=== PATIENT | male | born 1940 | race Caucasian/White ===

== ENCOUNTER 2016-12-08 12:29 | Outpatient (RCR) | payer MEDICARE, MEDICAID ==
[~2016-12-08 12:29] MED LIST: /AUGM875TA; ATARAX; AZEL0.1S3; BACT2CRE; CALC600T21 PO; CALCCHW12; CALCTAB22; CEPH500C; CLAR5CHW; CLOTPOW; DRISDOL; ELIDEL; ELIMITE CREAM; EUCERIN CREAM; FURO1TAB15 PO; HYDR25TA8; K-TA10TA2 PO; KEFL500C; LASI40TA; LORA10TA2 PO; MOME50SP; NASONEX; OMEP20TA PO; PAXI30TA; POTA10CA2; POTA20TA2; PRAV10TA PO; PRIL20CA; TRIAMCINOLONE; TYLE325T5 PO; VITA10002 PO; VITA100037 PO; [UNRECOGNIZED DRUG - OTHER]
== END 2016-12-14 ==
LOC: M PT 12:29
PROVIDERS: ATTEND Nurse Practitioner Family
DX: Z51.89 Encounter for other specified aftercare (principal); S39.012D Strain of muscle, fascia and tendon of lower back, subsequent encounter
CPT/HCPCS: 97110; 97140; 97162; G8978; G8979

== ENCOUNTER 2016-12-15 12:38 | Outpatient (RCR) | payer MEDICARE, MEDICAID | END 2017-01-11 | LOC: M PT 12:38 | PROVIDERS: ATTEND Nurse Practitioner Family | DX: Z51.89 Encounter for other specified aftercare (principal); S39.012D Strain of muscle, fascia and tendon of lower back, subsequent encounter | CPT/HCPCS: 97110; G8978; G8979; G8980 ==

== ENCOUNTER → 2016-12-31 | Outpatient (REF) | payer MEDICARE, MEDICAID ==
[2016-12-31 11:50] LABS: ALBUMIN 3.8 GM/DL (3.2-5.2); BILIRUBIN,TOTAL 0.9 MG/DL (0.2-1.0); CALCIUM LEVEL 8.7 MG/DL (8.8-10.2); CREATININE FOR GFR 1.37 MG/DL (0.70-1.30); GLOMERULAR FILTRATION RATE 53.8 (>42); POTASSIUM SERUM 4.5 MEQ/L (3.5-5.1); TOTAL PROTEIN 7.6 GM/DL (6.4-8.2)
[2016-12-31 11:59] LABS: FOLATE 8.6 NG/ML
[2016-12-31 12:21] LABS: MEAN CORPUSCULAR HEMOGLOBIN 31.4 pg (27.0-33.0); MEAN CORPUSCULAR HGB CONC 33.2 g/dl (32.0-36.5); MEAN CORPUSCULAR VOLUME 94.5 fl (80.0-96.0); RED CELL DISTRIBUTION WIDTH 12.6 % (11.5-14.5); WHITE BLOOD COUNT 7.2 K/mm3 (4.0-10.0)
== END ==
LOC: M SFHCPLAZ 11:10
PROVIDERS: ATTEND Nurse Practitioner Family
DX: E53.8 Deficiency of other specified B group vitamins (principal); R60.0 Localized edema

== ENCOUNTER → 2017-02-16 | Outpatient (REF) | payer MEDICARE, MEDICAID ==
[2017-02-16 13:03] LABS: MEAN CORPUSCULAR HEMOGLOBIN 31.5 pg (27.0-33.0); MEAN CORPUSCULAR HGB CONC 32.9 g/dl (32.0-36.5); MEAN CORPUSCULAR VOLUME 95.8 fl (80.0-96.0); RED CELL DISTRIBUTION WIDTH 12.6 % (11.5-14.5); WHITE BLOOD COUNT 7.1 K/mm3 (4.0-10.0)
[2017-02-16 13:31] LABS: FOLATE 6.9 NG/ML
[2017-02-16 13:39] LABS: ALBUMIN 3.8 GM/DL (3.2-5.2); ALBUMIN/GLOBULIN RATIO 1.15 (1.00-1.93); BILIRUBIN,TOTAL 0.9 MG/DL (0.2-1.0); CALCIUM LEVEL 8.7 MG/DL (8.8-10.2); CREATININE FOR GFR 1.3 MG/DL (0.70-1.30); FREE T4 0.92 NG/DL (0.76-1.46); GLOMERULAR FILTRATION RATE 57.1 (>42); POTASSIUM SERUM 4.2 MEQ/L (3.5-5.1); TOTAL PROTEIN 7.1 GM/DL (6.4-8.2)
== END ==
LOC: M SFHCPLAZ 10:49
PROVIDERS: ATTEND Nurse Practitioner Family
DX: E53.8 Deficiency of other specified B group vitamins (principal); R60.0 Localized edema; E78.2 Mixed hyperlipidemia; E55.9 Vitamin D deficiency, unspecified

== ENCOUNTER → 2017-04-01 | Outpatient (REF) | payer MEDICARE, MEDICAID ==
[2017-04-01 10:06] LABS: ALBUMIN 3.9 GM/DL (3.2-5.2); ALBUMIN/GLOBULIN RATIO 1.08 (1.00-1.93); BILIRUBIN,TOTAL 0.5 MG/DL (0.2-1.0); CALCIUM LEVEL 8.6 MG/DL (8.8-10.2); CREATININE FOR GFR 1.54 MG/DL (0.70-1.30); POTASSIUM SERUM 3.6 MEQ/L (3.5-5.1); TOTAL PROTEIN 7.5 GM/DL (6.4-8.2)
[2017-04-01 10:07] LABS: MEAN CORPUSCULAR HEMOGLOBIN 32.9 pg (27.0-33.0); MEAN CORPUSCULAR HGB CONC 33.5 g/dl (32.0-36.5); RED CELL DISTRIBUTION WIDTH 12.7 % (11.5-14.5); WHITE BLOOD COUNT 7.7 K/mm3 (4.0-10.0)
[2017-04-01 10:19] LABS: FOLATE 12.8 NG/ML
== END ==
LOC: M LAB REF 08:59
PROVIDERS: ATTEND Nurse Practitioner Family
DX: E53.8 Deficiency of other specified B group vitamins (principal); R60.0 Localized edema; E55.9 Vitamin D deficiency, unspecified

== ENCOUNTER → 2017-08-15 | Outpatient (CLI) | payer MEDICARE, MEDICAID ==
[~2017-08-15] MED LIST changes: -CALC600T21 PO; +CALC600T60 PO; -FURO1TAB15 PO; +FURO80TA2 PO; -PRAV10TA PO; +PRAV10TA4 PO; -VITA100037 PO; +VITA100067 PO
[2017-08-15 13:45] LABS: FOLATE 9.1 NG/ML
[2017-08-15 14:31] LABS: POTASSIUM SERUM 4.6 MEQ/L (3.5-5.1)
[2017-08-15 15:06] LABS: ALBUMIN/GLOBULIN RATIO 1.14 (1.00-1.93); CALCIUM LEVEL 9.2 MG/DL (8.8-10.2); CREATININE FOR GFR 1.39 MG/DL (0.70-1.30); GLOMERULAR FILTRATION RATE 52.7 (>42); TOTAL PROTEIN 7.5 GM/DL (6.4-8.2)
== END ==
LOC: M SMT 08:38
PROVIDERS: ATTEND Nurse Practitioner Family
DX: R60.0 Localized edema (principal); E55.9 Vitamin D deficiency, unspecified; E53.8 Deficiency of other specified B group vitamins

== ENCOUNTER 2017-10-12 13:57 | Inpatient (IN) | payer MEDICARE, MEDICAID ==
[~2017-10-12] VITALS: Ht 165.1 cm; Wt 79.4 kg
[~2017-10-12 13:57] MED LIST changes: -CETI10TA PO; -FOLI1TAB4 PO; -LEVO500T3 PO; -OCEA0.654; -PATIENT COMMENT; -PROAAER10 INH
--- NOTE | 2017-10-12 15:50 | REP ---
Chest x-ray: Single AP view. History: Dyspnea and cough. Comparison study: October 12, 2017. Findings: The lungs are symmetrically aerated and free of infiltrate. Pleural angles are sharp. There is a dextroconvex thoracolumbar curvature of the spine. Degenerative changes are seen in the thoracic spine. Pulmonary vasculature is not increased. Impression: No active disease. Signed by Cruzito Mari MD 10/12/2017 04:10 P
[2017-10-12 16:39] LABS: BASO # 0.1 10^3/uL (0.0-0.2); BASO % 0.4 % (0.0-1.0); EOS % 0.3 % (0.0-3.0); IMMATURE GRANULOCYTE % 0.4 % (0-0); LYMPH % 9.1 % (24.0-44.0); MEAN CORPUSCULAR HGB CONC 34.2 g/dl (32.0-36.5); MEAN CORPUSCULAR VOLUME 93.3 fl (80.0-96.0); MONO # 1.3 10^3/uL (0.0-0.8); MONO % 11.7 % (0.0-5.0); NEUTROPHILS # 8.7 10^3/uL (1.8-7.7); NEUTROPHILS % 78.1 % (36.0-66.0); PLATELET COUNT, AUTOMATED 264 10^3/uL (150-450); RED CELL DISTRIBUTION WIDTH 13.4 % (11.5-14.5); WHITE BLOOD COUNT 11.2 10^3/uL (4.0-10.0)
[2017-10-12 16:51] LABS: ANION GAP 9 MEQ/L (8-16); BLOOD UREA NITROGEN 19 MG/DL (7-18); CALCIUM LEVEL 8.1 MG/DL (8.8-10.2); CARBON DIOXIDE LEVEL 28 MEQ/L (21-32); CHLORIDE LEVEL 100 MEQ/L (98-107); CREATININE FOR GFR 1.62 MG/DL (0.70-1.30); GLOMERULAR FILTRATION RATE 44.2 (>42); GLUCOSE, FASTING 97 MG/DL (83-110); SODIUM LEVEL 137 MEQ/L (136-145)
[2017-10-12 16:58] LABS: ALBUMIN 3.3 GM/DL (3.2-5.2); ALBUMIN/GLOBULIN RATIO 0.7 (1.00-1.93); BILIRUBIN,DIRECT 0.2 MG/DL (0.0-0.2); BILIRUBIN,TOTAL 0.9 MG/DL (0.2-1.0)
[2017-10-12] MEDS ORDERED: NS 500 ML IV ONE (17:15)
[2017-10-12] MEDS ORDERED: NS 1,000 ML IV ONE (17:30)
--- NOTE | 2017-10-12 19:18 | REP ---
Clinical: Acute abdominal pain with diarrhea. Comparison: 05/02/2011. Findings: Lung bases demonstrate mild chronic interstitial changes. Visualized heart and pericardium normal. Liver, spleen, pancreas, gallbladder, and bilateral adrenal glands appear normal. Mild bilateral perinephric stranding is appreciated which is nonspecific and possibly chronic although correlation with urinalysis is recommended to exclude pyelonephritis. There is no associated hydronephrosis, intrarenal or obstructing ureteral calculi. Evaluation of the enteric system is without obstruction. Subtle haziness to the mesentery with mildly prominent lymph nodes to the mid/left abdomen suggest the possibility of a mild enteritis or mesenteritis. The colon demonstrates scattered and sigmoid diverticulosis without evidence for acute diverticulitis. No free air, free fluid or drainable collection/abscess. Pelvis demonstrates normal bladder and chronic prostatic calcifications. Fat containing right and inguinal hernia noted. No retroperitoneal adenopathy. Abdominal aorta without aneurysm. Musculoskeletal structures demonstrate age-related degenerative changes without focal osseous abnormality. Impression: 1. Mild symmetric perinephric stranding is likely chronic although acute pyelonephritis cannot be excluded and should be correlated with urinalysis. 2. Mild haziness to the mid to left abdominal mesentery with subtle prominent lymph nodes raises the possibility of a mild enteritis and/or mesenteritis. No obstruction or perforation. Colonic diverticula without acute diverticulitis. 3. No further significant adenopathy, mass, free fluid/ascites. Signed by Matthew Boone MD 10/12/2017 07:09 P
--- NOTE | 2017-10-12 20:46 | ECGEPIP ---
Stationary ECG Study [facility] - ED Test Date: 2017-10-12 Pat Name: MANDO KELLEY Department: Room: - Gender: M Manufacturing Engineer Chief: cecy : 1940 Requested By: RUMA Subramanian PA-C Order Number: [id number] Reading MD: Ruba Mcduffie Measurements Intervals [place] Rate: 87 P: 46 KS: 162 QRS: 38 QRSD: 89 T: 28 QT: 288 QTc: 348 Interpretive Statements SINUS RHYTHM NONSPECIFIC T-WAVE ABNORMALITY LOW VOLTAGE LIMB SIMILAR 10/01/15 Electronically Signed On 10-12-2017 20:45:43 EST by Ruba Mcduffie
[2017-10-12 23:32] LABS: CALCIUM LEVEL 7.7 MG/DL (8.8-10.2); CREATININE FOR GFR 1.47 MG/DL (0.70-1.30); GLOMERULAR FILTRATION RATE 49.5 (>42); POTASSIUM SERUM 3.6 MEQ/L (3.5-5.1)
[2017-10-12] MEDS ORDERED: OCEA0.654 (23:59)
[2017-10-12] MEDS ORDERED: PROAAER10 INH (23:59)
[2017-10-12] MEDS ORDERED: CETI10TA PO (23:59)
[2017-10-12] MEDS ORDERED: FOLI1TAB4 PO (23:59)
[2017-10-12] MEDS ORDERED: PATIENT COMMENT (23:59)
[2017-10-12] MEDS ORDERED: LORA10TA2 PO (23:59)
[2017-10-12] MEDS ORDERED: LEVO500T3 PO (23:59)
[2017-10-13] MEDS ORDERED: NS 1,000 ML IV SCH (00:30)
[2017-10-13] MEDS ORDERED: ONDANSETRON 4MG/2ML VIAL (J2405) IV PRN (00:30)
[2017-10-13] MEDS ORDERED: ACETAMINOPHEN TAB 650MG DOSE (2X325MG) PO PRN (00:30)
--- NOTE | 2017-10-13 00:33 | HPEPDOC ---
General Date of Admission Oct 12, 2017 at 13:58 Chief Complaint The patient is a 77-year-old male admitted with a reason for visit of Angelito, Gastroenteritis. Home Medications Scheduled Cetirizine HCl (Cetirizine HCl) 10 Mg Tab, 10 MG PO DAILY, (Reported) Folic Acid (Folic Acid) 1 Mg Tab, 1 MG PO DAILY, (Reported) Levofloxacin Hemihydrate (Levofloxacin) 500 Mg Tab, 500 MG PO DAILY, (Reported) Loratadine (Loratadine) 10 Mg Tab, 10 MG PO DAILY, (Reported) Scheduled PRN Albuterol Sulfate (Proair Hfa) 108 Mcg/Act Aer, 2 PUFF INH Q4H PRN for SHORTNESS OF BREATH, (Reported) Sodium Chloride ([place] Nasal [place]) 0.65 % Spr, 1 SPRAY NA QID PRN for NASAL DRYNESS, (Reported) EACH NOSTRIL Miscellaneous Medications [Patient Comment] , (Reported) PATIENT SEEMS OUT OF PLACE. UNSURE OF HIS MEDICATIONS. PUT THE MEDICATIONS HE HAD IN POSSESSION IN MED REC AND GOING TO TRY TO CALL PHARMACY IN MORNING. Allergies Coded Allergies: No Known Allergies (Verified Allergy, Unknown, 04/22/09) Vital Signs Vital Signs Date Time Temp Pulse Resp B/P (MAP) Pulse Ox O2 Delivery O2 Flow Rate FiO2 10/12/17 23:01 75 16 112/58 (76) 97 Room Air 10/12/17 13:57 99.5 Laboratory Data Labs 24H Laboratory Tests 2 10/12/17 16:15: Immature Granulocyte % (Auto) 0.4H, White Blood Count 11.2H, Red Blood Count 5.10, Hemoglobin 16.3, Hematocrit 47.6, Mean Corpuscular Volume 93.3, Mean Corpuscular Hemoglobin 32.0, Mean Corpuscular Hemoglobin Concent 34.2, Red Cell Distribution Width 13.4, Platelet Count 264, Neutrophils (%) (Auto) 78.1H, Lymphocytes (%) (Auto) 9.1L, Monocytes (%) (Auto) 11.7H, Eosinophils (%) (Auto) 0.3, Basophils (%) (Auto) 0.4, Neutrophils # (Auto) 8.7H, Lymphocytes # (Auto) 1.0L, Monocytes # (Auto) 1.3H, Eosinophils # (Auto) 0.0, Basophils # (Auto) 0.1 , Immature Granulocyte # (Auto) 0.1H, Nucleated Red Blood Cells % (auto) 0.0, Anion Gap 9, Glomerular Filtration Rate 44.2, Lactic Acid Level 2.1*H, Blood Urea Nitrogen 19H, Creatinine 1.62H, Sodium Level 137, Potassium Level 4.0, Chloride Level 100, Carbon Dioxide Level 28, Calcium Level 8.1L, Total Creatine Kinase 179, Aspartate Amino Transf (AST/SGOT) 13, Alanine Aminotransferase (ALT/ SGPT) 13, Alkaline Phosphatase 59, Total Bilirubin 0.9, Direct Bilirubin 0.2, Creatine Kinase MB 1.2, Creatine Kinase MB Relative Index 0.67, Troponin I < 0.02, XD-Zmz-[id number]-Type Natriuretic Peptide 338, Total Protein 8.0, Albumin 3.3, Albumin/Globulin Ratio 0.70L, Thyroid Stimulating Hormone (TSH) 1.950 10/12/17 23:03: Anion Gap 7L, Glomerular Filtration Rate 49.5, Blood Urea Nitrogen 17, Creatinine 1.47H, Sodium Level 136, Potassium Level 3.6, Chloride Level 100, Carbon Dioxide Level 29, Calcium Level 7.7L, Lactic Acid Followup at 4 Hours 1.4 10/12/17 23:54: CBC/BMP Laboratory Tests 10/12/17 16:15 Red Blood Count 5.10, Mean Corpuscular Volume 93.3, Mean Corpuscular Hemoglobin 32.0, Mean Corpuscular Hemoglobin Concent 34.2, Red Cell Distribution Width 13.4 , Neutrophils (%) (Auto) 78.1 H, Lymphocytes (%) (Auto) 9.1 L, Monocytes (%) ( Auto) 11.7 H, Eosinophils (%) (Auto) 0.3, Basophils (%) (Auto) 0.4, Neutrophils # (Auto) 8.7 H, Lymphocytes # (Auto) 1.0 L, Monocytes # (Auto) 1.3 H, Eosinophils # (Auto) 0.0, Basophils # (Auto) 0.1, Calcium Level 8.1 L, Total Creatine Kinase 179 10/12/17 23:03 Calcium Level 7.7 L Microbiology Microbiology 10/12/17 Blood Culture, Received Pending 10/12/17 Blood Culture, Received Pending RANDELL GRULLON DO Oct 13, 2017 00:33
--- NOTE | 2017-10-13 01:09 | HPEPDOC ---
General Date of Admission Oct 12, 2017 at 13:58 Primary Care Physician: A Chief Complaint The patient is a 77-year-old male admitted with a reason for visit of Angelito, Gastroenteritis. Exam Limitations: No limitations Timing/Duration: Day(s) (two days ago) Severity: Moderate Associated Symptoms: Fever, Chills, Nausea, Vomiting, Shortness of breath, Weakness History of Present Illness PCP IS NICOLETTE ELDRIDGE Mr. Chavez a 77-year-old male with past medical history anxiety, depression, eczema, leg edema, obesity, and esophagitis diagnosed by EGD in 2008, history of cellulitis and intellectual disability who presents to the emergency department with a 2 day history of shortness of breath acute in onset accompanied by blurry vision and profuse diarrhea. The patient does have a cognitive disability and did not have anyone at bedside to clarify hpi. He can tell me that his last episode of loose stool was 1 hour ago when he does not think that there is blood nor does it look dark, he has not had fevers, muscle aches, chills nor has he been around anyone that is sick or eating anything out of the normal. He denies recent travel. He states he has been nauseous but has not vomited. Apparently he received Levaquin from his primary care doctor a couple days ago for the shortness of breath he was experiencing. He denies any abdominal pain nor pain with urination or blood in urine. In going through his medications it seems like they have not been filled since June 2017 by review of external med. rec from his pharmacy, the patient however states he still is taking them, they include Lasix 80 qd and pravastatin 40qd. He is also on a rescue inhaler. He states he is not in any pain at the moment. He is apparently incontinent of urine although he cannot tell me why. Home Medications Scheduled Cetirizine HCl (Cetirizine HCl) 10 Mg Tab, 10 MG PO DAILY, (Reported) Folic Acid (Folic Acid) 1 Mg Tab, 1 MG PO DAILY, (Reported) Levofloxacin Hemihydrate (Levofloxacin) 500 Mg Tab, 500 MG PO DAILY, (Reported) Loratadine (Loratadine) 10 Mg Tab, 10 MG PO DAILY, (Reported) Scheduled PRN Albuterol Sulfate (Proair Hfa) 108 Mcg/Act Aer, 2 PUFF INH Q4H PRN for SHORTNESS OF BREATH, (Reported) Sodium Chloride ([place] Nasal [place]) 0.65 % Spr, 1 SPRAY NA QID PRN for NASAL DRYNESS, (Reported) EACH NOSTRIL Miscellaneous Medications [Patient Comment] , (Reported) PATIENT SEEMS OUT OF PLACE. UNSURE OF HIS MEDICATIONS. PUT THE MEDICATIONS HE HAD IN POSSESSION IN MED REC AND GOING TO TRY TO CALL PHARMACY IN MORNING. Allergies Coded Allergies: No Known Allergies (Verified Allergy, Unknown, 04/22/09) Past Medical History Medical History as per [facility] Surgical History Tonsillectomy Inguinal hernia repair EGD 2008 diagnosis of esophagitis Colonoscopy 2009 Family History Significant Family History: No pertinent family hx Social History * Smoker: Denies Alcohol: Denies Drugs: denies Currently the patient lives by himself in an apartment complex. Review of Symptoms Constitutional: Reports: Malaise, Denies: Chills, Fever, Night Sweats, Weakness, Fatigue Eyes: Reports: Vision change, Denies: Pain ENT: Denies: Head Aches Skin: Denies: Rash Pulmonary: Reports: Dyspnea, Denies: Cough Cardiovascular: Reports: Edema (b/l LE), Denies: Chest Pain, Palpitations, Orthopnea, Lt Headedness Gastrointestinal: Reports: Nausea, Diarrhea, Denies: Vomiting, Abdominal Pain, Constipation, Melena, Hematochezia Genitourinary: Denies: Dysuria Neurological: Denies: Weakness, Numbness Psych: Reports: Mood Normal Physical Examination General Exam: Positive: Alert, Cooperative, No Acute Distress Eye Exam: Positive: Conjunctiva & lids normal, EOMI, Negative: Sclera icteric, Ptosis ENT Exam: Positive: Atraumatic, Mucous membr. moist/pink, Pharynx Normal, Tongue Midline Chest Exam: Positive: Clear to auscultation, Normal air movement, Negative: Rales, Rhonchi, Wheezing, Diminished Heart Exam: Positive: Rate Normal, Normal S1, Normal S2, Negative: Tachycardic, Bradycardic, Murmurs, Rubs Abdomen Exam: Positive: Normal bowel sounds, Soft, Negative: Tenderness, Hepatospenomegaly Extremity Exam: Positive: Edema (+1 b/l LE), Normal pulses, Negative: Clubbing, Cyanosis, Tenderness Skin Exam: Negative: Rash Psych Exam: Positive: Other (cognitive impairment) Vital Signs Vital Signs Date Time Temp Pulse Resp B/P (MAP) Pulse Ox O2 Delivery O2 Flow Rate FiO2 10/13/17 00:52 99.3 72 18 117/72 (87) 96 Room Air Laboratory Data Labs 24H Laboratory Tests 2 10/12/17 16:15: Immature Granulocyte % (Auto) 0.4H, White Blood Count 11.2H, Red Blood Count 5.10, Hemoglobin 16.3, Hematocrit 47.6, Mean Corpuscular Volume 93.3, Mean Corpuscular Hemoglobin 32.0, Mean Corpuscular Hemoglobin Concent 34.2, Red Cell Distribution Width 13.4, Platelet Count 264, Neutrophils (%) (Auto) 78.1H, Lymphocytes (%) (Auto) 9.1L, Monocytes (%) (Auto) 11.7H, Eosinophils (%) (Auto) 0.3, Basophils (%) (Auto) 0.4, Neutrophils # (Auto) 8.7H, Lymphocytes # (Auto) 1.0L, Monocytes # (Auto) 1.3H, Eosinophils # (Auto) 0.0, Basophils # (Auto) 0.1 , Immature Granulocyte # (Auto) 0.1H, Nucleated Red Blood Cells % (auto) 0.0, Anion Gap 9, Glomerular Filtration Rate 44.2, Lactic Acid Level 2.1*H, Blood Urea Nitrogen 19H, Creatinine 1.62H, Sodium Level 137, Potassium Level 4.0, Chloride Level 100, Carbon Dioxide Level 28, Calcium Level 8.1L, Total Creatine Kinase 179, Aspartate Amino Transf (AST/SGOT) 13, Alanine Aminotransferase (ALT/ SGPT) 13, Alkaline Phosphatase 59, Total Bilirubin 0.9, Direct Bilirubin 0.2, Creatine Kinase MB 1.2, Creatine Kinase MB Relative Index 0.67, Troponin I < 0.02, LH-Kyi-J-Type Natriuretic Peptide 338, Total Protein 8.0, Albumin 3.3, Albumin/Globulin Ratio 0.70L, Thyroid Stimulating Hormone (TSH) 1.950 10/12/17 23:03: Anion Gap 7L, Glomerular Filtration Rate 49.5, Blood Urea Nitrogen 17, Creatinine 1.47H, Sodium Level 136, Potassium Level 3.6, Chloride Level 100, Carbon Dioxide Level 29, Calcium Level 7.7L, Lactic Acid Followup at 4 Hours 1.4 10/12/17 23:54: 10/13/17 00:47: CBC/BMP Laboratory Tests 10/12/17 16:15 Red Blood Count 5.10, Mean Corpuscular Volume 93.3, Mean Corpuscular Hemoglobin 32.0, Mean Corpuscular Hemoglobin Concent 34.2, Red Cell Distribution Width 13.4 , Neutrophils (%) (Auto) 78.1 H, Lymphocytes (%) (Auto) 9.1 L, Monocytes (%) ( Auto) 11.7 H, Eosinophils (%) (Auto) 0.3, Basophils (%) (Auto) 0.4, Neutrophils # (Auto) 8.7 H, Lymphocytes # (Auto) 1.0 L, Monocytes # (Auto) 1.3 H, Eosinophils # (Auto) 0.0, Basophils # (Auto) 0.1, Calcium Level 8.1 L, Total Creatine Kinase 179 10/12/17 23:03 Calcium Level 7.7 L Microbiology Microbiology 10/12/17 Blood Culture, Received Pending 10/12/17 Blood Culture, Received Pending Assessment/Plan 77 y/o male presents for two days with acute onset of SOB and nausea with loose stool. 1. Gastroenteritis -GI panel pending -pts WBC at 11.2, lactic elevated to 2.1, pt afebrile -CT ab/pelvis demonstrated enteritis with no obstruction or perforation nor free fluid or mass, suggested possible acute pyelonephritis with clinical correlation recommended -Will hold abx for now, should pt become febrile or develop increase in WBC count, may consider adding on abx coverage -advance diet as tolerated -fluid therapy 2. Chronic kidney disease -Creatine today 1.47, seems baseline is between 1.3-1.6 -fluid therapy d5 1/2 ns at 60 -u/a pending-may consider add on abx if + for UTI 3. SOB -CXR in ED negative for acute pulmonary process - Duonebs PRN -O2 sat 97 on room, no need for supplemental O2 at this time -continue to monitor 4. Seasonal allergies -c/w home medications 5. intellectual disability -pt states he lives at home by himself -clinical social worker consulted-possible home w/services or placement 6. DVT prophylaxis -heparin Plan / VTE VTE Prophylaxis Ordered?: Yes GME ATTESTATION GME ATTESTATION My faculty preceptor for this patient encounter was physically present during the encounter and was fully available. All aspects of the patient interview, examination, medical decision making process, and medical care plan development were reviewed and approved by the faculty preceptor. The faculty preceptor is aware and concurs with the plan as stated in the body of this note and will attest to such by his/her cosignature. RANDELL GRULLON DO Oct 13, 2017 01:09
[2017-10-13 01:20] VITALS: BP 135/71
[2017-10-13] MEDS ORDERED: IPRATROPIUM 0.5MG/ALBUTEROL 2.5MG INH SOL UD 3ML (DUONEB)(J7620) NEB PRN (01:30)
[2017-10-13] MEDS ORDERED: D5W/0.45% SODIUM CHLORIDE 1,000 ML IV SCH (01:30)
[2017-10-13] MEDS: HEPARIN SOD (PORCINE) 5000 UNITS/ML VIAL SC SCH ×3 (05:12→22:08)
[2017-10-13 06:00] VITALS: BP 116/67
[2017-10-13 07:52] LABS: BASO % 0.2 % (0.0-1.0); EOS # 0.2 10^3/uL (0.0-0.50); EOS % 1.6 % (0.0-3.0); IMMATURE GRANULOCYTE % 0.3 % (0-0); LYMPH % 10.2 % (24.0-44.0); MEAN CORPUSCULAR HGB CONC 34.7 g/dl (32.0-36.5); MEAN CORPUSCULAR VOLUME 92.2 fl (80.0-96.0); MONO # 1.6 10^3/uL (0.0-0.8); MONO % 15.8 % (0.0-5.0); NEUTROPHILS # 7.1 10^3/uL (1.8-7.7); NEUTROPHILS % 71.9 % (36.0-66.0); PLATELET COUNT, AUTOMATED 227 10^3/uL (150-450); RED CELL DISTRIBUTION WIDTH 13.2 % (11.5-14.5); WHITE BLOOD COUNT 9.9 10^3/uL (4.0-10.0)
[2017-10-13 08:19] LABS: ANION GAP 9 MEQ/L (8-16); BLOOD UREA NITROGEN 15 MG/DL (7-18); CALCIUM LEVEL 7.6 MG/DL (8.8-10.2); CARBON DIOXIDE LEVEL 24 MEQ/L (21-32); CHLORIDE LEVEL 105 MEQ/L (98-107); CREATININE FOR GFR 1.18 MG/DL (0.70-1.30); GLOMERULAR FILTRATION RATE > 60.0 (>42); GLUCOSE, FASTING 92 MG/DL (83-110); POTASSIUM SERUM 3.8 MEQ/L (3.5-5.1); SODIUM LEVEL 138 MEQ/L (136-145)
[2017-10-13] MEDS: LACTOBACILLUS ACIDOPHILUS CAP (BACID) PO SCH (09:27)
--- NOTE | 2017-10-13 10:20 | IPNPDOC ---
Subjective Date Seen The patient was seen on 10/13/17. Subjective Chief Complaint/HPI The patient is a 77-year-old male admitted with a reason for visit of Maria Luisa, Gastroenteritis. Events since last encounter Patient was stable overnight according to nursing staff. Patient reports he is still having loose bowel movements but patient is a poor historian due to history of intellectual disability. Nursing said patient most likely had a bowel movement but the patient flushed before the nurse was able to see what the bowel movement looked like. Constitutional: Denies: Chills, Fever ENT: Reports: Head Aches Pulmonary: Denies: Dyspnea Cardiovascular: Denies: Chest Pain Gastrointestinal: Reports: Nausea, Diarrhea Objective Physical Examination General Exam: Positive: Alert, Cooperative, No Acute Distress Chest Exam: Positive: Clear to auscultation, Normal air movement, Negative: Rales, Rhonchi, Wheezing, Diminished Heart Exam: Positive: Rate Normal, Normal S1, Normal S2, Negative: Tachycardic, Bradycardic, Murmurs, Rubs Abdomen Exam: Positive: Normal bowel sounds, Soft, Negative: Tenderness, Hepatospenomegaly Extremity Exam: Negative: Edema Psych Exam: Positive: Other (cognitive impairment) Assessment /Plan Problems (1) Gastroenteritis Status: Acute Response to Treatment: Improving Problem Text: 10/13: Patient is doing better today. GI panel negative. Patient is clinically doing better and nursing reports patient is stable. Continue to monitor for loose bowel movements. (2) MARIA LUISA (acute kidney injury) Status: Resolved Response to Treatment: Improving Problem Text: 10/13: Patients's creatinine is down to 1.18 from 1.47 yesterday. IV hydration discontinued and will encourage PO hydration. Continue to monitor creatinine and GFR as long as patient is in the hospital. (3) Intellectual disability Status: Chronic Problem Text: 10/13: Patient lives by himself with limited services. Patient may need additional services at this time. PFS consult has been placed and we will await their evaluation. Patient is currently on observation and is clinically improving. Patient will need to evaluated to make sure a safe discharge plan is in place prior to discharge. Plan/VTE VTE Prophylaxis Ordered?: Yes Disposition Patient is clinically improving and if he is able to maintain good hydration via PO fluids and his loose bowel movements continue to improve, patient will be clear to be discharged from a medical standpoint (possibly within 24 hours). However, due to the patient's history of intellectual disability, patient will need to be seen by PFS in order to ensure a safe discharge. VS, I&O, 24H, Herb Vital Signs/I&O Vital Signs Date Time Temp Pulse Resp B/P (MAP) Pulse Ox O2 Delivery O2 Flow Rate FiO2 10/13/17 06:00 98.8 73 16 116/67 (83) 96 Room Air Laboratory Data 24H LABS Laboratory Tests 2 10/12/17 16:15: Immature Granulocyte % (Auto) 0.4H, White Blood Count 11.2H, Red Blood Count 5.10, Hemoglobin 16.3, Hematocrit 47.6, Mean Corpuscular Volume 93.3, Mean Corpuscular Hemoglobin 32.0, Mean Corpuscular Hemoglobin Concent 34.2, Red Cell Distribution Width 13.4, Platelet Count 264, Neutrophils (%) (Auto) 78.1H, Lymphocytes (%) (Auto) 9.1L, Monocytes (%) (Auto) 11.7H, Eosinophils (%) (Auto) 0.3, Basophils (%) (Auto) 0.4, Neutrophils # (Auto) 8.7H, Lymphocytes # (Auto) 1.0L, Monocytes # (Auto) 1.3H, Eosinophils # (Auto) 0.0, Basophils # (Auto) 0.1 , Immature Granulocyte # (Auto) 0.1H, Nucleated Red Blood Cells % (auto) 0.0, Anion Gap 9, Glomerular Filtration Rate 44.2, Lactic Acid Level 2.1*H, Blood Urea Nitrogen 19H, Creatinine 1.62H, Sodium Level 137, Potassium Level 4.0, Chloride Level 100, Carbon Dioxide Level 28, Calcium Level 8.1L, Total Creatine Kinase 179, Aspartate Amino Transf (AST/SGOT) 13, Alanine Aminotransferase (ALT/ SGPT) 13, Alkaline Phosphatase 59, Total Bilirubin 0.9, Direct Bilirubin 0.2, Creatine Kinase MB 1.2, Creatine Kinase MB Relative Index 0.67, Troponin I < 0.02, DN-Win-H-Type Natriuretic Peptide 338, Total Protein 8.0, Albumin 3.3, Albumin/Globulin Ratio 0.70L, Thyroid Stimulating Hormone (TSH) 1.950 10/12/17 23:03: Anion Gap 7L, Glomerular Filtration Rate 49.5, Blood Urea Nitrogen 17, Creatinine 1.47H, Sodium Level 136, Potassium Level 3.6, Chloride Level 100, Carbon Dioxide Level 29, Calcium Level 7.7L, Lactic Acid Followup at 4 Hours 1.4 10/12/17 23:54: Urine Blood NEGATIVE, Urine Nitrite NEGATIVE, Urine WBC (Auto) 0, Urine RBC ( Auto) 0, Urine Hyaline Casts (Auto) 0, Urine Bacteria (Auto) NEGATIVE, Urine Squamous Epithelial Cells 0, Urine Mucus (Auto) SMALL, Urine Sperm (Auto) 10/13/17 00:47: Estimated Mean Plasma Glucose 123H, Hemoglobin A1c 5.9 10/13/17 07:26: Immature Granulocyte % (Auto) 0.3H, White Blood Count 9.9, Red Blood Count 4.62 , Hemoglobin 14.8, Hematocrit 42.6, Mean Corpuscular Volume 92.2, Mean Corpuscular Hemoglobin 32.0, Mean Corpuscular Hemoglobin Concent 34.7, Red Cell Distribution Width 13.2, Platelet Count 227, Neutrophils (%) (Auto) 71.9H, Lymphocytes (%) (Auto) 10.2L, Monocytes (%) (Auto) 15.8H, Eosinophils (%) (Auto ) 1.6, Basophils (%) (Auto) 0.2, Neutrophils # (Auto) 7.1, Lymphocytes # (Auto) 1.0L, Monocytes # (Auto) 1.6H, Eosinophils # (Auto) 0.2, Basophils # (Auto) 0.0 , Immature Granulocyte # (Auto) 0.0, Nucleated Red Blood Cells % (auto) 0.0, Anion Gap 9, Glomerular Filtration Rate > 60.0, Blood Urea Nitrogen 15, Creatinine 1.18, Sodium Level 138, Potassium Level 3.8, Chloride Level 105, Carbon Dioxide Level 24, Calcium Level 7.6L CBC/BMP Laboratory Tests 10/12/17 16:15 Red Blood Count 5.10, Mean Corpuscular Volume 93.3, Mean Corpuscular Hemoglobin 32.0, Mean Corpuscular Hemoglobin Concent 34.2, Red Cell Distribution Width 13.4 , Neutrophils (%) (Auto) 78.1 H, Lymphocytes (%) (Auto) 9.1 L, Monocytes (%) ( Auto) 11.7 H, Eosinophils (%) (Auto) 0.3, Basophils (%) (Auto) 0.4, Neutrophils # (Auto) 8.7 H, Lymphocytes # (Auto) 1.0 L, Monocytes # (Auto) 1.3 H, Eosinophils # (Auto) 0.0, Basophils # (Auto) 0.1, Calcium Level 8.1 L, Total Creatine Kinase 179 10/12/17 23:03 Calcium Level 7.7 L 10/13/17 07:26 Red Blood Count 4.62, Mean Corpuscular Volume 92.2, Mean Corpuscular Hemoglobin 32.0, Mean Corpuscular Hemoglobin Concent 34.7, Red Cell Distribution Width 13.2 , Neutrophils (%) (Auto) 71.9 H, Lymphocytes (%) (Auto) 10.2 L, Monocytes (%) ( Auto) 15.8 H, Eosinophils (%) (Auto) 1.6, Basophils (%) (Auto) 0.2, Neutrophils # (Auto) 7.1, Lymphocytes # (Auto) 1.0 L, Monocytes # (Auto) 1.6 H, Eosinophils # (Auto) 0.2, Basophils # (Auto) 0.0, Calcium Level 7.6 L Microbiology Microbiology 10/12/17 Blood Culture, Received Pending 10/12/17 Blood Culture, Received Pending 10/13/17 Gastrointestinal Tract Panel (PCR), Received Pending GME ATTESTATION GME ATTESTATION My faculty preceptor for this patient encounter was physically present during the encounter and was fully available. All aspects of the patient interview, examination, medical decision making process, and medical care plan development were reviewed and approved by the faculty preceptor. The faculty preceptor is aware and concurs with the plan as stated in the body of this note and will attest to such by his/her cosignature. UGO WILSON DO Oct 13, 2017 10:20 Braydon Larios MD Oct 14, 2017 12:32
[2017-10-13 14:00] VITALS: BP 116/68
[2017-10-13 22:00] VITALS: BP 107/56
[2017-10-14] MEDS ORDERED: NYSTATIN 100,000 UNITS/GM TOPICAL PWD 15 GM TOP PRN (03:45)
[2017-10-14] MEDS: HEPARIN SOD (PORCINE) 5000 UNITS/ML VIAL SC SCH ×3 (05:11→21:19)
[2017-10-14 06:00] VITALS: BP 98/56
[2017-10-14 06:12] LABS: BASO % 0.5 % (0.0-1.0); EOS # 0.4 10^3/uL (0.0-0.50); EOS % 4.8 % (0.0-3.0); IMMATURE GRANULOCYTE % 0.4 % (0-0); LYMPH # 1.6 10^3/uL (1.5-4.5); LYMPH % 19.6 % (24.0-44.0); MEAN CORPUSCULAR HEMOGLOBIN 31.5 pg (27.0-33.0); MEAN CORPUSCULAR HGB CONC 34.2 g/dl (32.0-36.5); MEAN CORPUSCULAR VOLUME 92.1 fl (80.0-96.0); MONO # 1.3 10^3/uL (0.0-0.8); MONO % 16.1 % (0.0-5.0); NEUTROPHILS # 4.9 10^3/uL (1.8-7.7); NEUTROPHILS % 58.6 % (36.0-66.0); PLATELET COUNT, AUTOMATED 250 10^3/uL (150-450); RED CELL DISTRIBUTION WIDTH 13.2 % (11.5-14.5); WHITE BLOOD COUNT 8.3 10^3/uL (4.0-10.0)
[2017-10-14 06:30] LABS: ANION GAP 6 MEQ/L (8-16); BLOOD UREA NITROGEN 13 MG/DL (7-18); CALCIUM LEVEL 7.6 MG/DL (8.8-10.2); CARBON DIOXIDE LEVEL 29 MEQ/L (21-32); CHLORIDE LEVEL 105 MEQ/L (98-107); CREATININE FOR GFR 1.07 MG/DL (0.70-1.30); GLOMERULAR FILTRATION RATE > 60.0 (>42); GLUCOSE, FASTING 91 MG/DL (83-110); POTASSIUM SERUM 3.8 MEQ/L (3.5-5.1); SODIUM LEVEL 140 MEQ/L (136-145)
[2017-10-14] MEDS: LACTOBACILLUS ACIDOPHILUS CAP (BACID) PO SCH (08:34)
[2017-10-14] MEDS ORDERED: INFLUENZA VIRUS VACCINE HIGH DOSE 0.5 ML SYRINGE (90662) IM ONE (09:00)
--- NOTE | 2017-10-14 11:46 | IPNPDOC ---
Subjective Date Seen The patient was seen on 10/14/17. Subjective Chief Complaint/HPI The patient is a 77-year-old male admitted with a reason for visit of Angelito, Gastroenteritis. Events since last encounter Not eating much per I & os. deneis n/v. no diarrhea documented Constitutional: Denies: Chills, Fever Pulmonary: Denies: Dyspnea, Cough Cardiovascular: Denies: Chest Pain, Palpitations Gastrointestinal: Denies: Nausea, Vomiting, Abdominal Pain, Diarrhea, Constipation Objective Physical Examination General Exam: Positive: Alert, Cooperative, No Acute Distress ENT Exam: Positive: Other ENT (slightly tender to palpation and percussion maxillary and frontal sinuses) Chest Exam: Positive: Clear to auscultation, Normal air movement, Negative: Rales, Rhonchi, Wheezing, Diminished Heart Exam: Positive: Rate Normal, Normal S1, Normal S2, Negative: Tachycardic, Bradycardic, Murmurs, Rubs Abdomen Exam: Positive: Normal bowel sounds, Soft, Negative: Tenderness, Hepatospenomegaly Extremity Exam: Negative: Edema Psych Exam: Positive: Other (cognitive impairment) Assessment /Plan Problems (1) Hypotension Status: Acute Problem Text: Likely still with slight dehydration. restart IVF Home diuretics on hod (normally on Lasix for Le edema) (2) ANGELITO (acute kidney injury) Status: Resolved Response to Treatment: Improving Problem Text: 10/14 - Renal function has normalized with IVf 10/13: Patients's creatinine is down to 1.18 from 1.47 yesterday. IV hydration discontinued and will encourage PO hydration. Continue to monitor creatinine and GFR as long as patient is in the hospital. (3) Gastroenteritis Status: Acute Response to Treatment: Improving Problem Text: 10/14 - Not eating much but no n/v or diarrhea 10/13: Patient is doing better today. GI panel negative. Patient is clinically doing better and nursing reports patient is stable. Continue to monitor for loose bowel movements. (4) Intellectual disability Status: Chronic Problem Text: 10/13: Patient lives by himself with limited services. Patient may need additional services at this time. PFS consult has been placed and we will await their evaluation. Patient is currently on observation and is clinically improving. Patient will need to evaluated to make sure a safe discharge plan is in place prior to discharge. (5) Facial pain Status: Acute Response to Treatment: Stable Problem Text: reports facial pain and believes he has sinus problem. tender to percussion and pressure on sinuses, maxillary, frontals. Xray ordered. 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 VS, I&O, 24H, Fishbone Vital Signs/I&O Vital Signs Date Time Temp Pulse Resp B/P (MAP) Pulse Ox O2 Delivery O2 Flow Rate FiO2 10/14/17 06:00 98.0 65 18 98/56 (70) 94 Room Air Laboratory Data 24H LABS Laboratory Tests 2 10/14/17 05:55: Immature Granulocyte % (Auto) 0.4H, White Blood Count 8.3, Red Blood Count 4.41 , Hemoglobin 13.9L, Hematocrit 40.6L, Mean Corpuscular Volume 92.1, Mean Corpuscular Hemoglobin 31.5, Mean Corpuscular Hemoglobin Concent 34.2, Red Cell Distribution Width 13.2, Platelet Count 250, Neutrophils (%) (Auto) 58.6, Lymphocytes (%) (Auto) 19.6L, Monocytes (%) (Auto) 16.1H, Eosinophils (%) (Auto ) 4.8H, Basophils (%) (Auto) 0.5, Neutrophils # (Auto) 4.9, Lymphocytes # (Auto ) 1.6, Monocytes # (Auto) 1.3H, Eosinophils # (Auto) 0.4, Basophils # (Auto) 0.0 , Immature Granulocyte # (Auto) 0.0, Nucleated Red Blood Cells % (auto) 0.0, Anion Gap 6L, Glomerular Filtration Rate > 60.0, Blood Urea Nitrogen 13, Creatinine 1.07, Sodium Level 140, Potassium Level 3.8, Chloride Level 105, Carbon Dioxide Level 29, Calcium Level 7.6L CBC/BMP Laboratory Tests 10/14/17 05:55 Red Blood Count 4.41, Mean Corpuscular Volume 92.1, Mean Corpuscular Hemoglobin 31.5, Mean Corpuscular Hemoglobin Concent 34.2, Red Cell Distribution Width 13.2 , Neutrophils (%) (Auto) 58.6, Lymphocytes (%) (Auto) 19.6 L, Monocytes (%) ( Auto) 16.1 H, Eosinophils (%) (Auto) 4.8 H, Basophils (%) (Auto) 0.5, Neutrophils # (Auto) 4.9, Lymphocytes # (Auto) 1.6, Monocytes # (Auto) 1.3 H, Eosinophils # (Auto) 0.4, Basophils # (Auto) 0.0, Calcium Level 7.6 L Microbiology Microbiology 10/12/17 Blood Culture - Preliminary, Resulted No growth after 24 hours . All specim... 10/12/17 Blood Culture - Preliminary, Resulted No growth after 24 hours . All specim... 10/13/17 Gastrointestinal Tract Panel (PCR) - Final, Complete HARMONY GRULLON PA-C Oct 14, 2017 11:46 Braydon Larios MD Oct 14, 2017 12:34
[2017-10-14] MEDS: NS 1,000 ML IV SCH (12:01)
--- NOTE | 2017-10-14 13:53 | REP ---
SINUSES, FOUR VIEWS: HISTORY: Facial pain. Minimal mucosa thickening is present in the maxillary sinuses. The remaining sinuses are clear. There is no fracture or bone lesion. IMPRESSION: Minimal maxillary sinus mucosal thickening. Signed by Darrin Pino MD 10/14/2017 02:09 P
[2017-10-14 14:00] VITALS: BP 107/67
[2017-10-14 22:00] VITALS: BP 137/63
[2017-10-15] MEDS: NS 1,000 ML IV SCH ×2 (00:30→13:00)
[2017-10-15] MEDS: HEPARIN SOD (PORCINE) 5000 UNITS/ML VIAL SC SCH ×3 (05:28→21:12)
[2017-10-15 06:00] VITALS: BP 103/55
[2017-10-15 06:06] LABS: BASO % 0.5 % (0.0-1.0); EOS # 0.4 10^3/uL (0.0-0.50); EOS % 5.1 % (0.0-3.0); IMMATURE GRANULOCYTE % 0.5 % (0-0); LYMPH # 1.8 10^3/uL (1.5-4.5); LYMPH % 20.4 % (24.0-44.0); MEAN CORPUSCULAR HGB CONC 34.4 g/dl (32.0-36.5); MONO % 11.7 % (0.0-5.0); NEUTROPHILS # 5.3 10^3/uL (1.8-7.7); NEUTROPHILS % 61.8 % (36.0-66.0); PLATELET COUNT, AUTOMATED 280 10^3/uL (150-450); RED CELL DISTRIBUTION WIDTH 13.2 % (11.5-14.5); WHITE BLOOD COUNT 8.6 10^3/uL (4.0-10.0)
[2017-10-15 06:27] LABS: ANION GAP 8 MEQ/L (8-16); BLOOD UREA NITROGEN 10 MG/DL (7-18); CALCIUM LEVEL 7.8 MG/DL (8.8-10.2); CARBON DIOXIDE LEVEL 26 MEQ/L (21-32); CHLORIDE LEVEL 108 MEQ/L (98-107); CREATININE FOR GFR 1.03 MG/DL (0.70-1.30); GLOMERULAR FILTRATION RATE > 60.0 (>42); GLUCOSE, FASTING 95 MG/DL (83-110); POTASSIUM SERUM 3.8 MEQ/L (3.5-5.1); SODIUM LEVEL 142 MEQ/L (136-145)
[2017-10-15] MEDS ORDERED: ALBUTEROL 90 MCG/ACT 8GM HFA INHALER INH PRN (09:00)
[2017-10-15] MEDS: LACTOBACILLUS ACIDOPHILUS CAP (BACID) PO SCH (09:09)
--- NOTE | 2017-10-15 10:15 | IPNPDOC ---
Subjective Date Seen The patient was seen on 10/15/17. Subjective Chief Complaint/HPI The patient is a 77-year-old male admitted with a reason for visit of Angelito, Gastroenteritis. Events since last encounter Patient is doing well overnight. Patient is no longer complaining of abdominal pain. Patient is able to tolerate solid food. Constitutional: Denies: Chills, Fever Pulmonary: Reports: Dyspnea (Patient was asking for home inhaler because he was reporting some trouble breathing.) Cardiovascular: Denies: Chest Pain Gastrointestinal: Denies: Nausea, Vomiting Objective Physical Examination General Exam: Positive: Alert, Cooperative, No Acute Distress Chest Exam: Positive: Clear to auscultation, Normal air movement, Negative: Rales, Rhonchi, Wheezing, Diminished Heart Exam: Positive: Rate Normal, Normal S1, Normal S2, Negative: Tachycardic, Bradycardic, Murmurs, Rubs Abdomen Exam: Positive: Normal bowel sounds, Soft, Negative: Tenderness, Hepatospenomegaly Extremity Exam: Negative: Edema Psych Exam: Positive: Other (cognitive impairment) Assessment /Plan Problems (1) Hypotension Status: Acute Problem Text: 10/15: Blood pressure was 137/63 overnight and 103/55 this morning. Continue IV fluids and push oral hydration. Continue to monitor. 10/14: Likely still with slight dehydration. restart IVF Home diuretics on hod (normally on Lasix for Le edema) (2) ANGELITO (acute kidney injury) Status: Resolved Response to Treatment: Improving Problem Text: 10/15: Renal function remains normal. 10/14 - Renal function has normalized with IVf 10/13: Patients's creatinine is down to 1.18 from 1.47 yesterday. IV hydration discontinued and will encourage PO hydration. Continue to monitor creatinine and GFR as long as patient is in the hospital. (3) Gastroenteritis Status: Acute Response to Treatment: Improving Problem Text: 10/15: Patient able to tolerate breakfast with no issues. 10/14 - Not eating much but no n/v or diarrhea 10/13: Patient is doing better today. GI panel negative. Patient is clinically doing better and nursing reports patient is stable. Continue to monitor for loose bowel movements. (4) Intellectual disability Status: Chronic Problem Text: 10/15: Awaiting PFS consult. 10/13: Patient lives by himself with limited services. Patient may need additional services at this time. PFS consult has been placed and we will await their evaluation. Patient is currently on observation and is clinically improving. Patient will need to evaluated to make sure a safe discharge plan is in place prior to discharge. (5) Facial pain Status: Acute Response to Treatment: Stable Problem Text: 10/15: Patient did not complain of any sinus pain or pressure today. Facial x-ray showed minimal maxillary sinus thickening. 10/14:reports facial pain and believes he has sinus problem. tender to percussion and pressure on sinuses, maxillary, frontals. Xray ordered. Plan/VTE VTE Prophylaxis Ordered?: Yes Disposition Patient does have services at home is usually able to get around by himself. PT says he is not safe for discharge yet and will benefit from 1-2 more sessions. Will wait for PT clearance. Patient will benefit from being discharged on a weekday in order to obtain more services in the community. Probable discharge within 48 hours. VS, I&O, 24H, Fishbone Vital Signs/I&O Vital Signs Date Time Temp Pulse Resp B/P (MAP) Pulse Ox O2 Delivery O2 Flow Rate FiO2 10/15/17 06:00 98.3 70 18 103/55 (71) 93 Room Air I&O- Last 24 Hours up to 6 AM 10/16/17 06:00 Intake Total 200 ml Output Total 0 ml Balance 200 ml Laboratory Data 24H LABS Laboratory Tests 2 10/15/17 05:46: Immature Granulocyte % (Auto) 0.5H, White Blood Count 8.6, Red Blood Count 4.31 , Hemoglobin 13.8L, Hematocrit 40.1L, Mean Corpuscular Volume 93.0, Mean Corpuscular Hemoglobin 32.0, Mean Corpuscular Hemoglobin Concent 34.4, Red Cell Distribution Width 13.2, Platelet Count 280, Neutrophils (%) (Auto) 61.8, Lymphocytes (%) (Auto) 20.4L, Monocytes (%) (Auto) 11.7H, Eosinophils (%) (Auto ) 5.1H, Basophils (%) (Auto) 0.5, Neutrophils # (Auto) 5.3, Lymphocytes # (Auto ) 1.8, Monocytes # (Auto) 1.0H, Eosinophils # (Auto) 0.4, Basophils # (Auto) 0.0 , Immature Granulocyte # (Auto) 0.0, Nucleated Red Blood Cells % (auto) 0.0, Anion Gap 8, Glomerular Filtration Rate > 60.0, Blood Urea Nitrogen 10, Creatinine 1.03, Sodium Level 142, Potassium Level 3.8, Chloride Level 108H, Carbon Dioxide Level 26, Calcium Level 7.8L CBC/BMP Laboratory Tests 10/15/17 05:46 Red Blood Count 4.31, Mean Corpuscular Volume 93.0, Mean Corpuscular Hemoglobin 32.0, Mean Corpuscular Hemoglobin Concent 34.4, Red Cell Distribution Width 13.2 , Neutrophils (%) (Auto) 61.8, Lymphocytes (%) (Auto) 20.4 L, Monocytes (%) ( Auto) 11.7 H, Eosinophils (%) (Auto) 5.1 H, Basophils (%) (Auto) 0.5, Neutrophils # (Auto) 5.3, Lymphocytes # (Auto) 1.8, Monocytes # (Auto) 1.0 H, Eosinophils # (Auto) 0.4, Basophils # (Auto) 0.0, Calcium Level 7.8 L Microbiology Microbiology 10/12/17 Blood Culture - Preliminary, Resulted No Growth after 48 hours. All Specime... 10/12/17 Blood Culture - Preliminary, Resulted No Growth after 48 hours. All Specime... 10/13/17 Gastrointestinal Tract Panel (PCR) - Final, Complete GME ATTESTATION GME ATTESTATION My faculty preceptor for this patient encounter was physically present during the encounter and was fully available. All aspects of the patient interview, examination, medical decision making process, and medical care plan development were reviewed and approved by the faculty preceptor. The faculty preceptor is aware and concurs with the plan as stated in the body of this note and will attest to such by his/her cosignature. ATTENDING NOTE I saw and examined Mr. Chavez this morning; I discussed his care with Dr. Peters and I agree with his note as documented. At this point, patient is improving - if he continues with good PO intake today, we will d/c IVF tomorrow. We will likely need to wait until Tuesday for PFS assistance with discharge planning to ensure that he has all the help at home that he needs. ( KES) UGO PETERS DO Oct 15, 2017 10:15 CHERRY MCCLAIN MD Oct 15, 2017 13:17
[2017-10-15 22:00] VITALS: BP 135/76
[2017-10-16] MEDS: NS 1,000 ML IV SCH (01:30)
[2017-10-16] MEDS: HEPARIN SOD (PORCINE) 5000 UNITS/ML VIAL SC SCH ×3 (05:42→21:05)
[2017-10-16 06:00] VITALS: BP 131/67
[2017-10-16 06:13] LABS: BASO # 0.1 10^3/uL (0.0-0.2); BASO % 0.7 % (0.0-1.0); EOS # 0.5 10^3/uL (0.0-0.50); EOS % 4.3 % (0.0-3.0); IMMATURE GRANULOCYTE % 0.6 % (0-0); LYMPH # 1.8 10^3/uL (1.5-4.5); LYMPH % 17.1 % (24.0-44.0); MEAN CORPUSCULAR HEMOGLOBIN 31.5 pg (27.0-33.0); MEAN CORPUSCULAR HGB CONC 33.9 g/dl (32.0-36.5); MONO # 1.2 10^3/uL (0.0-0.8); MONO % 11.3 % (0.0-5.0); NEUTROPHILS # 6.9 10^3/uL (1.8-7.7); PLATELET COUNT, AUTOMATED 308 10^3/uL (150-450); RED CELL DISTRIBUTION WIDTH 13.1 % (11.5-14.5); WHITE BLOOD COUNT 10.4 10^3/uL (4.0-10.0)
[2017-10-16 06:35] LABS: ANION GAP 6 MEQ/L (8-16); BLOOD UREA NITROGEN 6 MG/DL (7-18); CALCIUM LEVEL 7.9 MG/DL (8.8-10.2); CARBON DIOXIDE LEVEL 28 MEQ/L (21-32); CHLORIDE LEVEL 106 MEQ/L (98-107); CREATININE FOR GFR 0.96 MG/DL (0.70-1.30); GLOMERULAR FILTRATION RATE > 60.0 (>42); GLUCOSE, FASTING 92 MG/DL (83-110); POTASSIUM SERUM 3.7 MEQ/L (3.5-5.1); SODIUM LEVEL 140 MEQ/L (136-145)
[2017-10-16] MEDS: LACTOBACILLUS ACIDOPHILUS CAP (BACID) PO SCH (08:36)
[2017-10-16 14:00] VITALS: BP 140/89
--- NOTE | 2017-10-16 14:01 | IPNPDOC ---
Subjective Date Seen The patient was seen on 10/16/17. Subjective Chief Complaint/HPI The patient is a 77-year-old male admitted with a reason for visit of Maria Luisa, Gastroenteritis. Events since last encounter Reports SOB due to anxiety. Is tolerating PO and offers no acute complaints. No acute events reported overnight by nursing or by patient. Admits to 1 BM this AM. Denies facial pain. General: Reports: Normal Appetite, Denies: Chills Constitutional: Denies: Fever ENT: Reports: Sinus Congestion Pulmonary: Reports: Other Symptoms (SOB due to anxiety), Denies: Cough Cardiovascular: Denies: Chest Pain, Edema Gastrointestinal: Denies: Nausea, Vomiting, Abdominal Pain, Diarrhea, Constipation Psych: Reports: Mood Normal Objective Physical Examination General Exam: Positive: Alert, Cooperative, No Acute Distress Eye Exam: Positive: Other Eye Symptoms (Sclera Nonicteric.) Neck Exam: Positive: Supple, Negative: JVD Chest Exam: Positive: Clear to auscultation, Normal air movement, Negative: Rales, Rhonchi, Wheezing Heart Exam: Positive: Rate Normal, Regular Rhythm, Normal S1, Normal S2, Negative: Murmurs Abdomen Exam: Positive: Normal bowel sounds, Soft, Other (Obese abdomen), Negative: Tenderness, Hepatospenomegaly Extremity Exam: Negative: Clubbing, Cyanosis, Edema, Tenderness Skin Exam: Negative: Rash Psych Exam: Positive: Other (cognitive impairment) Assessment /Plan Assessment 77 yo M is presenting for gastroenteritis and MARIA LUISA. Problems (1) Gastroenteritis Status: Acute Response to Treatment: Improving Problem Text: 10/16: Patient tolerating PO with no complaints of nausea/vomiting /diarrhea/constipation. Had 1 BM this AM that patient himself reports. Continue bacid and encourage PO hydration. 10/15: Patient able to tolerate breakfast with no issues. 10/14 - Not eating much but no n/v or diarrhea 10/13: Patient is doing better today. GI panel negative. Patient is clinically doing better and nursing reports patient is stable. Continue to monitor for loose bowel movements. (2) Leukocytosis Status: Acute Problem Text: WBC of 10.4 today from 8.6 yesterday. Patient afebrile and reports no subjective fevers/chills. Will check CBC tomorrow and monitor for fevers/infectious process. Blood cx have been negative x 72 hours. GI panel was negative. (3) Hypotension Status: Acute Problem Text: 10/17: BP was 131/67 this morning. Have discontinued IVF. Encourage PO hydration. 10/15: Blood pressure was 137/63 overnight and 103/55 this morning. Continue IV fluids and push oral hydration. Continue to monitor. 10/14: Likely still with slight dehydration. restart IVF Home diuretics on hod (normally on Lasix for Le edema) (4) MARIA LUISA (acute kidney injury) Status: Resolved Response to Treatment: Improving Problem Text: 10/17: Kidney function WNL. Have discontinued BMP for tomorrow morning. 10/15: Renal function remains normal. 10/14 - Renal function has normalized with IVf 10/13: Patients's creatinine is down to 1.18 from 1.47 yesterday. IV hydration discontinued and will encourage PO hydration. Continue to monitor creatinine and GFR as long as patient is in the hospital. (5) Intellectual disability Status: Chronic Problem Text: 10/17: Still awaiting PFS consult and PT clearance. Patient in need of appropriate resources for home safety prior to discharge. Will likely discharge tomorrow as soon as PFS services/evaluation complete. 10/15: Awaiting PFS consult. 10/13: Patient lives by himself with limited services. Patient may need additional services at this time. PFS consult has been placed and we will await their evaluation. Patient is currently on observation and is clinically improving. Patient will need to evaluated to make sure a safe discharge plan is in place prior to discharge. (6) Facial pain Status: Resolved Response to Treatment: Stable Problem Text: 10/17: Patient denies facial pain today. 10/15: Patient did not complain of any sinus pain or pressure today. Facial x- ray showed minimal maxillary sinus thickening. 10/14:reports facial pain and believes he has sinus problem. tender to percussion and pressure on sinuses, maxillary, frontals. Xray ordered. Plan/VTE VTE Prophylaxis Ordered?: Yes Plan Diet: Continue Current Therapy: PT, Home Safety Eval Anticipated Discharge: Home With Services Disposition When PFS consult complete and PT clears patient, will be able to discharge. Plan to discharge tomorrow or as soon as PFS/PT clears. VS, I&O, 24H, Fishbone Vital Signs/I&O Vital Signs Date Time Temp Pulse Resp B/P (MAP) Pulse Ox O2 Delivery O2 Flow Rate FiO2 10/16/17 06:00 99.0 73 17 131/67 (88) 94 Room Air I&O- Last 24 Hours up to 6 AM 10/17/17 06:00 Intake Total 240 ml Output Total 300 ml Balance -60 ml Laboratory Data 24H LABS Laboratory Tests 2 10/16/17 05:35: Immature Granulocyte % (Auto) 0.6H, White Blood Count 10.4H, Red Blood Count 4.44, Hemoglobin 14.0, Hematocrit 41.3L, Mean Corpuscular Volume 93.0, Mean Corpuscular Hemoglobin 31.5, Mean Corpuscular Hemoglobin Concent 33.9, Red Cell Distribution Width 13.1, Platelet Count 308, Neutrophils (%) (Auto) 66.0, Lymphocytes (%) (Auto) 17.1L, Monocytes (%) (Auto) 11.3H, Eosinophils (%) (Auto ) 4.3H, Basophils (%) (Auto) 0.7, Neutrophils # (Auto) 6.9, Lymphocytes # (Auto ) 1.8, Monocytes # (Auto) 1.2H, Eosinophils # (Auto) 0.5, Basophils # (Auto) 0.1 , Immature Granulocyte # (Auto) 0.1H, Nucleated Red Blood Cells % (auto) 0.0, Anion Gap 6L, Glomerular Filtration Rate > 60.0, Blood Urea Nitrogen 6L, Creatinine 0.96, Sodium Level 140, Potassium Level 3.7, Chloride Level 106, Carbon Dioxide Level 28, Calcium Level 7.9L CBC/BMP Laboratory Tests 10/16/17 05:35 Red Blood Count 4.44, Mean Corpuscular Volume 93.0, Mean Corpuscular Hemoglobin 31.5, Mean Corpuscular Hemoglobin Concent 33.9, Red Cell Distribution Width 13.1 , Neutrophils (%) (Auto) 66.0, Lymphocytes (%) (Auto) 17.1 L, Monocytes (%) ( Auto) 11.3 H, Eosinophils (%) (Auto) 4.3 H, Basophils (%) (Auto) 0.7, Neutrophils # (Auto) 6.9, Lymphocytes # (Auto) 1.8, Monocytes # (Auto) 1.2 H, Eosinophils # (Auto) 0.5, Basophils # (Auto) 0.1, Calcium Level 7.9 L Microbiology Microbiology 10/12/17 Blood Culture - Preliminary, Resulted No Growth after 72 hours. All specime... 10/12/17 Blood Culture - Preliminary, Resulted No Growth after 72 hours. All specime... 10/13/17 Gastrointestinal Tract Panel (PCR) - Final, Complete GME ATTESTATION GME ATTESTATION My faculty preceptor for this patient encounter was Dr. Liza Beltran, and was physically present during the encounter and was fully available. All aspects of the patient interview, examination, medical decision making process, and medical care plan development were reviewed and approved by the faculty preceptor. The faculty preceptor is aware and concurs with the plan as stated in the body of this note and will attest to such by his/her cosignature. ATTENDING NOTE I saw and examined Mr. Chavez this morning; I discussed his care with Dr. Amanda and I agree with her note as documented. I anticipate discharge tomorrow once cleared by PT with PFS assistance. (KES) JE AMANDA OGME-1 Oct 16, 2017 14:01 LIZA BELTRAN MD Oct 16, 2017 16:06
[2017-10-16 22:00] VITALS: BP 111/63
[2017-10-17] MEDS: HEPARIN SOD (PORCINE) 5000 UNITS/ML VIAL SC SCH ×3 (05:47→22:01)
[2017-10-17 05:50] LABS: BASO # 0.1 10^3/uL (0.0-0.2); BASO % 0.6 % (0.0-1.0); EOS # 0.5 10^3/uL (0.0-0.50); EOS % 4.6 % (0.0-3.0); IMMATURE GRANULOCYTE % 1.1 % (0-0); LYMPH # 2.4 10^3/uL (1.5-4.5); LYMPH % 21.5 % (24.0-44.0); MEAN CORPUSCULAR HEMOGLOBIN 31.7 pg (27.0-33.0); MEAN CORPUSCULAR HGB CONC 34.5 g/dl (32.0-36.5); MEAN CORPUSCULAR VOLUME 91.7 fl (80.0-96.0); MONO # 1.2 10^3/uL (0.0-0.8); MONO % 10.7 % (0.0-5.0); NEUTROPHILS # 6.8 10^3/uL (1.8-7.7); NEUTROPHILS % 61.5 % (36.0-66.0); PLATELET COUNT, AUTOMATED 358 10^3/uL (150-450); WHITE BLOOD COUNT 11.1 10^3/uL (4.0-10.0)
[2017-10-17 06:00] VITALS: BP 105/64
[2017-10-17] MEDS: LACTOBACILLUS ACIDOPHILUS CAP (BACID) PO SCH (10:12)
--- NOTE | 2017-10-17 11:07 | IPNPDOC ---
Subjective Date Seen The patient was seen on 10/17/17. Subjective Chief Complaint/HPI The patient is a 77-year-old male admitted with a reason for visit of Angel[place], Gastroenteritis. Events since last encounter Patient is doing well overnight. Patient is able to tolerate oral intake. No acute concerns. Constitutional: Denies: Chills, Fever, Night Sweats Pulmonary: Denies: Dyspnea Cardiovascular: Denies: Chest Pain Objective Physical Examination General Exam: Positive: Alert, Cooperative, No Acute Distress Chest Exam: Positive: Clear to auscultation, Normal air movement, Negative: Rales, Rhonchi, Wheezing Heart Exam: Positive: Rate Normal, Regular Rhythm, Normal S1, Normal S2, Negative: Murmurs Abdomen Exam: Positive: Normal bowel sounds, Soft, Negative: Tenderness, Hepatospenomegaly Extremity Exam: Negative: Edema Psych Exam: Positive: Other (cognitive impairment) Assessment /Plan Problems (1) Gastroenteritis Status: Acute Response to Treatment: Improving Problem Text: 10/17: Patient tolerating PO intake without any complaints. Continue to encourage PO fluids. 10/16: Patient tolerating PO with no complaints of nausea/vomiting/diarrhea/ constipation. Had 1 BM this AM that patient himself reports. Continue bacid and encourage PO hydration. 10/15: Patient able to tolerate breakfast with no issues. 10/14 - Not eating much but no n/v or diarrhea 10/13: Patient is doing better today. GI panel negative. Patient is clinically doing better and nursing reports patient is stable. Continue to monitor for loose bowel movements. (2) Leukocytosis Status: Acute Problem Text: 10/17: WBC today 11.1. Patient is afebrile and and feels subjectively well. 10/16:WBC of 10.4 today from 8.6 yesterday. Patient afebrile and reports no subjective fevers/chills. Will check CBC tomorrow and monitor for fevers/ infectious process. Blood cx have been negative x 72 hours. GI panel was negative. (3) Hypotension Status: Acute Problem Text: 10/17: Patient's blood pressure was 105/64 today. Encourage PO hydration. 10/16: BP was 131/67 this morning. Have discontinued IVF. Encourage PO hydration. 10/15: Blood pressure was 137/63 overnight and 103/55 this morning. Continue IV fluids and push oral hydration. Continue to monitor. 10/14: Likely still with slight dehydration. restart IVF Home diuretics on hod (normally on Lasix for Le edema) (4) ANGELITO (acute kidney injury) Status: Resolved Response to Treatment: Improving Problem Text: 10/16: Kidney function WNL. Have discontinued BMP for tomorrow morning. 10/15: Renal function remains normal. 10/14 - Renal function has normalized with IVf 10/13: Patients's creatinine is down to 1.18 from 1.47 yesterday. IV hydration discontinued and will encourage PO hydration. Continue to monitor creatinine and GFR as long as patient is in the hospital. (5) Intellectual disability Status: Chronic Problem Text: 10/17: Patient was seen by PT today, was able to walk for PT, cleared for discharge. We are still waiting on PFS consult, new order for consult was placed 10/16: Still awaiting PFS consult and PT clearance. Patient in need of appropriate resources for home safety prior to discharge. Will likely discharge tomorrow as soon as PFS services/evaluation complete. 10/15: Awaiting PFS consult. 10/13: Patient lives by himself with limited services. Patient may need additional services at this time. PFS consult has been placed and we will await their evaluation. Patient is currently on observation and is clinically improving. Patient will need to evaluated to make sure a safe discharge plan is in place prior to discharge. (6) Facial pain Status: Resolved Response to Treatment: Stable Problem Text: 10/16: Patient denies facial pain today. 10/15: Patient did not complain of any sinus pain or pressure today. Facial x- ray showed minimal maxillary sinus thickening. 10/14:reports facial pain and believes he has sinus problem. tender to percussion and pressure on sinuses, maxillary, frontals. Xray ordered. Plan/VTE VTE Prophylaxis Ordered?: Yes Plan Diet: Continue Current Therapy: PT, Home Safety Eval Anticipated Discharge: Home With Services Disposition Patient will be able to be discharged once seen and cleared by PFS. Anticipate discharge within 24 hours VS, I&O, 24H, Fishbone Vital Signs/I&O Vital Signs Date Time Temp Pulse Resp B/P (MAP) Pulse Ox O2 Delivery O2 Flow Rate FiO2 10/17/17 06:00 98.0 63 18 105/64 (78) 96 Room Air Laboratory Data 24H LABS Laboratory Tests 2 10/17/17 05:15: Immature Granulocyte % (Auto) 1.1H, White Blood Count 11.1H, Red Blood Count 4.58, Hemoglobin 14.5, Hematocrit 42.0, Mean Corpuscular Volume 91.7, Mean Corpuscular Hemoglobin 31.7, Mean Corpuscular Hemoglobin Concent 34.5, Red Cell Distribution Width 13.0, Platelet Count 358, Neutrophils (%) (Auto) 61.5, Lymphocytes (%) (Auto) 21.5L, Monocytes (%) (Auto) 10.7H, Eosinophils (%) (Auto ) 4.6H, Basophils (%) (Auto) 0.6, Neutrophils # (Auto) 6.8, Lymphocytes # (Auto ) 2.4, Monocytes # (Auto) 1.2H, Eosinophils # (Auto) 0.5, Basophils # (Auto) 0.1 , Immature Granulocyte # (Auto) 0.1H, Nucleated Red Blood Cells % (auto) 0.0 CBC/BMP Laboratory Tests 10/17/17 05:15 Red Blood Count 4.58, Mean Corpuscular Volume 91.7, Mean Corpuscular Hemoglobin 31.7, Mean Corpuscular Hemoglobin Concent 34.5, Red Cell Distribution Width 13.0 , Neutrophils (%) (Auto) 61.5, Lymphocytes (%) (Auto) 21.5 L, Monocytes (%) ( Auto) 10.7 H, Eosinophils (%) (Auto) 4.6 H, Basophils (%) (Auto) 0.6, Neutrophils # (Auto) 6.8, Lymphocytes # (Auto) 2.4, Monocytes # (Auto) 1.2 H, Eosinophils # (Auto) 0.5, Basophils # (Auto) 0.1 Microbiology Microbiology 10/12/17 Blood Culture - Preliminary, Resulted No Growth after 72 hours. All specime... 10/12/17 Blood Culture - Preliminary, Resulted No Growth after 72 hours. All specime... 10/13/17 Gastrointestinal Tract Panel (PCR) - Final, Complete GME ATTESTATION GME ATTESTATION My faculty preceptor for this patient encounter was physically present during the encounter and was fully available. All aspects of the patient interview, examination, medical decision making process, and medical care plan development were reviewed and approved by the faculty preceptor. The faculty preceptor is aware and concurs with the plan as stated in the body of this note and will attest to such by his/her cosignature. UGO WILSON DO Oct 17, 2017 11:07
[2017-10-17 14:00] VITALS: BP 137/77
[2017-10-17 22:00] VITALS: BP 122/74
[2017-10-18] MEDS: HEPARIN SOD (PORCINE) 5000 UNITS/ML VIAL SC SCH ×2 (05:16→13:42)
[2017-10-18 06:00] VITALS: BP 108/68
[2017-10-18 06:21] LABS: BASO # 0.1 10^3/uL (0.0-0.2); EOS # 0.5 10^3/uL (0.0-0.50); EOS % 5.5 % (0.0-3.0); IMMATURE GRANULOCYTE % 1.6 % (0-0); LYMPH # 2.4 10^3/uL (1.5-4.5); LYMPH % 25.7 % (24.0-44.0); MEAN CORPUSCULAR HEMOGLOBIN 31.7 pg (27.0-33.0); MEAN CORPUSCULAR HGB CONC 33.9 g/dl (32.0-36.5); MEAN CORPUSCULAR VOLUME 93.7 fl (80.0-96.0); MONO # 0.9 10^3/uL (0.0-0.8); MONO % 9.3 % (0.0-5.0); NEUTROPHILS # 5.3 10^3/uL (1.8-7.7); NEUTROPHILS % 56.9 % (36.0-66.0); PLATELET COUNT, AUTOMATED 386 10^3/uL (150-450); WHITE BLOOD COUNT 9.3 10^3/uL (4.0-10.0)
[2017-10-18 06:45] LABS: ANION GAP 4 MEQ/L (8-16); BLOOD UREA NITROGEN 14 MG/DL (7-18); CALCIUM LEVEL 8.5 MG/DL (8.8-10.2); CARBON DIOXIDE LEVEL 35 MEQ/L (21-32); CHLORIDE LEVEL 101 MEQ/L (98-107); CREATININE FOR GFR 1.18 MG/DL (0.70-1.30); GLOMERULAR FILTRATION RATE > 60.0 (>42); GLUCOSE, FASTING 94 MG/DL (83-110); POTASSIUM SERUM 3.8 MEQ/L (3.5-5.1); SODIUM LEVEL 140 MEQ/L (136-145)
[2017-10-18] MEDS: LACTOBACILLUS ACIDOPHILUS CAP (BACID) PO SCH (09:45)
--- NOTE | 2017-10-18 11:51 | DSES ---
DATE OF ADMISSION: 10/13/2017 DATE OF DISCHARGE: 10/18/2017 BRIEF HISTORY AND PHYSICAL: The patient is a 77-year-old patient of [facility] who presented with acute onset of diarrhea and blurry vision. He has intellectual disability and had difficulty giving a clear history. PAST MEDICAL HISTORY: Significant for: Anxiety. Depression. Eczema. Leg edema. Obesity. Esophagitis diagnosed by EGD in 2008. History of cellulitis. Intellectual disability. PERTINENT LABS ON ADMISSION: Sodium 136, potassium 3.6, BUN 17, creatinine 1.47, glucose 123, lactic acid 2.1. White count 12.2, hemoglobin 16, platelets 265,000. CT of the abdomen and pelvis showed mild symmetric perinephric stranding likely chronic although acute pyelonephritis cannot be excluded. It should be noted that his urinalysis was completely clear. He had mild haziness to the mid left abdominal mesentery with subtle prominent lymph nodes raising the possibility mild enteritis or mesenteritis. No obstruction or perforation. No diverticulitis. No significant adenopathy, masses or free fluid or ascites. Chest x-ray showed no active disease. HOSPITAL COURSE: The patient was admitted for mild acute kidney disease and gastroenteritis. He was given IV fluids, diuretics. His Lasix was held on admission. Blood cultures were negative. GI panel was negative. His bowels returned to normal. Renal function returned to normal. He is eating and drinking well at the time of discharge and will be discharge home without any of his oral medications. He does not appear to need his diuretic currently. He does not have any leg edema on discharge. Of note, the patient has mild mental impairment and is on blister packs of medications at home and has no way to separate those at this point, so for now, I do not think it is necessary for him to be on any of those medications. He has been doing well without all of them. Social workers have been involved in the case. I spoke with Keyla Pritchett this morning at care rounds who states that he is stable to go home with his previous living situation. He does have some aides that come in the house and again his medications are typically administered with a blister pack and he is able to administer those himself. There are no Patient and Family Services (PFS) notes in the chart however, I had direct discussion with Keyla Pritchett about this prior to the patient's discharge and she feels that he is stable to be discharged to his previous living situation. DISPOSITION: He is stable for discharge home and to follow up with Annia Mills next week. He will have home health aide. His medications included albuterol inhaler and all of his other medicines will remain on hold until he follows up with Annia Mills next week to determine which ones to continue as an outpatient, in which case he will need his blister pack of medications reordered if any of them are going to be changed as he gets a blister pack from the pharmacy. DISCHARGE DIAGNOSES: 1. Vital gastroenteritis. 2. Acute kidney injury secondary to dehydration. 3. Mild mental impairment. 4. History of esophagitis. 5. History of leg edema on the past. 6. History of anxiety and depression. edited: 10/19/2017 1438 tkf COLT
[2017-10-18 14:00] VITALS: BP 121/74
== END 2017-10-18 14:57 | disposition home health service (06) | DRG 392 ==
LOC: M ED 13:57 → M ED INP 13:58 → M MSPAV 10-13 01:20 → OBSVTOIN 10-13 14:50
PROVIDERS: ADMIT Internal Medicine; ATTEND Family Medicine
DX: A08.4 Viral intestinal infection, unspecified (principal); N17.9 Acute kidney failure, unspecified; E86.0 Dehydration; F41.9 Anxiety disorder, unspecified; F32.9 Major depressive disorder, single episode, unspecified; F70 Mild intellectual disabilities; L30.9 Dermatitis, unspecified; E66.9 Obesity, unspecified; Z79.899 Other long term (current) drug therapy; D72.829 Elevated white blood cell count, unspecified

== ENCOUNTER → 2017-10-12 | Outpatient (CLI) | payer MEDICARE, MEDICAID ==
[~2017-10-12] MED LIST changes: +CETI10TA PO; +FOLI1TAB4 PO; +LEVO500T3 PO; +OCEA0.654; +PATIENT COMMENT; +PROAAER10 INH
--- NOTE | 2017-10-12 11:43 | REP ---
Clinical: Chest and back pain . Comparison: 10/01/2015 . Technique: PA and lateral. Findings: The mediastinum and cardiac silhouette are normal. The lung huerta demonstrate chronic stable changes without acute consolidation, effusion, or pneumothorax. The skeletal structures are intact and normal. Impression: 1. No acute cardiopulmonary process. Signed by Matthew Boone MD 10/12/2017 11:34 A
== END ==
LOC: M RAD 10:55
PROVIDERS: ATTEND Physician Assistant
DX: R05 Cough (principal); R50.9 Fever, unspecified

== ENCOUNTER → 2018-01-31 | Outpatient (REF) | payer MEDICARE, MEDICAID ==
[2018-01-31 13:21] LABS: BASO # 0.1 10^3/uL (0.0-0.2); BASO % 0.9 % (0.0-1.0); EOS # 0.4 10^3/uL (0.0-0.50); EOS % 4.1 % (0.0-3.0); HEMATOCRIT 49.1 % (42.0-52.0); HEMOGLOBIN 16.7 g/dl (14.0-18.0); IMMATURE GRANULOCYTE % 0.3 % (0-3.0); LYMPH # 1.9 10^3/uL (1.5-4.5); LYMPH % 17.3 % (24.0-44.0); MEAN CORPUSCULAR HEMOGLOBIN 31.7 pg (27.0-33.0); MEAN CORPUSCULAR VOLUME 93.3 fl (80.0-96.0); MONO % 9.7 % (0.0-5.0); NEUTROPHILS # 7.2 10^3/uL (1.8-7.7); NEUTROPHILS % 67.7 % (36.0-66.0); PLATELET COUNT, AUTOMATED 378 10^3/uL (150-450); RED BLOOD COUNT 5.26 10^6/uL (4.30-6.10); RED CELL DISTRIBUTION WIDTH 13.2 % (11.5-14.5); WHITE BLOOD COUNT 10.7 10^3/uL (4.0-10.0)
[2018-01-31 14:07] LABS: ALBUMIN 4.3 GM/DL (3.2-5.2); ALBUMIN/GLOBULIN RATIO 0.98 (1.00-1.93); ALKALINE PHOSPHATASE 82 U/L (45-117); ALT/SGPT 16 U/L (12-78); ANION GAP 10 MEQ/L (8-16); AST/SGOT 16 U/L (7-37); BILIRUBIN,TOTAL 0.4 MG/DL (0.2-1.0); BLOOD UREA NITROGEN 15 MG/DL (7-18); CALCIUM LEVEL 9.3 MG/DL (8.8-10.2); CARBON DIOXIDE LEVEL 30 MEQ/L (21-32); CHLORIDE LEVEL 98 MEQ/L (98-107); FREE T4 0.97 NG/DL (0.76-1.46); GLOMERULAR FILTRATION RATE 52.3 (>42); GLUCOSE, FASTING 83 MG/DL (70-100); POTASSIUM SERUM 4.3 MEQ/L (3.5-5.1); SODIUM LEVEL 138 MEQ/L (136-145); TOTAL PROTEIN 8.7 GM/DL (6.4-8.2)
== END ==
LOC: M SFHCPLAZ 11:34
DX: R60.0 Localized edema (principal); L03.115 Cellulitis of right lower limb
CPT/HCPCS: 84443

== ENCOUNTER → 2018-02-20 | Outpatient (REF) | payer MEDICARE, MEDICAID ==
[2018-02-20 19:34] LABS: APPEARANCE, BODY FLUID TURBID (CLEAR); RBC BODY FLUID 4800 10^3/uL (<2); SOURCE, BODY FLUID RT KNEE; SYNOVIAL FLUID COLOR RED (YELLOW); WBC BODY FLUID 9000 /uL (0-10)
[2018-02-20 19:35] LABS: BF DIFF IF INDICATED? YES (NO); BF MONONUCLEAR CELL % 25.6 % (0-0); BF POLYMORPHONUCLEAR CELL % 74.4 % (0-0); CRYSTALS, BODY FLUID NONE SEEN (NONE SEEN); SOURCE, BODY FLUID CRYSTALS RT KNEE
== END ==
LOC: M SFHCPLAZ 16:46
DX: M25.461 Effusion, right knee (principal)
CPT/HCPCS: 89050

== ENCOUNTER → 2018-04-14 | Outpatient (CLI) | payer MEDICARE, MEDICAID ==
[2018-04-14 09:02] LABS: BASO # 0.1 10^3/uL (0.0-0.2); BASO % 0.9 % (0.0-1.0); EOS # 0.3 10^3/uL (0.0-0.50); EOS % 3.8 % (0.0-3.0); HEMATOCRIT 45.9 % (42.0-52.0); HEMOGLOBIN 15.4 g/dl (13.5-17.5); IMMATURE GRANULOCYTE % 0.2 % (0-3.0); LYMPH # 1.5 10^3/uL (1.5-4.5); LYMPH % 17.7 % (24.0-44.0); MEAN CORPUSCULAR HEMOGLOBIN 31.6 pg (27.0-33.0); MEAN CORPUSCULAR HGB CONC 33.6 g/dl (32.0-36.5); MEAN CORPUSCULAR VOLUME 94.1 fl (80.0-96.0); MONO # 0.8 10^3/uL (0.0-0.8); NEUTROPHILS # 5.9 10^3/uL (1.8-7.7); NEUTROPHILS % 68.4 % (36.0-66.0); PLATELET COUNT, AUTOMATED 281 10^3/uL (150-450); RED BLOOD COUNT 4.88 10^6/uL (4.30-6.10); WHITE BLOOD COUNT 8.7 10^3/uL (4.0-10.0)
[2018-04-14 09:28] LABS: ALBUMIN 3.9 GM/DL (3.2-5.2); ALBUMIN/GLOBULIN RATIO 1.08 (1.00-1.93); ALKALINE PHOSPHATASE 75 U/L (45-117); ALT/SGPT 20 U/L (12-78); ANION GAP 7 MEQ/L (8-16); AST/SGOT 14 U/L (7-37); BILIRUBIN,TOTAL 0.9 MG/DL (0.2-1.0); BLOOD UREA NITROGEN 19 MG/DL (7-18); CALCIUM LEVEL 8.9 MG/DL (8.8-10.2); CARBON DIOXIDE LEVEL 31 MEQ/L (21-32); CHLORIDE LEVEL 103 MEQ/L (98-107); CHOLESTEROL LEVEL 183 MG/DL (<200); CHOLESTEROL RISK RATIO 4.357 (<5); GLUCOSE, FASTING 89 MG/DL (70-100); HDL CHOLESTEROL 42 MG/DL (>40); LDL CHOLESTEROL 123.4 MG/DL (<100); NON-HDL-C 141 MG/DL; POTASSIUM SERUM 4.3 MEQ/L (3.5-5.1); SODIUM LEVEL 141 MEQ/L (136-145); TOTAL PROTEIN 7.5 GM/DL (6.4-8.2); TRIGLYCERIDES LEVEL 88 MG/DL (<150)
[2018-04-14 12:25] LABS: TOTAL 25(OH) VITAMIN D 42.5 NG/ML (30.0-100.0)
[2018-04-14 12:35] LABS: FOLATE 17.8 NG/ML
[2018-04-14 13:35] LABS: VITAMIN B12 LEVEL 349 PG/ML
== END ==
LOC: M LAB 08:29
DX: R60.0 Localized edema (principal); E78.2 Mixed hyperlipidemia; L03.115 Cellulitis of right lower limb; E53.8 Deficiency of other specified B group vitamins; E55.9 Vitamin D deficiency, unspecified
CPT/HCPCS: 82746

== ENCOUNTER → 2018-05-15 | Outpatient (REF) | payer MEDICARE, MEDICAID ==
[2018-05-15 14:33] LABS: ANION GAP 8 MEQ/L (8-16); BLOOD UREA NITROGEN 13 MG/DL (7-18); CALCIUM LEVEL 8.8 MG/DL (8.8-10.2); CARBON DIOXIDE LEVEL 33 MEQ/L (21-32); CHLORIDE LEVEL 100 MEQ/L (98-107); CREATININE FOR GFR 1.42 MG/DL (0.70-1.30); GLOMERULAR FILTRATION RATE 51.3 (>42); GLUCOSE, FASTING 97 MG/DL (70-100); POTASSIUM SERUM 3.9 MEQ/L (3.5-5.1); SODIUM LEVEL 141 MEQ/L (136-145)
== END ==
LOC: M SFHCPLAZ 10:58
DX: R60.0 Localized edema (principal)
CPT/HCPCS: 80048

== ENCOUNTER → 2018-06-23 | Outpatient (REF) | payer MEDICARE, MEDICAID ==
[2018-06-23 11:03] LABS: ANION GAP 9 MEQ/L (8-16); BLOOD UREA NITROGEN 9 MG/DL (7-18); CALCIUM LEVEL 8.8 MG/DL (8.8-10.2); CARBON DIOXIDE LEVEL 32 MEQ/L (21-32); CHLORIDE LEVEL 99 MEQ/L (98-107); CREATININE FOR GFR 1.42 MG/DL (0.70-1.30); GLOMERULAR FILTRATION RATE 51.3 (>42); GLUCOSE, FASTING 65 MG/DL (70-100); POTASSIUM SERUM 4.1 MEQ/L (3.5-5.1); SODIUM LEVEL 140 MEQ/L (136-145)
== END ==
LOC: M SFHCPLAZ 08:53
DX: R60.0 Localized edema (principal)
CPT/HCPCS: 80048

== ENCOUNTER 2018-09-05 13:28 | Emergency (ER) | payer MEDICARE, MEDICAID ==
[2018-09-05 14:51] LABS: BASO # 0.1 10^3/uL (0.0-0.2); BASO % 0.9 % (0.0-1.0); EOS # 0.3 10^3/uL (0.0-0.50); EOS % 3.1 % (0.0-3.0); HEMATOCRIT 44.4 % (42.0-52.0); HEMOGLOBIN 14.7 g/dl (13.5-17.5); IMMATURE GRANULOCYTE % 0.3 % (0-3.0); LYMPH # 1.9 10^3/uL (1.5-4.5); LYMPH % 21.7 % (24.0-44.0); MEAN CORPUSCULAR HEMOGLOBIN 31.7 pg (27.0-33.0); MEAN CORPUSCULAR HGB CONC 33.1 g/dl (32.0-36.5); MEAN CORPUSCULAR VOLUME 95.9 fl (80.0-96.0); MONO # 0.8 10^3/uL (0.0-0.8); MONO % 8.6 % (0.0-5.0); NEUTROPHILS # 5.8 10^3/uL (1.8-7.7); NEUTROPHILS % 65.4 % (36.0-66.0); PLATELET COUNT, AUTOMATED 314 10^3/uL (150-450); RED BLOOD COUNT 4.63 10^6/uL (4.30-6.10); RED CELL DISTRIBUTION WIDTH 14.4 % (11.5-14.5); WHITE BLOOD COUNT 8.8 10^3/uL (4.0-10.0)
[2018-09-05 16:05] LABS: GLUCOSE, FASTING 91 MG/DL (70-100)
[2018-09-05 16:06] LABS: ANION GAP 6 MEQ/L (8-16); BLOOD UREA NITROGEN 11 MG/DL (7-18); CARBON DIOXIDE LEVEL 31 MEQ/L (21-32); CHLORIDE LEVEL 102 MEQ/L (98-107); CREATININE FOR GFR 1.32 MG/DL (0.70-1.30); GLOMERULAR FILTRATION RATE 55.8 (>42); SODIUM LEVEL 139 MEQ/L (136-145)
[2018-09-05 16:07] LABS: ALBUMIN 3.6 GM/DL (3.2-5.2); ALKALINE PHOSPHATASE 71 U/L (45-117); ALT/SGPT 19 U/L (12-78); AST/SGOT 15 U/L (7-37); BILIRUBIN,DIRECT 0.1 MG/DL (0.0-0.2); BILIRUBIN,TOTAL 0.6 MG/DL (0.2-1.0); CALCIUM LEVEL 8.3 MG/DL (8.8-10.2); LIPASE 189 U/L (73-393); TOTAL PROTEIN 7.2 GM/DL (6.4-8.2)
== END 2018-09-05 16:29 | disposition home or self-care (01) ==
LOC: M ED 13:28
DX: R13.10 Dysphagia, unspecified (principal)
CPT/HCPCS: 83690

== ENCOUNTER → 2018-09-06 | Outpatient (CLI) | payer MEDICARE, MEDICAID ==
[~2018-09-06] MED LIST changes: -/AUGM875TA; -ATARAX; -AZEL0.1S3; -BACT2CRE; -CALC600T60 PO; -CALCCHW12; -CALCTAB22; -CEPH500C; -CLAR5CHW; -CLOTPOW; -DRISDOL; +E-Z-GAS II EFFERVESCENT PACKET (SODIUM BICARB./CITRIC ACID/SIMETHICONE) As Ordered; +E-Z-HD 98% w/w 340GM SUSP BTL As Ordered; +E-Z-PAQUE 96% w/w SUSP 176GM BTL As Ordered; -ELIDEL; -ELIMITE CREAM; -EUCERIN CREAM; -FURO80TA2 PO; -HYDR25TA8; -K-TA10TA2 PO; -KEFL500C; -LASI40TA; -LORA10TA2 PO; -MOME50SP; -NASONEX; -OMEP20TA PO; -PAXI30TA; -POTA10CA2; -POTA20TA2; -PRAV10TA4 PO; -PRIL20CA; -TRIAMCINOLONE; -TYLE325T5 PO; -VITA10002 PO; -VITA100067 PO; -[UNRECOGNIZED DRUG - OTHER]
== END ==
LOC: M RAD 08:44
DX: K22.4 Dyskinesia of esophagus (principal)
CPT/HCPCS: 74220

== ENCOUNTER → 2018-09-14 | Outpatient (CLI) | payer MEDICARE, MEDICAID ==
[~2018-09-14] MED LIST changes: -E-Z-GAS II EFFERVESCENT PACKET (SODIUM BICARB./CITRIC ACID/SIMETHICONE) As Ordered; -E-Z-HD 98% w/w 340GM SUSP BTL As Ordered; +VARIBAR NECTAR 40% w/v 240ML SUSP BTL As Ordered; +VARIBAR PUDDING 40% w/v 230ML TUBE As Ordered
== END ==
LOC: M RAD 11:50
DX: R13.10 Dysphagia, unspecified (principal)
CPT/HCPCS: 74230

== ENCOUNTER → 2018-10-09 | Outpatient (REF) | payer MEDICARE, MEDICAID ==
[2018-10-09 12:36] LABS: ALBUMIN 3.7 GM/DL (3.2-5.2); ALBUMIN/GLOBULIN RATIO 1.03 (1.00-1.93); ALKALINE PHOSPHATASE 67 U/L (45-117); ALT/SGPT 17 U/L (12-78); ANION GAP 8 MEQ/L (8-16); AST/SGOT 23 U/L (7-37); BILIRUBIN,TOTAL 0.7 MG/DL (0.2-1.0); BLOOD UREA NITROGEN 14 MG/DL (7-18); CALCIUM LEVEL 8.7 MG/DL (8.8-10.2); CARBON DIOXIDE LEVEL 33 MEQ/L (21-32); CHLORIDE LEVEL 102 MEQ/L (98-107); CHOLESTEROL LEVEL 158 MG/DL (<200); CHOLESTEROL RISK RATIO 3.853 (<5); GLOMERULAR FILTRATION RATE 52.2 (>42); GLUCOSE, FASTING 55 MG/DL (70-100); HDL CHOLESTEROL 41 MG/DL (>40); LDL CHOLESTEROL 94 MG/DL (<100); NON-HDL-C 117 MG/DL; NT-PRO BNP 25 PG/ML (<450); POTASSIUM SERUM 3.8 MEQ/L (3.5-5.1); SODIUM LEVEL 143 MEQ/L (136-145); TOTAL 25(OH) VITAMIN D 34.7 NG/ML (30.0-100.0); TOTAL PROTEIN 7.3 GM/DL (6.4-8.2); TRIGLYCERIDES LEVEL 117 MG/DL (<150); VITAMIN B12 LEVEL 587 PG/ML
== END ==
LOC: M SFHCPLAZ 08:36
DX: R60.0 Localized edema (principal); E78.2 Mixed hyperlipidemia; E55.9 Vitamin D deficiency, unspecified; E53.8 Deficiency of other specified B group vitamins; G31.84 Mild cognitive impairment of uncertain or unknown etiology; I83.12 Varicose veins of left lower extremity with inflammation; R13.12 Dysphagia, oropharyngeal phase; J30.2 Other seasonal allergic rhinitis; F41.1 Generalized anxiety disorder; K21.9 Gastro-esophageal reflux disease without esophagitis
CPT/HCPCS: 82746

== ENCOUNTER 2018-12-13 10:25 | Emergency (ER) | payer MEDICARE, MEDICAID ==
[~2018-12-13] VITALS: Ht 157.5 cm; Wt 88.0 kg
[~2018-12-13 10:25] MED LIST changes: +/AUGM875TA; +ATARAX; +AZEL0.1S3; +BACT2CRE; +CALC600T60 PO; +CALCCHW12; +CALCTAB22; +CEPH500C; +CETI10TA PO; +CLAR5CHW; +CLOTPOW; +DRISDOL; -E-Z-PAQUE 96% w/w SUSP 176GM BTL As Ordered; +ELIDEL; +ELIMITE CREAM; +EUCERIN CREAM; +FOLI1TAB11 PO; +FURO40TA2; +FURO80TA2 PO; +HYDR25TA8; +K-TA10TA2; +K-TA10TA2 PO; +KEFL500C; +LASI40TA; +LEVO500T3 PO; +LORA-243 PO; +MOME50SP; +NASONEX; +OCEA0.654; +OMEP20TA PO; +PATIENT COMMENT; +PAXI30TA; +POTA10CA2; +POTA20TA2; +PRAV10TA4 PO; +PRAV40TA2; +PRIL20CA; +PROAAER10 INH; +TRIAMCINOLONE; +TYLE325T5 PO; -VARIBAR NECTAR 40% w/v 240ML SUSP BTL As Ordered; -VARIBAR PUDDING 40% w/v 230ML TUBE As Ordered; +VITA10002 PO; +VITA100067 PO; +[UNRECOGNIZED DRUG - OTHER]
--- NOTE | 2018-12-13 11:30 | REP ---
Clinical: Pain and swelling. Technique: AP, lateral, bilateral oblique and sunrise views of the left knee. Findings: Age-related osteopenia and mild arthritic changes include cortical irregularity with mild tibiofemoral joint space narrowing. Prepatellar soft tissue swelling noted. No acute fracture dislocation. No effusion. Impression: Age-related osteopenia and mild arthritic changes. Anterior swelling. No acute fracture or dislocation. No effusion. Electronically Signed by Matthew Boone MD 12/13/2018 11:22 A
[2018-12-13 12:19] LABS: BASO # 0.1 10^3/uL (0.0-0.2); BASO % 0.7 % (0.0-1.0); EOS # 0.2 10^3/uL (0.0-0.50); HEMATOCRIT 46.4 % (42.0-52.0); LYMPH % 18.6 % (24.0-44.0); MEAN CORPUSCULAR HEMOGLOBIN 31.7 pg (27.0-33.0); MEAN CORPUSCULAR HGB CONC 34.5 g/dl (32.0-36.5); MEAN CORPUSCULAR VOLUME 92.1 fl (80.0-96.0); MONO % 9.7 % (0.0-5.0); NEUTROPHILS # 7.4 10^3/uL (1.8-7.7); NEUTROPHILS % 68.6 % (36.0-66.0); PLATELET COUNT, AUTOMATED 358 10^3/uL (150-450); RED BLOOD COUNT 5.04 10^6/uL (4.30-6.10); WHITE BLOOD COUNT 10.7 10^3/uL (4.0-10.0)
[2018-12-13 12:45] LABS: ALBUMIN 4.2 GM/DL (3.2-5.2); BILIRUBIN,DIRECT 0.2 MG/DL (0.0-0.2); BILIRUBIN,TOTAL 0.5 MG/DL (0.2-1.0); C REACTIVE PROTEIN QUANTITATIV 1.38 MG/DL (0.00-0.30); CALCIUM LEVEL 8.9 MG/DL (8.8-10.2); CREATININE FOR GFR 1.38 MG/DL (0.70-1.30); GLOMERULAR FILTRATION RATE 53.1 (>42); POTASSIUM SERUM 3.7 MEQ/L (3.5-5.1); TOTAL PROTEIN 8.1 GM/DL (6.4-8.2)
[2018-12-13 12:48] LABS: ERYTHROCYTE SEDIMENTATION RATE 9 mm/hr (0-20)
[2018-12-13] MEDS ORDERED: DOXY100C37 PO (13:04)
[2018-12-13 13:18] VITALS: BP 124/79
== END 2018-12-13 13:20 | disposition home or self-care (01) ==
LOC: M ED 10:25
DX: L03.116 Cellulitis of left lower limb (principal); M79.89 Other specified soft tissue disorders; I12.9 Hypertensive chronic kidney disease with stage 1 through stage 4 chronic kidney disease, or unspecified chronic kidney disease; E78.5 Hyperlipidemia, unspecified; K21.9 Gastro-esophageal reflux disease without esophagitis; R51 Headache; N18.3 Chronic kidney disease, stage 3 (moderate); F41.9 Anxiety disorder, unspecified; F32.9 Major depressive disorder, single episode, unspecified; Z79.899 Other long term (current) drug therapy

== ENCOUNTER 2019-05-16 18:32 | Emergency (ER) | payer MEDICARE, MEDICAID ==
[~2019-05-16] VITALS: Ht 162.6 cm; Wt 90.9 kg
[~2019-05-16 18:32] MED LIST changes: +CYAN100049 PO; -FLUTISP; -NYST10CR; -VITA10002 PO
[2019-05-16] MEDS ORDERED: NYST10CR (18:50)
[2019-05-16] MEDS ORDERED: FLUTISP (18:50)
--- NOTE | 2019-05-16 19:42 | REPVR ---
EXAM: US Duplex Bilateral Lower Extremity Veins EXAM DATE/TIME: 05/16/2019 7:26 PM CLINICAL HISTORY: 79 years old, male; Swelling (edema) of limb; Lower extremity, bilateral; Additional info: Pain, swelling TECHNIQUE: Imaging protocol: Real-time duplex ultrasound of the Bilateral Lower Extremities with 2-D ignacio scale, color Doppler flow and spectral waveform analysis. Complete exam focused on the bilateral lower extremity veins. COMPARISON: US Duplex, Ext,LOWER veins,unilat 05/19/2015 1:03 PM FINDINGS: Right deep veins: Unremarkable. The common femoral, femoral, proximal profunda femoral and popliteal veins are patent without thrombus. Normal Doppler waveforms. Normal compressibility and/or augmentation response. Right superficial veins: Saphenofemoral junction is patent without thrombus. Left deep veins: Unremarkable. The common femoral, femoral, proximal profunda femoral and popliteal veins are patent without thrombus. Normal Doppler waveforms. Normal compressibility and/or augmentation response. Left superficial veins: Saphenofemoral junction is patent without thrombus. Soft tissues: Unremarkable. IMPRESSION: No acute findings. No evidence of deep vein thrombosis. Electronically signed by: Ugo Guerrero On 05/16/2019 19:41:49 PM
[2019-05-16 21:56] VITALS: BP 108/65
== END 2019-05-16 21:58 | disposition home or self-care (01) ==
LOC: M ED 18:32
DX: M79.89 Other specified soft tissue disorders (principal); R26.89 Other abnormalities of gait and mobility; I12.9 Hypertensive chronic kidney disease with stage 1 through stage 4 chronic kidney disease, or unspecified chronic kidney disease; E78.5 Hyperlipidemia, unspecified; I73.9 Peripheral vascular disease, unspecified; N18.3 Chronic kidney disease, stage 3 (moderate); Z79.899 Other long term (current) drug therapy
CPT/HCPCS: 80053; 85379; 93970; 99284; G0463

== ENCOUNTER → 2019-05-16 | Outpatient (REF) | payer MEDICARE, MEDICAID ==
[~2019-05-16] MED LIST changes: +DOXY100C37 PO; +FLUTISP; +NYST10CR
[2019-05-16 13:55] LABS: BILIRUBIN,TOTAL 0.6 MG/DL (0.2-1.0); CALCIUM LEVEL 8.9 MG/DL (8.8-10.2); CREATININE FOR GFR 1.36 MG/DL (0.70-1.30); GLOMERULAR FILTRATION RATE 53.8 (>42); POTASSIUM SERUM 3.8 MEQ/L (3.5-5.1); TOTAL PROTEIN 8.2 GM/DL (6.4-8.2)
== END ==
LOC: M SFHCPLAZ 10:41
PROVIDERS: ATTEND Nurse Practitioner Family
DX: R60.0 Localized edema (principal)

== ENCOUNTER → 2019-06-15 | Outpatient (CLI) | payer MEDICARE, MEDICAID ==
[~2019-06-15] MED LIST changes: +FLUTISP; +NYST10CR
--- NOTE | 2019-06-15 10:54 | REP ---
Clinical: Edema . Comparison: 10/12/2017 . Technique: PA and lateral. Findings: The mediastinum and cardiac silhouette are normal. The lung huerta are clear and without acute consolidation, effusion, or pneumothorax. The skeletal structures are intact and normal. Impression: 1. No acute cardiopulmonary process. Electronically Signed by Matthew Boone MD 06/15/2019 10:46 A
== END ==
LOC: M RAD 10:26
PROVIDERS: ATTEND Nurse Practitioner Family
DX: R60.0 Localized edema (principal)

== ENCOUNTER → 2019-09-04 | Outpatient (REF) | payer MEDICARE, MEDICAID ==
[~2019-09-04] MED LIST changes: +OMEP-358 PO; -OMEP20TA PO
[2019-09-04 11:50] LABS: ALBUMIN 3.5 GM/DL (3.2-5.2); BILIRUBIN,TOTAL 0.6 MG/DL (0.2-1.0); CALCIUM LEVEL 8.9 MG/DL (8.8-10.2); CREATININE FOR GFR 1.31 MG/DL (0.70-1.30); FREE T4 0.73 NG/DL (0.76-1.46); GLOMERULAR FILTRATION RATE 56.2 (>42); POTASSIUM SERUM 4.2 MEQ/L (3.5-5.1); THYROID STIMULATING HORMONE 2.9 uIU/ML (0.358-3.740); TOTAL PROTEIN 7.3 GM/DL (6.4-8.2)
== END ==
LOC: SKLABADC 09:24
PROVIDERS: ATTEND Nurse Practitioner Family
DX: R60.0 Localized edema (principal)

== ENCOUNTER → 2020-02-14 | Outpatient (CLI) | payer MEDICARE, MEDICAID ==
[~2020-02-14] MED LIST changes: +ASPI81TA85 PO; +OMEP40CA97 PO
--- NOTE | 2020-02-14 17:19 | REPPI ---
REASON FOR EXAM: Toe pain. No priors. Degenerative changes are seen throughout the foot including the digits. There is no evidence of an acute fracture. There is a plantar calcaneal heel spur. IMPRESSION: Chronic changes. Electronically Signed by Kwan Shen DO 02/15/2020 09:42 A
== END ==
LOC: M PLAIMG 15:29
PROVIDERS: ATTEND Nurse Practitioner Family
DX: M19.071 Primary osteoarthritis, right ankle and foot (principal); M77.31 Calcaneal spur, right foot; M79.674 Pain in right toe(s)
CPT/HCPCS: 73630; G0463

== ENCOUNTER → 2020-02-14 | Outpatient (REF) | payer MEDICARE, MEDICAID ==
[~2020-02-14] MED LIST changes: -ASPI81TA85 PO; -OMEP40CA97 PO
[2020-02-14 18:06] LABS: CALCIUM LEVEL 9.1 MG/DL (8.8-10.2); CREATININE FOR GFR 1.37 MG/DL (0.70-1.30); GLOMERULAR FILTRATION RATE 53.4 (>42); POTASSIUM SERUM 3.4 MEQ/L (3.5-5.1); URIC ACID 9.8 MG/DL (3.5-7.2)
[2020-02-14 18:08] LABS: BASO # 0.1 10^3/uL (0.0-0.2); BASO % 0.7 % (0.0-1.0); EOS # 0.2 10^3/uL (0.0-0.5); EOS % 2.3 % (0.0-3.0); HEMATOCRIT 47.2 % (42.0-52.0); HEMOGLOBIN 15.9 g/dl (13.5-17.5); LYMPH % 24.5 % (24.0-44.0); MEAN CORPUSCULAR HEMOGLOBIN 31.1 pg (27.0-33.0); MEAN CORPUSCULAR HGB CONC 33.7 g/dl (32.0-36.5); MEAN CORPUSCULAR VOLUME 92.2 fl (80.0-96.0); MONO % 11.7 % (0.0-5.0); NEUTROPHILS # 4.9 10^3/uL (1.5-8.5); NEUTROPHILS % 60.1 % (36.0-66.0); PLATELET COUNT, AUTOMATED 350 10^3/uL (150-450); RED BLOOD COUNT 5.12 10^6/uL (4.30-6.10); WHITE BLOOD COUNT 8.1 10^3/uL (4.0-10.0)
[2020-02-14 18:51] LABS: ERYTHROCYTE SEDIMENTATION RATE 27 mm/hr (0-20)
== END ==
LOC: M SFHCPLAZ 15:07
PROVIDERS: ATTEND Nurse Practitioner Family
DX: M79.674 Pain in right toe(s) (principal)

== ENCOUNTER 2020-02-29 07:03 | Emergency (ER) | payer MEDICARE, MEDICAID ==
[~2020-02-29] VITALS: Ht 154.9 cm; Wt 83.9 kg
[2020-02-29] MEDS ORDERED: FOLI1TAB11 PO (07:52)
[2020-02-29] MEDS ORDERED: ASPI81TA85 PO (07:52)
[2020-02-29] MEDS ORDERED: OMEP40CA97 PO (07:52)
--- NOTE | 2020-02-29 07:58 | REP ---
Clinical: Shortness of breath. COVID-19 workup. Comparison: 06/15/2019. Findings: The mediastinum and cardiac silhouette are relatively stable and within normal limits for portable technique. The lung huerta demonstrate chronic-appearing interstitial changes without focal consolidation, obvious effusion or pneumothorax. Minimal basilar atelectasis cannot be excluded. Skeletal structures are intact. Impression: No significant areas of consolidation or effusion. Electronically Signed by Matthew Boone MD 02/29/2020 07:49 A
[2020-02-29 08:20] LABS: BASO # 0.1 10^3/uL (0.0-0.2); BASO % 0.7 % (0.0-1.0); EOS # 0.2 10^3/uL (0.0-0.5); EOS % 1.9 % (0.0-3.0); HEMATOCRIT 47.5 % (42.0-52.0); HEMOGLOBIN 16.3 g/dl (13.5-17.5); LYMPH # 1.7 10^3/uL (1.5-5.0); LYMPH % 19.2 % (24.0-44.0); MEAN CORPUSCULAR HEMOGLOBIN 31.4 pg (27.0-33.0); MEAN CORPUSCULAR HGB CONC 34.3 g/dl (32.0-36.5); MEAN CORPUSCULAR VOLUME 91.5 fl (80.0-96.0); MONO # 1.2 10^3/uL (0.0-0.8); MONO % 13.1 % (0.0-5.0); NEUTROPHILS # 5.9 10^3/uL (1.5-8.5); NEUTROPHILS % 64.8 % (36.0-66.0); PLATELET COUNT, AUTOMATED 362 10^3/uL (150-450); RED BLOOD COUNT 5.19 10^6/uL (4.30-6.10); WHITE BLOOD COUNT 9.1 10^3/uL (4.0-10.0)
[2020-02-29 08:37] LABS: INR 1.28; PROTHROMBIN TIME 15.7 SECONDS (11.8-14.0)
[2020-02-29 08:45] LABS: ALBUMIN 3.7 GM/DL (3.2-5.2); ALT/SGPT 31 U/L (12-78); BILIRUBIN,DIRECT 0.4 MG/DL (0.0-0.2); BILIRUBIN,TOTAL 1.3 MG/DL (0.2-1.0); BLOOD UREA NITROGEN 10 MG/DL (7-18); CALCIUM LEVEL 8.7 MG/DL (8.8-10.2); CARBON DIOXIDE LEVEL 28 MEQ/L (21-32); CHLORIDE LEVEL 99 MEQ/L (98-107); CK-MB VALUE MASS 1.6 NG/ML (<3.6); CPK CREATINE PHOSPHOKINASE 137 U/L (39-308); CREATININE FOR GFR 1.34 MG/DL (0.70-1.30); GLOMERULAR FILTRATION RATE 54.7 (>42); GLUCOSE, FASTING 121 MG/DL (70-100); LIPASE 216 U/L (73-393); MB/CK RELATIVE INDEX 1.17 (< OR =4); POTASSIUM SERUM 3.3 MEQ/L (3.5-5.1); SODIUM LEVEL 138 MEQ/L (136-145); TOTAL PROTEIN 7.6 GM/DL (6.4-8.2); TROPONIN I < 0.02 NG/ML (< 0.10)
[2020-02-29] MEDS ORDERED: ISOVUE-370 76% 100ML VIAL (Q9967) As Ordered ONE (08:52)
--- NOTE | 2020-02-29 10:28 | REP ---
REASON FOR EXAM: Abdominal pain. COMPARISON: Noncontrast enhanced examination 10/12/2017, which is the latest prior and contrast enhanced examination of 05/02/2011 which is the latest prior contrast enhanced examination. CONTRAST TODAY: 100 mL Isovue 370. The lung bases are clear. The liver, gallbladder, spleen, pancreas, adrenal glands, and kidneys are within normal limits and essentially unchanged. The small nodule and mesentery anterior to the lateral segment of the left lobe of the liver is unchanged. The bowel loops and their mesenteries are within normal limits. There is no free fluid or free air. There is no mass or adenopathy. CT PELVIS: There is respiratory motion artifact obscuring the pericolonic mesenteric detail. The bowel loops and their mesenteries are within normal limits with this in mind. There is sigmoid colon diverticulosis. There is no free fluid or free air. 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 The adipose seen in the right inguinal ring on the prior exam has been stable for years. There is no bowel-containing hernia. There is no evidence of a pelvic mass or adenopathy. Bone window technique throughout the examination shows the osseous structures to be essentially unchanged. Spinal degenerative changes are noted status quo. IMPRESSION: There is no evidence of acute intra-abdominal or intrapelvic disease. Findings and limitations as described above. Electronically Signed by Kwan Shen DO 02/29/2020 10:33 A
[2020-02-29 10:33] VITALS: BP 142/78
--- NOTE | 2020-03-01 00:49 | ECGEPIP ---
[facility] - ED Test Date: 2020-02-29 Pat Name: MANDO KELLEY Department: Room: - Gender: Male First Aid Instructor: ASHLYN : 1940 Requested By: Adria Dolan Order Number: [id number] Reading MD: Rohith Patterson Measurements Intervals [place] Rate: 68 P: 62 WV: 167 QRS: 30 QRSD: 102 T: 45 QT: 417 QTc: 446 Interpretive Statements SINUS RHYTHM NSTTW ABNORMALITIES SIMILAR TO 01/10/15 Electronically Signed on 03-01-2020 0:49:11 EDT by Rohith Patterson
== END 2020-02-29 10:46 | disposition home or self-care (01) ==
LOC: M ED 07:03 → EDBD 07:03 → M ED 10:46
DX: R10.9 Unspecified abdominal pain (principal); B37.89 Other sites of candidiasis; E53.9 Vitamin B deficiency, unspecified; F41.9 Anxiety disorder, unspecified; F32.9 Major depressive disorder, single episode, unspecified; E78.9 Disorder of lipoprotein metabolism, unspecified; E66.9 Obesity, unspecified; F79 Unspecified intellectual disabilities; K21.9 Gastro-esophageal reflux disease without esophagitis; N18.9 Chronic kidney disease, unspecified; Z79.899 Other long term (current) drug therapy; Z79.82 Long term (current) use of aspirin
CPT/HCPCS: 36415; 71045; 74177; 80048; 80076; 81001; 82550; 82553; 83605; 83690; 84484; 85025; 85610; 85730; 87040; 87486; 87581; 87633; 87798; 93005; 93041; 99285; Q9967

== ENCOUNTER → 2020-03-20 | Outpatient (REF) | payer MEDICARE, MEDICAID ==
[~2020-03-20] MED LIST changes: +ASPI81TA85 PO; +OMEP40CA97 PO
[2020-03-20 13:02] LABS: ALBUMIN 3.7 GM/DL (3.2-5.2); ALT/SGPT 21 U/L (12-78); BILIRUBIN,TOTAL 0.7 MG/DL (0.2-1.0); BLOOD UREA NITROGEN 8 MG/DL (7-18); CALCIUM LEVEL 8.8 MG/DL (8.8-10.2); CARBON DIOXIDE LEVEL 34 MEQ/L (21-32); CHLORIDE LEVEL 95 MEQ/L (98-107); CHOLESTEROL LEVEL 132 MG/DL (<200); CHOLESTEROL RISK RATIO 3.473 (<5); CREATININE FOR GFR 1.23 MG/DL (0.70-1.30); FREE T4 1.01 NG/DL (0.76-1.46); GLOMERULAR FILTRATION RATE > 60.0 (>42); GLUCOSE, FASTING 106 MG/DL (70-100); HDL CHOLESTEROL 38 MG/DL (>40); LDL CHOLESTEROL 72 MG/DL (<100); NON-HDL-C 94 MG/DL; POTASSIUM SERUM 3.3 MEQ/L (3.5-5.1); SODIUM LEVEL 137 MEQ/L (136-145); TOTAL PROTEIN 7.3 GM/DL (6.4-8.2); TRIGLYCERIDES LEVEL 109 MG/DL (<150); URIC ACID 9.7 MG/DL (3.5-7.2)
[2020-03-20 14:20] LABS: TOTAL 25(OH) VITAMIN D 17.2 NG/ML (30.0-100.0)
== END ==
LOC: M SFHCPLAZ 09:37
PROVIDERS: ATTEND Nurse Practitioner Family
DX: R60.0 Localized edema (principal); E78.2 Mixed hyperlipidemia; E79.0 Hyperuricemia without signs of inflammatory arthritis and tophaceous disease; E55.9 Vitamin D deficiency, unspecified; E53.8 Deficiency of other specified B group vitamins
CPT/HCPCS: 36415; 80053; 80061; 82306; 82607; 82746; 84439; 84443; 84550; G0463

== ENCOUNTER 2020-04-01 09:42 | Emergency (ER) | payer MEDICARE, MEDICAID ==
[~2020-04-01] VITALS: Ht 152.4 cm; Wt 81.3 kg
[2020-04-01] MEDS ORDERED: ACETAMINOPHEN 500 MG TAB PO ONE (10:00)
--- NOTE | 2020-04-01 11:11 | REP ---
RIGHT FOOT SERIES: Four views. Four views of the right foot are performed. There is no acute fracture or dislocation. There is mild inferior calcaneal spurring. There is mild narrowing of the 1st metatarsophalangeal joint. Small accessory ossicle is seen adjacent to the medial margin of the navicular bone. IMPRESSION: No acute fracture or dislocation. Electronically Signed by Migue Chambers MD 04/01/2020 12:18 P
[2020-04-01] MEDS ORDERED: POTA20TA6 PO (11:26)
[2020-04-01] MEDS ORDERED: ALL10TAB29 PO (11:26)
[2020-04-01] MEDS ORDERED: PRAV40TA2 PO (11:26)
[2020-04-01] MEDS ORDERED: TRIA1CR80 TOP (11:26)
[2020-04-01] MEDS ORDERED: CYAN100049 PO (11:26)
[2020-04-01 12:12] VITALS: BP 113/73
== END 2020-04-01 12:29 | disposition home or self-care (01) ==
LOC: M ED 09:42
DX: S93.401A Sprain of unspecified ligament of right ankle, initial encounter (principal); X50.1XXA Overexertion from prolonged static or awkward postures, initial encounter; Y92.098 Other place in other non-institutional residence as the place of occurrence of the external cause; N18.3 Chronic kidney disease, stage 3 (moderate); K21.9 Gastro-esophageal reflux disease without esophagitis; E78.5 Hyperlipidemia, unspecified; F79 Unspecified intellectual disabilities; F41.9 Anxiety disorder, unspecified; F32.9 Major depressive disorder, single episode, unspecified; L30.9 Dermatitis, unspecified; Z79.899 Other long term (current) drug therapy; Z79.82 Long term (current) use of aspirin

== ENCOUNTER 2020-04-10 09:56 | Emergency (ER) | payer MEDICARE, MEDICAID ==
[~2020-04-10] VITALS: Ht 175.3 cm; Wt 81.3 kg
[~2020-04-10 09:56] MED LIST changes: +ALL10TAB29 PO; +POTA20TA6 PO; +PRAV40TA2 PO; +TRIA1CR80 TOP
[2020-04-10] MEDS ORDERED: ACETAMINOPHEN 325 MG TAB PO ONE (10:15)
[2020-04-10] MEDS ORDERED: FURO40TA2 PO (10:15)
--- NOTE | 2020-04-10 11:18 | REP ---
RIGHT FOOT, FOUR VIEWS: Four views of the right foot performed. No acute fracture or dislocation is seen. There is no change when compared to a prior study of 04/01/2020. There is mild inferior calcaneal spurring. There is mild to moderate joint space narrowing at the 1st metatarsophalangeal joint with mild subchondral sclerosis. IMPRESSION: Mild degenerative changes. No acute fracture or dislocation. Electronically Signed by Migue Chambers MD 04/10/2020 12:42 P
[2020-04-10 11:48] VITALS: BP 126/69
== END 2020-04-10 12:10 | disposition home or self-care (01) ==
LOC: M ED 09:56 → EDBD 09:56 → M ED 12:10
DX: S93.601A Unspecified sprain of right foot, initial encounter (principal); S93.504A Unspecified sprain of right lesser toe(s), initial encounter; X58.XXXA Exposure to other specified factors, initial encounter; Y92.098 Other place in other non-institutional residence as the place of occurrence of the external cause; N18.3 Chronic kidney disease, stage 3 (moderate); F79 Unspecified intellectual disabilities; F32.9 Major depressive disorder, single episode, unspecified; K21.9 Gastro-esophageal reflux disease without esophagitis; E78.5 Hyperlipidemia, unspecified; L30.9 Dermatitis, unspecified; Z79.899 Other long term (current) drug therapy; Z79.82 Long term (current) use of aspirin

== ENCOUNTER 2020-04-19 08:56 | Emergency (ER) | payer MEDICARE, MEDICAID ==
[~2020-04-19 08:56] MED LIST changes: -ALL10TAB29 PO; -ASPI81TA85 PO; +ASPI81TA86 PO; +CETI-24 PO; +FURO40TA2 PO
[2020-04-19 10:33] LABS: BASO % 0.5 % (0.0-1.0); EOS # 0.1 10^3/uL (0.0-0.5); EOS % 1.7 % (0.0-3.0); HEMATOCRIT 45.2 % (42.0-52.0); HEMOGLOBIN 15.3 g/dl (13.5-17.5); LYMPH # 1.3 10^3/uL (1.5-5.0); LYMPH % 16.3 % (24.0-44.0); MEAN CORPUSCULAR HEMOGLOBIN 31.4 pg (27.0-33.0); MEAN CORPUSCULAR HGB CONC 33.8 g/dl (32.0-36.5); MEAN CORPUSCULAR VOLUME 92.6 fl (80.0-96.0); MONO # 0.9 10^3/uL (0.0-0.8); MONO % 10.6 % (0.0-5.0); NEUTROPHILS # 5.8 10^3/uL (1.5-8.5); NEUTROPHILS % 70.7 % (36.0-66.0); PLATELET COUNT, AUTOMATED 380 10^3/uL (150-450); RED BLOOD COUNT 4.88 10^6/uL (4.30-6.10); WHITE BLOOD COUNT 8.2 10^3/uL (4.0-10.0)
[2020-04-19 10:47] LABS: INR 1.23; PROTHROMBIN TIME 15.2 SECONDS (11.8-14.0)
[2020-04-19 11:30] LABS: ALBUMIN 3.2 GM/DL (3.2-5.2); BILIRUBIN,DIRECT 0.2 MG/DL (0.0-0.2); BILIRUBIN,TOTAL 1.1 MG/DL (0.2-1.0); FREE T4 0.98 NG/DL (0.76-1.46); THYROID STIMULATING HORMONE 1.03 uIU/ML (0.358-3.740); TOTAL PROTEIN 6.9 GM/DL (6.4-8.2)
[2020-04-19] MEDS ORDERED: POTASSIUM CHLORIDE 10 MEQ SR TABLET PO ONE (11:45)
[2020-04-19] MEDS ORDERED: ISOVUE-370 76% 100ML VIAL As Ordered ONE (11:51)
[2020-04-19 14:58] VITALS: BP 108/60
--- NOTE | 2020-04-19 19:16 | ECGEPIP ---
[facility] - ED Test Date: 2020-04-19 Pat Name: MANDO KELLEY Department: Room: - Gender: Male Package Designer: camden : 1940 Requested By: Adria Dolan Order Number: [id number] Reading MD: Adria Dolan Measurements Intervals [place] Rate: 66 P: 40 [place]: 151 QRS: 28 QRSD: 97 T: 47 QT: 306 QTc: 323 Interpretive Statements SINUS RHYTHM NONSPECIFIC ST & T-WAVE ABNORMALITY 02/29/[address] T WAVE CHANGES Electronically Signed on 04-19-2020 19:15:57 EDT by Adria Dolan
--- NOTE | 2020-04-21 10:19 | REP ---
TWO-VIEW CHEST: REASON FOR EXAM: Chest pain. Preliminary report given by Dr. Boone. COMPARISON: No priors. FINDINGS: The superior mediastinal structures are midline. The cardiac silhouette is unremarkable in size, shape, and position. The diaphragmatic surfaces of the lungs are regular, and the costophrenic angles are clear. The pulmonary huerta are clear. The imaged osseous structures are intact. IMPRESSION: There is no acute cardiopulmonary disease. Electronically Signed by Kwan Shen DO 04/21/2020 10:57 A
--- NOTE | 2020-04-21 10:20 | REP ---
SOFT TISSUE NECK STUDY: REASON FOR EXAM: Assess foreign body. No priors for comparison. Preliminary report given by Dr. Boone. FINDINGS: AP and lateral views of the neck soft tissues show the pharyngeal, hypopharyngeal and tracheal airways to be within normal limits. The anterior spinal soft tissues are within normal limits. IMPRESSION: Negative exam. There is no evidence of foreign body. There are chronic changes seen involving the cervical spine. Electronically Signed by Kwan Shen DO 04/21/2020 10:57 A
--- NOTE | 2020-04-21 23:30 | REP ---
CT NECK SOFT TISSUES, 04/19/2020: INDICATION: Sore throat. Neck pain. TECHNIQUE: Axial CT images of the neck soft tissue were obtained following the IV administration of iodinated contrast with sagittal and coronal reconstructions provided. COMPARISONS: 07/25/2015 FINDINGS: There are small gas droplets along the right ventrolateral aspect of C7 vertebral body adjacent to significant degenerative changes, which has mildly increased from the prior examination of 2015. These most likely represent vacuum phenomena related to the degenerative sequelae. No additional areas of abnormal extraluminal foci of gas are present. No obvious foreign body is appreciated. The nasopharyngeal through hypopharyngeal airway as well as the esophagus appear grossly normal. Small chronic retention cyst within the right maxillary sinus is unchanged from the previous study. No acute vascular abnormalities are detected. IMPRESSION: No abscess or additional acute neck soft tissue abnormalities. Multilevel degenerative sequelae of the cervical spine, most pronounced at C6/C7. MTDD
== END 2020-04-19 15:00 | disposition home or self-care (01) ==
LOC: M ED 08:56
DX: R13.10 Dysphagia, unspecified (principal); I10 Essential (primary) hypertension; K21.9 Gastro-esophageal reflux disease without esophagitis; F41.9 Anxiety disorder, unspecified; F32.9 Major depressive disorder, single episode, unspecified; M50.30 Other cervical disc degeneration, unspecified cervical region; Z79.82 Long term (current) use of aspirin; Z79.899 Other long term (current) drug therapy
CPT/HCPCS: 70360; 70491; 71046; 80047; 80076; 83690; 83880; 84439; 84443; 84484; 85025; 85610; 85730; 93005; 93041; 94760; 99285; Q9967

== ENCOUNTER 2020-04-28 12:31 | Emergency (ER) | payer MEDICARE, MEDICAID ==
[~2020-04-28] VITALS: Ht 172.7 cm; Wt 86.4 kg
[2020-04-28] MEDS ORDERED: ACETAMINOPHEN TAB 650MG DOSE (2X325MG) PO ONE (15:00)
--- NOTE | 2020-04-28 15:53 | REP ---
REASON: Pain along the lateral aspect, attention 5th metatarsal. Degenerative changes are seen throughout the foot. There is no evidence of an acute fracture. There is a small plantar calcaneal heel spur. The bones are somewhat demineralized. IMPRESSION: Chronic changes. Electronically Signed by Kwan Shen DO 04/28/2020 04:14 P
[2020-04-28 16:36] VITALS: BP 109/64
== END 2020-04-28 17:13 | disposition home or self-care (01) ==
LOC: M ED 12:31 → EDBD 12:31 → M ED 17:13
DX: M79.671 Pain in right foot (principal); N18.9 Chronic kidney disease, unspecified; F33.9 Major depressive disorder, recurrent, unspecified; F41.9 Anxiety disorder, unspecified; F79 Unspecified intellectual disabilities; K21.9 Gastro-esophageal reflux disease without esophagitis; E78.9 Disorder of lipoprotein metabolism, unspecified; L30.9 Dermatitis, unspecified; E66.9 Obesity, unspecified; Z79.899 Other long term (current) drug therapy; Z79.82 Long term (current) use of aspirin

== ENCOUNTER 2020-05-01 14:11 | Emergency (ER) | payer MEDICARE, MEDICAID ==
[~2020-05-01 14:11] MED LIST changes: +ALL10TAB29 PO; +ASPI81TA85 PO; -ASPI81TA86 PO; -CETI-24 PO
[2020-05-01] MEDS ORDERED: ALLO100T PO (14:46)
[2020-05-01 15:45] VITALS: BP 96/57
[2020-05-01] MEDS ORDERED: ACET-683 PO (15:57)
== END 2020-05-01 16:19 | disposition home or self-care (01) ==
LOC: M ED 14:11 → EDBD 14:11 → M ED 16:19
DX: M25.571 Pain in right ankle and joints of right foot (principal); I10 Essential (primary) hypertension; Z79.899 Other long term (current) drug therapy

== ENCOUNTER → 2020-05-19 | Outpatient (REF) | payer MEDICARE, MEDICAID ==
[~2020-05-19] MED LIST changes: +ACET-683 PO; +ACET1TAB55 PO; -ALL10TAB29 PO; +ALLO100T PO; -ASPI81TA85 PO; +ASPI81TA86 PO; +AUGM875T28 PO; +CETI-24 PO; +DOXY-342 PO; +FLON1SPR NARES; +FLUTISP NARES; +NYST10CR TOP; +rolling walker
[2020-05-19 15:31] LABS: TOTAL 25(OH) VITAMIN D 38.2 NG/ML (30.0-100.0); URIC ACID 5.5 MG/DL (3.5-7.2)
== END ==
LOC: M PLALAB 10:17
PROVIDERS: ATTEND Nurse Practitioner Family
DX: E79.0 Hyperuricemia without signs of inflammatory arthritis and tophaceous disease (principal); E55.9 Vitamin D deficiency, unspecified

== ENCOUNTER → 2020-05-23 | Outpatient (REF) | payer MEDICARE, MEDICAID ==
[2020-05-23 14:00] LABS: BLOOD UREA NITROGEN 8 MG/DL (7-18); CALCIUM LEVEL 9.2 MG/DL (8.8-10.2); CARBON DIOXIDE LEVEL 33 MEQ/L (21-32); CHLORIDE LEVEL 96 MEQ/L (98-107); CREATININE FOR GFR 1.22 MG/DL (0.70-1.30); GLOMERULAR FILTRATION RATE > 60.0 (>35); GLUCOSE, FASTING 98 MG/DL (70-100); POTASSIUM SERUM 3.6 MEQ/L (3.5-5.1); SODIUM LEVEL 136 MEQ/L (136-145)
== END ==
LOC: M SFHCPLAZ 10:41
PROVIDERS: ATTEND Nurse Practitioner Family
DX: R60.0 Localized edema (principal)
CPT/HCPCS: 36415; 80048; G0463

== ENCOUNTER 2020-05-30 09:35 | Emergency (ER) | payer MEDICARE, MEDICAID ==
[~2020-05-30 09:35] MED LIST changes: -ACET1TAB55 PO; -AUGM875T28 PO; -DOXY-342 PO; -FLON1SPR NARES; -FLUTISP NARES; -NYST10CR TOP; -rolling walker
[2020-05-30 10:03] LABS: BASO # 0.1 10^3/uL (0.0-0.2); BASO % 0.9 % (0.0-1.0); EOS # 0.1 10^3/uL (0.0-0.5); HEMATOCRIT 44.5 % (42.0-52.0); HEMOGLOBIN 15.3 g/dl (13.5-17.5); LYMPH # 1.7 10^3/uL (1.5-5.0); LYMPH % 20.6 % (24.0-44.0); MEAN CORPUSCULAR HEMOGLOBIN 31.7 pg (27.0-33.0); MEAN CORPUSCULAR HGB CONC 34.4 g/dl (32.0-36.5); MEAN CORPUSCULAR VOLUME 92.1 fl (80.0-96.0); MONO # 0.9 10^3/uL (0.0-0.8); MONO % 10.8 % (0.0-5.0); NEUTROPHILS # 5.3 10^3/uL (1.5-8.5); NEUTROPHILS % 66.3 % (36.0-66.0); PLATELET COUNT, AUTOMATED 462 10^3/uL (150-450); RED BLOOD COUNT 4.83 10^6/uL (4.30-6.10)
[2020-05-30 10:25] LABS: ALBUMIN 3.5 GM/DL (3.2-5.2); BILIRUBIN,DIRECT 0.6 MG/DL (0.0-0.2); BILIRUBIN,TOTAL 1.4 MG/DL (0.2-1.0); TOTAL PROTEIN 7.5 GM/DL (6.4-8.2)
--- NOTE | 2020-05-30 10:52 | REP ---
CHEST, SINGLE VIEW: Single view of the chest is performed. There is no acute infiltrate. There is mild elevation of the left hemidiaphragm with mild discoid atelectasis in the left lung base. The heart is not significantly enlarged. There is mild calcification and tortuosity as well as ectasia of the thoracic aorta. Mediastinal silhouette is unremarkable. IMPRESSION: No acute pulmonary disease. Electronically Signed by Migue Chambers MD 06/02/2020 09:19 A
--- NOTE | 2020-05-30 12:01 | REP ---
Right lower extremity Duplex Doppler venous ultrasound: Real time compression and duplex Doppler interrogation of the right lower extremity deep venous system is performed. The right common femoral, superficial femoral and popliteal veins are fully compressible with transducer pressure and demonstrate normal spontaneous and phasic flow, without evidence of deep venous thrombosis. Impression: No evidence of deep venous thrombosis of the right lower extremity femoral popliteal venous system. Electronically Signed by Migue Chambers MD 05/30/2020 11:52 A
[2020-05-30] MEDS ORDERED: FLON1SPR NARES (13:57)
[2020-05-30] MEDS ORDERED: rolling walker (13:58)
[2020-05-30 14:30] VITALS: BP 129/62
--- NOTE | 2020-05-31 09:23 | ECGEPIP ---
[facility] - ED Test Date: 2020-05-30 Pat Name: MANDO KELLEY Department: Room: - Gender: Male Seam Stayer: : 1940 Requested By: Ruba Mcduffie Order Number: [id number] Reading MD: Rohith Patterson Measurements Intervals [place] Rate: 69 P: 60 [place]: 157 QRS: 27 QRSD: 106 T: 48 QT: 411 QTc: 440 Interpretive Statements SINUS RHYTHM MODERATE T-WAVE ABNORMALITY, CONSIDER ANTERIOR ISCHEMIA Electronically Signed on 05-31-2020 9:23:26 EDT by Rohith Patterson
== END 2020-05-30 14:56 | disposition home or self-care (01) ==
LOC: M ED 09:35
DX: R09.81 Nasal congestion (principal); R94.31 Abnormal electrocardiogram [ECG] [EKG]; J43.9 Emphysema, unspecified; I12.9 Hypertensive chronic kidney disease with stage 1 through stage 4 chronic kidney disease, or unspecified chronic kidney disease; N18.3 Chronic kidney disease, stage 3 (moderate); E78.5 Hyperlipidemia, unspecified; F41.9 Anxiety disorder, unspecified; F33.9 Major depressive disorder, recurrent, unspecified; K21.9 Gastro-esophageal reflux disease without esophagitis; Z79.82 Long term (current) use of aspirin; Z79.899 Other long term (current) drug therapy

== ENCOUNTER 2020-05-31 10:52 | Emergency (ER) | payer MEDICARE, MEDICAID ==
[~2020-05-31 10:52] MED LIST changes: +FLON1SPR NARES; +rolling walker
[2020-05-31 11:01] VITALS: BP 108/65
[2020-05-31] MEDS ORDERED: AZELASTINE 137MCG NASAL SPY 30 ML (ASTELIN) ONE (13:45)
== END 2020-05-31 14:20 | disposition home or self-care (01) ==
LOC: EDBD 10:52 → M ED 10:52
DX: J30.89 Other allergic rhinitis (principal); Z79.899 Other long term (current) drug therapy; Z79.82 Long term (current) use of aspirin

== ENCOUNTER 2020-08-18 14:44 | Inpatient (IN) | payer MEDICARE, MEDICAID ==
--- NOTE | 2020-08-18 16:42 | REPVR ---
PROCEDURE INFORMATION: Exam: US Duplex Right Lower Extremity Veins, Limited Exam date and time: 08/18/2020 4:30 PM Age: 80 years old Clinical indication: Edema, localized and swelling (edema) of limb; Lower extremity, right; Additional info: R foot pain/swelling, R/O dvt TECHNIQUE: Imaging protocol: Real-time Duplex ultrasound of the Right Lower Extremity with 2-D ignacio scale, color Doppler flow and spectral waveform analysis with image documentation. Limited exam was focused on the right lower extremity veins. COMPARISON: US Duplex, Ext,LOWER veins,unilat 05/30/2020 11:28 AM FINDINGS: Right deep veins: Unremarkable. The common femoral, femoral, proximal profunda femoral and popliteal veins are patent without thrombus. Normal Doppler waveforms. Normal compressibility and/or augmentation response. Right superficial veins: Unremarkable. Saphenofemoral junction is patent without thrombus. Soft tissues: Unremarkable. IMPRESSION: No evidence of deep vein thrombosis. Electronically signed by: Natividad Ellsworth On 08/18/2020 16:42:28 PM
[2020-08-18 16:49] LABS: BASO # 0.1 10^3/uL (0.0-0.2); BASO % 0.5 % (0.0-1.0); EOS # 0.2 10^3/uL (0.0-0.5); HEMATOCRIT 35.5 % (42.0-52.0); HEMOGLOBIN 11.7 g/dl (13.5-17.5); LYMPH # 1.5 10^3/uL (1.5-5.0); LYMPH % 14.6 % (24.0-44.0); MEAN CORPUSCULAR HEMOGLOBIN 32.3 pg (27.0-33.0); MEAN CORPUSCULAR VOLUME 98.1 fl (80.0-96.0); MONO % 9.8 % (0.0-5.0); NEUTROPHILS # 7.5 10^3/uL (1.5-8.5); NEUTROPHILS % 72.7 % (36.0-66.0); PLATELET COUNT, AUTOMATED 388 10^3/uL (150-450); RED BLOOD COUNT 3.62 10^6/uL (4.30-6.10); WHITE BLOOD COUNT 10.4 10^3/uL (4.0-10.0)
[2020-08-18 17:22] LABS: ALBUMIN 2.7 GM/DL (3.2-5.2); ALT/SGPT 13 U/L (12-78); BILIRUBIN,DIRECT 0.2 MG/DL (0.0-0.2); BILIRUBIN,TOTAL 0.5 MG/DL (0.2-1.0); BLOOD UREA NITROGEN 10 MG/DL (7-18); CALCIUM LEVEL 8.5 MG/DL (8.8-10.2); CARBON DIOXIDE LEVEL 30 MEQ/L (21-32); CHLORIDE LEVEL 104 MEQ/L (98-107); CK-MB VALUE MASS 1.9 NG/ML (<3.6); CPK CREATINE PHOSPHOKINASE 70 U/L (39-308); CREATININE FOR GFR 1.08 MG/DL (0.70-1.30); GLOMERULAR FILTRATION RATE > 60.0 (>35); GLUCOSE, FASTING 83 MG/DL (70-100); LIPASE 144 U/L (73-393); MB/CK RELATIVE INDEX 2.71 (< OR =4); NT-PRO BNP 374 PG/ML (<450); POTASSIUM SERUM 3.7 MEQ/L (3.5-5.1); SODIUM LEVEL 139 MEQ/L (136-145); TOTAL PROTEIN 6.3 GM/DL (6.4-8.2); TROPONIN I < 0.02 NG/ML (< 0.10)
--- NOTE | 2020-08-18 18:32 | REPVR ---
PROCEDURE INFORMATION: Exam: XR Chest, 2 Views Exam date and time: 08/18/2020 6:18 PM Age: 80 years old Clinical indication: Chest pain; Additional info: Abdominal pain TECHNIQUE: Imaging protocol: XR of the chest Views: 2 views. COMPARISON: CR PORTABLE CHEST X-RAY 05/30/2020 9:55 AM FINDINGS: Lungs: Lungs are hyperinflated. No focal consolidation. Pleural space: No pleural effusion or pneumothorax. Heart/Mediastinum: No cardiomegaly. Bones/joints: Skeletal degeneration. Scoliosis. IMPRESSION: No evidence of pneumonia or congestive heart failure. Electronically signed by: Natividad Ellsworth On 08/18/2020 18:31:51 PM
--- NOTE | 2020-08-18 18:37 | REPVR ---
PROCEDURE INFORMATION: Exam: XR Right Foot Complete Exam date and time: 08/18/2020 6:18 PM Age: 80 years old Clinical indication: Pain; Foot; Right; Additional info: R foot pain TECHNIQUE: Imaging protocol: XR Right foot. Views: 3 or more views. COMPARISON: No relevant prior studies available. FINDINGS: Bones/joints: There are hammertoe deformities. Bones are osteopenic. No definite acute fractures identified however there is irregularity of the head of the middle phalanx of the right 2nd toe. There is degeneration of the 1st metatarsal-phalangeal joint with joint space narrowing. Soft tissues: Unremarkable. IMPRESSION: There are hammertoe deformities which limit evaluation. Irregularity of the head of the middle phalanx of the right 2nd toe could be due to acute fracture. Electronically signed by: Natividad Ellsworth On 08/18/2020 18:37:04 PM
[2020-08-18] MEDS ORDERED: ISOVUE-370 76% 100ML VIAL As Ordered ONE (18:40)
--- NOTE | 2020-08-18 19:29 | REPVR ---
PROCEDURE INFORMATION: Exam: CT Abdomen And Pelvis Without Contrast Exam date and time: 08/18/2020 6:37 PM Age: 80 years old Clinical indication: Abdominal pain; Localized; Lower; Additional info: Lower abd with draining abscess TECHNIQUE: Imaging protocol: Computed tomography of the abdomen and pelvis without contrast. Radiation optimization: All CT scans at this facility use at least one of these dose optimization techniques: automated exposure control; mA and/or kV adjustment per patient size (includes targeted exams where dose is matched to clinical indication); or iterative reconstruction. COMPARISON: CT ABD/PEL W/IV CONTRAST ONLY 02/29/2020 8:59 AM FINDINGS: Lungs: The lung bases are unremarkable. Liver: There are no focal liver lesions. Gallbladder and bile ducts: The gallbladder is unremarkable. Pancreas: Pancreas appears atrophic. Spleen: The spleen is normal. Adrenals: The adrenal glands are unremarkable. Kidneys and ureters: The kidneys are unremarkable. Stomach and bowel: There is no evidence of intestinal obstruction. Diverticular seen in the sigmoid colon. Appendix: No evidence of appendicitis. Intraperitoneal space: Unremarkable. No free air. No significant fluid collection. Vasculature: There is no evidence of an infrarenal abdominal aortic aneurysm. The arteries demonstrates diffuse mild atherosclerotic calcification. Lymph nodes: Unremarkable. No enlarged lymph nodes. Urinary bladder: The bladder is unremarkable. Reproductive: Prostatic enlargement. Bones/joints: Scoliosis and skeletal degeneration. Soft tissues: Right inguinal hernia. There is soft tissue stranding on most inferior of the pelvic images below the level of the symphysis pubis in the anterior abdominal wall. This likely extends into the scrotum. IMPRESSION: No abdominal or pelvic abscess is identified on this noncontrast study. There is sigmoid diverticulosis. There is probable cellulitis in the anterior abdominal wall below the level of the symphysis pubis probably extending into the upper scrotum which could be further evaluated by ultrasound if clinically indicated. Electronically signed by: Natividad Ellsworth On 08/18/2020 19:29:34 PM
[2020-08-18] MEDS ORDERED: ACETAMINOPHEN 500 MG TAB PO ONE (19:45)
[2020-08-18] MEDS ORDERED: CEPHALEXIN 500 MG CAP PO ONE (19:45)
--- NOTE | 2020-08-18 19:57 | ECGEPIP ---
[facility] - ED Test Date: 2020-08-18 Pat Name: MANDO KELLEY Department: Room: - Gender: Male Radar Technician: camden : 1940 Requested By: MINESH Costello PA-C Order Number: [id number] Reading MD: Adria Dolan Measurements Intervals [place] Rate: 77 P: 48 GA: 147 QRS: 33 QRSD: 94 T: 53 QT: 375 QTc: 427 Interpretive Statements SINUS RHYTHM NONSPECIFIC ST T WAVE CHANGES LOW QRS VOLTAGE LIMB LEADS CW 05/30/[address] T WAVE CHANGES Electronically Signed on 08-18-2020 19:57:30 EDT by Adria Dolan
[2020-08-18] MEDS ORDERED: FLUTISP NARES (20:29)
--- NOTE | 2020-08-18 21:25 | HPEPDOC ---
[facility] Medical History & Physical Date of Admission Aug 18, 2020 Date of Service: Aug 18, 2020 Primary Care Physician: Landry Treviño MD Attending Physician: EULALIA SHAW MD History and Physical TIME OF SERVICE: 9:27 PM CHIEF COMPLAINT:, Foot pain HISTORY OF PRESENT ILLNESS: This 80 year-old gentleman presented with complaints of 2-3 week in duration 10 out of 10 in severity. Right foot pain and swelling. He called EMS and come to the hospital because he "got tired of dealing with it". At his baseline he ambulates with a walker and has had difficulty walking because of the foot pain. He denies having f/c. RREVIEW OF SYSTEMS: 12 point review of systems negative except as listed in HPI PAST MEDICAL/ SURGICAL HISTORY: Unsteady gait, uses a walker Intellectual Disability Chronic Hypertension Dyslipidemia Depression Esophagitis Anxiety Obesity History of cellulitis Appendectomy Tonsillectomy Bilateral inguinal hernia [place] SOCIAL HISTORY: Lives alone in an apartment complex. FAMILY HISTORY: Has a blood brother in [place] who has "skin problems." Father of CVA Mother after motor vehicle accident ALLERGIES: Please see below. HOME MEDICATIONS: Please see below. PHYSICAL EXAMINATION: Vital Signs Date Time Temp Pulse Resp B/P (MAP) Pulse Ox O2 Delivery O2 Flow Rate FiO2 08/18/20 14:58 97.2 80 18 110/60 (77) 99 Room Air GEN: well-nourished / well developed/ NAD INTEGUMENT: not flushed/ not jaundice / the right foot is warm red and swollen / the skin at the left lower abdomen and scrotum and red warm and swollen HEENT: lips acyanotic /mucus membranes moist and pink CVS: RRR/NMRG/ radial pulses intact / + BLE edema LUNGS: able to speak full sentences without stopping to take a breath / no coughing / lungs are clear to auscultation bilaterally on room air ABDOMEN: Contour (obese) / soft & not tender with palpation MSK/EXTREMITIES: NCAT / NEURO: CN 2-12 are grossly intact / speech is not dysarthric PSYCH: alert and oriented to person and place LABORATORY DATA: 08/18/20 16:35 08/18/20 16:35: Immature Granulocyte % (Auto) 0.4, Neutrophils (%) (Auto) 72.7H, Lymphocytes (%) (Auto) 14.6L, Monocytes (%) (Auto) 9.8H, Eosinophils (%) (Auto) 2.0, Basophils (%) (Auto) 0.5, Neutrophils # (Auto) 7.5, Lymphocytes # (Auto) 1.5, Monocytes # (Auto) 1.0H, Eosinophils # (Auto) 0.2, Basophils # (Auto) 0.1, Nucleated Red Blood Cells % (auto) 0.0, Anion Gap 5L, Glomerular Filtration Rate > 60.0, Lactic Acid Level 1.4, Calcium Level 8.5L, Total Bilirubin 0.5, Direct Bilirubin 0.2, Aspartate Amino Transf (AST/SGOT) 11, Alanine Aminotransferase (ALT/SGPT) 13, Alkaline Phosphatase 84, Total Creatine Kinase 70, Creatine Kinase MB 1.9, Creatine Kinase MB Relative Index 2.71, Troponin I < 0.02, UG-Dci-B-Type Natriuretic Peptide 374, Total Protein 6.3L, Albumin 2.7L, Albumin/Globulin Ratio 0.8, Lipase 144 IMAGING: RLE US "IMPRESSION: No evidence of deep vein thrombosis. " Chest xray "IMPRESSION: No evidence of pneumonia or congestive heart failure." Foot xray "IMPRESSION: There are hammertoe deformities which limit evaluation. Irregularity of the head of the middle phalanx of the right 2nd toe could be due to acute fracture." CT abd/pelvis "IMPRESSION: No abdominal or pelvic abscess is identified on this noncontrast study. There is sigmoid diverticulosis. There is probable cellulitis in the anterior abdominal wall below the level of the symphysis pubis probably extending into the upper scrotum which could be further evaluated by ultrasound if clinically indicated." US Scrotum " IMPRESSION: 1. Irregular hypoechoic lesion in the subcutaneous tissue just deep to the skin in the right inguinal region. Suspicious for abscess. 2. Left testicle appears atrophic. No vascular flow in the left testicle. Correlate with history. 3. Right testicle is unremarkable. " MICROBIOLOGY: 08/18/20 Gram Stain, Received Pending 08/18/20 Wound Culture, Received Pending 08/18/20 Blood Culture, Received Pending ASSESSMENT: is an 80-year-old with a history of intellectual disability, hypert ension, depression, anxiety, esophagitis, obesity, and history of cellulitis who presented with complaints of right foot pain, which is suspicious for cellulitis; he was also found to have lower abdominal and scrotal selling with abscess; He will be admitted for management of cellulitis. PLAN: 1. Right Foot Cellulitis w Right 2nd Toe Fx Plan: admit to medical floor / c/w Keflex for MSSA coverage and add Doxycyline for MRSA coverage / fall precautions / f/u blood cx / day time team may consider Podiatry consult / f/u uric acid to r/o acute gout 2. Lower abdominal wall and scrotal cellulitis w possible right inguinal abscess Plan: c/w abx / f/u pancx 3. 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 Chronic Hypertension Plan: lasix 5. Gout Plan: allopurinol Unsteady gait, uses a walker 5. Intellectual Disability Plan: PFS consult to asses living arrangements and contact his family members 6. Dyslipidemia Plan: pravastatin DVT PROPHYLAXIS: lovenox DISPOSITION: home after more than 2 midnight's stay Home Medications Scheduled Allopurinol (Allopurinol) 100 Mg Tablet, 100 MG PO DAILY Aspirin (Aspir 81) 81 Mg Tablet.dr, 81 MG PO DAILY Cetirizine HCl (Cetirizine HCl) 10 Mg Tablet, 10 MG PO DAILY Cyanocobalamin (Vitamin B-12) (Vitamin B-12) 1,000 Mcg Tablet, 1 TAB PO DAILY Furosemide (Furosemide) 40 Mg Tablet, 80 MG PO DAILY Potassium Chloride (Potassium Chloride) 20 Meq Tab.er.prt, 20 MEQ PO BID Pravastatin Sodium (Pravastatin Sodium) 40 Mg Tablet, 40 MG PO DAILY Scheduled PRN Fluticasone Propionate (Fluticasone Propionate) 16 Gm [place].susp, 2 SPRAY NARES DAILY PRN for CONGESTION Allergies Coded Allergies: No Known Allergies (Verified , 05/30/20) A-FIB/CHADSVASC A-FIB History Current/History of A-Fib/PAF?: No Current PO Anticoag Therapy: No EULALIA SHAW MD Aug 18, 2020 21:25
[2020-08-18] MEDS ORDERED: MAALOX 30 ML SUSP *UDC PO PRN (21:30)
[2020-08-18] MEDS ORDERED: ACETAMINOPHEN TAB 650MG DOSE (2X325MG) PO PRN (21:30)
[2020-08-18] MEDS ORDERED: MOM 30ML SUSPENSION UDC PO PRN (21:30)
[2020-08-18 22:55] VITALS: BP 114/77
[2020-08-18] MEDS ORDERED: FLUTICASONE PROP 0.05% NASAL SPRAY 16 GM (FLONASE) NARES PRN (23:45)
[2020-08-18] MEDS: POTASSIUM CHLORIDE 10 MEQ SR TABLET PO SCH (23:59)
[2020-08-19 00:01] LABS: URIC ACID 5.7 MG/DL (3.5-7.2)
[2020-08-19] MEDS: CEPHALEXIN 500 MG CAP PO SCH ×4 (00:05→18:02)
--- NOTE | 2020-08-19 01:40 | REPVR ---
PROCEDURE INFORMATION: Exam: US Scrotum Exam date and time: 08/19/2020 1:02 AM Age: 80 years old Clinical indication: Other: Cellulitis; Additional info: R/O abscess TECHNIQUE: Imaging protocol: Real-time ultrasound of the scrotum and contents with color Doppler and image documentation. COMPARISON: No relevant prior studies available. FINDINGS: Right testicle: Right testicle measures 3.7 x 2.2 x 2.3 cm. No masses. Normal vascular flow. Left testicle: Left testicle measures 1.4 x 0.8 x 1.7 cm. No masses. Left testicle appears atrophic. No vascular flow in the left testicle. Epididymides: Normal. Scrotum: Normal. Other findings: Irregular hypoechoic lesion in the subcutaneous tissue just deep to the skin in the right inguinal region measuring 7.3 x 7.1 x 1.1 cm. IMPRESSION: 1. Irregular hypoechoic lesion in the subcutaneous tissue just deep to the skin in the right inguinal region. Suspicious for abscess. 2. Left testicle appears atrophic. No vascular flow in the left testicle. Correlate with history. 3. Right testicle is unremarkable. Electronically signed by: Cindy Govea On 08/19/2020 01:39:49 AM
[2020-08-19] MEDS ORDERED: traMADol 50 MG TAB PO ONE (04:15)
[2020-08-19] MEDS: DOXYCYCLINE HYCLATE 100 MG in D5W MINI-BAG PLUS 100 ML IV SCH ×2 (05:24→18:02)
[2020-08-19 06:00] VITALS: BP 100/58
[2020-08-19 06:30] LABS: HEMATOCRIT 36.1 % (42.0-52.0); HEMOGLOBIN 12.2 g/dl (13.5-17.5); MEAN CORPUSCULAR HEMOGLOBIN 32.4 pg (27.0-33.0); MEAN CORPUSCULAR HGB CONC 33.8 g/dl (32.0-36.5); PLATELET COUNT, AUTOMATED 396 10^3/uL (150-450); RED BLOOD COUNT 3.76 10^6/uL (4.30-6.10); WHITE BLOOD COUNT 7.9 10^3/uL (4.0-10.0)
[2020-08-19 06:53] LABS: BLOOD UREA NITROGEN 8 MG/DL (7-18); CARBON DIOXIDE LEVEL 29 MEQ/L (21-32); CHLORIDE LEVEL 109 MEQ/L (98-107); CREATININE FOR GFR 0.93 MG/DL (0.70-1.30); GLOMERULAR FILTRATION RATE > 60.0 (>35); GLUCOSE, FASTING 86 MG/DL (70-100); POTASSIUM SERUM 3.9 MEQ/L (3.5-5.1); SODIUM LEVEL 142 MEQ/L (136-145)
[2020-08-19] MEDS ORDERED: CYANOCOBALAMIN 500 MCG TAB PO SCH (09:00)
[2020-08-19] MEDS: CETIRIZINE (ZyrTEC) 10 MG TAB PO SCH (09:50)
[2020-08-19] MEDS: POTASSIUM CHLORIDE 10 MEQ SR TABLET PO SCH ×2 (09:50→20:33)
[2020-08-19] MEDS: FUROSEMIDE 40 MG TAB PO SCH (09:50)
[2020-08-19] MEDS: ENOXAPARIN 40MG/0.4ML SYRINGE (J1650 PER 10MG) SC SCH (09:50)
[2020-08-19] MEDS: ASPIRIN 81 MG ENTERIC TAB PO SCH (09:51)
[2020-08-19] MEDS: allopurinoL 100 MG TAB PO SCH (09:51)
[2020-08-19] MEDS: PRAVASTATIN 20 MG TAB PO SCH (09:51)
[2020-08-19] MEDS ORDERED: FLUBLOK(EGG FREE)(QUAD)INFLUENZA VACC 0.5ML SYRINGE 18YRS & OLDER IM ONE (10:00)
[2020-08-19] MEDS: NYSTATIN CREAM 15 GM TOP SCH ×2 (13:16→20:34)
[2020-08-19] MEDS: VANICREAM MOISTURIZING SKIN CREAM 113GM TUBE TOP SCH ×2 (13:16→20:34)
[2020-08-19] MEDS: CYANOCOBALAMIN 500 MCG TAB PO SCH (13:17)
[2020-08-19 14:00] VITALS: BP 89/51
[2020-08-19] MEDS ORDERED: LIDOCAINE W/EPINEPHRINE 1% 20ML VIAL SC ONE (16:45)
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
[2020-08-19 22:00] VITALS: BP 107/69
[2020-08-20] MEDS: CEPHALEXIN 500 MG CAP PO SCH ×5 (00:47→23:57)
[2020-08-20 06:00] VITALS: BP 109/65
[2020-08-20] MEDS: DOXYCYCLINE HYCLATE 100 MG in D5W MINI-BAG PLUS 100 ML IV SCH ×2 (06:09→17:47)
[2020-08-20 06:12] LABS: HEMOGLOBIN 11.7 g/dl (13.5-17.5); MEAN CORPUSCULAR HEMOGLOBIN 31.5 pg (27.0-33.0); MEAN CORPUSCULAR HGB CONC 32.5 g/dl (32.0-36.5); PLATELET COUNT, AUTOMATED 400 10^3/uL (150-450); RED BLOOD COUNT 3.71 10^6/uL (4.30-6.10); WHITE BLOOD COUNT 7.9 10^3/uL (4.0-10.0)
[2020-08-20 06:37] LABS: BLOOD UREA NITROGEN 8 MG/DL (7-18); CALCIUM LEVEL 8.2 MG/DL (8.8-10.2); CARBON DIOXIDE LEVEL 32 MEQ/L (21-32); CHLORIDE LEVEL 104 MEQ/L (98-107); CREATININE FOR GFR 1.04 MG/DL (0.70-1.30); GLOMERULAR FILTRATION RATE > 60.0 (>35); GLUCOSE, FASTING 84 MG/DL (70-100); POTASSIUM SERUM 4.2 MEQ/L (3.5-5.1); SODIUM LEVEL 141 MEQ/L (136-145)
[2020-08-20] MEDS: ENOXAPARIN 40MG/0.4ML SYRINGE (J1650 PER 10MG) SC SCH (08:27)
[2020-08-20] MEDS: CYANOCOBALAMIN 500 MCG TAB PO SCH (08:27)
[2020-08-20] MEDS: POTASSIUM CHLORIDE 10 MEQ SR TABLET PO SCH ×2 (08:27→20:10)
[2020-08-20] MEDS: ASPIRIN 81 MG ENTERIC TAB PO SCH (08:28)
[2020-08-20] MEDS: CETIRIZINE (ZyrTEC) 10 MG TAB PO SCH (08:28)
[2020-08-20] MEDS: PRAVASTATIN 20 MG TAB PO SCH (08:28)
[2020-08-20] MEDS: allopurinoL 100 MG TAB PO SCH (08:28)
[2020-08-20] MEDS: TAMSULOSIN 0.4 MG CAP PO SCH (08:28)
[2020-08-20] MEDS: VANICREAM MOISTURIZING SKIN CREAM 113GM TUBE TOP SCH ×2 (08:30→20:09)
[2020-08-20] MEDS: NYSTATIN CREAM 15 GM TOP SCH ×2 (08:30→20:09)
[2020-08-20] MEDS: FUROSEMIDE 40 MG TAB PO SCH (08:36)
[2020-08-20 10:00] VITALS: BP 94/57
--- NOTE | 2020-08-20 12:04 | REPVR ---
PROCEDURE INFORMATION: Exam: CT Maxillofacial Without Contrast, Sinus Exam date and time: 08/20/2020 11:50 AM Age: 80 years old Clinical indication: Other: Sinus pain; Additional info: Sinuses TECHNIQUE: Imaging protocol: CT Maxillofacial without contrast. Focus on the sinuses. Radiation optimization: All CT scans at this facility use at least one of these dose optimization techniques: automated exposure control; mA and/or kV adjustment per patient size (includes targeted exams where dose is matched to clinical indication); or iterative reconstruction. COMPARISON: CR Sinuses 10/14/2017 1:17 PM FINDINGS: Frontal sinuses: Normal. No air-fluid levels. Ethmoid air cells: Normal. No air-fluid levels. Sphenoid sinuses: Normal. No air-fluid levels. Maxillary sinuses: There is a mucous retention cyst or polyp within the right maxillary sinus. The maxillary sinus infundibula are patent. Nasal cavity/Septum: Unremarkable. Orbital cavity: Orbits are normal. Globes are unremarkable. Bones/joints: Unremarkable. Soft tissues: Unremarkable. IMPRESSION: Mild sinus mucosal disease. Electronically signed by: Gabriela Abel On 08/20/2020 12:04:07 PM
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
--- NOTE | 2020-08-20 13:55 | REPVR ---
PROCEDURE INFORMATION: Exam: MR Right Lower Extremity Other Than Joint Without Contrast; Foot Exam date and time: 08/20/2020 1:02 PM Age: 80 years old Clinical indication: Cellulitis and swelling, leg or foot; Right; Bilateral; Patient HX: Has 2nd R toe fracture, pain, swelling, cellulitis in foot; Additional info: Cellulitis, R/O osteomyelitis. Has 2nd R toe fracture TECHNIQUE: Imaging protocol: MR of the Right lower extremity without contrast. Exam focused on the foot. COMPARISON: CR Foot, complete RIGHT 08/18/2020 6:10 PM FINDINGS: Bones and cartilage: Study is limited because of patient motion artifact. There are 2nd through 5th hammertoe deformities. No acute fracture is seen. No dislocation. Minimal degenerative change at the tarsometatarsal and 1st metatarsophalangeal joint Joint spaces: Small ankle and posterior subtalar joint effusions. LIGAMENTS: Lisfranc ligament: There is a low-grade sprain of the Lisfranc ligament. No evidence of disruption of the included collateral ligaments of the ankle. TENDONS: Flexor tendons of foot: Unremarkable. No evidence of tear. Tibialis posterior tendon: Unremarkable as visualized. Peroneal tendons: Unremarkable as visualized. Extensor tendons of foot: Unremarkable. No evidence of tear. Tibialis anterior tendon: Unremarkable as visualized. Tarsal canal (Sinus tarsi): Unremarkable. Tarsal tunnel: Unremarkable. Muscles: There is mild diffuse fatty muscle atrophy. Mild diffuse muscle edema. Soft tissues: There is subcutaneous soft tissue edema throughout the ankle and foot, more pronounced in the dorsal forefoot. No drainable soft tissue fluid collection. Plantar fascia: Tiny partial tear of the proximal central cord of the plantar fascia. Mild thickening of the proximal central cord of the plantar fascia. IMPRESSION: 1. Multifocal soft tissue edema in the ankle and foot, more pronounced in the dorsal forefoot, which could be bland edema and/or cellulitis. 2. Second through 5th hammertoe deformities. No acute fracture seen. 3. Low-grade Lisfranc ligament sprain. Electronically signed by: Jennifer Maya On 08/20/2020 13:55:31 PM
[2020-08-20 14:00] VITALS: BP 91/59
[2020-08-20 20:00] VITALS: BP 113/69
[2020-08-21 02:00] VITALS: BP 110/72
[2020-08-21 06:00] VITALS: BP 112/68
[2020-08-21] MEDS: CEPHALEXIN 500 MG CAP PO SCH ×2 (06:15→11:29)
[2020-08-21] MEDS: DOXYCYCLINE HYCLATE 100 MG in D5W MINI-BAG PLUS 100 ML IV SCH (06:15)
[2020-08-21 07:41] LABS: HEMATOCRIT 35.3 % (42.0-52.0); HEMOGLOBIN 11.8 g/dl (13.5-17.5); MEAN CORPUSCULAR HEMOGLOBIN 32.2 pg (27.0-33.0); MEAN CORPUSCULAR HGB CONC 33.4 g/dl (32.0-36.5); MEAN CORPUSCULAR VOLUME 96.4 fl (80.0-96.0); PLATELET COUNT, AUTOMATED 375 10^3/uL (150-450); RED BLOOD COUNT 3.66 10^6/uL (4.30-6.10); WHITE BLOOD COUNT 6.1 10^3/uL (4.0-10.0)
[2020-08-21 08:12] LABS: BLOOD UREA NITROGEN 8 MG/DL (7-18); CALCIUM LEVEL 8.1 MG/DL (8.8-10.2); CARBON DIOXIDE LEVEL 28 MEQ/L (21-32); CHLORIDE LEVEL 109 MEQ/L (98-107); CREATININE FOR GFR 0.97 MG/DL (0.70-1.30); GLOMERULAR FILTRATION RATE > 60.0 (>35); GLUCOSE, FASTING 88 MG/DL (70-100); POTASSIUM SERUM 4.2 MEQ/L (3.5-5.1); SODIUM LEVEL 143 MEQ/L (136-145)
--- NOTE | 2020-08-21 08:26 | ROOPDOC ---
[facility] Report Of Operation Report of Operation DATE OF PROCEDURE: 08/19/20 PREPROCEDURE DIAGNOSES: abscess right groin. POSTPROCEDURE DIAGNOSES: phlegmon ?inflamed lymph node right groin, no abscess. PROCEDURE: incision and drainage of suspected abscess right groin. SURGEON: Morro Edwards MD EXCAVATION LABORER: ANESTHESIA: local anesthesia (1% lidocaine with epinephrine). ESTIMATED BLOOD LOSS: Approximately 5 mL. COMPLICATIONS: none. REMARKS: no abscess found, just inflamed tissue maybe inflamed lymph nodes. . PROCEDURE NOTE: . DESCRIPTION OF PROCEDURE: . MORRO EDWARDS MD Aug 21, 2020 08:26
[2020-08-21] MEDS: ASPIRIN 81 MG ENTERIC TAB PO SCH (08:48)
[2020-08-21] MEDS: PRAVASTATIN 20 MG TAB PO SCH (08:48)
[2020-08-21] MEDS: CYANOCOBALAMIN 500 MCG TAB PO SCH (08:48)
[2020-08-21] MEDS: allopurinoL 100 MG TAB PO SCH (08:48)
[2020-08-21] MEDS: TAMSULOSIN 0.4 MG CAP PO SCH (08:48)
[2020-08-21] MEDS: CETIRIZINE (ZyrTEC) 10 MG TAB PO SCH (08:48)
[2020-08-21] MEDS: POTASSIUM CHLORIDE 10 MEQ SR TABLET PO SCH (08:49)
[2020-08-21] MEDS: FUROSEMIDE 40 MG TAB PO SCH (08:49)
[2020-08-21] MEDS: ENOXAPARIN 40MG/0.4ML SYRINGE (J1650 PER 10MG) SC SCH (08:49)
[2020-08-21] MEDS: NYSTATIN CREAM 15 GM TOP SCH (08:50)
[2020-08-21] MEDS: VANICREAM MOISTURIZING SKIN CREAM 113GM TUBE TOP SCH (08:50)
--- NOTE | 2020-08-21 09:17 | IPNPDOC ---
Text Note Date of Service The patient was seen on 08/21/20. NOTE Patient revisited today. He underwent incision and drainage of initially what looks like an abscess but was just an area of phlegmon on the right groin area. There is a significant improvement over the right groin and suprapubic area. The erythema of the skin is fully resolved. There is no drainage from the I&D site. There is still has some leftover swelling of the underlying subcutaneous tissue which I think is more inflammation than anything and probably even an inflamed lymph node. Impression and plan Regular skincare over the area. Prevent too much moisture to accumulate. No abscess found on incision and drainage. No further follow-up needed. VS,Fishbone, I+O VS, Fishbone, I+O Laboratory Tests 08/21/20 06:57 Vital Signs Date Time Temp Pulse Resp B/P (MAP) Pulse Ox O2 Delivery O2 Flow Rate FiO2 08/21/20 06:00 98.1 77 18 112/68 (83) 98 Room Air I&O- Last 24 Hours up to 6 AM 08/21/20 06:00 Intake Total 550 ml Output Total 1300 ml Balance -750 ml FRANK WEINSTEIN MD Aug 21, 2020 09:17
[2020-08-21] MEDS ORDERED: DOXY-342 PO (11:23)
[2020-08-21] MEDS ORDERED: ACET1TAB55 PO (11:23)
[2020-08-21] MEDS ORDERED: AUGM875T28 PO (11:24)
[2020-08-21] MEDS ORDERED: NYST10CR TOP (11:24)
--- NOTE | 2020-08-21 18:27 | DS.PDOC ---
Discharge Summary General Date of Admission Aug 18, 2020 at 21:21 Date of Discharge Aug 21, 2020 Attending Physician: NAVEEN GOMEZ DO Specialist/Consultants Involve General surgery, Dr. Edwards Urology, Dr. García Discharge Summary PROCEDURES PERFORMED DURING STAY: I&D groin area ADMITTING DIAGNOSES: 1. Right foot cellulitis 2. Right second toe fracture 3. Lower abdominal wall and scrotal cellulitis 4. Possible right inguinal abscess 5. 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 Hypertension 7. Gout 8. Dyslipidemia DISCHARGE DIAGNOSES: 1. Right foot cellulitis 2. Right foot hammertoe 3. Low grade Lisfranc ligament sprain (right foot) 4. Groin yeast infection 5. Groin cellulitis with Proteus smear bolus 6. 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 Hypertension 8. Gout 9. Dyslipidemia 10. Intellectual disability 11. Mild sinusitis COMPLICATIONS/CHIEF COMPLAINT: Abdominal Wall Cellulitis Cellulitis Of R Foot. HISTORY OF PRESENT ILLNESS: Mr. Chavez is in 80-year-old male with intellectual disability, gout, and hypertension here with right foot pain. He's had the pain for about 2-3 weeks. Reports 10 out of 10 severity. There is right foot swelling. Otherwise denies fever or chills. While in the ED, he had a CT of abdomen and pelvis demonstrated cellulitis of the groin as well as atrophic left testicle. Ultrasound demonstrated no flow in the left testicle. HOSPITAL COURSE: During his hospitalization, urology Dr. García looked at the patient. The atrophic left testicle was most likely due to prior trauma, possible torsion. Unfortunately, there is nothing that we can do for him now. Otherwise, on 08/19/2020, the nurse was able to express some pus from the groin area on the right side. There appears to be a collection suspicious for abscess. Gen. surgery, Dr. Edwards, was consulted. He attempted to drain, but was not able to express any further pus. Most likely inflamed lymph node. Otherwise, patient was complaining of some sinusitis with tenderness in the ethmoid region. CT of the sinuses demonstrated mild sinus disease. MRI of the foot was also obtained to rule out osteomyelitis. No osteomyelitis, no acute fracture. It does show hammertoe from the second toe through the fifth toe. There is also a low- grade Lisfranc ligament sprain. When I saw the patient today, he felt well. Denies any fever or chills, lightheadedness or dizziness, chest pain, dyspnea, abdominal pain, or dysuria. PFS evaluated patient's home situation. Patient was then discharged home with referral to see a service architect for the hammertoe in the ligament sprain. DISCHARGE MEDICATIONS: Please see below. ALLERGIES: Please see below. PHYSICAL EXAMINATION ON DISCHARGE: VITAL SIGNS: Please see below. GENERAL: Comfortable, in no apparent distress. HEENT: Head normocephalic/atraumatic, EOMI, sclera clear. NECK: Supple RESPIRATORY: Lungs clear to auscultation bilaterally, no rales, wheeze or rhonchi. CARDIOVASCULAR: Regular rate and rhythm. ABDOMEN: Soft, nontender, no guarding or rebound tenderness. Normal bowel so unds. MUSCLE SKELETAL: Mild pitting edema NEUROLOGICAL: CN 312 grossly intact, cognitively slow PSYCHOLOGICAL: Normal mood and affect LABORATORY DATA: Please see below. IMAGING: MRI right foot 1. Multifocal soft tissue edema in the ankle and foot, more pronounced in the dorsal forefoot, which could be bland edema and/or cellulitis. 2. Second through 5th hammertoe deformities. No acute fracture seen. 3. Low-grade Lisfranc ligament sprain. CT maxillofacial Mild sinus mucosal disease. Scrotal ultrasound 1. Irregular hypoechoic lesion in the subcutaneous tissue just deep to the skin in the right inguinal region. Suspicious for abscess. 2. Left testicle appears atrophic. No vascular flow in the left testicle. Correlate with history. 3. Right testicle is unremarkable. CT abdomen and pelvis No abdominal or pelvic abscess is identified on this noncontrast study. There is sigmoid diverticulosis. There is probable cellulitis in the anterior abdominal wall below the level of the symphysis pubis probably extending into the upper scrotum which could be further evaluated by ultrasound if clinically indicated. PROGNOSIS: Stable ACTIVITY: As tolerated. DIET: Low-sodium diet DISCHARGE PLAN: Home DISPOSITION: 01 Home, Self-Care. DISCHARGE INSTRUCTIONS: 1. Follow-up with your PCP within a week 2. Referral to podiatry 3. Continue antibiotics to completion. Augmentin for gram-positive, Proteus and anaerobic coverage. Doxycycline for MRSA coverage ITEMS TO FOLLOWUP ON ON OUTPATIENT: 1. Anaerobic culture DISCHARGE CONDITION: Stable Total time spent on discharge planning, discharge summary, medication reconciliation 45 minutes Vital Signs/I&Os Vital Signs Date Time Temp Pulse Resp B/P (MAP) Pulse Ox O2 Delivery O2 Flow Rate FiO2 08/21/20 06:00 98.1 77 18 112/68 (83) 98 Room Air I&O- Last 24 Hours up to 6 AM 08/21/20 06:00 Intake Total 550 ml Output Total 1300 ml Balance -750 ml Laboratory Data Labs 24H Laboratory Tests 2 08/21/20 06:57: Nucleated Red Blood Cells % (auto) 0.0, Anion Gap 6L, Glomerular Filtration Rate > 60.0, Calcium Level 8.1L CBC/BMP Laboratory Tests 08/21/20 06:57 Microbiology Microbiology 08/19/20 Gram Stain - Final, Resulted 08/19/20 Wound Culture - Preliminary, Resulted Proteus Mirabilis 08/19/20 Anaerobic Culture, Resulted Pending 08/18/20 Blood Culture - Preliminary, Resulted No Growth after 48 hours. All Specime... 08/18/20 Gram Stain - Final, Complete 08/18/20 Wound Culture - Final, Complete Proteus Mirabilis Staphylococcus Sp Coag Neg 08/18/20 Blood Culture - Preliminary, Resulted No Growth after 72 hours. All specime... Discharge Medications Scheduled Allopurinol (Allopurinol) 100 Mg Tablet, 100 MG PO DAILY, (Reported) Amoxicillin/Potassium Clav (Augmentin 875-125 Tablet) 1 Each Tablet, 875 MG PO BID Aspirin (Aspir 81) 81 Mg Tablet.dr, 81 MG PO DAILY, (Reported) Cetirizine HCl (Cetirizine HCl) 10 Mg Tablet, 10 MG PO DAILY, (Reported) Cyanocobalamin (Vitamin B-12) (Vitamin B-12) 1,000 Mcg Tablet, 1 TAB PO DAILY, (Reported) Doxycycline Monohydrate (Doxycycline) 100 Mg Capsule, 100 MG PO BID Furosemide (Furosemide) 40 Mg Tablet, 80 MG PO DAILY, (Reported) Nystatin (Nystatin) 15 Gm Cream..g., 0 DOSE TOP BID Potassium Chloride (Potassium Chloride) 20 Meq Tab.er.prt, 20 MEQ PO BID, (Reported) Pravastatin Sodium (Pravastatin Sodium) 40 Mg Tablet, 40 MG PO DAILY, (Reported) Scheduled PRN Acetaminophen (Acetaminophen) 325 Mg Tablet, 650 MG PO Q4H PRN for PAIN OR FEVER Fluticasone Propionate (Fluticasone Propionate) 16 Gm [place].susp, 2 SPRAY NARES DAILY PRN for CONGESTION, (Reported) Allergies Coded Allergies: No Known Allergies (Verified , 05/30/20) NAVEEN GOMEZ DO Aug 21, 2020 18:08
== END 2020-08-21 12:56 | disposition home or self-care (01) | DRG 603 ==
LOC: M ED 14:44 → M ED INP 21:21 → M MS5PR 22:58
PROVIDERS: ADMIT Internal Medicine; ATTEND Internal Medicine
PROC: 0HJPXZZ Inspection of Skin, External Approach (ICD-10-PCS; principal; 2020-08-19)
DX: L03.115 Cellulitis of right lower limb (principal); L02.214 Cutaneous abscess of groin; R26.81 Unsteadiness on feet; I10 Essential (primary) hypertension; E78.5 Hyperlipidemia, unspecified; F32.9 Major depressive disorder, single episode, unspecified; F41.9 Anxiety disorder, unspecified; E66.9 Obesity, unspecified; Z90.49 Acquired absence of other specified parts of digestive tract; N49.2 Inflammatory disorders of scrotum; M10.9 Gout, unspecified; Z79.82 Long term (current) use of aspirin; Z79.899 Other long term (current) drug therapy; F79 Unspecified intellectual disabilities; N50.0 Atrophy of testis; I87.2 Venous insufficiency (chronic) (peripheral); J30.9 Allergic rhinitis, unspecified; S92.521A Displaced fracture of middle phalanx of right lesser toe(s), initial encounter for closed fracture; X58.XXXA Exposure to other specified factors, initial encounter; Y92.9 Unspecified place or not applicable; Z53.09 Procedure and treatment not carried out because of other contraindication

== ENCOUNTER → 2020-09-02 | Outpatient (REF) | payer MEDICARE, MEDICAID ==
[~2020-09-02] MED LIST changes: +ACET1TAB55 PO; +AUGM875T28 PO; +DOXY-342 PO; +FLUTISP NARES; +NYST10CR TOP
[2020-09-02 14:39] LABS: ALBUMIN 3.1 GM/DL (3.2-5.2); ALT/SGPT 13 U/L (12-78); BILIRUBIN,TOTAL 0.7 MG/DL (0.2-1.0); BLOOD UREA NITROGEN 14 MG/DL (7-18); CALCIUM LEVEL 8.5 MG/DL (8.8-10.2); CARBON DIOXIDE LEVEL 33 MEQ/L (21-32); CHLORIDE LEVEL 105 MEQ/L (98-107); CREATININE FOR GFR 1.08 MG/DL (0.70-1.30); GLOMERULAR FILTRATION RATE > 60.0 (>35); GLUCOSE, FASTING 92 MG/DL (70-100); POTASSIUM SERUM 3.9 MEQ/L (3.5-5.1); SODIUM LEVEL 143 MEQ/L (136-145); TOTAL PROTEIN 6.4 GM/DL (6.4-8.2); URIC ACID 6.9 MG/DL (3.5-7.2)
[2020-09-02 14:47] LABS: TOTAL 25(OH) VITAMIN D 34.8 NG/ML (30.0-100.0)
[2020-09-02 14:48] LABS: FOLATE 3.5 NG/ML; VITAMIN B12 LEVEL 470 PG/ML
== END ==
LOC: M PLALAB 10:42
PROVIDERS: ATTEND Nurse Practitioner Family
DX: R60.0 Localized edema (principal); M10.9 Gout, unspecified; E55.9 Vitamin D deficiency, unspecified; E53.8 Deficiency of other specified B group vitamins; Z23 Encounter for immunization
CPT/HCPCS: 36415; 80053; 82306; 82607; 82746; 84550; 90682; G0008; G0463

== ENCOUNTER 2020-10-03 15:38 | Emergency (ER) | payer MEDICARE, MEDICAID ==
[~2020-10-03] VITALS: Ht 167.6 cm; Wt 79.5 kg
[2020-10-03] MEDS ORDERED: SODIUM CHLORIDE NASAL 0.65% SPRAY BTL (OCEAN) STA (17:17)
[2020-10-03 18:27] VITALS: BP 135/65
== END 2020-10-03 18:31 | disposition home or self-care (01) ==
LOC: M ED 15:38
DX: R09.81 Nasal congestion (principal); J06.9 Acute upper respiratory infection, unspecified; I12.9 Hypertensive chronic kidney disease with stage 1 through stage 4 chronic kidney disease, or unspecified chronic kidney disease; N18.30 Chronic kidney disease, stage 3 unspecified; F33.9 Major depressive disorder, recurrent, unspecified; F41.9 Anxiety disorder, unspecified; E78.5 Hyperlipidemia, unspecified; K21.9 Gastro-esophageal reflux disease without esophagitis; E53.9 Vitamin B deficiency, unspecified; F79 Unspecified intellectual disabilities; Z79.899 Other long term (current) drug therapy; Z79.82 Long term (current) use of aspirin
CPT/HCPCS: 99283; U0003

== ENCOUNTER 2020-10-30 12:58 | Emergency (ER) | payer MEDICARE, MEDICAID ==
[2020-10-30 14:43] LABS: RSV AMPLIFICATION NEGATIVE (NEGATIVE)
--- NOTE | 2020-10-30 14:57 | REP ---
INDICATION: short of breath. COMPARISON: Comparison chest x-ray August 18, 2020. TECHNIQUE: Portable upright AP chest radiograph. FINDINGS: The lungs are symmetrically aerated and free of infiltrate. The patient is rotated slightly to the right. Mild cardiomegaly is observed. The thoracic aorta is tortuous as before. Pulmonary vasculature is not increased. Pleural angles are sharp. No acute bony abnormality.. There is degenerative disc disease in the thoracic spine and a dextroconvex thoracolumbar curvature is seen. IMPRESSION: Mildly prominent heart. Tortuous thoracic aorta. No acute disease.. <Electronically signed by Zoltan Mari > 10/30/20 [id number]
[2020-10-30] MEDS ORDERED: CETI-24 PO (15:06)
[2020-10-30] MEDS ORDERED: FLUTISP NARES (15:06)
[2020-10-30] MEDS ORDERED: CETIRIZINE (ZyrTEC) 10 MG TAB PO ONE (15:15)
[2020-10-30 15:30] VITALS: BP 115/73
== END 2020-10-30 15:41 | disposition home or self-care (01) ==
LOC: M ED 12:58
DX: J30.89 Other allergic rhinitis (principal); N18.30 Chronic kidney disease, stage 3 unspecified; E78.5 Hyperlipidemia, unspecified; F33.9 Major depressive disorder, recurrent, unspecified; F41.9 Anxiety disorder, unspecified; K21.9 Gastro-esophageal reflux disease without esophagitis; Z79.899 Other long term (current) drug therapy; Z79.82 Long term (current) use of aspirin

== ENCOUNTER 2020-11-28 08:09 | Emergency (ER) | payer MEDICARE, MEDICAID ==
[~2020-11-28] VITALS: Ht 182.9 cm; Wt 0.7 kg
--- OUTSIDE RECORDS SUMMARY | 2020-11-28 08:40 | CCD | Continuity of Care Document ---
Author Author Daniel [facility]PLEOTN [facility] Organization Unknown Address [address] [place] [address], [address] [place] [address] Phone [phone] Care Team Providers Care Cst Name Role Phone MD Liza BeltranM [phone] Problems Active Problems Provider Date Pain in limb Wil Templeton DPM Onset: 06/26/2020 Onychomycosis Wil Templeton DPM Onset: 06/26/2020 Ingrowing nail Wil Templeton DPM Onset: 06/26/2020 Social History Type Date Description Comments Sex Unknown ETOH Use Denies alcohol use Tobacco Use Start: Unknown End: Unknown Patient is a former smoker Allergies, Adverse Reactions, Alerts Active Allergies Reaction Severity Comments Date Enviromental 06/17/2020 Medications Active Medications SIG Qnty Indications Ordering Provide r Date Ammonium Lactate 12% Cream apply to feet daily 140gm Wil Templeton DPM 06/17/2020 Omeprazole Unknown Allopurinol Unknown Vitamin D3 Unknown Immunizations Description No Information Available Vital Signs Date Vital Result Comment 06/17/2020 8:21am Height 64 inches 5'4" Weight 172.00 lb BP Systolic 110 mmHg BP Diastolic 60 mmHg Heart Rate 92 /min BMI (Body Mass Index) 29.5 kg/m2 Results Description No Information Available Procedures Date Code Description Status 09/09/2020 61130 Debridement 6-10 Nails Electric Completed 06/17/2020 88404 Debridement 6-10 Nails Electric Completed Medical Devices Description No Information Available Encounters Type Date Location Provider Dx Diagnosis Office Visit 06/17/2020 3:00p [place] [facility] Wil Templeton DPM M79.676 Pain in unspecified toe(s) B35.1 Tinea unguium L60.0 Ingrowing nail Assessments Date Code Description Provider 09/09/2020 B35.1 Tinea unguium Wil Templeton, FREDDIE 09/09/2020 L60.0 Ingrowing nail Wil Templeton, JINM 09/09/2020 M79.676 Pain in unspecified toe(s) Josemanuel Templeton, FREDDIE 06/17/2020 M79.676 Pain in unspecified toe(s) Josemanuel Templeton, FREDDIE 06/17/2020 B35.1 Tinea unguium Wil Templeton, FREDDIE 06/17/2020 L60.0 Ingrowing nail Wil Templeton DPM Plan of Treatment Future Appointment(s):* 11/26/2020 9:30 am - Wil Templeton DPM at [facility] Functional Status Description No Information Available Mental Status Description No Information Available Referrals Description No Information Available
--- OUTSIDE RECORDS SUMMARY | 2020-11-28 08:40 | CCD ---
Author Author [facility] Organization [facility] Address Unknown Phone Unavailable Care Team Providers Care Director Dermatology Name Role Phone Annia Mills Unavailable PROBLEMS Type Condition ICD9-CM Code [id number] Code Onset Dates Condition S tatus SNOMED Code Notes Problem Anxiety state F41.1 Active 395389766 Problem Mixed hyperlipidemia E78.2 Active 236080734 Problem Vitamin D deficiency E55.9 Active 73107301 Problem Bilateral edema of lower extremity R60.0 Activ e 751656641 Problem Allergic rhinitis, seasonal J30.2 Active 3674 23000 Problem Intellectual disability F79 Active 51957938 9 Problem Oropharyngeal dysphagia R13.12 Active 71032822 Problem Chronic kidney disease, stage III (moderate) N18.3 Active 448541512 Problem Mild cognitive impairment G31.84 Active 455823 003 Problem Blunt trauma of nose, initial encounter S09.92XA Active 267071769 Problem Perennial allergic rhinitis, unspecified allergi c rhinitis trigger J30.89 Active 14859695 Problem Venous stasis dermatitis of both lower extremities I87.2 Active 50208294 Problem Non compliance w medication regimen Z91.14 Acti ve 923664884 Problem Dysphagia, unspecified type R13.10 Active 4073 9000 Problem Sialadenitis K11.20 Active 86791481 Problem Primary osteoarthritis of left knee M17.12 Acti ve 902633140471948 Problem Intertriginous candidiasis B37.2 Active 06462 8001 Problem Obesity (BMI 30-39.9) E66.9 Active 826892628 Problem 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 Active 1909 53946 Problem 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 Active 190 214909 Problem Gout, unspecified cause, unspecified chronicity, unspecified site M10.9 Active 71243486 Problem Gastroesophageal reflux disease with esophagitis K 21.0 Active 840969785 Problem Venous stasis dermatitis of left lower extremity I 83.12 Active 10659060 Problem BMI 36.0-36.9,adult Z68.36 Active 182121430 Problem BMI 37.0-37.9, adult Z68.37 Active 974103057 Problem Stasis dermatitis of both legs I87.2 Active 3 8911452 Problem Candidiasis, intertriginous B37.2 Active 2661 38311 ALLERGIES No Known Allergies ENCOUNTERS from 1940 to 2020-10-08 Encounter Location Date Provider Diagnosis [address] [place] [address] 24 Sep, 2 020 Annia Mills Bilateral edema of lower extremity R60.0 ; Gout, unspecified cause, unspecified chronicity, unspecified site M10.9 ; Vitamin D deficiency E55.9 and Other B- complex deficiencies E53.8 IMMUNIZATIONS Vaccine Route Administration Date Status Influenza (High Dose 65 & up) IM Intramuscular Oct 19, 2016 A dministered Influenza (High Dose 65 & up) IM Intramuscular Aug 22, 2015 A dministered Pneumococcal Adult 0.5mL (Pneumovax 23) IM Intramuscular Oct 23, 2010 Administered Pneumococcal 0.5mL (Prevnar 13) IM Intramuscular February 20, 2015 Administered Influenza (6mo & up) Fluzone IM Intramuscular Aug 22, 2014 Ad ministered Influenza (6mo & up) Fluzone IM Intramuscular Oct 03, 2013 Ad ministered Influenza (18 yrs & older) Flublok IM Intramuscular Aug 22, 2018 Administered Influenza (6mo & up) Fluzone IM Intramuscular Oct 18, 2012 Ad ministered Influenza (18 yrs & older) Flublok IM Intramuscular Sep 11, 2019 Administered Influenza (6mo & up) Fluzone IM Intramuscular Aug 12, 2011 Ad ministered Influenza (18 yrs & older) Flublok IM Intramuscular Sep 02, 2020 Administered Influenza (6mo & up) Fluzone IM Intramuscular Oct 23, 2010 Ad ministered SOCIAL HISTORY Tobacco Use: Social History Observation Description Date Details (start date - stop date) Never Smoker Sex Assigned At : Social History Observation Description Sex Assigned At Unknown Education: Question Answer Notes Level of Education: Grade School Audit Question Answer Notes Total Score: 0 Interpretation: Alcohol Education Language: Question Answer Notes Languages spoken: [place] Islander Mandaen: Question Answer Notes Mandaen 33 None Sexual Hx: Question Answer Notes Had sex in the last 12 months (vaginal, oral, or anal)? No Have you ever had an STD? No Drug and Alcohol Question Answer Notes Total Score: 0 Interpretation: No problems reported Alcohol Screening: Question Answer Notes Did you have a drink containing alcohol in the past year? No Points 0 Interpretation Negative BMI Care Goal Follow-Up Question Answer Notes Above Normal BMI Follow-Up Giving encouragement to exercise Tobacco Use: Question Answer Notes Are you a: never smoker REASON FOR REFERRAL No Information VITAL SIGNS No information MEDICATIONS Medication SIG (Take, Route, Frequency, Duration) Notes Start Da te End Date Status Aspirin 81 MG 1 tablet Orally Once a day Not-Taking Fluticasone Propionate 50 MCG/ACT instill one sprays i n each nostril once daily Nasal Active Potassium Chloride Patience ER 20 MEQ 2 tabs Orally Daily for 90 days Active Pravastatin Sodium 40 MG take one tablet by mouth once daily Active Doxycycline Monohydrate 100 MG 1 capsule Orally Once a day Active Omeprazole 40 MG 1 capsule Orally Once a day before a meal Aug, Not-Taking Amoxicillin-Pot Clavulanate 875-125 MG 1 tablet Orally every 12 hrs Active Folic Acid 1 mg 1 tablet Orally Once a day Not-Taking Triamcinolone Acetonide 0.1 % 1 application to affecte d area lower legs Externally Twice a day for up to 2 weeks for 14 day(s) Jun, 2 018 Active Nystatin 274130 UNIT/GM 1 application to affected ar ea Externally to groin and lower abdominal skin folds Twice a day for 30 days Active Vitamin D3 50 MCG (1999 UT) 1 capsule Orally Once a day with nedra l for 90 days March, Active COMPRESSION STOCKINGS 15-20 as directed topical daily DX: R60.0 for 90 day(s) Not-Taking Acetaminophen 500 MG 1 tablet as needed Orally every 6 hrs Feb, Active Acetaminophen 500 mg 1 -2 capsules as needed Oral ly every 8 hrs if needed for pain Not-Taking Saline Nasal [place] 0.65 % 2 drops in each nostril as n eeded Nasally every 4 hrs as needed Active PredniSONE 20 MG t tabs with food Orally Daily for 5 day(s) Feb, Not-Taking Cetirizine HCl 10 MG take one tablet by mouth once daily Oral Active Furosemide 40 MG 2 tabs Orally Daily for 90 days Active Vitamin B12 1000 MCG 1 tablet Orally once daily with meal for 90 days Active ProAir HFA 108 (90 Base) MCG/ACT inhale 2 puffs by alberto th every 4 hours as needed Inhalation every 6 hrs as needed for shortness of breath for 30 day(s) Active Allopurinol 100 MG 1 tablet Orally Once a day for 90 days March, Active PROCEDURES No Information RESULTS No Results REASON FOR VISIT several MEDICAL (GENERAL) HISTORY Type Description Date Medical History anxiety Medical History depression Medical History eczema Medical History allergies Medical History leg edema Medical History hyperlipidemia Medical History obesity Medical History mental retardation Medical History mental illness Medical History GERD with esophagitis Medical History Other B-complex deficiencies Medical History Chronic kidney disease, stage III (moder ate) Medical History Mild cognitive impairment Surgical History tonsillectomy Surgical History hernia repair Surgical History inguinal hernia repair Surgical History colonoscopy with polyp resec tion, hyperplastic - Dr Asif - patient refuses f/up 11/22 Surgical History EGD esophagitis - Yefri 11/22 Surgical History oral surgery-8 teeth removed 05/09/18 Surgical History Teeth extractions 07/2018, 08/2018 Hospitalization History cellulitis 03/22, 04/22 Hospitalization History cellulitis 08/2020 Goals Section No Information Health Concerns No Information MEDICAL EQUIPMENT No Information MENTAL STATUS No Information FUNCTIONAL STATUS No Information ASSESSMENTS Encounter Date Diagnosis Assessment Notes Treatment Notes Treatm ent Clinical Notes Sep, Bilateral edema of lower extremity (ICD-10 - R60 .0) Sep, Gout, unspecified cause, uns pecified chronicity, unspecified site (ICD-10 - M10.9) Sep, Vitamin D deficiency (ICD-10 - E55.9) Sep, Other B-complex deficiencies (ICD-10 - E53.8) PLAN OF TREATMENT Medication Medication Name Sig Start Date Stop Date Vitamin D3 50 MCG (1999) 1 capsule Orally Once a day with meal for 90 days March, Vitamin B12 1000 MCG 1 tablet Orally once daily with meal for 90 days Doxycycline Monohydrate 100 MG 1 capsule Orally Once a day Allopurinol 100 MG 1 tablet Orally Once a day for 90 days March Amoxicillin-Pot Clavulanate 875-125 MG 1 tablet Orally every 12 hrs Potassium Chloride Patience ER 20 MEQ 2 tabs Orally Daily for 90 day s Furosemide 40 MG 2 tabs Orally Daily for 90 days Next Appt Details Provider Name:Annia Mills, 2020-10-30 11:3 0:00 AM, [address] [place], [address], Insurance Providers Payer Name Payer Address Payer Phone Insured Name Patient Relati onship to Insured Coverage Start Date Coverage End Date MEDICARE Part A and B [address] [facility] [address] [phone] MANDO KELLEY self MEDICAID [employer] [address] [facility] [id number] MANDO KELLEY self
--- OUTSIDE RECORDS SUMMARY | 2020-11-28 08:40 | CCD ---
Author Author [facility] Organization [facility] Address Unknown Phone Unavailable Care Team Providers Care Roofing Tile Sorter Name Role Phone Annia Mills Unavailable PROBLEMS Type Condition ICD9-CM Code [id number] Code Onset Dates Condition S tatus SNOMED Code Notes Problem Anxiety state F41.1 Active 183064372 Problem Mixed hyperlipidemia E78.2 Active 253850522 Problem Vitamin D deficiency E55.9 Active 01915277 Problem Bilateral edema of lower extremity R60.0 Activ e 277741261 Problem Allergic rhinitis, seasonal J30.2 Active 3674 25330 Problem Intellectual disability F79 Active 73902825 9 Problem Oropharyngeal dysphagia R13.12 Active 13134117 Problem Chronic kidney disease, stage III (moderate) N18.3 Active 912183031 Problem Mild cognitive impairment G31.84 Active 157193 003 Problem Blunt trauma of nose, initial encounter S09.92XA Active 025105953 Problem Perennial allergic rhinitis, unspecified allergi c rhinitis trigger J30.89 Active 61831236 Problem Venous stasis dermatitis of both lower extremities I87.2 Active 43910140 Problem Non compliance w medication regimen Z91.14 Acti ve 017719281 Problem Dysphagia, unspecified type R13.10 Active 4073 9000 Problem Sialadenitis K11.20 Active 42652690 Problem Primary osteoarthritis of left knee M17.12 Acti ve 048847082946197 Problem Intertriginous candidiasis B37.2 Active 60552 8001 Problem Obesity (BMI 30-39.9) E66.9 Active 847676261 Problem 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 Active 1909 55408 Problem 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 Active 190 326362 Problem Gout, unspecified cause, unspecified chronicity, unspecified site M10.9 Active 38159952 Problem Gastroesophageal reflux disease with esophagitis K 21.0 Active 438776200 Problem Venous stasis dermatitis of left lower extremity I 83.12 Active 97962734 Problem BMI 36.0-36.9,adult Z68.36 Active 179529933 Problem BMI 37.0-37.9, adult Z68.37 Active 716413158 Problem Stasis dermatitis of both legs I87.2 Active 3 6423417 Problem Candidiasis, intertriginous B37.2 Active 2661 24970 ALLERGIES No Known Allergies ENCOUNTERS from 1940 to 2020-10-07 Encounter Location Date Provider Diagnosis [address] [address] Sep, 020 [facility] IMMUNIZATIONS Vaccine Route Administration Date Status Influenza [...] Education Language: Question Answer Notes Languages spoken: Lao Taoist: Question Answer Notes Taoist 33 None Sexual Hx: Question Answer Notes [...] to 2 weeks for 14 day(s) Jun, 018 Active Nystatin 084744 UNIT/GM 1 application to affected ar ea Externally to groin and lower abdominal skin folds Twice a day for 30 days Active Vitamin D3 50 MCG (2000 UT) 1 capsule Orally Once a day with nedra l for 90 days March, Active COMPRESSION STOCKINGS 15-20 as directed topical daily DX: R60.0 for 90 day(s) Not-Taking Acetaminophen 500 MG 1 tablet as needed Orally every 6 hrs Feb, Active Acetaminophen 500 mg 1 -2 capsules as needed Oral ly every 8 hrs if needed for pain Not-Taking Saline Nasal [place] 0.65 % 2 drops in each nostril [...] Information RESULTS No Results REASON FOR VISIT ed visit [facility] d/c; 10/03; congestion MEDICAL (GENERAL) HISTORY Type Description Date Medical [...] No Information FUNCTIONAL STATUS No Information ASSESSMENTS No Information PLAN OF TREATMENT Medication Medication Name Sig [...] 90 days Next Appt Details Provider Name:Annia Mills 2020-10-30 11:3 0:00 AM, [address] [place], [address], Insurance Providers Payer Name Payer Address Payer Phone Insured Name Patient Relati onship to Insured Coverage Start Date Coverage End Date MEDICARE Part A and B [address] [facility] [address] MANDO KELLEY MEDICAID [employer] [address] [place] [id number] MANDO KELLEY
--- OUTSIDE RECORDS SUMMARY | 2020-11-28 08:41 | CCD ---
Author Author [facility] Address Unknown Phone Unavailable Support Name Relationship Address Phone MARIO [place] [address] ENRIQUE DE LA CRUZ Next Of Kin [address] [place] [address] ALEXA POND Next Of Kin [address] [place] [address] TERRY DE LA CRUZ Next Of Kin [phone] [place] [address] UNEMPLOYED Next Of Kin [address] [place] [address] PAMELA ALSTON Next Of Kin [address] [phone] JUSTIN DILLON Next Of Kin [address] [place] [address] RETIRED Next Of Kin Unknown Unavailable MAMI GUTIERREZ Next Of Kin [address] [place] [address] MAMI MARTI Next Of Kin [address] [place] [address] MILY MARTI Next Of Kin [address] [id number] YINKA KELLEY Next Of Kin - -, [place] - UE Next Of Kin Unknown Unavailable KORINA CANNON Next Of Kin [address] [place] [address] RE Next Of Kin Unknown Unavailable CHERRI MARTI Next Of Kin [address] [place] [address] [facility] Next Of Kin [address] [phone] CHARO MISTRY Next Of Kin [address] [place] [address] [place] [address] BURDICK, MARIO ECON Unknown Unavailable Alexa Pond ECON Unknown Unavailable JUSTIN DILLON ECON [address] [place] [address] Unavailable Care Team Providers Care Contracting Support Specialist Name Role Phone MAJAK, R SMITA DPM Unavailable Unavailable MAJAK, R SMITA DPM Unavailable Unavailable MAJAK, R SMITA DPM Unavailable Unavailable MAJAK, R SMITA DPM Unavailable Unavailable MAJAK, R SMITA DPM Unavailable Unavailable MAJAK, R SMITA DPM Unavailable Unavailable MAJAK, R SMITA DPM Unavailable Unavailable MAJAK, R SMITA DPM Unavailable Unavailable MAJAK, R SMITA DPM Unavailable Unavailable MAJAK, R SMITA DPM Unavailable Unavailable MAJAK, R SMITA DPM Unavailable Unavailable MAJAK, R SMITA DPM Unavailable Unavailable MAJAK, R SMITA DPM Unavailable Unavailable MAJAK, R SMITA DPM Unavailable Unavailable MAJAK, R SMITA DPM Unavailable Unavailable MAJAK, R SMITA DPM Unavailable Unavailable MAJAK, R SMITA DPM Unavailable Unavailable MAJAK, R SMITA DPM Unavailable Unavailable MAJAK, R SMITA DPM Unavailable Unavailable MAJAK, R SMITA DPM Unavailable Unavailable MAJAK, R SMITA DPM Unavailable Unavailable MAJAK, R SMITA DPM Unavailable Unavailable MAJAK, R SMITA DPM Unavailable Unavailable MAJAK, R SMITA DPM Unavailable Unavailable MAJAK, R SMITA DPM Unavailable Unavailable MAJAK, R SMITA DPM Unavailable Unavailable MAJAK, R SMITA DPM Unavailable Unavailable MAJAK, R SMITA DPM Unavailable Unavailable MAJAK, R SMITA DPM Unavailable Unavailable MAJAK, R SMITA DPM Unavailable Unavailable LONDON GONZALEZ PA Unavailable Unavailable GUGALONDON PA Unavailable Unavailable GUGALONDON PA Unavailable Unavailable GUGALONDON PA Unavailable Unavailable GUGALIDYAE PA Unavailable Unavailable GUGALIDYAE PA Unavailable Unavailable Re-disclosure Warning The records that you are about to access may contain information from federally-assisted alcohol or drug abuse programs. If such information is present, then the following federally mandated warning applies: This information has been disclosed to you from records protected by federal confidentiality rules (42 CFR part 2). The federal rules prohibit you from making any further disclosure of this information unless further disclosure is expressly permitted by the written consent of the person to whom it pertains or as otherwise permitted by 42 CFR part 2. A general authorization for the release of medical or other information is NOT sufficient for this purpose. The Federal rules restrict any use of the information to criminally investigate or prosecute any alcohol or drug abuse patient.The records that you are about to access may contain highly sensitive health information, the redisclosure of which is protected by Article 27-F of the [facility] Public Health law. If you continue you may have access to information: Regarding HIV / AIDS; Provided by facilities licensed or operated by the [facility] Office of Mental Health; or Provided by the [facility] Office for People With Developmental Disabilities. If such information is present, then the following [facility] mandated warning applies: This information has been disclosed to you from confidential records which are protected by state law. State law prohibits you from making any further disclosure of this information without the specific written consent of the person to whom it pertains, or as otherwise permitted by law. Any unauthorized further disclosure in violation of state law may result in a fine or long term sentence or both. A general authorization for the release of medical or other information is NOT sufficient authorization for further disc losure. Encounters Encounter Providers Location Date Indications Data Source(s ) Unknown [address] [facility] [place] [address] 10/30/2020 12:00:00 AM EST eCW1 ([facility]) Unknown [address] [facility] [address] 10/07/2020 12:00:00 AM EST eCW1 ([facility]) Unknown [address] [facility] [place] [address] 10/06/2020 12:00:00 AM EST eCW1 ([facility]) Outpatient [address] [facility] [address] 09/02/2020 12:00:00 AM EDT eCW1 ([facility]) Outpatient Attender: SMITA NGUYỄN [facility] Office 02/2020 03:00:00 PM EDT [facility] ([facility] [place] [address] [facility] [address] 05/26/2020 12:00:00 AM EDT [facility]CW1 [facility] [address] [facility], [place] [address] 05/23/2020 12:00:00 AM EDT eCW1 [facility]) Unknown [address] [facility] [address] 04/29/2020 12:00:00 AM EDT [facility]CW1 [facility] Outpatient Referrer: LONDON GASTON 04/10/2020 05:55:00 AM EDT [facility] [address] [place] [address], [place] [address] 03/20/2020 12:00:00 AM EDT eCW1 ([facility] [address] [facility] [address] 03/20/2020 12:00:00 AM EDT eCW1 [facility] [address] [place] [address], [place] [address] 03/12/2020 12:00:00 AM EDT eCW1 ([facility] [address] [place] [address], [place] [address] 03/07/2020 12:00:00 AM EDT eCW1 [facility]) Outpatient Referrer: LONDON GASTON 03/03/2020 05:14:00 AM EDT [facility] [address] [place] [address], [place] [address] 02/15/2020 12:00:00 AM EDT eCW1 ([facility]) [place]patient [address] [facility] [address] 02/14/2020 12:00:00 AM EDT [facility]CW1 [facility] [address] [address] 02/14/2020 12:00:00 AM EDT eCW1 ([facility]) [facility] [address] [facility] [address] 02/14/2020 12:00:00 AM EDT eCW1 ([facility]) [facility] [address] [facility] [address] 02/07/2020 12:00:00 AM EDT eCW1 ([facility]) [facility] [address] [facility] [address] 12/13/2019 12:00:00 AM EST eCW1 ([facility]) Immunizations Vaccine Date Status Description Data Source(s) influenza, recombinant, quadrIvalent,injectable, prese rvative free 09/02/2020 01:03:00 PM EDT completed eCW1 ([facility]) influenza, recombinant, quadrIvalent,injectable, prese rvative free 09/02/2020 01:03:00 PM EDT completed eCW1 ([facility]) influenza, recombinant, quadrIvalent,injectable, prese rvative free 09/02/2020 01:03:00 PM EDT completed eCW1 ([facility]) influenza, recombinant, quadrIvalent,injectable, prese rvative free 09/02/2020 01:03:00 PM EDT completed eCW1 ([facility]) Medications Medication Brand Name Start Date Product Form Dose Route Admi nistrative Instructions Pharmacy Instructions Status Indications Reaction Description Data Source(s) ammonium lactate 120 MG/ML Topical Cream Ammonium Lactate 06/17/2020 12:00:00 AM EDT active [facility] ([facility] Allopurinol 100 MG Oral Tablet Allopurinol 100 MG 03/20/2020 12:00: 00 AM EDT 1.0 {tablet} active Allopurinol 100 MG [facility] Cholecalciferol 2000 UNT Oral Capsule Vitamin D3 50 MC G (1999) Vitamin D3 50 MCG (1999) 03/20/2020 12:00:00 AM EDT active 1 capsule [facility]) Allopurinol 100 MG Oral Tablet Allopurinol 100 MG 03/20/2020 12:00: 00 AM EDT active 1 tablet [facility]CW1 [facility]) Cholecalciferol 2000 UNT Oral Capsule Vitamin D3 50 MC G (1999 UT) Vitamin D3 50 MCG (1999 UT) 03/20/2020 12:00:00 AM EDT 1.0 {capsule} active Vitamin D3 50 MCG (1999 UT) eCW1 [facility]) Allopurinol 100 MG Oral Tablet Allopurinol 100 MG 03/20/2020 12:00: 00 AM EDT 1.0 {tablet} active Allopurinol 100 MG eCW1 [facility]) Allopurinol 100 MG Oral Tablet Allopurinol 100 MG 03/20/2020 12:00: 00 AM EDT 1.0 {tablet} active Allopurinol 100 MG eCW1 [facility]) Allopurinol 100 MG Oral Tablet Allopurinol 100 MG 03/20/2020 12:00: 00 AM EDT 1.0 {tablet} active Allopurinol 100 MG eCW1 [facility]) Allopurinol 100 MG Oral Tablet Allopurinol 100 MG 03/20/2020 12:00: 00 AM EDT 1.0 {tablet} active Allopurinol 100 MG eCW1 [facility]) Cholecalciferol 2000 UNT Oral Capsule Vitamin D3 50 MC G (1999 UT) Vitamin D3 50 MCG (1999 UT) 03/20/2020 12:00:00 AM EDT 1.0 {capsule} active Vitamin D3 50 MCG (1999 UT) eCW1 [facility]) Cholecalciferol 2000 UNT Oral Capsule Vitamin D3 50 MC G (1999 UT) Vitamin D3 50 MCG (1999 UT) 03/20/2020 12:00:00 AM EDT 1.0 {capsule} active Vitamin D3 50 MCG (1999 UT) eCW1 [facility]) Cholecalciferol 2000 UNT Oral Capsule Vitamin D3 50 MC G (1999 UT) Vitamin D3 50 MCG (1999 UT) 03/20/2020 12:00:00 AM EDT 1.0 {capsule} active Vitamin D3 50 MCG (2000 UT) eCW1 [facility]) Allopurinol 100 MG Oral Tablet Allopurinol 100 MG 03/20/2020 12:00: 00 AM EDT 1.0 {tablet} active Allopurinol 100 MG eCW1 [facility]) Cholecalciferol 2000 UNT Oral Capsule Vitamin D3 50 MC G (1999) Vitamin D3 50 MCG (1999) 03/20/2020 12:00:00 AM EDT 1.0 {capsule} active Vitamin D3 50 MCG (1999) eCW1 ([facility]) Cholecalciferol 2000 UNT Oral Capsule Vitamin D3 50 MC G (1999) Vitamin D3 50 MCG (1999) 03/20/2020 12:00:00 AM EDT 1.0 {capsule} active Vitamin D3 50 MCG (1999) eCW1 ([facility]) Prednisone 20 MG Oral Tablet PredniSONE 20 MG PredniSONE 20 MG 02/15/2020 12:00:00 AM EDT suspended Predn iSONE 20 MG eCW1 ([facility]) Prednisone 20 MG Oral Tablet PredniSONE 20 MG PredniSONE 20 MG 02/15/2020 12:00:00 AM EDT suspended Predn iSONE 20 MG eCW1 ([facility]) Prednisone 20 MG Oral Tablet PredniSONE 20 MG PredniSONE 20 MG 02/15/2020 12:00:00 AM EDT suspended Predn iSONE 20 MG eCW1 ([facility]) Prednisone 20 MG Oral Tablet PredniSONE 20 MG PredniSONE 20 MG 02/15/2020 12:00:00 AM EDT suspended Predn iSONE 20 MG eCW1 ([facility]) Prednisone 20 MG Oral Tablet PredniSONE 20 MG PredniSONE 20 MG 02/15/2020 12:00:00 AM EDT suspended Predn iSONE 20 MG eCW1 ([facility]) Prednisone 20 MG Oral Tablet PredniSONE 20 MG PredniSONE 20 MG 02/15/2020 12:00:00 AM EDT suspended Predn iSONE 20 MG eCW1 ([facility]) Prednisone 20 MG Oral Tablet PredniSONE 20 MG PredniSONE 20 MG 02/15/2020 12:00:00 AM EDT suspended t tab s with food eCW1 ([facility]) Prednisone 20 MG Oral Tablet PredniSONE 20 MG PredniSONE 20 MG 02/15/2020 12:00:00 AM EDT active t tabs w ith food eCW1 ([facility]) Acetaminophen 500 MG Oral Tablet Acetaminophen 500 MG 2019 12:00:00 AM EDT 1.0 {tablet_as_needed} active A cetaminophen 500 MG eCW1 ([facility]) Acetaminophen 500 MG Oral Tablet Acetaminophen 500 MG 2019 12:00:00 AM EDT 1.0 {tablet_as_needed} active A cetaminophen 500 MG eCW1 ([facility]) Acetaminophen 500 MG Oral Tablet Acetaminophen 500 MG 2019 12:00:00 AM EDT 1.0 {tablet_as_needed} active A cetaminophen 500 MG eCW1 ([facility]) Acetaminophen 500 MG Oral Tablet Acetaminophen 500 MG 2019 12:00:00 AM EDT active 1 tablet as neede d eCW1 ([facility]) Acetaminophen 500 MG Oral Tablet Acetaminophen 500 MG 2019 12:00:00 AM EDT 1.0 {tablet_as_needed} active A cetaminophen 500 MG eCW1 ([facility]) Acetaminophen 500 MG Oral Tablet Acetaminophen 500 MG 2019 12:00:00 AM EDT 1.0 {tablet_as_needed} active A cetaminophen 500 MG eCW1 ([facility]) Acetaminophen 500 MG Oral Tablet Acetaminophen 500 MG 2019 12:00:00 AM EDT 1.0 {tablet_as_needed} active A cetaminophen 500 MG eCW1 ([facility]) Acetaminophen 500 MG Oral Tablet Acetaminophen 500 MG 2019 12:00:00 AM EDT 1.0 {tablet_as_needed} active A cetaminophen 500 MG eCW1 [facility]) Insurance Providers Payer name Policy type / Coverage type Policy ID Covered republican ID Covered republican's relationship to vickers Policy Vickers Plan Information CHAYA [id number] SP [id number] MEDICARE [id number] SP [id number] M29 MEDICARE C [id number] S [id number] M29 MEDICAID M [id number] S [id number] MEDICAID [id number] SP [id number] [facility] [id number] SP [id number] [facility] [id number] SP [id number] [facility] [id number] S [id number] ANSI-Not a Secondary Insurance [id number] ANSI-Medicaid [id number] ANSI-Medicaid [id number] ANSI-Not a Secondary Insurance [id number] ANSI-Not a Secondary Insurance [id number] ANSI-Medicaid [id number] ANSI-Medicaid [id number] ANSI-Not a Secondary Insurance [id number] ANSI-Medicaid [id number] ANSI-Not a Secondary Insurance [id number] [place] B [id number] Self [id number] Medicare Dme Supplies Medigap Part B [id number] Self [id number] [place] B [id number] Self [id number] Blue Shield [facility] Advantage Medigap Part B [id number] Self [id number] Medicare [facility] Medicare Primary [id number] Self [id number] ANSI-Not a Secondary Insurance [id number] ANSI-Medicaid [id number] ANSI-Medicaid [id number] ANSI-Not a Secondary Insurance [id number] ANSI-Not a Secondary Insurance [id number] ANSI-Medicaid [id number] ANSI-Not a Secondary Insurance [id number] ANSI-Medicaid [id number] ANSI-Medicaid [id number] ANSI-Not a Secondary Insurance [id number] MEDICARE BLUE PPO 306 [id number] SP [id number] ANSI-Medicaid [id number] ANSI-Not a Secondary Insurance [id number] MEDICARE [id number] SP [id number] ANSI-Medicare Part B [id number] ANSI-Medicaid [id number] ANSI-Medicaid [id number] ANSI-Medicare Part B [id number] [facility] [id number] SP [id number] ANSI-Medicaid [id number] ANSI-Medicare Part B [id number] MEDICAID [id number] SP [id number] MEDICARE [id number] A ANSI-Medicare Part B [id number] ANSI-Medicaid [id number] MEDICARE C [id number] ANSI-Medicare Part B [id number] ANSI-Medicaid [id number] ANSI-Medicaid [id number] ANSI-Medicare Part B [id number] ANSI-Medicaid [id number] ANSI-Medicare Part B [id number] ANSI-Medicaid [id number] [facility] [id number] MEDICARE BLUE PPO 306 [id number] SP [id number] ANS-Medicaid [id number] [facility] Part B [id number] [facility] [id number] [facility] Part B [id number] MEDICARE BLUE PPO [id number] SP [id number] MEDICARE BLUE PPO 306 [id number] SP [id number] MEDICARE BLUE PPO 306 [id number] SP [id number] EXCELLUS BCBS B [id number] S [id number] MEDICARE BLUE PPO 306 [id number] SP [id number] MEDICARE [id number] SP [id number] A MEDICAID UNAVAILABLE SP UNAVAILA BLE MEDICARE BLUE PPO 306 UNAVAILABLE SP UNAVAILABLE MEDICARE COMPLETE [id number] SP [id number] A Problems, Conditions, and Diagnoses Code Display Name Description Problem Type Effective Dates Data Source(s) 618201369 Ingrowing nail Ingrowing nail Problem 06/26/2020 12:00: 00 AM EDT [facility] 701409299 Onychomycosis Onychomycosis Problem 06/26/2020 12:00:00 AM EDT [facility] ([facility] 56059374 Pain in limb Pain in limb Problem 06/26/2020 12:00:00 A M EDT [facility] ([facility] M10.9 Gout Gout, unspecified cause, unspeci fied chronicity, unspecified site Problem 05/23/2020 12:00:00 AM EDT eCW1 ([facility]) B37.2 046159368 Candidiasis, intertriginous Problem 03/20/20 12:00:00 AM EDT [facility] 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 Elevated uric acid in blood Problem 03/20/2020 12:00:00 AM EDT eCW1 ([facility]) 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 Elevated uric acid in blood Problem 03/20/2020 12:00:00 AM EDT eCW1 [facility]) I87.2 94509254 Stasis dermatitis of both legs Problem 12/13/2019 12:00:00 AM EST eCW1 ([facility]) Surgeries/Procedures Procedure Description Date Indications Data Source(s) DEBRIDEMENT NAIL ANY METHOD 09/09/2020 12:00:00 AM EDT [facility] Immunization: Flublok Quadrivalent (18 years & older) 0.5mL IM (Influenza) 09/02/2020 12:00:00 AM EDT eCW1 ([facility]) DEBRIDEMENT NAIL ANY METHOD 06/17/2020 12:00:00 AM EDT [facility] ([facility] Office Visit, Est Pt., Level 2 FC 03/20/2020 12:00:00 AM EDT [facility]CW[facility] Office Visit, Est Pt., Level 4 PC 03/20/2020 12:00:00 AM EDT eCW1 [facility]) Results ID Date Data Source [id number] 10/30/2020 01:21:00 PM EST [facility] Name Value Range Interpretation Code Description Data Анна rce(s) Supporting Document(s) SARS coronavirus 2 RNA [Presence] in Res piratory specimen by KELLI with probe detection [facility] This lab was ordered by [facility] a nd reported by [facility]. ID Date Data Source [id number] 10/03/2020 05:28:00 PM EST [facility] Name Value Range Interpretation Code Description Data Анна rce(s) Supporting Document(s) SARS coronavirus 2 RNA [facility] This lab was ordered by [facility] and reported by [facility]. ID Date Data Source [id number] [id number] FOL 03/20/2020 12:00:00 AM EDT eCW1 ([facility]) Name Value Range Interpretation Code Description Data Анна rce(s) Supporting Document(s) 1865 VITAMIN B12 LEVEL eCW1 ([facility]) 5.0 FOLATE eCW1 ([facility]) ID Date Data Source VITAMIN D 25-[id number] 03/20/2020 12:00:00 AM EDT eCW1 ([facility]) Name Value Range Interpretation Code Description Data Анна rce(s) Supporting Document(s) 17.2 30.0-100.0 TOTAL 25(OH) VITAMIN D eC W1 ([facility]) ID Date Data Source LIPID PANEL (CARDIAC RISK) 03/20/2020 12:00:00 AM EDT eCW1 ( [facility]) Name Value Range Interpretation Code Description Data Анна rce(s) Supporting Document(s) Triglyceride [Mass/volume] in Serum or Plasma by calculation 109 <150 TRIGLYCERIDES LEVEL eCW1 ([facility]) Cholesterol in LDL [Mass/volume] in Serum or Plasma by calculation 72 <100 LDL CHOLESTEROL eCW1 ([facility]) Cholesterol in HDL [Moles/volume] in Serum or Plasma 38 >40 HDL CHOLESTEROL eCW1 ([facility]) Cholesterol [Moles/volume] in Serum or Plasma 132 <200 CHOLESTEROL LEVEL eCW1 ([facility]) 94 NON-HDL-C eCW1 ([facility]) 3.473 <5 CHOLESTEROL RISK RATIO eCW1 ([facility]) ID Date Data Source FREE T4 & TSH PANEL 03/20/2020 12:00:00 AM EDT eCW1 ([facility]) Name Value Range Interpretation Code Description Data Анна rce(s) Supporting Document(s) 1.01 0.76-1.46 FREE T4 eCW1 ([facility]) 2.740 0.358-3.740 THYROID STIMULATING HORM ONE eCW1 ([facility]) ID Date Data Source Comprehensive Metabolic Profile (CMP) 03/20/2020 12:00:00 AM EDT eCW1 ([facility]) Name Value Range Interpretation Code Description Data Анна rce(s) Supporting Document(s) 106 70-100 GLUCOSE, FASTING eCW1 ([facility]) > 60.0 >42 GLOMERULAR FILTRATION RATE eCW 1 ([facility]) 137 136-145 SODIUM LEVEL eCW1 ([facility]) 8 7-18 BLOOD UREA NITROGEN eCW1 ([facility]) 1.23 0.70-1.30 CREATININE FOR GFR eCW1 ([facility]) 34 21-32 CARBON DIOXIDE LEVEL eCW1 ([facility]) 95 98-107 CHLORIDE LEVEL eCW1 ([facility]) 3.3 3.5-5.1 POTASSIUM SERUM eCW1 ([facility] [facility]) 21 12-78 ALT/SGPT eCW1 ([facility]) 18 7-37 AST/SGOT eCW1 ([facility]) 8.8 8.8-10.2 CALCIUM LEVEL eCW1 ([facility]) 7.3 6.4-8.2 TOTAL PROTEIN eCW1 ([facility]) 0.7 0.2-1.0 BILIRUBIN,TOTAL eCW1 ([facility]) 80 45-117 ALKALINE PHOSPHATASE eCW1 ([facility]) 3.7 3.2-5.2 ALBUMIN eCW1 ([facility]) 1.03 1.00-1.93 ALBUMIN/GLOBULIN RATIO eCW1 ([facility]) ID Date Data Source PLZ FOOT COMPLETE 02/15/2020 01:29:07 PM EDT eCW1 ([facility]) Name Value Range Interpretation Code Description Data Анна rce(s) Supporting Document(s) PLZ FOOT COMPLETE eCW1 ([facility]) ID Date Data Source URIC ACID 02/15/2020 01:29:07 PM EDT eCW1 ([facility]) Name Value Range Interpretation Code Description Data Анна rce(s) Supporting Document(s) 9.8 URIC ACID eCW1 ([facility]) ID Date Data Source Basic Metabolic Profile (BMP) 02/15/2020 01:29:07 PM EDT eCW 1 ([facility]) Name Value Range Interpretation Code Description Data Анна rce(s) Supporting Document(s) 1.37 CREATININE FOR GFR eCW1 ([facility]) 11 BLOOD UREA NITROGEN eCW1 ([facility]) 53.4 GLOMERULAR FILTRATION RATE eCW 1 ([facility]) 117 GLUCOSE, FASTING eCW1 ([facility]) 99 CHLORIDE LEVEL eCW1 ([facility]) 3.4 POTASSIUM SERUM eCW1 ([facility]) 135 SODIUM LEVEL eCW1 ([facility]) 31 CARBON DIOXIDE LEVEL eCW1 ([facility]) 9.1 CALCIUM LEVEL eCW1 ([facility]) ID Date Data Source ERYTHROCYTE SEDIMENTATION RATE 02/15/2020 01:29:07 PM EDT eC W1 ([facility]) Name Value Range Interpretation Code Description Data Анна rce(s) Supporting Document(s) 27 ERYTHROCYTE SEDIMENTATION RATE eCW1 ([facility]) ID Date Data Source CBC with Differential 02/15/2020 01:29:07 PM EDT eCW1 ([facility]) Name Value Range Interpretation Code Description Data Анна rce(s) Supporting Document(s) 8.1 WHITE BLOOD COUNT eCW1 ([facility]) 5.12 RED BLOOD COUNT eCW1 ([facility]) 15.9 HEMOGLOBIN eCW1 ([facility]) 47.2 HEMATOCRIT eCW1 ([facility]) 92.2 MEAN CORPUSCULAR VOLUME eCW1 ( [facility]) 31.1 MEAN CORPUSCULAR HEMOGLOBIN eC W1 ([facility]) 33.7 MEAN CORPUSCULAR HGB CONC eCW1 ([facility]) 350 PLATELET COUNT, AUTOMATED eCW1 ([facility]) 12.8 RED CELL DISTRIBUTION WIDTH eC W1 ([facility]) 2.3 EOS % eCW1 ([facility]) 60.1 NEUTROPHILS % eCW1 ([facility]) 11.7 MONO % eCW1 ([facility]) 24.5 LYMPH % eCW1 ([facility]) 0.7 BASO % eCW1 ([facility]) 2.0 LYMPH # eCW1 ([facility]) 4.9 NEUTROPHILS # eCW1 ([facility]) 0.1 BASO # eCW1 ([facility]) 0.2 EOS # eCW1 ([facility]) 1.0 MONO # eCW1 ([facility]) Procedure Social History Code Duration Value Status Description Data Source(s ) Smoking 09/02/2020 12:00:00 AM EDT Never Smoker completed Never S moker eCW1 ([facility]) Smoking 09/02/2020 12:00:00 AM EDT Never Smoker completed Never S moker eCW1 ([facility]) Smoking 09/02/2020 12:00:00 AM EDT Never Smoker completed Never S moker eCW1 ([facility]) Smoking 09/02/2020 12:00:00 AM EDT Never Smoker completed Never S moker eCW1 ([facility]) Smoking 05/23/2020 12:00:00 AM EDT Never Smoker completed Never S moker eCW1 ([facility]) Smoking 03/20/2020 12:00:00 AM EDT Never Smoker completed Never S moker eCW1 ([facility]) Vital Signs ID Date Data Source UNK Name Value Range Interpretation Code Description Data Source(s) Diastolic blood pressure 60 mm[Hg] 60 mm[Hg] eCW1 ([facility]) Systolic blood pressure 120 mm[Hg] 120 mm[Hg] e CW1 ([facility]) Body temperature 96 [degF] 96 [degF] eCW1 ([facility]) Respiratory rate 18 /min 18 /min eCW1 ([facility]) Heart rate 67 /min 67 /min eCW1 ([facility]) Body mass index (BMI) [Ratio] 28.49 kg/m2 28.49 kg/m2 [facility] Body height 64 [in_i] 64 [in_i] eCW1 ([facility]) Body weight 166 [lb_av] 166 [lb_av] eCW1 ([facility]) Body mass index (BMI) [Ratio] 29.5 kg/m2 29.5 k g/m2 [facility] ([facility] Heart rate 92 /min 92 /min [facility] ([facility] Diastolic blood pressure 60 mm[Hg] 60 mm[Hg] [facility] ([facility] Systolic blood pressure 110 mm[Hg] 110 mm[Hg] M EDENT ([facility] Body weight 172.00 [lb_av] 172.00 [lb_av] MEDEN T ([facility] Body height 64 [in_i] 64 [in_i] [facility] ([facility] 5'4" Diastolic blood pressure 64 mm[Hg] 64 mm[Hg] eCW1 ([facility]) Systolic blood pressure 104 mm[Hg] 104 mm[Hg] e CW1 ([facility]) Body temperature 97.3 [degF] 97.3 [degF] eCW1 ( [facility]) Respiratory rate 18 /min 18 /min eCW1 ([facility]) Heart rate 93 /min 93 /min eCW1 ([facility]) Body mass index (BMI) [Ratio] 31.85 kg/m2 31.85 kg/m2 eCW1 ([facility]) Body height 64 [in_us] 64 [in_us] eCW1 ([facility]) Body weight Measured 185.6 [lb_av] 185.6 [lb_av ] eCW1 ([facility]) Diastolic blood pressure 68 mm[Hg] 68 mm[Hg] eCW1 ([facility]) Systolic blood pressure 100 mm[Hg] 100 mm[Hg] e CW1 ([facility]) Body temperature 97.6 [degF] 97.6 [degF] eCW1 ( [facility]) Respiratory rate 18 /min 18 /min eCW1 ([facility]) Heart rate 88 /min 88 /min eCW1 ([facility]) Body mass index (BMI) [Ratio] 33.81 kg/m2 33.81 kg/m2 W1 ([facility]) Body height 64 [in_i] 64 [in_i] eCW1 ([facility]) Body weight 197 [lb_av] 197 [lb_av] eCW1 ([facility]) Diastolic blood pressure 78 mm[Hg] 78 mm[Hg] eCW1 ([facility]) Systolic blood pressure 116 mm[Hg] 116 mm[Hg] e CW1 ([facility]) Body temperature 97.7 [degF] 97.7 [degF] eCW1 ( [facility]) Respiratory rate 18 /min 18 /min eCW1 ([facility]) Heart rate 99 /min 99 /min eCW1 ([facility]) Body mass index (BMI) [Ratio] 36.28 kg/m2 36.28 kg/m2 eCW1 ([facility]) Body height 64 [in_us] 64 [in_us] eCW1 ([facility]) Body weight Measured 211.4 [lb_av] 211.4 [lb_av ] eCW1 ([facility]) Patient Treatment Plan of Care Planned Activity Planned Date Details Description Data Source (s) Allopurinol 100 MG Oral Tablet 03/20/2020 12:00:00 AM EDT eCW1 ([facility]) Cholecalciferol 2000 UNT Oral Capsule 03/20/2020 12:00:00 AM EDT eCW1 ([facility]) Allopurinol 100 MG Oral Tablet 03/20/2020 12:00:00 AM EDT eCW1 ([facility]) Cholecalciferol 2000 UNT Oral Capsule 03/20/2020 12:00:00 AM EDT eCW1 ([facility]) Allopurinol 100 MG Oral Tablet 03/20/2020 12:00:00 AM EDT eCW1 ([facility]) Allopurinol 100 MG Oral Tablet 03/20/2020 12:00:00 AM EDT eCW1 ([facility]) Cholecalciferol 2000 UNT Oral Capsule 03/20/2020 12:00:00 AM EDT eCW1 ([facility]) Cholecalciferol 2000 UNT Oral Capsule 03/20/2020 12:00:00 AM EDT eCW1 ([facility]) Allopurinol 100 MG Oral Tablet 03/20/2020 12:00:00 AM EDT eCW1 ([facility]) Cholecalciferol 2000 UNT Oral Capsule 03/20/2020 12:00:00 AM EDT eCW1 ([facility]) Allopurinol 100 MG Oral Tablet 03/20/2020 12:00:00 AM EDT eCW1 ([facility]) Cholecalciferol 2000 UNT Oral Capsule 03/20/2020 12:00:00 AM EDT eCW1 ([facility]) Prednisone 20 MG Oral Tablet 02/15/2020 12:00:00 AM EDT eCW1 ([facility]) Acetaminophen 500 MG Oral Tablet 02/14/2020 12:00:00 AM EDT eCW1 ([facility])
[2020-11-28] MEDS ORDERED: FLON1SPR NARES (10:37)
[2020-11-28 10:48] VITALS: BP 127/79
== END 2020-11-28 10:57 | disposition home or self-care (01) ==
LOC: M ED 08:09 → EDBD 08:09 → M ED 10:57
DX: R09.81 Nasal congestion (principal); E78.5 Hyperlipidemia, unspecified; K21.9 Gastro-esophageal reflux disease without esophagitis; N18.9 Chronic kidney disease, unspecified; F41.9 Anxiety disorder, unspecified; F32.9 Major depressive disorder, single episode, unspecified; R41.841 Cognitive communication deficit; Z79.82 Long term (current) use of aspirin; Z79.899 Other long term (current) drug therapy

== ENCOUNTER 2021-01-05 11:15 | Observation (INO) | payer MEDICARE, MEDICAID ==
[~2021-01-05] VITALS: Ht 165.1 cm; Wt 78.7 kg
--- OUTSIDE RECORDS SUMMARY | 2021-01-05 11:29 | CCD ---
Author Author [facility] Address Unknown Phone Unavailable Support Name Relationship Address Phone MARIO [place] [address] ENRIQUE DE LA CRUZ Next Of Kin [address] [place] [address] ALEXA POND Next Of Kin [address] [place] [address] TERRY DE LA CRUZ Next Of Kin [phone] [place] [address] UNEMPLOYED Next Of Kin [address] [place] [address] PAMELA ALSTON Next Of Kin [address] [phone] JUSTIN DILLON Next Of Kin [address] [place] [address] RETIRED Next Of Kin Unknown Unavailable MAMI GUTIERREZ Next Of Kin [address] [place] [address] MAMI MARTI Next Of Kin [address] [place] [address] MILY MARTI Next Of Kin [address] [phone] YINKA KELLEY Next Of Kin - -, [place] - UE Next Of Kin Unknown Unavailable KORINA CANNON Next Of Kin [address] [place] [address] RE Next Of Kin Unknown Unavailable CHERRI MARTI Next Of Kin [address] [place] [address] [facility] Next Of Kin [address] [phone] CHARO MISTRY Next Of Kin [address] [place] [address] [place] [address] BURDICK, MARIO ECON Unknown Unavailable Alexa Pond ECON Unknown Unavailable JUSTIN DILLON ECON [address] [place] [address] Unavailable Care Team Providers Care Fish And Wildlife Warden Name Role Phone MAJAK, R SMITA DPM [...] is protected by Article 27-F of the [facility] Public Health law. If you continue you may have access to information: Regarding HIV / AIDS; Provided by facilities licensed or operated by the [facility] Office of Mental Health; or Provided by the [facility] Office for People With Developmental Disabilities. If such information is present, then the following [facility] mandated warning applies: This information has been [...] law may result in a fine or senior care sentence or both. A general authorization for the release of medical or other information is NOT sufficient authorization for further disc losure. Encounters Encounter Providers Location Date Indications Data Source(s ) Unknown [address] [facility] [place] [address] 10/30/2020 12:00:00 AM EST eCW1 ([facility]) Unknown [address] [facility] [address] 10/07/2020 12:00:00 AM EST eCW1 ([facility]) Unknown [address] [facility] [place] [address] 10/06/2020 12:00:00 AM EST eCW1 ([facility]) Outpatient [address] [facility] [address] 09/02/2020 12:00:00 AM EDT eCW1 ([facility]) Outpatient Attender: SMITA NGUYỄN [facility] Office 02/2020 03:00:00 PM EDT [facility] ([facility] Unknown [address] [facility] [address] 05/26/2020 12:00:00 AM EDT eCW1 ([facility]) [facility] [address] [facility] [address] 05/23/2020 12:00:00 AM EDT eCW1 ([facility]) Unknown [address] [facility] [address] 04/29/2020 12:00:00 AM EDT eCW1 ([facility]) Outpatient Referrer: LONDON GASTON 04/10/2020 05:55:00 AM EDT [facility] [address] [place] [address], [place] [address] 03/20/2020 12:00:00 AM EDT eCW1 ([facility]) [facility] [address] [facility] [address] 03/20/2020 12:00:00 AM EDT eCW1 ([facility]) [facility] [address] [place] [address], [place] [address] 03/12/2020 12:00:00 AM EDT eCW1 ([facility]) [facility] [address] [place] [address], [place] [address] 03/07/2020 12:00:00 AM EDT eCW1 ([facility]) Outpatient Referrer: LONDON GASTON 03/03/2020 05:14:00 AM EDT [facility] [address] [place] [address], [place] [address] 02/15/2020 12:00:00 AM EDT eCW1 ([facility]) Outpatient [address] [facility] [address] 02/14/2020 12:00:00 AM EDT eCW1 ([facility] [address] [address] 02/14/2020 12:00:00 AM EDT eCW1 [facility] [address] [facility] [address] 02/14/2020 12:00:00 AM EDT eCW1 ([facility]) [facility] [address] [facility] [address] 02/07/2020 12:00:00 AM EDT eCW1 ([facility]) [facility] [address] [facility] [address] 12/13/2019 12:00:00 AM EST eCW1 ([facility]) Immunizations Vaccine Date Status Description Data Source(s) influenza, recombinant, quadrIvalent,injectable, prese rvative free 09/02/2020 01:03:00 PM EDT completed eCW1 ([facility]) influenza, recombinant, quadrIvalent,injectable, prese rvative free 09/02/2020 01:03:00 PM EDT completed eCW1 ([facility]) influenza, recombinant, quadrIvalent,injectable, prese rvative free 09/02/2020 01:03:00 PM EDT completed eCW1 ([facility]) influenza, recombinant, quadrIvalent,injectable, prese rvative free 09/02/2020 01:03:00 PM EDT completed eCW1 ([facility]) Medications Medication Brand Name Start Date Product Form Dose Route Admi nistrative Instructions Pharmacy Instructions Status Indications Reaction Description Data Source(s) ammonium lactate 120 MG/ML Topical Cream Ammonium Lactate 06/17/2020 12:00:00 AM EDT active [facility] ([facility] Allopurinol 100 MG Oral Tablet Allopurinol 100 MG 03/20/2020 12:00: 00 AM EDT 1.0 {tablet} active Allopurinol 100 MG eCW1 ([facility]) Cholecalciferol 2000 UNT Oral Capsule Vitamin D3 50 MC G (1999) Vitamin D3 50 MCG (1999) 03/20/2020 12:00:00 AM EDT active 1 capsule eCW1 ([facility]) Allopurinol 100 MG Oral Tablet Allopurinol 100 MG 03/20/2020 12:00: 00 AM EDT active 1 tablet eCW1 ([facility]) Cholecalciferol 2000 UNT Oral Capsule Vitamin D3 50 MC G (1999 UT) Vitamin D3 50 MCG (1999 UT) 03/20/2020 12:00:00 AM EDT 1.0 {capsule} active Vitamin D3 50 MCG (1999 UT) eCW1 ([facility]) Allopurinol 100 MG Oral Tablet Allopurinol 100 MG 03/20/2020 12:00: 00 AM EDT 1.0 {tablet} active Allopurinol 100 MG eCW1 ([facility]) Allopurinol 100 MG Oral Tablet Allopurinol 100 MG 03/20/2020 12:00: 00 AM EDT 1.0 {tablet} active Allopurinol 100 MG eCW1 ([facility]) Allopurinol 100 MG Oral Tablet Allopurinol 100 MG 03/20/2020 12:00: 00 AM EDT 1.0 {tablet} active Allopurinol 100 MG eCW1 ([facility]) Allopurinol 100 MG Oral Tablet Allopurinol 100 MG 03/20/2020 12:00: 00 AM EDT 1.0 {tablet} active Allopurinol 100 MG eCW1 ([facility]) Cholecalciferol 2000 UNT Oral Capsule Vitamin D3 50 MC G (1999 UT) Vitamin D3 50 MCG (1999 UT) 03/20/2020 12:00:00 AM EDT 1.0 {capsule} active Vitamin D3 50 MCG (1999 UT) eCW1 ([facility]) Cholecalciferol 2000 UNT Oral Capsule Vitamin D3 50 MC G (1999 UT) Vitamin D3 50 MCG (1999 UT) 03/20/2020 12:00:00 AM EDT 1.0 {capsule} active Vitamin D3 50 MCG (1999 UT) eCW1 ([facility]) Cholecalciferol 2000 UNT Oral Capsule Vitamin D3 50 MC G (1999 UT) Vitamin D3 50 MCG (1999 UT) 03/20/2020 12:00:00 AM EDT 1.0 {capsule} active Vitamin D3 50 MCG (2000 UT) eCW1 ([facility]) Allopurinol 100 MG Oral Tablet Allopurinol 100 MG 03/20/2020 12:00: 00 AM EDT 1.0 {tablet} active Allopurinol 100 MG eCW1 ([facility]) Cholecalciferol 2000 UNT Oral Capsule Vitamin D3 50 MC G (1999) Vitamin D3 50 MCG (1999) 03/20/2020 12:00:00 AM EDT 1.0 {capsule} active Vitamin D3 50 MCG (1999) eCW1 ([facility]) Cholecalciferol 2000 UNT Oral Capsule Vitamin D3 50 MC G (1999) Vitamin D3 50 MCG (1999) 03/20/2020 12:00:00 AM EDT 1.0 {capsule} active Vitamin D3 50 MCG (1999) eCW1 ([facility]) Prednisone 20 MG Oral Tablet PredniSONE 20 MG PredniSONE 20 MG 02/15/2020 12:00:00 AM EDT suspended Predn iSONE 20 MG eCW1 ([facility]) Prednisone 20 MG Oral Tablet PredniSONE 20 MG PredniSONE 20 MG 02/15/2020 12:00:00 AM EDT suspended Predn iSONE 20 MG eCW1 ([facility]) Prednisone 20 MG Oral Tablet PredniSONE 20 MG PredniSONE 20 MG 02/15/2020 12:00:00 AM EDT suspended Predn iSONE 20 MG eCW1 ([facility]) Prednisone 20 MG Oral Tablet PredniSONE 20 MG PredniSONE 20 MG 02/15/2020 12:00:00 AM EDT suspended Predn iSONE 20 MG eCW1 ([facility]) Prednisone 20 MG Oral Tablet PredniSONE 20 MG PredniSONE 20 MG 02/15/2020 12:00:00 AM EDT suspended Predn iSONE 20 MG eCW1 ([facility]) Prednisone 20 MG Oral Tablet PredniSONE 20 MG PredniSONE 20 MG 02/15/2020 12:00:00 AM EDT suspended Predn iSONE 20 MG eCW1 ([facility]) Prednisone 20 MG Oral Tablet PredniSONE 20 MG PredniSONE 20 MG 02/15/2020 12:00:00 AM EDT suspended t tab s with food eCW1 ([facility]) Prednisone 20 MG Oral Tablet PredniSONE 20 MG PredniSONE 20 MG 02/15/2020 12:00:00 AM EDT active t tabs w ith food eCW1 ([facility]) Acetaminophen 500 MG Oral Tablet Acetaminophen 500 MG 2019 12:00:00 AM EDT 1.0 {tablet_as_needed} active A cetaminophen 500 MG eCW1 ([facility]) Acetaminophen 500 MG Oral Tablet Acetaminophen 500 MG 2019 12:00:00 AM EDT 1.0 {tablet_as_needed} active A cetaminophen 500 MG eCW1 ([facility]) Acetaminophen 500 MG Oral Tablet Acetaminophen 500 MG 2019 12:00:00 AM EDT 1.0 {tablet_as_needed} active A cetaminophen 500 MG eCW1 ([facility]) Acetaminophen 500 MG Oral Tablet Acetaminophen 500 MG 2019 12:00:00 AM EDT active 1 tablet as neede d eCW1 ([facility]) Acetaminophen 500 MG Oral Tablet Acetaminophen 500 MG 2019 12:00:00 AM EDT 1.0 {tablet_as_needed} active A cetaminophen 500 MG eCW1 ([facility]) Acetaminophen 500 MG Oral Tablet Acetaminophen 500 MG 2019 12:00:00 AM EDT 1.0 {tablet_as_needed} active A cetaminophen 500 MG eCW1 ([facility]) Acetaminophen 500 MG Oral Tablet Acetaminophen 500 MG 2019 12:00:00 AM EDT 1.0 {tablet_as_needed} active A cetaminophen 500 MG eCW1 ([facility]) Acetaminophen 500 MG Oral Tablet Acetaminophen 500 MG 2019 12:00:00 AM EDT 1.0 {tablet_as_needed} active A cetaminophen 500 MG eCW1 ([facility]) Insurance Providers Payer name Policy type / Coverage type Policy ID Covered constitution party ID Covered constitution party's relationship to vickers Policy Vickers Plan Information CHAYA [id number] SP [id number] MEDICARE [id number] SP [id number] M29 MEDICARE C [id number] S [id number] M29 MEDICAID M [id number] S [id number] MEDICAID [id number] SP [id number] [facility] [id number] SP [id number] [facility] [id number] SP [id number] [facility] O [id number] S [id number] ANSI-Not a Secondary Insurance [id number] ANSI-Medicaid [id number] ANSI-Medicaid [id number] ANSI-Not a Secondary Insurance [id number] ANSI-Not a Secondary Insurance [id number] ANSI-Medicaid [id number] ANSI-Medicaid [id number] ANSI-Not a Secondary Insurance [id number] ANSI-Medicaid [id number] ANSI-Not a Secondary Insurance [id number] Medicaid [place] Medig[place] Part B [id number] Self [id number] Medicare Dme Supplies Medigap Part B [id number] Self [id number] [place] Medigap Part B [id number] Self [id number] Blue Shield [facility] Advantage Medigap Part B [id number] Self [id number] Medicare Rust Medicare Primary [id number] Self [id number] ANSI-Not a Secondary Insurance [id number] ANSI-Medicaid [id number] ANSI-Medicaid [id number] ANSI-Not a Secondary Insurance [id number] ANSI-Not a Secondary Insurance [id number] ANSI-Medicaid [id number] ANSI-Not a Secondary Insurance [id number] ANSI-Medicaid [id number] ANSI-Medicaid [id number] ANSI-Not a Secondary Insurance [id number] MEDICARE BLUE PPO 306 [id number] SP [id number] ANSI-Medicaid [id number] ANSI-Not a Secondary Insurance [id number] MEDICARE [id number] SP [id number] A ANSI-Medicare Part B [id number] ANSI-Medicaid [id number] ANSI-Medicaid [id number] ANSI-Medicare Part B [id number] [facility] [id number] SP [id number] ANSI-Medicaid [id number] ANSI-Medicare Part B [id number] MEDICAID [id number] SP [id number] MEDICARE [id number] A ANSI-Medicare Part B [id number] ANSI-Medicaid [id number] MEDICARE C [id number] A ANSI-Medicare Part B [id number] ANSI-Medicaid [id number] ANSI-Medicaid [id number] ANSI-Medicare Part B [id number] ANSI-Medicaid [id number] ANSI-Medicare Part B [id number] ANSI-Medicaid [id number] [facility] [id number] MEDICARE BLUE PPO 306 [id number] SP [id number] ANS-Medicaid [id number] [facility] [id number] [facility]-Medicaid [id number] [facility] [id number] MEDICARE BLUE PPO 306 [id number] SP [id number] MEDICARE BLUE PPO [id number] SP [id number] MEDICARE BLUE PPO 306 [id number] SP [id number] EXCELLUS BCBS B [id number] S [id number] MEDICARE BLUE PPO 306 [id number] SP [id number] MEDICARE [id number] SP [id number] A MEDICAID UNAVAILABLE SP UNAVAILA BLE MEDICARE BLUE PPO 306 UNAVAILABLE SP UNAVAILABLE MEDICARE COMPLETE [id number] SP [id number] A Problems, Conditions, and Diagnoses Code Display Name Description Problem Type Effective Dates Data Source(s) 650746927 Ingrowing nail Ingrowing nail Problem 06/26/2020 12:00: 00 AM EDT [facility] [id number] Onychomycosis Onychomycosis Problem 06/26/2020 12:00:00 AM EDT [facility] ([facility] [id number] Pain in limb Pain in limb Problem 06/26/2020 12:00:00 A M EDT [facility] ([facility] M10.9 Gout Gout, unspecified cause, unspeci fied chronicity, unspecified site Problem 05/23/2020 12:00:00 AM EDT eCW1 ([facility]) B37.2 [id number] Candidiasis, intertriginous Problem 03/20/20 12:00:00 AM EDT eCW1 ([facility]) 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 Elevated uric acid in blood Problem 03/20/2020 12:00:00 AM EDT eCW1 ([facility]) 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 Office Visit, Est Pt., Level 2 FC 03/20/2020 12:00:00 AM EDT eCW1 ([facility]) Office Visit, Est Pt., Level 4 PC 03/20/2020 12:00:00 AM EDT eCW1 ([facility]) Results ID Date Data Source [id number] 11/28/2020 08:40:00 AM EST [facility] Name Value Range Interpretation Code Description Data Анна rce(s) Supporting Document(s) SARS-CoV-2 (COVID 19) NEGATIVE - SARS-CoV-2 (COVID19) [facility] This lab was ordered by [facility] a nd reported by [facility]. ID Date Data Source [id number] 10/30/2020 01:21:00 PM EST [facility] Name Value Range Interpretation Code Description Data Анна rce(s) Supporting Document(s) SARS coronavirus 2 RNA [Presence] in Res piratory specimen by KELLI with probe detection [facility] This lab was ordered by [facility] a nd reported by [facility]. ID Date Data Source [id number] 10/03/2020 05:28:00 PM EST [facility] Name Value Range Interpretation Code Description Data Анна rce(s) Supporting Document(s) SARS coronavirus 2 RNA [facility] This lab was ordered by [facility] and reported by [facility]. ID Date Data Source [id number] 03/20/2020 12:00:00 AM EDT eCW1 ([facility]) Name Value Range Interpretation Code Description Data Анна rce(s) Supporting Document(s) 1865 VITAMIN B12 LEVEL eCW1 ([facility]) 5.0 FOLATE eCW1 ([facility]) ID Date Data Source VITAMIN D [id number] 03/20/2020 12:00:00 AM EDT eCW1 ([facility]) Name Value Range Interpretation Code Description Data Анна rce(s) Supporting Document(s) 17.2 30.0-100.0 TOTAL 25(OH) VITAMIN D eC W1 ([facility]) ID Date Data Source LIPID PANEL (CARDIAC RISK) 03/20/2020 12:00:00 AM EDT eCW1 ( [facility]) Name Value Range Interpretation Code Description Data Анна rce(s) Supporting Document(s) Triglyceride [Mass/volume] in Serum or Plasma by calculation 109 <150 TRIGLYCERIDES LEVEL eCW1 ([facility]) Cholesterol in LDL [Mass/volume] in Serum or Plasma by calculation 72 <100 LDL CHOLESTEROL eCW1 ([facility]) Cholesterol in HDL [Moles/volume] in Serum or Plasma 38 >40 HDL CHOLESTEROL eCW1 ([facility]) Cholesterol [Moles/volume] in Serum or Plasma 132 <200 CHOLESTEROL LEVEL eCW1 ([facility]) 94 NON-HDL-C eCW1 ([facility]) 3.473 <5 CHOLESTEROL RISK RATIO eCW1 ([facility]) ID Date Data Source FREE T4 & TSH PANEL 03/20/2020 12:00:00 AM EDT eCW1 ([facility]) Name Value Range Interpretation Code Description Data Анна rce(s) Supporting Document(s) 1.01 0.76-1.46 FREE T4 eCW1 ([facility]) 2.740 0.358-3.740 THYROID STIMULATING HORM ONE eCW1 ([facility]) ID Date Data Source Comprehensive Metabolic Profile (CMP) 03/20/2020 12:00:00 AM EDT eCW1 ([facility]) Name Value Range Interpretation Code Description Data Анна rce(s) Supporting Document(s) 106 70-100 GLUCOSE, FASTING eCW1 ([facility]) > 60.0 >42 GLOMERULAR FILTRATION RATE eCW 1 ([facility]) 137 136-145 SODIUM LEVEL eCW1 ([facility]) 8 7-18 BLOOD UREA NITROGEN eCW1 ([facility]) 1.23 0.70-1.30 CREATININE FOR GFR eCW1 ([facility]) 34 21-32 CARBON DIOXIDE LEVEL eCW1 ([facility]) 95 98-107 CHLORIDE LEVEL eCW1 ([facility]) 3.3 3.5-5.1 POTASSIUM SERUM eCW1 ([facility]) 21 12-78 ALT/SGPT eCW1 ([facility] [place]) 18 7-37 AST/SGOT eCW1 ([facility]) 8.8 8.8-10.2 CALCIUM LEVEL eCW1 ([facility] [place]) 7.3 6.4-8.2 TOTAL PROTEIN eCW1 ([facility] [place]) 0.7 0.2-1.0 BILIRUBIN,TOTAL eCW1 ([facility]) 80 45-117 ALKALINE PHOSPHATASE eCW1 ([facility]) 3.7 3.2-5.2 ALBUMIN eCW1 ([facility] [place]) 1.03 1.00-1.93 ALBUMIN/GLOBULIN RATIO eCW1 ([facility]) ID Date Data Source PLZ FOOT COMPLETE 02/15/2020 01:29:07 PM EDT eCW1 ([facility]) Name Value Range Interpretation Code Description Data Анна rce(s) Supporting Document(s) PLZ FOOT COMPLETE eCW1 ([facility]) ID Date Data Source URIC ACID 02/15/2020 01:29:07 PM EDT eCW1 ([facility]) Name Value Range Interpretation Code Description Data Анна rce(s) Supporting Document(s) 9.8 URIC ACID eCW1 ([facility]) ID Date Data Source Basic Metabolic Profile (BMP) 02/15/2020 01:29:07 PM EDT eCW 1 ([facility] [place]) Name Value Range Interpretation Code Description Data Анна rce(s) Supporting Document(s) 1.37 CREATININE FOR GFR eCW1 ([facility]) 11 BLOOD UREA NITROGEN eCW1 ([facility]) 53.4 GLOMERULAR FILTRATION RATE eCW 1 ([facility] [place]) 117 GLUCOSE, FASTING eCW1 ([facility]) 99 CHLORIDE LEVEL eCW1 ([facility] [place]) 3.4 POTASSIUM SERUM eCW1 ([facility]) 135 SODIUM LEVEL eCW1 ([facility]) 31 CARBON DIOXIDE LEVEL eCW1 ([facility]) 9.1 CALCIUM LEVEL eCW1 ([facility] [place]) ID Date Data Source ERYTHROCYTE SEDIMENTATION RATE 02/15/2020 01:29:07 PM EDT eC W1 ([facility] [place]) Name Value Range Interpretation Code Description Data Анна rce(s) Supporting Document(s) 27 ERYTHROCYTE SEDIMENTATION RATE eCW1 ([facility] [place]) ID Date Data Source CBC with Differential 02/15/2020 01:29:07 PM EDT eCW1 ([facility]) Name Value Range Interpretation Code Description Data Анна rce(s) Supporting Document(s) 8.1 WHITE BLOOD COUNT eCW1 ([facility]) 5.12 RED BLOOD COUNT eCW1 ([facility]) 15.9 HEMOGLOBIN eCW1 ([facility]) 47.2 HEMATOCRIT eCW1 ([facility]) 92.2 MEAN CORPUSCULAR VOLUME eCW1 ( [facility] [place]) 31.1 MEAN CORPUSCULAR HEMOGLOBIN eC W1 ([facility] [place]) 33.7 MEAN CORPUSCULAR HGB CONC eCW1 ([facility] [place]) 350 PLATELET COUNT, AUTOMATED eCW1 ([facility] [place]) 12.8 RED CELL DISTRIBUTION WIDTH eC W1 ([facility]) 2.3 EOS % eCW1 ([facility]) 60.1 NEUTROPHILS % eCW1 ([facility]) 11.7 MONO % eCW1 ([facility]) 24.5 LYMPH % eCW1 ([facility]) 0.7 BASO % eCW1 ([facility]) 2.0 LYMPH # eCW1 ([facility]) 4.9 NEUTROPHILS # eCW1 ([facility]) 0.1 BASO # eCW1 ([facility]) 0.2 EOS # eCW1 ([facility]) 1.0 MONO # eCW1 ([facility]) Procedure Social History Code Duration Value Status Description Data Source(s ) Smoking 09/02/2020 12:00:00 AM EDT Never Smoker completed Never S moker eCW1 ([facility]) Smoking 09/02/2020 12:00:00 AM EDT Never Smoker completed Never S moker eCW1 ([facility]) Smoking 09/02/2020 12:00:00 AM EDT Never Smoker completed Never S moker eCW1 ([facility]) Smoking 09/02/2020 12:00:00 AM EDT Never Smoker completed Never S moker eCW1 ([facility]) Smoking 05/23/2020 12:00:00 AM EDT Never Smoker completed Never S moker eCW1 ([facility]) Smoking 03/20/2020 12:00:00 AM EDT Never Smoker completed Never S moker eCW1 ([facility]) Vital Signs ID Date Data Source UNK Name Value Range Interpretation Code Description Data Source(s) Diastolic blood pressure 60 mm[Hg] 60 mm[Hg] eCW1 ([facility]) Systolic blood pressure 120 mm[Hg] 120 mm[Hg] e CW1 ([facility]) Body temperature 96 [degF] 96 [degF] eCW1 ([facility]) Respiratory rate 18 /min 18 /min eCW1 ([facility]) Heart rate 67 /min 67 /min eCW1 ([facility]) Body mass index (BMI) [Ratio] 28.49 kg/m2 28.49 kg/m2 W1 ([facility]) Body height 64 [in_i] 64 [in_i] eCW1 ([facility]) Body weight 166 [lb_av] 166 [lb_av] eCW1 ([facility]) Body mass index (BMI) [Ratio] 29.5 kg/m2 29.5 k g/m2 MEDENT ([facility] Heart rate 92 /min 92 /min MEDENT ([facility] Diastolic blood pressure 60 mm[Hg] 60 mm[Hg] MEDENT ([facility] Systolic blood pressure 110 mm[Hg] 110 mm[Hg] M EDENT ([facility] Body weight 172.00 [lb_av] 172.00 [lb_av] MEDEN T ([facility] Body height 64 [in_i] 64 [in_i] MEDROBERT ([facility] 5'4" Diastolic blood pressure 64 mm[Hg] 64 mm[Hg] eCW1 ([facility]) Systolic blood pressure 104 mm[Hg] 104 mm[Hg] e CW1 ([facility]) Body temperature 97.3 [degF] 97.3 [degF] eCW1 ( [facility]) Respiratory rate 18 /min 18 /min eCW1 ([facility]) Heart rate 93 /min 93 /min eCW1 ([facility]) Body mass index (BMI) [Ratio] 31.85 kg/m2 31.85 kg/m2 eCW1 ([facility]) Body height 64 [in_us] 64 [in_us] eCW1 ([facility]) Body weight Measured 185.6 [lb_av] 185.6 [lb_av ] eCW1 ([facility]) Diastolic blood pressure 68 mm[Hg] 68 mm[Hg] eCW1 ([facility]) Systolic blood pressure 100 mm[Hg] 100 mm[Hg] e CW1 ([facility]) Body temperature 97.6 [degF] 97.6 [degF] eCW1 ( [facility]) Respiratory rate 18 /min 18 /min eCW1 ([facility]) Heart rate 88 /min 88 /min eCW1 ([facility]) Body mass index (BMI) [Ratio] 33.81 kg/m2 33.81 kg/m2 eCW1 ([facility]) Body height 64 [in_i] 64 [in_i] eCW1 ([facility]) Body weight 197 [lb_av] 197 [lb_av] eCW1 ([facility]) Diastolic blood pressure 78 mm[Hg] 78 mm[Hg] eCW1 ([facility]) Systolic blood pressure 116 mm[Hg] 116 mm[Hg] e CW1 ([facility]) Body temperature 97.7 [degF] 97.7 [degF] eCW1 ( [facility]) Respiratory rate 18 /min 18 /min eCW1 ([facility]) Heart rate 99 /min 99 /min eCW1 ([facility]) Body mass index (BMI) [Ratio] 36.28 kg/m2 36.28 kg/m2 eCW1 ([facility]) Body height 64 [in_us] 64 [in_us] eCW1 ([facility]) Body weight Measured 211.4 [lb_av] 211.4 [lb_av ] eCW1 ([facility]) Patient Treatment Plan of Care Planned Activity Planned Date Details Description Data Source (s) Allopurinol 100 MG Oral Tablet 03/20/2020 12:00:00 AM EDT eCW1 ([facility]) Cholecalciferol 2000 UNT Oral Capsule 03/20/2020 12:00:00 AM EDT eCW1 ([facility]) Allopurinol 100 MG Oral Tablet 03/20/2020 12:00:00 AM EDT eCW1 ([facility]) Cholecalciferol 2000 UNT Oral Capsule 03/20/2020 12:00:00 AM EDT eCW1 ([facility]) Allopurinol 100 MG Oral Tablet 03/20/2020 12:00:00 AM EDT eCW1 ([facility]) Allopurinol 100 MG Oral Tablet 03/20/2020 12:00:00 AM EDT eCW1 ([facility]) Cholecalciferol 2000 UNT Oral Capsule 03/20/2020 12:00:00 AM EDT eCW1 ([facility]) Cholecalciferol 2000 UNT Oral Capsule 03/20/2020 12:00:00 AM EDT eCW1 ([facility]) Allopurinol 100 MG Oral Tablet 03/20/2020 12:00:00 AM EDT eCW1 ([facility]) Cholecalciferol 2000 UNT Oral Capsule 03/20/2020 12:00:00 AM EDT eCW1 ([facility]) Allopurinol 100 MG Oral Tablet 03/20/2020 12:00:00 AM EDT eCW1 ([facility]) Cholecalciferol 2000 UNT Oral Capsule 03/20/2020 12:00:00 AM EDT eCW1 ([facility]) Prednisone 20 MG Oral Tablet 02/15/2020 12:00:00 AM EDT eCW1 ([facility]) Acetaminophen 500 MG Oral Tablet 02/14/2020 12:00:00 AM EDT eCW1 ([facility])
--- NOTE | 2021-01-05 12:17 | REP ---
INDICATION: PAIN COMPARISON: None. TECHNIQUE: Four views right foot. FINDINGS: There is no evidence of acute fracture, dislocation, or intrinsic bone disease.There is mild inferior calcaneal spurring. There is mild narrowing of the 1st metatarsophalangeal joint. IMPRESSION: No fracture or dislocation. <Electronically signed by Migue Chambers > 01/05/21 [id number]
--- OUTSIDE RECORDS SUMMARY | 2021-01-05 13:11 | CCD ---
Author Author [facility] Address Unknown Phone Unavailable Support Name Relationship Address Phone MARIO [place] [address] ENRIQUE DE LA CRUZ Next Of Kin [address] [place] [address] ALEXA POND Next Of Kin [address] [place] [address] TERRY DE LA CRUZ Next Of Kin [id number] [place] [address] UNEMPLOYED Next Of Kin [address] [place] [address] PAMELA ALSTON Next Of Kin [address] [id number] JUSTIN DILLON Next Of Kin [address] [place] [address] RETIRED Next Of Kin Unknown Unavailable MAMI GUTIERREZ Next Of Kin [address] [place] [address] MAMI MARTI Next Of Kin [address] [place] [address] MILY MARTI Next Of Kin [address] [place] [id number] YINKA KELLEY Next Of Kin - -, [place] - UE Next Of Kin Unknown Unavailable KORINA CANNON Next Of Kin [address] [place] [address] RE Next Of Kin Unknown Unavailable CHERRI MARTI Next Of Kin [address] [place] [address] [facility] Next Of Kin [address] [place] [phone] CHARO MISTRY Next Of Kin [address] [place] [address] [place] [address] BURDICK, MARIO ECON Unknown Unavailable Alexa Pond ECON Unknown Unavailable JUSTIN DILLON ECON [address] [place] [address] Unavailable Care Team Providers Care Testing Coordinator Name Role Phone MAJAK, R SMITA DPM [...] is protected by Article 27-F of the [facility] Public Health law. If you continue you may have access to information: Regarding HIV / AIDS; Provided by facilities licensed or operated by the [facility] Office of Mental Health; or Provided by the [facility] Office for People With Developmental Disabilities. If such information is present, then the following [facility] mandated warning applies: This information has [...] law may result in a fine or snf sentence or both. A general authorization for the release of medical or other information is NOT sufficient authorization for further disc losure. Encounters Encounter Providers Location Date Indications Data Source(s ) Unknown [address] [facility] [place] [address] 10/30/2020 12:00:00 AM EST eCW1 ([facility]) Unknown [address] [facility] [address] 10/07/2020 12:00:00 AM EST eCW1 ([facility]) Unknown [address] [facility] [place] [address] 10/06/2020 12:00:00 AM EST eCW1 ([facility]) Outpatient [address] [facility] [address] 09/02/2020 12:00:00 AM EDT eCW1 ([facility]) Outpatient Attender: SMITA NGUYỄN [facility] 02/2020 03:00:00 PM EDT [facility] ([facility] [place] [address] [facility] [address] 05/26/2020 12:00:00 AM EDT [facility]CW1 [facility] [address] [facility] [address] 05/23/2020 12:00:00 AM EDT eCW1 ([facility]) [place] [address] [facility] [address] 04/29/2020 12:00:00 AM EDT [facility]CW1 [facility]) Outpatient Referrer: LONDON GASTON 04/10/2020 05:55:00 AM EDT [facility] [address] [place] [address], [place] [address] 03/20/2020 12:00:00 AM EDT eCW1 ([facility] [address] [facility] [address] 03/20/2020 12:00:00 AM EDT eCW1 [facility] [address] [place] [address], [place] [address] 03/12/2020 12:00:00 AM EDT eCW1 [facility] [address] [place] [address], [place] [address] 03/07/2020 12:00:00 AM EDT eCW1 [facility]) Outpatient Referrer: LONDON GASTON 03/03/2020 05:14:00 AM EDT [facility] [address] [place] [address], [place] [address] 02/15/2020 12:00:00 AM EDT eCW1 ([facility]) [place] [address] [facility] [address] 02/14/2020 12:00:00 AM EDT eCW1 ([facility] [address] [address] 02/14/2020 12:00:00 AM EDT eCW1 ([facility] [address] [facility] [address] 02/14/2020 12:00:00 AM EDT eCW1 ([facility]) [facility] [address] [facility] [address] 02/07/2020 12:00:00 AM EDT eCW1 ([facility]) [facility] [address] [facility] [address] 12/13/2019 12:00:00 AM EST eCW1 ([facility]) Immunizations Vaccine Date Status Description Data Source(s) influenza, recombinant, quadrIvalent,injectable, prese rvative free 09/02/2020 01:03:00 PM EDT completed eCW1 ([facility]) influenza, recombinant, quadrIvalent,injectable, prese rvative free 09/02/2020 01:03:00 PM EDT completed eCW1 ([facility]) influenza, recombinant, quadrIvalent,injectable, prese rvative free 09/02/2020 01:03:00 PM EDT completed eCW1 ([facility]) influenza, recombinant, quadrIvalent,injectable, prese rvative free 09/02/2020 01:03:00 PM EDT completed eCW1 ([facility]) Medications Medication Brand Name Start Date Product Form Dose Route Admi nistrative Instructions Pharmacy Instructions Status Indications Reaction Description Data Source(s) ammonium lactate 120 MG/ML Topical Cream Ammonium Lactate 06/17/2020 12:00:00 AM EDT active [facility] ([facility] Allopurinol 100 MG Oral Tablet Allopurinol 100 MG 03/20/2020 12:00: 00 AM EDT 1.0 {tablet} active Allopurinol 100 MG eCW1 ([facility]) Cholecalciferol 2000 UNT Oral Capsule Vitamin D3 50 MC G (1999) Vitamin D3 50 MCG (1999) 03/20/2020 12:00:00 AM EDT active 1 capsule eCW1 ([facility]) Allopurinol 100 MG Oral Tablet Allopurinol 100 MG 03/20/2020 12:00: 00 AM EDT active 1 tablet eCW1 ([facility]) Cholecalciferol 2000 UNT Oral Capsule Vitamin D3 50 MC G (1999 UT) Vitamin D3 50 MCG (1999 UT) 03/20/2020 12:00:00 AM EDT 1.0 {capsule} active Vitamin D3 50 MCG (1999 UT) eCW1 ([facility]) Allopurinol 100 MG Oral Tablet Allopurinol 100 MG 03/20/2020 12:00: 00 AM EDT 1.0 {tablet} active Allopurinol 100 MG eCW1 ([facility]) Allopurinol 100 MG Oral Tablet Allopurinol 100 MG 03/20/2020 12:00: 00 AM EDT 1.0 {tablet} active Allopurinol 100 MG eCW1 ([facility]) Allopurinol 100 MG Oral Tablet Allopurinol 100 MG 03/20/2020 12:00: 00 AM EDT 1.0 {tablet} active Allopurinol 100 MG eCW1 ([facility]) Allopurinol 100 MG Oral Tablet Allopurinol 100 MG 03/20/2020 12:00: 00 AM EDT 1.0 {tablet} active Allopurinol 100 MG eCW1 ([facility]) Cholecalciferol 2000 UNT Oral Capsule Vitamin D3 50 MC G (1999 UT) Vitamin D3 50 MCG (1999 UT) 03/20/2020 12:00:00 AM EDT 1.0 {capsule} active Vitamin D3 50 MCG (1999 UT) eCW1 ([facility]) Cholecalciferol 2000 UNT Oral Capsule Vitamin D3 50 MC G (1999 UT) Vitamin D3 50 MCG (1999 UT) 03/20/2020 12:00:00 AM EDT 1.0 {capsule} active Vitamin D3 50 MCG (1999 UT) eCW1 ([facility]) Cholecalciferol 2000 UNT Oral Capsule Vitamin D3 50 MC G (1999 UT) Vitamin D3 50 MCG (1999 UT) 03/20/2020 12:00:00 AM EDT 1.0 {capsule} active Vitamin D3 50 MCG (2000 UT) eCW1 ([facility]) Allopurinol 100 MG Oral Tablet Allopurinol 100 MG 03/20/2020 12:00: 00 AM EDT 1.0 {tablet} active Allopurinol 100 MG eCW1 ([facility]) Cholecalciferol 2000 UNT Oral Capsule Vitamin D3 50 MC G (1999) Vitamin D3 50 MCG (1999) 03/20/2020 12:00:00 AM EDT 1.0 {capsule} active Vitamin D3 50 MCG (1999) eCW1 ([facility]) Cholecalciferol 2000 UNT Oral Capsule Vitamin D3 50 MC G (1999) Vitamin D3 50 MCG (1999) 03/20/2020 12:00:00 AM EDT 1.0 {capsule} active Vitamin D3 50 MCG (1999) eCW1 ([facility]) Prednisone 20 MG Oral Tablet PredniSONE 20 MG PredniSONE 20 MG 02/15/2020 12:00:00 AM EDT suspended Predn iSONE 20 MG eCW1 ([facility]) Prednisone 20 MG Oral Tablet PredniSONE 20 MG PredniSONE 20 MG 02/15/2020 12:00:00 AM EDT suspended Predn iSONE 20 MG eCW1 ([facility]) Prednisone 20 MG Oral Tablet PredniSONE 20 MG PredniSONE 20 MG 02/15/2020 12:00:00 AM EDT suspended Predn iSONE 20 MG eCW1 ([facility]) Prednisone 20 MG Oral Tablet PredniSONE 20 MG PredniSONE 20 MG 02/15/2020 12:00:00 AM EDT suspended Predn iSONE 20 MG eCW1 ([facility]) Prednisone 20 MG Oral Tablet PredniSONE 20 MG PredniSONE 20 MG 02/15/2020 12:00:00 AM EDT suspended Predn iSONE 20 MG eCW1 ([facility]) Prednisone 20 MG Oral Tablet PredniSONE 20 MG PredniSONE 20 MG 02/15/2020 12:00:00 AM EDT suspended Predn iSONE 20 MG eCW1 ([facility]) Prednisone 20 MG Oral Tablet PredniSONE 20 MG PredniSONE 20 MG 02/15/2020 12:00:00 AM EDT suspended t tab s with food eCW1 ([facility]) Prednisone 20 MG Oral Tablet PredniSONE 20 MG PredniSONE 20 MG 02/15/2020 12:00:00 AM EDT active t tabs w ith food eCW1 ([facility]) Acetaminophen 500 MG Oral Tablet Acetaminophen 500 MG 2019 12:00:00 AM EDT 1.0 {tablet_as_needed} active A cetaminophen 500 MG eCW1 ([facility]) Acetaminophen 500 MG Oral Tablet Acetaminophen 500 MG 2019 12:00:00 AM EDT 1.0 {tablet_as_needed} active A cetaminophen 500 MG eCW1 ([facility]) Acetaminophen 500 MG Oral Tablet Acetaminophen 500 MG 2019 12:00:00 AM EDT 1.0 {tablet_as_needed} active A cetaminophen 500 MG eCW1 ([facility]) Acetaminophen 500 MG Oral Tablet Acetaminophen 500 MG 2019 12:00:00 AM EDT active 1 tablet as neede d eCW1 ([facility]) Acetaminophen 500 MG Oral Tablet Acetaminophen 500 MG 2019 12:00:00 AM EDT 1.0 {tablet_as_needed} active A cetaminophen 500 MG eCW1 ([facility]) Acetaminophen 500 MG Oral Tablet Acetaminophen 500 MG 2019 12:00:00 AM EDT 1.0 {tablet_as_needed} active A cetaminophen 500 MG eCW1 ([facility]) Acetaminophen 500 MG Oral Tablet Acetaminophen 500 MG 2019 12:00:00 AM EDT 1.0 {tablet_as_needed} active A cetaminophen 500 MG eCW1 ([facility]) Acetaminophen 500 MG Oral Tablet Acetaminophen 500 MG 2019 12:00:00 AM EDT 1.0 {tablet_as_needed} active A cetaminophen 500 MG eCW1 ([facility]) Insurance Providers Payer name Policy type / Coverage type Policy ID Covered republican ID Covered republican's relationship to vickers Policy Vickers Plan Information CHAYA [id number] SP [id number] MEDICARE [id number] SP [id number] MEDICARE C [id number] S [id number] MEDICAID M [id number] MEDICAID [id number] SP [id number] [facility] [id number] SP [id number] [facility] [id number] SP [id number] [facility] O [id number] S [id number] ANSI-Not a Secondary Insurance [id number] ANSI-Medicaid [id number] ANSI-Medicaid [id number] ANSI-Not a Secondary Insurance [id number] ANSI-Not a Secondary Insurance [id number] ANSI-Medicaid [id number] ANSI-Medicaid [id number] ANSI-Not a Secondary Insurance [id number] ANSI-Medicaid [id number] ANSI-Not a Secondary Insurance [id number] [place] [id number] Self [id number] Medicare Dme Supplies Medigap Part B [id number] Self [id number] Medicare [place] Medigap Part B [id number] Self [id number] Blue Shield [facility] Advantage Medigap Part B [id number] Self [id number] Medicare [facility] [[email or web address]] Medicare Primary [id number] Self [id number] ANSI-Not a Secondary Insurance [id number] ANSI-Medicaid [id number] ANSI-Medicaid [id number] ANSI-Not a Secondary Insurance [id number] ANSI-Not a Secondary Insurance [id number] ANSI-Medicaid [id number] ANSI-Not a Secondary Insurance [id number] ANSI-Medicaid [id number] ANSI-Medicaid [id number] ANSI-Not a Secondary Insurance [id number] MEDICARE BLUE PPO 306 [id number] SP [id number] ANSI-Medicaid [id number] ANSI-Not a Secondary Insurance [id number] MEDICARE [id number] SP [id number] ANSI-Medicare Part B [id number] ANSI-Medicaid [id number] ANSI-Medicaid [id number] ANSI-Medicare Part B [id number] [facility] [id number] SP [id number] ANSI-Medicaid [id number] ANSI-Medicare Part B [id number] MEDICAID [id number] SP [id number] MEDICARE [id number] A ANSI-Medicare Part B [id number] ANSI-Medicaid [id number] MEDICARE C [id number] ANSI-Medicare Part B [id number] ANSI-Medicaid [id number] ANSI-Medicaid [id number] ANSI-Medicare Part B [id number] ANSI-Medicaid [id number] ANSI-Medicare Part B [id number] ANSI-Medicaid [id number] [facility] [id number] MEDICARE BLUE PPO 306 [id number] SP [id number] ANS-Medicaid [id number] [facility] [id number] [facility]-Medicaid [id number] [facility] [id number] MEDICARE BLUE PPO 306 [id number] SP [id number] MEDICARE BLUE PPO 306 [id number] SP [id number] MEDICARE BLUE PPO 306 [id number] SP [id number] EXCELL[employer] BCBS B [id number] S [id number] MEDICARE BLUE PPO 306 [id number] SP [id number] MEDICARE [id number] SP [id number] MEDICAID UNAVAILABLE SP UNAVAILA BLE MEDICARE BLUE PPO 306 UNAVAILABLE SP UNAVAILABLE MEDICARE COMPLETE [id number] SP [id number] Problems, Conditions, and Diagnoses Code Display Name Description Problem Type Effective Dates Data Source(s) 945522182 Ingrowing nail Ingrowing nail Problem 06/26/2020 12:00: 00 AM EDT [facility] [id number] Onychomycosis Onychomycosis Problem 06/26/2020 12:00:00 AM EDT [facility] ([facility] 04517311 Pain in limb Pain in limb Problem 06/26/2020 12:00:00 A M EDT [facility] ([facility] M10.9 Gout Gout, unspecified cause, unspeci fied chronicity, unspecified site Problem 05/23/2020 12:00:00 AM EDT eCW1 ([facility]) B37.2 [id number] Candidiasis, intertriginous Problem 03/20/20 12:00:00 AM EDT eCW1 ([facility]) 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 Elevated uric acid in blood Problem 03/20/2020 12:00:00 AM EDT eCW1 ([facility]) 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 Elevated uric acid in blood Problem 03/20/2020 12:00:00 AM EDT eCW1 ([facility]) I87.2 32400449 Stasis dermatitis of both legs Problem 12/13/2019 12:00:00 AM EST eCW1 ([facility]) Surgeries/Procedures Procedure Description Date Indications Data Source(s) DEBRIDEMENT NAIL ANY METHOD 09/09/2020 12:00:00 AM EDT [facility] ([facility] Immunization: Flublok Quadrivalent (18 years & older) 0.5mL IM (Influenza) 09/02/2020 12:00:00 AM EDT eCW1 ([facility]) DEBRIDEMENT NAIL ANY METHOD 06/17/2020 12:00:00 AM EDT [facility] ([facility] Office Visit, Est Pt., Level 2 FC 03/20/2020 12:00:00 AM EDT eCW1 ([facility]) Office Visit, Est Pt., Level 4 PC 03/20/2020 12:00:00 AM EDT eCW1 ([facility]) Results ID Date Data Source [id number] 11/28/2020 08:40:00 AM EST [facility] Name Value Range Interpretation Code Description Data Анна rce(s) Supporting Document(s) SARS-CoV-2 (COVID 19) NEGATIVE - SARS-CoV-2 (COVID19) [facility] This lab was ordered by [facility] a nd reported by [facility]. ID Date Data Source [id number] 10/30/2020 01:21:00 PM EST [facility] Name Value Range Interpretation Code Description Data Анна rce(s) Supporting Document(s) SARS coronavirus 2 RNA [Presence] in Res piratory specimen by KELLI with probe detection [facility] This lab was ordered by [facility] a nd reported by [facility]. ID Date Data Source [id number] 10/03/2020 05:28:00 PM EST [facility] Name Value Range Interpretation Code Description Data Анна rce(s) Supporting Document(s) SARS coronavirus 2 RNA [facility] This lab was ordered by [facility] and reported by [facility]. ID Date Data Source [id number] [id number] FOL 03/20/2020 12:00:00 AM EDT eCW1 ([facility]) Name Value Range Interpretation Code Description Data Анна rce(s) Supporting Document(s) 1865 VITAMIN B12 LEVEL eCW1 ([facility]) 5.0 FOLATE eCW1 ([facility]) ID Date Data Source VITAMIN D 25-HYDROXY 03/20/2020 12:00:00 AM EDT eCW1 ([facility]) Name Value Range Interpretation Code Description Data Анна rce(s) Supporting Document(s) 17.2 30.0-100.0 TOTAL 25(OH) VITAMIN D eC W1 ([facility]) ID Date Data Source LIPID PANEL (CARDIAC RISK) 03/20/2020 12:00:00 AM EDT eCW1 ( [facility]) Name Value Range Interpretation Code Description Data Анна rce(s) Supporting Document(s) Triglyceride [Mass/volume] in Serum or Plasma by calculation 109 <150 TRIGLYCERIDES LEVEL eCW1 ([facility]) Cholesterol in LDL [Mass/volume] in Serum or Plasma by calculation 72 <100 LDL CHOLESTEROL eCW1 ([facility]) Cholesterol in HDL [Moles/volume] in Serum or Plasma 38 >40 HDL CHOLESTEROL eCW1 ([facility]) Cholesterol [Moles/volume] in Serum or Plasma 132 <200 CHOLESTEROL LEVEL eCW1 ([facility]) 94 NON-HDL-C eCW1 ([facility]) 3.473 <5 CHOLESTEROL RISK RATIO eCW1 ([facility]) ID Date Data Source FREE T4 & TSH PANEL 03/20/2020 12:00:00 AM EDT eCW1 ([facility]) Name Value Range Interpretation Code Description Data Анна rce(s) Supporting Document(s) 1.01 0.76-1.46 FREE T4 eCW1 ([facility]) 2.740 0.358-3.740 THYROID STIMULATING HORM ONE eCW1 ([facility]) ID Date Data Source Comprehensive Metabolic Profile (CMP) 03/20/2020 12:00:00 AM EDT eCW1 ([facility]) Name Value Range Interpretation Code Description Data Анна rce(s) Supporting Document(s) 106 70-100 GLUCOSE, FASTING eCW1 ([facility]) > 60.0 >42 GLOMERULAR FILTRATION RATE eCW 1 ([facility]) 137 136-145 SODIUM LEVEL eCW1 ([facility]) 8 7-18 BLOOD UREA NITROGEN eCW1 ([facility]) 1.23 0.70-1.30 CREATININE FOR GFR eCW1 ([facility]) 34 21-32 CARBON DIOXIDE LEVEL eCW1 ([facility]) 95 98-107 CHLORIDE LEVEL eCW1 ([facility]) 3.3 3.5-5.1 POTASSIUM SERUM eCW1 ([facility]) 21 12-78 ALT/SGPT eCW1 ([facility]) 18 7-37 AST/SGOT eCW1 ([facility]) 8.8 8.8-10.2 CALCIUM LEVEL eCW1 ([facility]) 7.3 6.4-8.2 TOTAL PROTEIN eCW1 ([facility]) 0.7 0.2-1.0 BILIRUBIN,TOTAL eCW1 ([facility]) 80 45-117 ALKALINE PHOSPHATASE eCW1 ([facility]) 3.7 3.2-5.2 ALBUMIN eCW1 ([facility]) 1.03 1.00-1.93 ALBUMIN/GLOBULIN RATIO eCW1 ([facility]) ID Date Data Source PLZ FOOT COMPLETE 02/15/2020 01:29:07 PM EDT eCW1 ([facility]) Name Value Range Interpretation Code Description Data Анна rce(s) Supporting Document(s) PLZ FOOT COMPLETE eCW1 ([facility]) ID Date Data Source URIC ACID 02/15/2020 01:29:07 PM EDT eCW1 ([facility]) Name Value Range Interpretation Code Description Data Анна rce(s) Supporting Document(s) 9.8 URIC ACID eCW1 ([facility]) ID Date Data Source Basic Metabolic Profile (BMP) 02/15/2020 01:29:07 PM EDT eCW 1 ([facility]) Name Value Range Interpretation Code Description Data Анна rce(s) Supporting Document(s) 1.37 CREATININE FOR GFR eCW1 ([facility]) 11 BLOOD UREA NITROGEN eCW1 ([facility]) 53.4 GLOMERULAR FILTRATION RATE eCW 1 ([facility]) 117 GLUCOSE, FASTING eCW1 ([facility]) 99 CHLORIDE LEVEL eCW1 ([facility]) 3.4 POTASSIUM SERUM eCW1 ([facility]) 135 SODIUM LEVEL eCW1 ([facility]) 31 CARBON DIOXIDE LEVEL eCW1 ([facility]) 9.1 CALCIUM LEVEL eCW1 ([facility]) ID Date Data Source ERYTHROCYTE SEDIMENTATION RATE 02/15/2020 01:29:07 PM EDT eC W1 ([facility]) Name Value Range Interpretation Code Description Data Анна rce(s) Supporting Document(s) 27 ERYTHROCYTE SEDIMENTATION RATE eCW1 ([facility]) ID Date Data Source CBC with Differential 02/15/2020 01:29:07 PM EDT eCW1 ([facility]) Name Value Range Interpretation Code Description Data Анна rce(s) Supporting Document(s) 8.1 WHITE BLOOD COUNT eCW1 ([facility]) 5.12 RED BLOOD COUNT [facility] [place]) 15.9 HEMOGLOBIN eCW1 ([facility]) 47.2 HEMATOCRIT eCW1 ([facility]) 92.2 MEAN CORPUSCULAR VOLUME eCW1 ( [facility]) 31.1 MEAN CORPUSCULAR HEMOGLOBIN eC W1 ([facility]) 33.7 MEAN CORPUSCULAR HGB CONC eCW1 ([facility]) 350 PLATELET COUNT, AUTOMATED eCW1 ([facility]) 12.8 RED CELL DISTRIBUTION WIDTH eC W1 ([facility]) 2.3 EOS % eCW1 ([facility]) 60.1 NEUTROPHILS % eCW1 ([facility]) 11.7 MONO % eCW1 ([facility]) 24.5 LYMPH % eCW1 ([facility]) 0.7 BASO % eCW1 ([facility]) 2.0 LYMPH # eCW1 ([facility]) 4.9 NEUTROPHILS # eCW1 ([facility]) 0.1 BASO # eCW1 ([facility]) 0.2 EOS # eCW1 ([facility]) 1.0 MONO # eCW1 ([facility]) Procedure Social History Code Duration Value Status Description Data Source(s ) Smoking 09/02/2020 12:00:00 AM EDT Never Smoker completed Never S moker eCW1 ([facility]) Smoking 09/02/2020 12:00:00 AM EDT Never Smoker completed Never S moker eCW1 ([facility]) Smoking 09/02/2020 12:00:00 AM EDT Never Smoker completed Never S moker eCW1 ([facility]) Smoking 09/02/2020 12:00:00 AM EDT Never Smoker completed Never S moker eCW1 ([facility]) Smoking 05/23/2020 12:00:00 AM EDT Never Smoker completed Never S moker eCW1 ([facility]) Smoking 03/20/2020 12:00:00 AM EDT Never Smoker completed Never S moker eCW1 ([facility]) Vital Signs ID Date Data Source UNK Name Value Range Interpretation Code Description Data Source(s) Diastolic blood pressure 60 mm[Hg] 60 mm[Hg] eCW1 ([facility]) Systolic blood pressure 120 mm[Hg] 120 mm[Hg] e CW1 ([facility]) Body temperature 96 [degF] 96 [degF] eCW1 ([facility]) Respiratory rate 18 /min 18 /min eCW1 ([facility]) Heart rate 67 /min 67 /min eCW1 ([facility]) Body mass index (BMI) [Ratio] 28.49 kg/m2 28.49 kg/m2 W1 ([facility]) Body height 64 [in_i] 64 [in_i] eCW1 ([facility]) Body weight 166 [lb_av] 166 [lb_av] eCW1 ([facility]) Body mass index (BMI) [Ratio] 29.5 [...] blood pressure 64 mm[Hg] 64 mm[Hg] eCW1 ([facility]) Systolic blood pressure 104 mm[Hg] 104 mm[Hg] e CW1 ([facility]) Body temperature 97.3 [degF] 97.3 [degF] eCW1 ( [facility]) Respiratory rate 18 /min 18 /min eCW1 ([facility]) Heart rate 93 /min 93 /min eCW1 ([facility]) Body mass index (BMI) [Ratio] 31.85 kg/m2 31.85 kg/m2 eCW1 ([facility]) Body height 64 [in_us] 64 [in_us] eCW1 ([facility]) Body weight Measured 185.6 [lb_av] 185.6 [lb_av ] eCW1 ([facility]) Diastolic blood pressure 68 mm[Hg] 68 mm[Hg] eCW1 ([facility]) Systolic blood pressure 100 mm[Hg] 100 mm[Hg] e CW1 ([facility]) Body temperature 97.6 [degF] 97.6 [degF] eCW1 ( [facility]) Respiratory rate 18 /min 18 /min eCW1 ([facility]) Heart rate 88 /min 88 /min eCW1 ([facility]) Body mass index (BMI) [Ratio] 33.81 kg/m2 33.81 kg/m2 eCW1 ([facility]) Body height 64 [in_i] 64 [in_i] eCW1 ([facility]) Body weight 197 [lb_av] 197 [lb_av] eCW1 ([facility]) Diastolic blood pressure 78 mm[Hg] 78 mm[Hg] eCW1 ([facility]) Systolic blood pressure 116 mm[Hg] 116 mm[Hg] e CW1 ([facility]) Body temperature 97.7 [degF] 97.7 [degF] eCW1 ( [facility]) Respiratory rate 18 /min 18 /min eCW1 ([facility]) Heart rate 99 /min 99 /min eCW1 ([facility]) Body mass index (BMI) [Ratio] 36.28 kg/m2 36.28 kg/m2 eCW1 ([facility]) Body height 64 [in_us] 64 [in_us] eCW1 ([facility]) Body weight Measured 211.4 [lb_av] 211.4 [lb_av ] eCW1 ([facility]) Patient Treatment Plan of Care Planned Activity Planned Date Details Description Data Source (s) Allopurinol 100 MG Oral Tablet 03/20/2020 12:00:00 AM EDT eCW1 ([facility]) Cholecalciferol 2000 UNT Oral Capsule 03/20/2020 12:00:00 AM EDT eCW1 ([facility]) Allopurinol 100 MG Oral Tablet 03/20/2020 12:00:00 AM EDT eCW1 ([facility]) Cholecalciferol 2000 UNT Oral Capsule 03/20/2020 12:00:00 AM EDT eCW1 ([facility]) Allopurinol 100 MG Oral Tablet 03/20/2020 12:00:00 AM EDT eCW1 ([facility]) Allopurinol 100 MG Oral Tablet 03/20/2020 12:00:00 AM EDT eCW1 ([facility]) Cholecalciferol 2000 UNT Oral Capsule 03/20/2020 12:00:00 AM EDT eCW1 ([facility]) Cholecalciferol 2000 UNT Oral Capsule 03/20/2020 12:00:00 AM EDT eCW1 ([facility]) Allopurinol 100 MG Oral Tablet 03/20/2020 12:00:00 AM EDT eCW1 ([facility]) Cholecalciferol 2000 UNT Oral Capsule 03/20/2020 12:00:00 AM EDT eCW1 ([facility]) Allopurinol 100 MG Oral Tablet 03/20/2020 12:00:00 AM EDT eCW1 ([facility]) Cholecalciferol 2000 UNT Oral Capsule 03/20/2020 12:00:00 AM EDT eCW1 ([facility]) Prednisone 20 MG Oral Tablet 02/15/2020 12:00:00 AM EDT eCW1 ([facility]) Acetaminophen 500 MG Oral Tablet 02/14/2020 12:00:00 AM EDT eCW1 ([facility])
[2021-01-05] MEDS ORDERED: ceFAZolin SOD 1 GM in D5W MINI-BAG PLUS 50 ML IV ONE (14:30)
[2021-01-05 15:41] LABS: BASO # 0.1 10^3/uL (0.0-0.2); BASO % 0.5 % (0.0-1.0); EOS # 0.2 10^3/uL (0.0-0.5); EOS % 1.8 % (0.0-3.0); HEMATOCRIT 45.7 % (42.0-52.0); HEMOGLOBIN 15.1 g/dl (13.5-17.5); LYMPH # 1.9 10^3/uL (1.5-5.0); LYMPH % 20.6 % (24.0-44.0); MEAN CORPUSCULAR HEMOGLOBIN 31.7 pg (27.0-33.0); MEAN CORPUSCULAR VOLUME 95.8 fl (80.0-96.0); MONO # 0.8 10^3/uL (0.0-0.8); MONO % 8.6 % (2.0-8.0); NEUTROPHILS # 6.4 10^3/uL (1.5-8.5); NEUTROPHILS % 68.3 % (36.0-66.0); PLATELET COUNT, AUTOMATED 275 10^3/uL (150-450); RED BLOOD COUNT 4.77 10^6/uL (4.30-6.10); WHITE BLOOD COUNT 9.4 10^3/uL (4.0-10.0)
[2021-01-05 15:58] LABS: ERYTHROCYTE SEDIMENTATION RATE 9 mm/hr (0-20)
[2021-01-05 16:00] LABS: ALBUMIN 4.2 GM/DL (3.2-5.2); BILIRUBIN,DIRECT 0.1 MG/DL (0.0-0.2); BILIRUBIN,TOTAL 0.5 MG/DL (0.2-1.0); C REACTIVE PROTEIN QUANTITATIV 0.3 MG/DL (0.00-0.30); CREATININE FOR GFR 1.48 MG/DL (0.70-1.30); GLOMERULAR FILTRATION RATE 48.7 (>35); POTASSIUM SERUM 3.9 MEQ/L (3.5-5.1); TOTAL PROTEIN 7.7 GM/DL (6.4-8.2)
[2021-01-05] MEDS ORDERED: NS 1,000 ML IV ONE (16:15)
--- NOTE | 2021-01-05 19:51 | HPEPDOC ---
[facility] Medical History & Physical Date of Admission Jan 05, 2021 Date of Service: Jan 05, 2021 Primary Care Physician: CHERRY MCCLAIN MD Attending Physician: EULALIA SHAW MD History and Physical TIME OF SERVICE: 7:22 PM CHIEF COMPLAINT: Foot pain HISTORY OF PRESENT ILLNESS: This 80 year-old gentleman is well known to our service; he was last admitted in Aug for management of right foot cellulitis, right foot sprain, and groin cellulitis; today he presented w c/o of aching right foot pain that begun a few years ago; at his baseline he ambulates with a walker. Today he denied having nausea vomiting, fever or chills. ALE[facility] Blood requested admission for management of possible cellulitis and PFS evaluation because of concerns that the patient was not able to care for himself. Per Donna Butler the patient has not picked up any of the meds at [facility] since August and did not pick any meds after his last outpatient visit either. Per Grisel Toledo notes the patient has a payee via [employer] ([phone]) but she couldnt be reached. He may also have a bottle caser RREVIEW OF SYSTEMS: negative except as listed in HPI PAST MEDICAL/ SURGICAL HISTORY: Unsteady gait, uses a walker Intellectual Disability Chronic Hypertension Dyslipidemia Depression Esophagitis Anxiety Obesity History of cellulitis Appendectomy Tonsillectomy Bilateral inguinal hernia raphe SOCIAL HISTORY: Lives alone in an apartment complex. Has a brother in [place] FAMILY HISTORY: His brother in [place] who has "skin problems." Father of CVA Mother after motor vehicle accident ALLERGIES: Please see below. HOME MEDICATIONS: Please see below. PHYSICAL EXAMINATION: Vital Signs Date Time Temp Pulse Resp B/P (MAP) Pulse Ox O2 Delivery O2 Flow Rate FiO2 01/05/21 11:15 98.7 70 24 130/73 (92) 97 Room Air GEN: well-nourished / well developed/ NAD INTEGUMENT: not flushed/ not jaundice / the skin on dorsal part of the right foot is slightly pink, but the skin is not thickened or warm / he has toe nail fungus HEENT: EOMI CVS: RRR/NMRG LUNGS: able to speak full sentences without stopping to take a breath / no coughing / lungs are clear to auscultation bilaterally on room air ABDOMEN: Contour (obese) NEURO: CN 2-12 are grossly intact / speech is not dysarthric PSYCH: alert and oriented to person and place / has delayed verbal response to questions LABORATORY DATA: 01/05/21 14:27 Immature Granulocyte % (Auto) 0.2, Neutrophils (%) (Auto) 68.3H, Lymphocytes (%) (Auto) 20.6L, Monocytes (%) (Auto) 8.6H, Eosinophils (%) (Auto) 1.8, Basophils (%) (Auto) 0.5, Neutrophils # (Auto) 6.4, Lymphocytes # (Auto) 1.9, Monocytes # (Auto) 0.8, Eosinophils # (Auto) 0.2, Basophils # (Auto) 0.1, Nucleated Red Blood Cells % (auto) 0.0, Erythrocyte Sedimentation Rate 9, Anion Gap 6L, Glomerular Filtration Rate 48.7, Calcium Level 9.0, Total Bilirubin 0.5, Direct Bilirubin 0.1, Aspartate Amino Transf (AST/SGOT) 15, Alanine Aminotransferase (ALT/SGPT) 18, Alkaline Phosphatase 74, C-Reactive Protein, Quantitative 0.30, Total Protein 7.7, Albumin 4.2, Albumin/Globulin Ratio 1.2 IMAGING: Foot xray " IMPRESSION: No fracture or dislocation. MICROBIOLOGY: Respiratory panel is pending ASSESSMENT: is an 80-year-old with a history of intellectual disability, HTN, d epression, anxiety, esophagitis, obesity, and history of cellulitis who presented with complaints of chronic right foot pain he doesnt have SIRS criteria and will be admitted overnight under observation pending discharge planning. PLAN: 1. Chronic Right Foot Pain Clinically he doesnt appear to have cellulitis. His ALT-70 Score to diagnose lower extremity cellulitis is 2 = > 83.3% likelihood of pseudocellulitis Plan: admit to medical floor under observation pending PFS contacting his payee / I will not order additional antibiotics because they are not indicated based on the clinical picture and ALT-70 score and unnecessary antibiotic use will contribute to breeding multidrug resistant organisms / will order acetaminophen and Flector patch for pain 2. MARIA LUISA vs CKD 3 Cr was 1.08 in August and is 1.48 today. We don't have a Cr from 48H ago or 7 days ago to help us confirm if this is Maria Luisa Plan: IVF, f/u repeat Cr in the AM 3. Chronic Hypertension It appears as if is not taking is home meds Plan: start amlodipine 2.5mg PO daily 4. Gout Plan: check uric acid / resume allopurinol 5. Unsteady gait Plan: uses a walker 6. Dyslipidemia Plan: resume pravastatin 7. Intellectual Disability Plan: PFS consult to asses living arrangements and contact his family members 8. Obesity BMI of 31.3 complicates care Plan: f/u A1C to screen for DM / he can f/u with his PCP for DM & sleep apnea screening DVT PROPHYLAXIS: Teds DISPOSITION: likely home tomorrow AM / PFS consult has been placed for d/c planning Home Medications Scheduled Allopurinol (Allopurinol) 100 Mg Tablet, 100 MG PO DAILY Cetirizine HCl (Cetirizine HCl) 10 Mg Tablet, 10 MG PO DAILY Cyanocobalamin (Vitamin B-12) (Vitamin B-12) 1,000 Mcg Tablet, 1,000 MCG PO DAILY Furosemide (Furosemide) 40 Mg Tablet, 80 MG PO DAILY Potassium Chloride (Potassium Chloride) 20 Meq Tab.er.prt, 20 MEQ PO BID Pravastatin Sodium (Pravastatin Sodium) 40 Mg Tablet, 40 MG PO DAILY Scheduled PRN Fluticasone Propionate (Fluticasone Propionate) 16 Gm Cascade.susp, 2 SPRAY NARES DAILY PRN for CONGESTION Allergies Coded Allergies: No Known Allergies (Verified , 11/28/20) A-FIB/CHADSVASC A-FIB History Current/History of A-Fib/PAF?: No Current PO Anticoag Therapy: No EULALIA SHAW MD Jan 05, 2021 19:51
--- OUTSIDE RECORDS SUMMARY | 2021-01-05 19:58 | CCD ---
Author Author [facility] Address Unknown Phone Unavailable Support Name Relationship Address Phone MARIO [place] [address] ENRIQUE DE LA CRUZ Next Of Kin [address] [place] [address] ALEXA POND Next Of Kin [address] [place] [address] TERRY DE LA CRUZ Next Of Kin [phone] [place] [address] UNEMPLOYED Next Of Kin [address] [place] [address] PAMELA ALSTON Next Of Kin [address] [phone] JUSTIN DILLON Next Of Kin [address] [place] [address] RETIRED Next Of Kin Unknown Unavailable MAMI GUTIERREZ Next Of Kin [address] [place] [address] MAMI MARTI Next Of Kin [address] [place] [address] MILY MARTI Next Of Kin [address] [place] [phone] YINKA KELLEY Next Of Kin - -, [place] - UE Next Of Kin Unknown Unavailable KORINA CANNON Next Of Kin [address] [place] [address] RE Next Of Kin Unknown Unavailable CHERRI MARTI Next Of Kin [address] [place] [address] [facility] Next Of Kin [address] [place] [phone] CHARO MISTRY Next Of Kin [address] [place] [address] [place] [address] BURDICK, MARIO ECON Unknown Unavailable Alexa Pond ECON Unknown Unavailable JUSTIN DILLON ECON [address] [place] [address] Unavailable Care Team Providers Care Chute Feeder Name Role Phone MAJAK, R SMITA DPM [...] is protected by Article 27-F of the [facility] Public Health law. If you continue you may have access to information: Regarding HIV / AIDS; Provided by facilities licensed or operated by the [facility] Office of Mental Health; or Provided by the [facility] Office for People With Developmental Disabilities. If such information is present, then the following [facility] mandated warning applies: This information has [...] law may result in a fine or assisted sentence or both. A general authorization for the release of medical or other information is NOT sufficient authorization for further disc losure. Encounters Encounter Providers Location Date Indications Data Source(s ) Unknown [address] [facility] [place] [address] 10/30/2020 12:00:00 AM EST eCW1 ([facility]) Unknown [address] [facility] [address] 10/07/2020 12:00:00 AM EST eCW1 ([facility]) Unknown [address] [facility] [place] [address] 10/06/2020 12:00:00 AM EST eCW1 ([facility]) Outpatient [address] [facility] [address] 09/02/2020 12:00:00 AM EDT eCW1 ([facility]) Outpatient Attender: SMITA NGUYỄN [facility] Office 02/2020 03:00:00 PM EDT [facility] ([facility] [place] [address] [facility] [address] 05/26/2020 12:00:00 AM EDT eCW1 [facility] [address] [facility] [address] 05/23/2020 12:00:00 AM EDT eCW1 ([facility]) Unknown [address] [facility] [address] 04/29/2020 12:00:00 AM EDT eCW1 ([facility]) Outpatient Referrer: LNODON GASTON 04/10/2020 05:55:00 AM EDT [facility] [address] [place] [address], [place] [address] 03/20/2020 12:00:00 AM EDT eCW1 ([facility]) [facility] [address] [facility] [address] 03/20/2020 12:00:00 AM EDT eCW1 ([facility] [address] [place] [address], [place] [address] 03/12/2020 12:00:00 AM EDT eCW1 ([facility]) [facility] [address] [place] [address], [place] [address] 03/07/2020 12:00:00 AM EDT eCW1 ([facility]) Outpatient Referrer: LONDON GASTON 03/03/2020 05:14:00 AM EDT [facility] [address] [place] [address], [place] [address] 02/15/2020 12:00:00 AM EDT eCW1 ([facility]) Outpatient [address] [facility] [address] 02/14/2020 12:00:00 AM EDT eCW1 [facility] [address] [address] 02/14/2020 12:00:00 AM EDT eCW1 ([facility]) [facility] [address] [facility] [address] 02/14/2020 12:00:00 AM EDT eCW1 ([facility]) [facility] [address] [facility] [address] 02/07/2020 12:00:00 AM EDT eCW1 ([facility]) [facility] [address] [facility] [address] 12/13/2019 12:00:00 AM EST eCW1 ([facility]) Immunizations Vaccine Date Status Description Data Source(s) influenza, recombinant, quadrIvalent,injectable, prese rvative free 09/02/2020 01:03:00 PM EDT completed eCW1 ([facility]) influenza, recombinant, quadrIvalent,injectable, prese rvative free 09/02/2020 01:03:00 PM EDT completed eCW1 ([facility]) influenza, recombinant, quadrIvalent,injectable, prese rvative free 09/02/2020 01:03:00 PM EDT completed eCW1 ([facility]) influenza, recombinant, quadrIvalent,injectable, prese rvative free 09/02/2020 01:03:00 PM EDT completed eCW1 ([facility]) Medications Medication Brand Name Start Date Product Form Dose Route Admi nistrative Instructions Pharmacy Instructions Status Indications Reaction Description Data Source(s) ammonium lactate 120 MG/ML Topical Cream Ammonium Lactate 06/17/2020 12:00:00 AM EDT active [facility] ([facility] Allopurinol 100 MG Oral Tablet Allopurinol 100 MG 03/20/2020 12:00: 00 AM EDT 1.0 {tablet} active Allopurinol 100 MG eCW1 ([facility]) Cholecalciferol 2000 UNT Oral Capsule Vitamin D3 50 MC G (1999) Vitamin D3 50 MCG (1999) 03/20/2020 12:00:00 AM EDT active 1 capsule eCW1 ([facility]) Allopurinol 100 MG Oral Tablet Allopurinol 100 MG 03/20/2020 12:00: 00 AM EDT active 1 tablet eCW1 ([facility]) Cholecalciferol 2000 UNT Oral Capsule Vitamin D3 50 MC G (1999 UT) Vitamin D3 50 MCG (1999 UT) 03/20/2020 12:00:00 AM EDT 1.0 {capsule} active Vitamin D3 50 MCG (1999 UT) eCW1 ([facility]) Allopurinol 100 MG Oral Tablet Allopurinol 100 MG 03/20/2020 12:00: 00 AM EDT 1.0 {tablet} active Allopurinol 100 MG eCW1 ([facility]) Allopurinol 100 MG Oral Tablet Allopurinol 100 MG 03/20/2020 12:00: 00 AM EDT 1.0 {tablet} active Allopurinol 100 MG eCW1 ([facility]) Allopurinol 100 MG Oral Tablet Allopurinol 100 MG 03/20/2020 12:00: 00 AM EDT 1.0 {tablet} active Allopurinol 100 MG eCW1 ([facility]) Allopurinol 100 MG Oral Tablet Allopurinol 100 MG 03/20/2020 12:00: 00 AM EDT 1.0 {tablet} active Allopurinol 100 MG eCW1 ([facility]) Cholecalciferol 2000 UNT Oral Capsule Vitamin D3 50 MC G (1999 UT) Vitamin D3 50 MCG (1999 UT) 03/20/2020 12:00:00 AM EDT 1.0 {capsule} active Vitamin D3 50 MCG (1999 UT) eCW1 ([facility]) Cholecalciferol 2000 UNT Oral Capsule Vitamin D3 50 MC G (1999 UT) Vitamin D3 50 MCG (1999 UT) 03/20/2020 12:00:00 AM EDT 1.0 {capsule} active Vitamin D3 50 MCG (1999 UT) eCW1 ([facility]) Cholecalciferol 2000 UNT Oral Capsule Vitamin D3 50 MC G (1999 UT) Vitamin D3 50 MCG (1999 UT) 03/20/2020 12:00:00 AM EDT 1.0 {capsule} active Vitamin D3 50 MCG (2000 UT) eCW1 ([facility]) Allopurinol 100 MG Oral Tablet Allopurinol 100 MG 03/20/2020 12:00: 00 AM EDT 1.0 {tablet} active Allopurinol 100 MG eCW1 ([facility]) Cholecalciferol 2000 UNT Oral Capsule Vitamin D3 50 MC G (1999) Vitamin D3 50 MCG (1999) 03/20/2020 12:00:00 AM EDT 1.0 {capsule} active Vitamin D3 50 MCG (1999) eCW1 ([facility]) Cholecalciferol 2000 UNT Oral Capsule Vitamin D3 50 MC G (1999) Vitamin D3 50 MCG (1999) 03/20/2020 12:00:00 AM EDT 1.0 {capsule} active Vitamin D3 50 MCG (1999) eCW1 ([facility]) Prednisone 20 MG Oral Tablet PredniSONE 20 MG PredniSONE 20 MG 02/15/2020 12:00:00 AM EDT suspended Predn iSONE 20 MG eCW1 ([facility]) Prednisone 20 MG Oral Tablet PredniSONE 20 MG PredniSONE 20 MG 02/15/2020 12:00:00 AM EDT suspended Predn iSONE 20 MG eCW1 ([facility]) Prednisone 20 MG Oral Tablet PredniSONE 20 MG PredniSONE 20 MG 02/15/2020 12:00:00 AM EDT suspended Predn iSONE 20 MG eCW1 ([facility]) Prednisone 20 MG Oral Tablet PredniSONE 20 MG PredniSONE 20 MG 02/15/2020 12:00:00 AM EDT suspended Predn iSONE 20 MG eCW1 ([facility]) Prednisone 20 MG Oral Tablet PredniSONE 20 MG PredniSONE 20 MG 02/15/2020 12:00:00 AM EDT suspended Predn iSONE 20 MG eCW1 ([facility]) Prednisone 20 MG Oral Tablet PredniSONE 20 MG PredniSONE 20 MG 02/15/2020 12:00:00 AM EDT suspended Predn iSONE 20 MG eCW1 ([facility]) Prednisone 20 MG Oral Tablet PredniSONE 20 MG PredniSONE 20 MG 02/15/2020 12:00:00 AM EDT suspended t tab s with food eCW1 ([facility]) Prednisone 20 MG Oral Tablet PredniSONE 20 MG PredniSONE 20 MG 02/15/2020 12:00:00 AM EDT active t tabs w ith food eCW1 ([facility]) Acetaminophen 500 MG Oral Tablet Acetaminophen 500 MG 2019 12:00:00 AM EDT 1.0 {tablet_as_needed} active A cetaminophen 500 MG eCW1 ([facility]) Acetaminophen 500 MG Oral Tablet Acetaminophen 500 MG 2019 12:00:00 AM EDT 1.0 {tablet_as_needed} active A cetaminophen 500 MG eCW1 ([facility]) Acetaminophen 500 MG Oral Tablet Acetaminophen 500 MG 2019 12:00:00 AM EDT 1.0 {tablet_as_needed} active A cetaminophen 500 MG eCW1 ([facility]) Acetaminophen 500 MG Oral Tablet Acetaminophen 500 MG 2019 12:00:00 AM EDT active 1 tablet as neede d eCW1 ([facility]) Acetaminophen 500 MG Oral Tablet Acetaminophen 500 MG 2019 12:00:00 AM EDT 1.0 {tablet_as_needed} active A cetaminophen 500 MG eCW1 ([facility]) Acetaminophen 500 MG Oral Tablet Acetaminophen 500 MG 2019 12:00:00 AM EDT 1.0 {tablet_as_needed} active A cetaminophen 500 MG eCW1 ([facility]) Acetaminophen 500 MG Oral Tablet Acetaminophen 500 MG 2019 12:00:00 AM EDT 1.0 {tablet_as_needed} active A cetaminophen 500 MG eCW1 ([facility]) Acetaminophen 500 MG Oral Tablet Acetaminophen 500 MG 2019 12:00:00 AM EDT 1.0 {tablet_as_needed} active A cetaminophen 500 MG eCW1 ([facility]) Insurance Providers Payer name Policy type / Coverage type Policy ID Covered alliance party ID Covered alliance party's relationship to vickers Policy Vickers Plan Information CHAYA [id number] SP [id number] MEDICARE [id number] SP [id number] M29 MEDICARE C [id number] S [id number] M29 MEDICAID M [id number] S [id number] MEDICAID [id number] SP [id number] [facility] [id number] SP [id number] [facility] [id number] SP [id number] [facility] [id number] S [id number] ANSI-Not a Secondary Insurance [id number] ANSI-Medicaid [id number] ANSI-Medicaid [id number] ANSI-Not a Secondary Insurance [id number] ANSI-Not a Secondary Insurance [id number] ANSI-Medicaid [id number] ANSI-Medicaid [id number] ANSI-Not a Secondary Insurance [id number] ANSI-Medicaid [id number] ANSI-Not a Secondary Insurance [id number] Medicaid PR Medigap Part B [id number] Self [id number] Medicare Dme Supplies Medigap Part B [id number] Self [id number] [place] Medigap Part B [id number] Self [id number] Blue Shield [facility] Advantage Medigap Part B [id number] Self [id number] Medicare [facility] Medicare Primary [id number] Self [id number] ANSI-Not a Secondary Insurance [id number] ANSI-Medicaid [id number] ANSI-Medicaid [id number] ANSI-Not a Secondary Insurance [id number] ANSI-Not a Secondary Insurance [id number] ANSI-Medicaid [id number] ANSI-Not a Secondary Insurance [id number] ANSI-Medicaid [id number] ANSI-Medicaid [id number] ANSI-Not a Secondary Insurance [id number] MEDICARE BLUE PPO 306 [id number] SP [id number] ANSI-Medicaid [id number] ANSI-Not a Secondary Insurance [id number] MEDICARE [id number] SP [id number] ANSI-Medicare Part B [id number] ANSI-Medicaid [id number] ANSI-Medicaid [id number] ANSI-Medicare Part B [id number] [facility] [id number] SP [id number] ANSI-Medicaid [id number] ANSI-Medicare Part B [id number] MEDICAID [id number] SP [id number] MEDICARE [id number] A ANSI-Medicare Part B [id number] ANSI-Medicaid [id number] MEDICARE C [id number] A ANSI-Medicare Part B [id number] ANSI-Medicaid [id number] ANSI-Medicaid [id number] ANSI-Medicare Part B [id number] ANSI-Medicaid [id number] ANSI-Medicare Part B [id number] ANSI-Medicaid [id number] [facility] [id number] MEDICARE BLUE PPO 306 [id number] SP [id number] ANS-Medicaid [id number] [facility] [id number] [facility]-Medicaid [id number] [facility] [id number] MEDICARE BLUE PPO 306 [id number] SP [id number] MEDICARE BLUE PPO 306 [id number] SP [id number] MEDICARE BLUE PPO 306 [id number] SP [id number] EXCELLUS BCBS B [id number] S [id number] MEDICARE BLUE PPO 306 [id number] SP [id number] MEDICARE [id number] SP [id number] MEDICAID UNAVAILABLE SP UNAVAILA BLE MEDICARE BLUE PPO 306 UNAVAILABLE SP UNAVAILABLE MEDICARE COMPLETE [id number] SP [id number] A Problems, Conditions, and Diagnoses Code Display Name Description Problem Type Effective Dates Data Source(s) 094828418 Ingrowing nail Ingrowing nail Problem 06/26/2020 12:00: 00 AM EDT [facility] [id number] Onychomycosis Onychomycosis Problem 06/26/2020 12:00:00 AM EDT [facility] ([facility] [id number] Pain in limb Pain in limb Problem 06/26/2020 12:00:00 A M EDT [facility] ([facility] M10.9 Gout Gout, unspecified cause, unspeci fied chronicity, unspecified site Problem 05/23/2020 12:00:00 AM EDT eCW1 ([facility]) B37.2 [id number] Candidiasis, intertriginous Problem 03/20/20 12:00:00 AM EDT eCW1 ([facility]) 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 Elevated uric acid in blood Problem 03/20/2020 12:00:00 AM EDT eCW1 ([facility]) 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 Elevated uric acid in blood Problem 03/20/2020 12:00:00 AM EDT eCW1 ([facility]) I87.2 [id number] Stasis dermatitis of both legs Problem 12/13/2019 12:00:00 AM EST eCW1 ([facility]) Surgeries/Procedures Procedure Description Date Indications Data Source(s) DEBRIDEMENT NAIL ANY METHOD 09/09/2020 12:00:00 AM EDT [facility] ([facility] Immunization: Flublok Quadrivalent (18 years & older) 0.5mL IM (Influenza) 09/02/2020 12:00:00 AM EDT eCW1 ([facility]) DEBRIDEMENT NAIL ANY METHOD 06/17/2020 12:00:00 AM EDT [facility] ([facility] Office Visit, Est Pt., Level 2 FC 03/20/2020 12:00:00 AM EDT eCW1 ([facility]) Office Visit, Est Pt., Level 4 PC 03/20/2020 12:00:00 AM EDT eCW1 ([facility]) Results ID Date Data Source [id number] 11/28/2020 08:40:00 AM EST [facility] Name Value Range Interpretation Code Description Data Анна rce(s) Supporting Document(s) SARS-CoV-2 (COVID 19) NEGATIVE - SARS-CoV-2 (COVID19) [facility] This lab was ordered by [facility] a nd reported by [facility]. ID Date Data Source [id number] 10/30/2020 01:21:00 PM EST [facility] Name Value Range Interpretation Code Description Data Анна rce(s) Supporting Document(s) SARS coronavirus 2 RNA [Presence] in Res piratory specimen by KELLI with probe detection [facility] This lab was ordered by [facility] a nd reported by [facility]. ID Date Data Source [id number] 10/03/2020 05:28:00 PM EST [facility] Name Value Range Interpretation Code Description Data Анна rce(s) Supporting Document(s) SARS coronavirus 2 RNA [facility] This lab was ordered by [facility] and reported by [facility]. ID Date Data Source VITB12 [id number] FOL 03/20/2020 12:00:00 AM EDT eCW1 ([facility]) Name Value Range Interpretation Code Description Data Анна rce(s) Supporting Document(s) 1865 VITAMIN B12 LEVEL eCW1 ([facility]) 5.0 FOLATE eCW1 ([facility]) ID Date Data Source VITAMIN D 25-HYDROXY 03/20/2020 12:00:00 AM EDT eCW1 ([facility]) Name Value Range Interpretation Code Description Data Анна rce(s) Supporting Document(s) 17.2 30.0-100.0 TOTAL 25(OH) VITAMIN D eC W1 ([facility]) ID Date Data Source LIPID PANEL (CARDIAC RISK) 03/20/2020 12:00:00 AM EDT eCW1 ( [facility]) Name Value Range Interpretation Code Description Data Анна rce(s) Supporting Document(s) Triglyceride [Mass/volume] in Serum or Plasma by calculation 109 <150 TRIGLYCERIDES LEVEL eCW1 ([facility]) Cholesterol in LDL [Mass/volume] in Serum or Plasma by calculation 72 <100 LDL CHOLESTEROL eCW1 ([facility]) Cholesterol in HDL [Moles/volume] in Serum or Plasma 38 >40 HDL CHOLESTEROL eCW1 ([facility]) Cholesterol [Moles/volume] in Serum or Plasma 132 <200 CHOLESTEROL LEVEL eCW1 ([facility]) 94 NON-HDL-C eCW1 ([facility]) 3.473 <5 CHOLESTEROL RISK RATIO eCW1 ([facility]) ID Date Data Source FREE T4 & TSH PANEL 03/20/2020 12:00:00 AM EDT eCW1 ([facility]) Name Value Range Interpretation Code Description Data Анна rce(s) Supporting Document(s) 1.01 0.76-1.46 FREE T4 eCW1 ([facility]) 2.740 0.358-3.740 THYROID STIMULATING HORM ONE eCW1 ([facility]) ID Date Data Source Comprehensive Metabolic Profile (CMP) 03/20/2020 12:00:00 AM EDT eCW1 ([facility]) Name Value Range Interpretation Code Description Data Анна rce(s) Supporting Document(s) 106 70-100 GLUCOSE, FASTING eCW1 ([facility]) > 60.0 >42 GLOMERULAR FILTRATION RATE eCW 1 ([facility]) 137 136-145 SODIUM LEVEL eCW1 ([facility]) 8 7-18 BLOOD UREA NITROGEN eCW1 ([facility]) 1.23 0.70-1.30 CREATININE FOR GFR eCW1 ([facility]) 34 21-32 CARBON DIOXIDE LEVEL eCW1 ([facility]) 95 98-107 CHLORIDE LEVEL eCW1 ([facility]) 3.3 3.5-5.1 POTASSIUM SERUM eCW1 ([facility]) 21 12-78 ALT/SGPT eCW1 ([facility]) 18 7-37 AST/SGOT eCW1 ([facility]) 8.8 8.8-10.2 CALCIUM LEVEL eCW1 ([facility]) 7.3 6.4-8.2 TOTAL PROTEIN eCW1 ([facility]) 0.7 0.2-1.0 BILIRUBIN,TOTAL eCW1 ([facility]) 80 45-117 ALKALINE PHOSPHATASE eCW1 ([facility]) 3.7 3.2-5.2 ALBUMIN eCW1 ([facility]) 1.03 1.00-1.93 ALBUMIN/GLOBULIN RATIO eCW1 ([facility]) ID Date Data Source PLZ FOOT COMPLETE 02/15/2020 01:29:07 PM EDT eCW1 ([facility]) Name Value Range Interpretation Code Description Data Анна rce(s) Supporting Document(s) PLZ FOOT COMPLETE eCW1 ([facility]) ID Date Data Source URIC ACID 02/15/2020 01:29:07 PM EDT eCW1 ([facility]) Name Value Range Interpretation Code Description Data Анна rce(s) Supporting Document(s) 9.8 URIC ACID eCW1 ([facility]) ID Date Data Source Basic Metabolic Profile (BMP) 02/15/2020 01:29:07 PM EDT eCW 1 ([facility]) Name Value Range Interpretation Code Description Data Анна rce(s) Supporting Document(s) 1.37 CREATININE FOR GFR eCW1 ([facility]) 11 BLOOD UREA NITROGEN eCW1 ([facility]) 53.4 GLOMERULAR FILTRATION RATE eCW 1 ([facility]) 117 GLUCOSE, FASTING eCW1 ([facility]) 99 CHLORIDE LEVEL eCW1 ([facility]) 3.4 POTASSIUM SERUM eCW1 ([facility]) 135 SODIUM LEVEL eCW1 ([facility]) 31 CARBON DIOXIDE LEVEL eCW1 ([facility]) 9.1 CALCIUM LEVEL eCW1 ([facility]) ID Date Data Source ERYTHROCYTE SEDIMENTATION RATE 02/15/2020 01:29:07 PM EDT eC W1 ([facility]) Name Value Range Interpretation Code Description Data Анна rce(s) Supporting Document(s) 27 ERYTHROCYTE SEDIMENTATION RATE eCW1 ([facility]) ID Date Data Source CBC with Differential 02/15/2020 01:29:07 PM EDT eCW1 ([facility]) Name Value Range Interpretation Code Description Data Анна rce(s) Supporting Document(s) 8.1 WHITE BLOOD COUNT eCW1 ([facility]) 5.12 RED BLOOD COUNT eCW1 ([facility]) 15.9 HEMOGLOBIN eCW1 ([facility]) 47.2 HEMATOCRIT eCW1 ([facility]) 92.2 MEAN CORPUSCULAR VOLUME eCW1 ( [facility]) 31.1 MEAN CORPUSCULAR HEMOGLOBIN eC W1 ([facility]) 33.7 MEAN CORPUSCULAR HGB CONC eCW1 ([facility]) 350 PLATELET COUNT, AUTOMATED eCW1 ([facility]) 12.8 RED CELL DISTRIBUTION WIDTH eC W1 ([facility]) 2.3 EOS % eCW1 ([facility]) 60.1 NEUTROPHILS % eCW1 ([facility]) 11.7 MONO % eCW1 ([facility]) 24.5 LYMPH % eCW1 ([facility]) 0.7 BASO % eCW1 ([facility]) 2.0 LYMPH # eCW1 ([facility]) 4.9 NEUTROPHILS # eCW1 ([facility]) 0.1 BASO # eCW1 ([facility]) 0.2 EOS # eCW1 ([facility]) 1.0 MONO # eCW1 ([facility]) Procedure Social History Code Duration Value Status Description Data Source(s ) Smoking 09/02/2020 12:00:00 AM EDT Never Smoker completed Never S moker eCW1 ([facility]) Smoking 09/02/2020 12:00:00 AM EDT Never Smoker completed Never S moker eCW1 ([facility]) Smoking 09/02/2020 12:00:00 AM EDT Never Smoker completed Never S moker eCW1 ([facility]) Smoking 09/02/2020 12:00:00 AM EDT Never Smoker completed Never S moker eCW1 ([facility]) Smoking 05/23/2020 12:00:00 AM EDT Never Smoker completed Never S moker eCW1 ([facility]) Smoking 03/20/2020 12:00:00 AM EDT Never Smoker completed Never S moker eCW1 ([facility]) Vital Signs ID Date Data Source UNK Name Value Range Interpretation Code Description Data Source(s) Diastolic blood pressure 60 mm[Hg] 60 mm[Hg] eCW1 ([facility]) Systolic blood pressure 120 mm[Hg] 120 mm[Hg] e CW1 ([facility]) Body temperature 96 [degF] 96 [degF] eCW1 ([facility]) Respiratory rate 18 /min 18 /min eCW1 ([facility]) Heart rate 67 /min 67 /min eCW1 ([facility]) Body mass index (BMI) [Ratio] 28.49 kg/m2 28.49 kg/m2 W1 ([facility]) Body height 64 [in_i] 64 [in_i] eCW1 ([facility]) Body weight 166 [lb_av] 166 [lb_av] eCW1 ([facility]) Body mass index (BMI) [Ratio] 29.5 [...] blood pressure 64 mm[Hg] 64 mm[Hg] eCW1 ([facility]) Systolic blood pressure 104 mm[Hg] 104 mm[Hg] e CW1 ([facility]) Body temperature 97.3 [degF] 97.3 [degF] eCW1 ( [facility]) Respiratory rate 18 /min 18 /min eCW1 ([facility]) Heart rate 93 /min 93 /min eCW1 ([facility]) Body mass index (BMI) [Ratio] 31.85 kg/m2 31.85 kg/m2 eCW1 ([facility]) Body height 64 [in_us] 64 [in_us] eCW1 ([facility]) Body weight Measured 185.6 [lb_av] 185.6 [lb_av ] eCW1 ([facility]) Diastolic blood pressure 68 mm[Hg] 68 mm[Hg] eCW1 ([facility]) Systolic blood pressure 100 mm[Hg] 100 mm[Hg] e CW1 ([facility]) Body temperature 97.6 [degF] 97.6 [degF] eCW1 ( [facility]) Respiratory rate 18 /min 18 /min eCW1 ([facility]) Heart rate 88 /min 88 /min eCW1 ([facility]) Body mass index (BMI) [Ratio] 33.81 kg/m2 33.81 kg/m2 eCW1 ([facility]) Body height 64 [in_i] 64 [in_i] eCW1 ([facility]) Body weight 197 [lb_av] 197 [lb_av] eCW1 ([facility]) Diastolic blood pressure 78 mm[Hg] 78 mm[Hg] eCW1 ([facility]) Systolic blood pressure 116 mm[Hg] 116 mm[Hg] e CW1 ([facility]) Body temperature 97.7 [degF] 97.7 [degF] eCW1 ( [facility]) Respiratory rate 18 /min 18 /min eCW1 ([facility]) Heart rate 99 /min 99 /min eCW1 ([facility]) Body mass index (BMI) [Ratio] 36.28 kg/m2 36.28 kg/m2 eCW1 ([facility]) Body height 64 [in_us] 64 [in_us] eCW1 ([facility]) Body weight Measured 211.4 [lb_av] 211.4 [lb_av ] eCW1 ([facility]) Patient Treatment Plan of Care Planned Activity Planned Date Details Description Data Source (s) Allopurinol 100 MG Oral Tablet 03/20/2020 12:00:00 AM EDT eCW1 ([facility]) Cholecalciferol 2000 UNT Oral Capsule 03/20/2020 12:00:00 AM EDT eCW1 ([facility]) Allopurinol 100 MG Oral Tablet 03/20/2020 12:00:00 AM EDT eCW1 ([facility]) Cholecalciferol 2000 UNT Oral Capsule 03/20/2020 12:00:00 AM EDT eCW1 ([facility]) Allopurinol 100 MG Oral Tablet 03/20/2020 12:00:00 AM EDT eCW1 ([facility]) Allopurinol 100 MG Oral Tablet 03/20/2020 12:00:00 AM EDT eCW1 ([facility]) Cholecalciferol 2000 UNT Oral Capsule 03/20/2020 12:00:00 AM EDT eCW1 ([facility]) Cholecalciferol 2000 UNT Oral Capsule 03/20/2020 12:00:00 AM EDT eCW1 ([facility]) Allopurinol 100 MG Oral Tablet 03/20/2020 12:00:00 AM EDT eCW1 ([facility]) Cholecalciferol 2000 UNT Oral Capsule 03/20/2020 12:00:00 AM EDT eCW1 ([facility]) Allopurinol 100 MG Oral Tablet 03/20/2020 12:00:00 AM EDT eCW1 ([facility]) Cholecalciferol 2000 UNT Oral Capsule 03/20/2020 12:00:00 AM EDT eCW1 ([facility]) Prednisone 20 MG Oral Tablet 02/15/2020 12:00:00 AM EDT eCW1 ([facility]) Acetaminophen 500 MG Oral Tablet 02/14/2020 12:00:00 AM EDT eCW1 ([facility])
[2021-01-05] MEDS ORDERED: MOM 30ML SUSPENSION UDC PO PRN (20:00)
[2021-01-05] MEDS ORDERED: ACETAMINOPHEN TAB 650MG DOSE (2X325MG) PO PRN (20:00)
[2021-01-05] MEDS ORDERED: MAALOX 30 ML SUSP *UDC PO PRN (20:00)
[2021-01-05] MEDS ORDERED: CETI10TA8 PO (20:15)
[2021-01-05] MEDS ORDERED: FLUTISP NARES (20:15)
[2021-01-05 22:41] VITALS: BP 116/72
[2021-01-05] MEDS: DICLOFENAC EPOLAMINE 1.3 % PATCH TOP SCH (23:00)
[2021-01-05] MEDS: NS 1,000 ML IV SCH (23:05)
[2021-01-06 06:00] VITALS: BP 120/74
[2021-01-06] MEDS: DICLOFENAC EPOLAMINE 1.3 % PATCH TOP SCH ×2 (09:00→21:00)
[2021-01-06] MEDS: FLUTICASONE PROP 0.05% NASAL SPRAY 16 GM (FLONASE) NARES SCH ×2 (09:00→21:00)
[2021-01-06] MEDS: allopurinoL 100 MG TAB PO SCH (09:36)
[2021-01-06] MEDS: PRAVASTATIN 20 MG TAB PO SCH (09:36)
[2021-01-06] MEDS: NS 1,000 ML IV SCH ×2 (09:37→17:59)
[2021-01-06] MEDS ORDERED: PREVNAR 13 VACCINE SYRINGE IM ONE (12:00)
[2021-01-06 14:00] VITALS: BP 105/59
--- NOTE | 2021-01-06 20:44 | IPNPDOC ---
Subjective Date Seen The patient was seen on 01/06/21. Subjective Chief Complaint/HPI Mr. Chavez is an 80-year-old male with intellectual disability and medical noncompliance who presents with right foot pain. This morning, he still reports right foot pain. Otherwise, he does not appear to have cellulitis of the right foot. Patient to be evaluated by PT and OT so that he can be discharged home tomorrow with [facility] Objective Physical Examination General Exam: Positive: Alert, Cooperative Eye Exam: Positive: EOMI; Negative: Sclera icteric ENT Exam: Positive: Atraumatic Neck Exam: Positive: Supple Chest Exam: Positive: Clear to auscultation; Negative: Rales, Rhonchi, Wheezing Heart Exam: Positive: Rate Normal, Regular Rhythm Abdomen Exam: Positive: Normal bowel sounds, Soft; Negative: Tenderness Neuro Exam: Positive: Normal Tone Psych Exam: Positive: Mood NL Assessment /Plan Assessment Mr. Chavez is an 80-year-old male with intellectual disability and medical noncompliance who presents with right foot pain. There is no cellulitis of the right foot. Patient not safe on his own. Until he can go to [facility], we'll have [facility] referral. Planning for discharge home tomorrow Plan/VTE VTE Prophylaxis Ordered?: Yes Plan 1. Chronic right foot pain Not cellulitis Continue acetaminophen and Flector patch 2. MARIA LUISA On IV fluids Supportive care 3. Hypertension Start amlodipine 2.5 mg daily 4. Gout Continue allopurinol 5. Dyslipidemia Continue Rocephin 6. Intellectual disability PFS working on safe discharge 7. Obesity BMI of 31.1 8. DVT prophylaxis TEDs Disposition: Discharged tomorrow morning VS, I&O, 24H, Herb Vital Signs/I&O Vital Signs Date Time Temp Pulse Resp B/P (MAP) Pulse Ox O2 Delivery O2 Flow Rate FiO2 01/06/21 14:00 97.1 64 17 105/59 (74) 99 Room Air I&O- Last 24 Hours up to 6 AM 01/06/21 05:59 Intake Total 1050 ml Output Total 0 ml Balance 1050 ml Laboratory Data 24H LABS Laboratory Tests 2 01/06/21 06:25: Uric Acid 6.8 Microbiology Microbiology 01/05/21 Respiratory Virus Panel (PCR) ([facility]) - Final, Complete NAVEEN GOMEZ DO Jan 06, 2021 20:43
[2021-01-06 22:00] VITALS: BP 113/67
[2021-01-07] MEDS: NS 1,000 ML IV SCH (04:10)
[2021-01-07 06:00] VITALS: BP 115/68
[2021-01-07 06:35] LABS: HEMATOCRIT 39.5 % (42.0-52.0); MEAN CORPUSCULAR HEMOGLOBIN 32.1 pg (27.0-33.0); MEAN CORPUSCULAR HGB CONC 33.2 g/dl (32.0-36.5); MEAN CORPUSCULAR VOLUME 96.8 fl (80.0-96.0); PLATELET COUNT, AUTOMATED 193 10^3/uL (150-450); RED BLOOD COUNT 4.08 10^6/uL (4.30-6.10); WHITE BLOOD COUNT 9.5 10^3/uL (4.0-10.0)
[2021-01-07 06:39] LABS: HEMOGLOBIN 13.1 g/dl (13.5-17.5)
[2021-01-07 06:58] LABS: BLOOD UREA NITROGEN 14 MG/DL (7-18); GLUCOSE, FASTING 92 MG/DL (70-100)
[2021-01-07 06:59] LABS: CALCIUM LEVEL 8.1 MG/DL (8.8-10.2); CARBON DIOXIDE LEVEL 24 MEQ/L (21-32); CHLORIDE LEVEL 111 MEQ/L (98-107); GLOMERULAR FILTRATION RATE > 60.0 (>35); SODIUM LEVEL 142 MEQ/L (136-145)
[2021-01-07] MEDS: FLUTICASONE PROP 0.05% NASAL SPRAY 16 GM (FLONASE) NARES SCH (09:00)
[2021-01-07] MEDS: PRAVASTATIN 20 MG TAB PO SCH (09:09)
[2021-01-07] MEDS: DICLOFENAC EPOLAMINE 1.3 % PATCH TOP SCH (09:10)
[2021-01-07] MEDS: allopurinoL 100 MG TAB PO SCH (09:10)
[2021-01-07] MEDS ORDERED: DICL1PAT6 TOP (09:42)
[2021-01-07] MEDS ORDERED: DICL1GEL3 TOP (11:07)
--- NOTE | 2021-01-07 22:45 | DS.PDOC ---
Discharge Summary General Date of Admission Jan 05, 2021 at 11:16 Date of Discharge Jan 07, 2021 Discharge Summary PROCEDURES PERFORMED DURING STAY: None ADMITTING DIAGNOSES: 1. Chronic right foot pain 2. Acute kidney injury on chronic kidney disease stage 3 3. Hypertension 4. Gout 5. Unsteady gait 6. Dyslipidemia 7. Intellectual disability 8. Obesity DISCHARGE DIAGNOSES: 1. Chronic right foot pain 2. Acute kidney injury on chronic kidney disease stage 3 3. Hypertension 4. Gout 5. Unsteady gait 6. Dyslipidemia 7. Intellectual disability 8. Obesity COMPLICATIONS/CHIEF COMPLAINT: Right foot pain HISTORY OF PRESENT ILLNESS: Mr. Chaevz is an 80 year old meal with intellectual disability who presents with aching right foot pain. pain started a few years ago and he is at baseline ambulation with a walker. The ED requested admission due to concerns of inability to care for self at home. Pharmacist reported that he did not picket [employer] any of his medications since August. 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 Patient was placed in observation HOSPITAL COURSE: Patient did well during hospitalization. He right ankle pain was chronic. [facility] worked on patient's case. There was a plan to have patient join [facility], but there was a gap of time between hospitalization and [facility]. In the mean time, patient will have physical therapy at home and home health services. This morning, he feels well. Right leg pain is there, but chronic. Denies any fever/chills, chest pain, or dyspnea. Patient was subsequently sent home with home services until he is able to move into [facility] DISCHARGE MEDICATIONS: Please see below. ALLERGIES: Please see below. PHYSICAL EXAMINATION ON DISCHARGE: VITAL SIGNS: Please see below. GENERAL: Comfortable, in no apparent distress HEENT: Head normocephalic, atraumatic NECK: Supple CARDIOVASCULAR EXAMINATION: Regular rate and rhythm RESPIRATORY EXAMINATION: Lungs clear to auscultation bilaterally ABDOMINAL EXAMINATION: Soft, non-tender, normal bowel sounds EXTREMITIES: Mild bilateral pitting edema SKIN: Warm and dry NEUROLOGICAL EXAMINATION: CN 3-12 grossly intact PSYCHIATRIC EXAMINATION: Normal mood and affect LABORATORY DATA: Please see below. IMAGING: Radiologist interpretation XR right foot No fracture or dislocation. PROGNOSIS: Good ACTIVITY: As tolerated. DIET: Carbohydrate consistent diet DISCHARGE PLAN: Home DISPOSITION: Home, Self-Care. DISCHARGE INSTRUCTIONS: 1. Follow up with PCP within a week 2. Have home health services and home PT/OT work with you. DISCHARGE CONDITION: Stable. Total time spent on discharge planning, discharge summary, and medication reconciliation: 40 minutes Vital Signs/I&Os Vital Signs Date Time Temp Pulse Resp B/P (MAP) Pulse Ox O2 Delivery O2 Flow Rate FiO2 01/07/21 06:00 98.2 65 18 115/68 (84) 98 Room Air I&O- Last 24 Hours up to 6 AM 01/07/21 06:00 Intake Total 1770 ml Balance 1770 ml Laboratory Data Labs 24H Laboratory Tests 2 01/07/21 06:18: Nucleated Red Blood Cells % (auto) 0.0, Anion Gap 7L, Glomerular Filtration Rate > 60.0, Calcium Level 8.1L CBC/BMP Laboratory Tests 01/07/21 06:18 Microbiology Microbiology 01/05/21 Respiratory Virus Panel (PCR) ([facility]) - Final, Complete Discharge Medications Scheduled Allopurinol (Allopurinol) 100 Mg Tablet, 100 MG PO DAILY, (Reported) Cetirizine HCl (Cetirizine HCl) 10 Mg Tablet, 10 MG PO DAILY, (Reported) Cyanocobalamin (Vitamin B-12) (Vitamin B-12) 1,000 Mcg Tablet, 1,000 MCG PO DAILY, (Reported) Pravastatin Sodium (Pravastatin Sodium) 40 Mg Tablet, 40 MG PO DAILY, (Reported) Scheduled PRN Diclofenac Sodium (Diclofenac Sodium) 1% 100GM Gel..gram., 4 GM TOP QID PRN for PAIN Apply to area of pain Fluticasone Propionate (Fluticasone Propionate) 16 Gm [place].susp, 2 SPRAY [place]ARES DAILY PRN for CONGESTION, (Reported) Allergies Coded Allergies: No Known Allergies (Verified , 11/28/20) NAVEEN GOMEZ DO Jan 07, 2021 22:45
== END 2021-01-07 09:30 | disposition home or self-care (01) ==
LOC: M ED 11:15 → M ED INP 11:16 → M MSPAV 22:42
PROVIDERS: ADMIT Internal Medicine; ATTEND Internal Medicine
DX: M79.671 Pain in right foot (principal); N17.9 Acute kidney failure, unspecified; N18.30 Chronic kidney disease, stage 3 unspecified; I12.9 Hypertensive chronic kidney disease with stage 1 through stage 4 chronic kidney disease, or unspecified chronic kidney disease; M10.9 Gout, unspecified; R26.81 Unsteadiness on feet; E78.5 Hyperlipidemia, unspecified; F79 Unspecified intellectual disabilities; E66.9 Obesity, unspecified; Z79.899 Other long term (current) drug therapy
CPT/HCPCS: 36415; 73630; 80048; 80076; 84550; 85025; 85027; 85652; 86140; 87798; 90670; 96361; 96365; 97161; 97165; 97530; 99284; G0009; G0378; J0690

== ENCOUNTER → 2021-01-21 | Outpatient (REF) | payer MEDICARE, MEDICAID ==
[~2021-01-21] MED LIST changes: +CETI10TA8 PO; +DICL1GEL3 TOP; +DICL1PAT6 TOP
[2021-01-21 16:19] LABS: CREATININE FOR GFR 1.54 MG/DL (0.70-1.30); GLOMERULAR FILTRATION RATE 46.5 (>35); POTASSIUM SERUM 3.7 MEQ/L (3.5-5.1)
== END ==
LOC: M SFHCPLAZ 14:23
PROVIDERS: ATTEND Nurse Practitioner Family
DX: R60.0 Localized edema (principal)

== ENCOUNTER → 2021-08-08 | Outpatient (CLI) | payer MEDICARE, MEDICAID ==
[~2021-08-08] MED LIST changes: -DOXY100C37 PO; +DOXY1CAP62 PO; +OMEP40CA4 PO; -OMEP40CA97 PO
[2021-08-08 10:52] LABS: ALBUMIN 3.7 GM/DL (3.2-5.2); BILIRUBIN,TOTAL 0.7 MG/DL (0.2-1.0); CALCIUM LEVEL 8.7 MG/DL (8.8-10.2); CHOLESTEROL RISK RATIO 3.828 (<5); CREATININE FOR GFR 1.42 MG/DL (0.70-1.30); GLOMERULAR FILTRATION RATE 50.9 (>35); POTASSIUM SERUM 4.1 MEQ/L (3.5-5.1); TOTAL PROTEIN 7.3 GM/DL (6.4-8.2); URIC ACID 5.8 MG/DL (3.5-7.2)
[2021-08-10 11:07] LABS: TOTAL 25(OH) VITAMIN D 27.5 NG/ML (30.0-100.0)
[2021-08-10 11:08] LABS: FOLATE 7.8 NG/ML
== END ==
LOC: M LAB 09:37
PROVIDERS: ATTEND Nurse Practitioner Family
DX: E53.8 Deficiency of other specified B group vitamins (principal); E55.9 Vitamin D deficiency, unspecified; E78.2 Mixed hyperlipidemia; M79.671 Pain in right foot

== ENCOUNTER → 2021-09-10 | Outpatient (CLI) | payer MEDICARE, MEDICAID ==
[~2021-09-10] MED LIST changes: +DOXY-443 PO; -DOXY1CAP62 PO
[2021-09-10 18:21] LABS: APPEARANCE, URINE HAZY (CLEAR); BACTERIA, URINE AUTO NEGATIVE (NEGATIVE); BILIRUBIN, URINE AUTO NEGATIVE (NEGATIVE); BLOOD, URINE BLOOD NEGATIVE (NEGATIVE); COLOR, URINE YELLOW (YELLOW); GLUCOSE, URINE (UA) AUTO NEGATIVE (NEGATIVE); KETONE, URINE AUTO NEGATIVE (NEGATIVE); LEUKOCYTE ESTERASE, URINE AUTO 3+ (NEGATIVE); MUCUS, URINE SMALL (NEGATIVE); NITRITE, URINE AUTO NEGATIVE (NEGATIVE); PROTEIN, URINE AUTO NEGATIVE (NEGATIVE); RBC, URINE AUTO 2 /HPF (0-3); SQUAMOUS EPITHELIAL CELL UR AU 1 /HPF (0-6); WBC, URINE AUTO 17 /HPF (0-3)
[2021-09-10 18:50] LABS: ALBUMIN 3.5 GM/DL (3.2-5.2); BILIRUBIN,TOTAL 0.5 MG/DL (0.2-1.0); CALCIUM LEVEL 8.9 MG/DL (8.8-10.2); CREATININE FOR GFR 1.43 MG/DL (0.70-1.30); GLOMERULAR FILTRATION RATE 50.5 (>35); POTASSIUM SERUM 4.2 MEQ/L (3.5-5.1); TOTAL PROTEIN 7.3 GM/DL (6.4-8.2)
== END ==
LOC: M PLALAB 15:38
PROVIDERS: ATTEND Physician Assistant Medical
DX: N18.30 Chronic kidney disease, stage 3 unspecified (principal); R32 Unspecified urinary incontinence; Z12.5 Encounter for screening for malignant neoplasm of prostate; Z23 Encounter for immunization
CPT/HCPCS: 36415; 80053; 81001; 87086; 90682; G0008; G0103; G0463

== ENCOUNTER → 2021-12-08 | Outpatient (CLI) | payer MEDICARE, MEDICAID ==
[~2021-12-08] MED LIST changes: +CETI-25 PO; -CETI10TA8 PO; -LEVO500T3 PO; +LEVO500T4 PO; -MOME50SP; +NASO50SP3; +POTA-151 PO; -POTA20TA6 PO
[2021-12-08 18:22] LABS: ALBUMIN 3.6 GM/DL (3.2-5.2); BILIRUBIN,TOTAL 0.3 MG/DL (0.2-1.0); CALCIUM LEVEL 8.9 MG/DL (8.8-10.2); CREATININE FOR GFR 1.48 MG/DL (0.70-1.30); FREE T4 0.8 NG/DL (0.76-1.46); GLOMERULAR FILTRATION RATE 48.6 (>35); POTASSIUM SERUM 4.1 MEQ/L (3.5-5.1); THYROID STIMULATING HORMONE 3.63 uIU/ML (0.358-3.740); TOTAL PROTEIN 7.6 GM/DL (6.4-8.2)
[2021-12-08 19:00] LABS: HEMOGLOBIN A1c 5.5 %
== END ==
LOC: M LAB 16:57
PROVIDERS: ATTEND Physician Assistant Medical
DX: E11.22 Type 2 diabetes mellitus with diabetic chronic kidney disease (principal); N40.0 Benign prostatic hyperplasia without lower urinary tract symptoms; G31.84 Mild cognitive impairment of uncertain or unknown etiology; N18.30 Chronic kidney disease, stage 3 unspecified

== ENCOUNTER → 2022-02-09 | Outpatient (CLI) | payer MEDICARE, MEDICAID ==
[2022-02-09 17:55] LABS: BASO # 0.1 10^3/uL (0.0-0.2); BASO % 0.5 % (0.0-1.0); EOS # 0.3 10^3/uL (0.0-0.5); EOS % 1.7 % (0.0-3.0); HEMATOCRIT 45.7 % (42.0-52.0); LYMPH # 1.8 10^3/uL (1.5-5.0); LYMPH % 11.1 % (24.0-44.0); MEAN CORPUSCULAR HEMOGLOBIN 31.7 pg (27.0-33.0); MEAN CORPUSCULAR HGB CONC 32.8 g/dl (32.0-36.5); MEAN CORPUSCULAR VOLUME 96.6 fl (80.0-96.0); MONO % 12.2 % (2.0-8.0); NEUTROPHILS # 12.1 10^3/uL (1.5-8.5); NEUTROPHILS % 73.7 % (36.0-66.0); PLATELET COUNT, AUTOMATED 275 10^3/uL (150-450); RED BLOOD COUNT 4.73 10^6/uL (4.30-6.10); WHITE BLOOD COUNT 16.5 10^3/uL (4.0-10.0)
[2022-02-09 18:16] LABS: ALBUMIN 3.6 GM/DL (3.2-5.2); BILIRUBIN,TOTAL 0.6 MG/DL (0.2-1.0); CALCIUM LEVEL 8.7 MG/DL (8.8-10.2); CHOLESTEROL RISK RATIO 4.828 (<5); CREATININE FOR GFR 1.67 MG/DL (0.70-1.30); GLOMERULAR FILTRATION RATE 42.2 (>35); POTASSIUM SERUM 4.2 MEQ/L (3.5-5.1); TOTAL PROTEIN 7.5 GM/DL (6.4-8.2)
== END ==
LOC: M PLALAB 14:31
PROVIDERS: ATTEND Physician Assistant Medical
DX: G31.84 Mild cognitive impairment of uncertain or unknown etiology (principal); E78.2 Mixed hyperlipidemia; N18.30 Chronic kidney disease, stage 3 unspecified

== ENCOUNTER → 2022-03-04 | Outpatient (REF) | payer MEDICARE, MEDICAID ==
[2022-03-04 10:49] LABS: BASO # 0.1 10^3/uL (0.0-0.2); EOS # 0.5 10^3/uL (0.0-0.5); EOS % 5.7 % (0.0-3.0); HEMATOCRIT 43.4 % (42.0-52.0); HEMOGLOBIN 14.5 g/dl (13.5-17.5); LYMPH # 1.8 10^3/uL (1.5-5.0); LYMPH % 22.2 % (24.0-44.0); MEAN CORPUSCULAR HEMOGLOBIN 32.4 pg (27.0-33.0); MEAN CORPUSCULAR HGB CONC 33.4 g/dl (32.0-36.5); MEAN CORPUSCULAR VOLUME 97.1 fl (80.0-96.0); MONO # 0.8 10^3/uL (0.0-0.8); MONO % 9.5 % (2.0-8.0); NEUTROPHILS % 61.4 % (36.0-66.0); PLATELET COUNT, AUTOMATED 298 10^3/uL (150-450); RED BLOOD COUNT 4.47 10^6/uL (4.30-6.10); WHITE BLOOD COUNT 8.2 10^3/uL (4.0-10.0)
[2022-03-04 11:33] LABS: ERYTHROCYTE SEDIMENTATION RATE 23 mm/hr (0-20)
== END ==
LOC: M WUC 10:30
PROVIDERS: ATTEND Physician Assistant Medical
DX: D72.829 Elevated white blood cell count, unspecified (principal)

== ENCOUNTER → 2022-04-15 | Outpatient (CLI) | payer MEDICARE, MEDICAID ==
[2022-04-15 11:06] LABS: CREATININE, URINE 76.4 MG/DL; MALB URINE SIEMENS 7.2 MG/L; MAU/CREAT RATIO 9.4 MCG/MG (0.0-30.0)
[2022-04-15 11:35] LABS: HEMOGLOBIN A1c 5.6 %
[2022-04-15 11:40] LABS: ALBUMIN 3.6 GM/DL (3.2-5.2); BILIRUBIN,TOTAL 0.4 MG/DL (0.2-1.0); CALCIUM LEVEL 9.4 MG/DL (8.8-10.2); CHOLESTEROL RISK RATIO 4.542 (<5); CREATININE FOR GFR 1.55 MG/DL (0.70-1.30); POTASSIUM SERUM 4.4 MEQ/L (3.5-5.1); PTH INTACT 52.4 PG/ML (18.5-88.0); TOTAL 25(OH) VITAMIN D 18.2 NG/ML (30.0-100.0); TOTAL PROTEIN 7.6 GM/DL (6.4-8.2); URIC ACID 5.5 MG/DL (3.5-7.2)
== END ==
LOC: M WUC 08:35
PROVIDERS: ATTEND Physician Assistant Medical
DX: E53.8 Deficiency of other specified B group vitamins (principal); Z12.5 Encounter for screening for malignant neoplasm of prostate; N18.30 Chronic kidney disease, stage 3 unspecified; E55.9 Vitamin D deficiency, unspecified; E11.22 Type 2 diabetes mellitus with diabetic chronic kidney disease
CPT/HCPCS: 36415; 80053; 80061; 82043; 82306; 82607; 83036; 83970; 84550; G0103

== ENCOUNTER → 2022-07-28 | Outpatient (REF) | payer MEDICARE, MEDICAID ==
[~2022-07-28] MED LIST changes: +LEVO1TAB39 PO; -LEVO500T4 PO; +NYST-13; +NYST-13 TOP; -NYST10CR; -NYST10CR TOP
[2022-07-28 17:23] LABS: ALBUMIN 3.7 GM/DL (3.2-5.2); BILIRUBIN,TOTAL 0.5 MG/DL (0.2-1.0); CALCIUM LEVEL 9.1 MG/DL (8.8-10.2); CREATININE FOR GFR 1.35 MG/DL (0.70-1.30); GLOMERULAR FILTRATION RATE 53.9 (>35); POTASSIUM SERUM 4.2 MEQ/L (3.5-5.1); TOTAL PROTEIN 7.4 GM/DL (6.4-8.2)
[2022-07-28 17:59] LABS: TOTAL 25(OH) VITAMIN D 48.4 NG/ML (30.0-100.0)
[2022-07-28 19:54] LABS: HEMOGLOBIN A1c 5.8 %
== END ==
LOC: M WUC 16:04
PROVIDERS: ATTEND Physician Assistant Medical
DX: E55.9 Vitamin D deficiency, unspecified (principal); N18.30 Chronic kidney disease, stage 3 unspecified; Z79.899 Other long term (current) drug therapy

== ENCOUNTER → 2022-09-24 | Outpatient (CLI) | payer MEDICARE, MEDICAID ==
[~2022-09-24] MED LIST changes: -DOXY-342 PO; +DOXY100C81 PO
== END ==
LOC: M PLAIMG 11:04
PROVIDERS: ATTEND Physician Assistant
DX: R05.1 Acute cough (principal)

== ENCOUNTER → 2022-10-12 | Outpatient (CLI) | payer MEDICARE, MEDICAID ==
[~2022-10-12] MED LIST changes: +BARIUM SULFATE 700 MG TABLET (E-Z-DISK) As Ordered ONE; +E-Z-PAQUE 96% w/w SUSP 176GM BTL As Ordered ONE; +VARIBAR NECTAR 40% w/v 240ML SUSP BTL As Ordered ONE; +VARIBAR PUDDING 40% w/v 230ML TUBE As Ordered ONE
== END ==
LOC: M RAD 10:29
PROVIDERS: ATTEND Physician Assistant
DX: R05.8 Other specified cough (principal)

== ENCOUNTER → 2022-11-29 | Outpatient (CLI) | payer MEDICARE, MEDICAID ==
[~2022-11-29] MED LIST changes: -BARIUM SULFATE 700 MG TABLET (E-Z-DISK) As Ordered ONE; -E-Z-PAQUE 96% w/w SUSP 176GM BTL As Ordered ONE; -VARIBAR NECTAR 40% w/v 240ML SUSP BTL As Ordered ONE; -VARIBAR PUDDING 40% w/v 230ML TUBE As Ordered ONE
[2022-11-29 15:58] LABS: ALBUMIN 3.7 G/DL (3.2-5.2); BILIRUBIN,TOTAL 0.5 MG/DL (0.3-1.2); CALCIUM LEVEL 8.7 MG/DL (8.3-10.6); CHOLESTEROL RISK RATIO 4.29 (<5); CREATININE FOR GFR 1.29 MG/DL (0.70-1.30); GLOMERULAR FILTRATION RATE 56.8 (>35); HDL CHOLESTEROL 32.6 MG/DL (>40); LDL CHOLESTEROL 70.6 MG/DL (<100); POTASSIUM SERUM 4.6 MMOL/L (3.5-5.1); PTH INTACT 38.6 PG/ML (18.5-88.0)
[2022-11-29 15:59] LABS: TOTAL 25(OH) VITAMIN D 58.7 NG/ML (20.0-100.0)
[2022-11-29 17:10] LABS: HEMOGLOBIN A1c 5.3 % (4.0-6.0)
== END ==
LOC: M PLALAB 12:04
PROVIDERS: ATTEND Physician Assistant Medical
DX: E11.22 Type 2 diabetes mellitus with diabetic chronic kidney disease (principal); E55.9 Vitamin D deficiency, unspecified; E78.2 Mixed hyperlipidemia; Z79.899 Other long term (current) drug therapy

== ENCOUNTER → 2023-04-18 | Outpatient (CLI) | payer MEDICAID, MEDICARE ==
[~2023-04-18] MED LIST changes: +FLUT50SP17; +FLUT50SP17 NARES; -FLUTISP; -FLUTISP NARES
[2023-04-18 14:19] LABS: HEMATOCRIT 45.2 % (42.0-52.0)
[2023-04-18 14:24] LABS: BASO # 0.1 10^3/uL (0.0-0.2); BASO % 0.9 % (0.0-1.0); EOS # 0.4 10^3/uL (0.0-0.5); EOS % 4.3 % (0.0-3.0); HEMOGLOBIN 14.8 g/dl (13.5-17.5); LYMPH # 2.1 10^3/uL (1.5-5.0); LYMPH % 23.4 % (24.0-44.0); MEAN CORPUSCULAR HEMOGLOBIN 31.9 pg (27.0-33.0); MEAN CORPUSCULAR HGB CONC 32.9 g/dl (32.0-36.5); MONO # 0.9 10^3/uL (0.0-0.8); MONO % 10.3 % (2.0-8.0); NEUTROPHILS # 5.4 10^3/uL (1.5-8.5); NEUTROPHILS % 60.8 % (36.0-66.0); PLATELET COUNT, AUTOMATED 277 10^3/uL (150-450); RED BLOOD COUNT 4.64 10^6/uL (4.30-6.10); WHITE BLOOD COUNT 8.9 10^3/uL (4.0-10.0)
[2023-04-18 14:25] LABS: ALBUMIN 3.6 G/DL (3.2-5.2); BILIRUBIN,TOTAL 0.2 MG/DL (0.3-1.2); CALCIUM LEVEL 8.7 MG/DL (8.3-10.6); CHOLESTEROL RISK RATIO 4.08 (<5); CREATININE FOR GFR 1.28 MG/DL (0.70-1.30); GLOMERULAR FILTRATION RATE 57.3 (>35); HDL CHOLESTEROL 35.7 MG/DL (>40); LDL CHOLESTEROL 79.1 MG/DL (<100); NON-HDL-C 110.3 MG/DL; POTASSIUM SERUM 4.3 MMOL/L (3.5-5.1); PTH INTACT 22.8 PG/ML (18.5-88.0); TOTAL PROTEIN 6.7 G/DL (5.7-8.2)
[2023-04-18 14:26] LABS: TOTAL 25(OH) VITAMIN D 44.1 NG/ML (20.0-100.0)
[2023-04-18 14:35] LABS: HEMOGLOBIN A1c 5.5 % (4.0-6.0)
== END ==
LOC: M PLALAB 11:26
PROVIDERS: ATTEND Physician Assistant Medical
DX: E11.22 Type 2 diabetes mellitus with diabetic chronic kidney disease (principal); E53.8 Deficiency of other specified B group vitamins; E78.2 Mixed hyperlipidemia; N18.30 Chronic kidney disease, stage 3 unspecified; E55.9 Vitamin D deficiency, unspecified; Z12.5 Encounter for screening for malignant neoplasm of prostate
CPT/HCPCS: 36415; 80053; 80061; 82306; 82747; 83036; 83970; 85025; G0103

== ENCOUNTER → 2023-07-19 | Outpatient (CLI) | payer MEDICARE ==
[~2023-07-19] MED LIST changes: +DICL100G10 TOP; -DICL1GEL3 TOP; -DOXY100C81 PO; +DOXY100C82 PO; -K-TA10TA2; -K-TA10TA2 PO; +POTA-165; +POTA-165 PO
== END ==
LOC: M WUC 12:26
PROVIDERS: ATTEND Nurse Practitioner Family
DX: M85.851 Other specified disorders of bone density and structure, right thigh (principal); M25.551 Pain in right hip

== ENCOUNTER → 2023-08-03 | Outpatient (CLI) | payer MEDICARE, MEDICAID ==
[2023-08-03 14:05] LABS: APPEARANCE, URINE CLEAR (CLEAR); BACTERIA, URINE AUTO NEGATIVE (NEGATIVE); BILIRUBIN, URINE AUTO NEGATIVE (NEGATIVE); BLOOD, URINE BLOOD NEGATIVE (NEGATIVE); COLOR, URINE YELLOW (YELLOW); GLUCOSE, URINE (UA) AUTO NEGATIVE (NEGATIVE); KETONE, URINE AUTO NEGATIVE (NEGATIVE); LEUKOCYTE ESTERASE, URINE AUTO 2+ (NEGATIVE); NITRITE, URINE AUTO NEGATIVE (NEGATIVE); PROTEIN, URINE AUTO NEGATIVE (NEGATIVE); RBC, URINE AUTO 0 /HPF (0-3); SPECIFIC GRAVITY URINE AUTO 1.017 (1.002-1.035); SQUAMOUS EPITHELIAL CELL UR AU 0 /HPF (0-6); UROBILINOGEN, URINE AUTO 0.2 mg/dL (0.0-2.0); WBC, URINE AUTO 1 /HPF (0-3)
[2023-08-03 14:08] LABS: ALBUMIN 3.6 G/DL (3.2-5.2); BILIRUBIN,TOTAL 0.3 MG/DL (0.3-1.2); CALCIUM LEVEL 8.6 MG/DL (8.3-10.6); CREATININE FOR GFR 1.32 MG/DL (0.70-1.30); GLOMERULAR FILTRATION RATE 55.1 (>35); POTASSIUM SERUM 4.6 MMOL/L (3.5-5.1); TOTAL 25(OH) VITAMIN D 63.6 NG/ML (20.0-100.0); TOTAL PROTEIN 7.2 G/DL (5.7-8.2)
[2023-08-03 14:09] LABS: HEMOGLOBIN A1c 5.2 % (4.0-6.0)
[2023-08-03 14:29] LABS: PTH INTACT 42.8 PG/ML (18.5-88.0)
== END ==
LOC: M PLALAB 11:28
PROVIDERS: ATTEND Physician Assistant Medical
DX: E11.22 Type 2 diabetes mellitus with diabetic chronic kidney disease (principal); R30.0 Dysuria; N40.0 Benign prostatic hyperplasia without lower urinary tract symptoms; E78.2 Mixed hyperlipidemia; E55.9 Vitamin D deficiency, unspecified; Z12.5 Encounter for screening for malignant neoplasm of prostate
CPT/HCPCS: 36415; 80053; 81001; 82306; 83036; 83970; 87088; 87186; G0103

== ENCOUNTER → 2023-11-02 | Outpatient (REF) | payer MEDICARE, MEDICAID ==
[~2023-11-02] MED LIST changes: -FLUT50SP17; -FLUT50SP17 NARES; +FLUTISP; +FLUTISP NARES
== END ==
LOC: M SFHCPLAZ 13:03
PROVIDERS: ATTEND Student in an Organized Health Care Education/Training Program
DX: R09.89 Other specified symptoms and signs involving the circulatory and respiratory systems (principal)

== ENCOUNTER 2023-11-10 06:10 | Emergency (ER) | payer MEDICARE, MEDICAID ==
[~2023-11-10] VITALS: Ht 170.2 cm; Wt 106.8 kg
[2023-11-10 08:00] VITALS: O2SAT 97
[2023-11-10 08:05] VITALS: BP 120/58; TEMP 96.7
== END 2023-11-10 08:30 | disposition home or self-care (01) ==
LOC: M ED 06:10 → EDBD 06:10 → M ED 08:30
DX: Z04.3 Encounter for examination and observation following other accident (principal); E78.5 Hyperlipidemia, unspecified; F41.9 Anxiety disorder, unspecified; F32.A Depression, unspecified; F79 Unspecified intellectual disabilities; Z79.899 Other long term (current) drug therapy

== ENCOUNTER → 2023-11-15 | Outpatient (CLI) | payer MEDICARE, MEDICAID ==
[2023-11-15 16:37] LABS: BASO # 0.1 10^3/uL (0.0-0.2); BASO % 1.1 % (0.0-1.0); EOS # 0.4 10^3/uL (0.0-0.5); HEMATOCRIT 47.3 % (42.0-52.0); HEMOGLOBIN 15.5 g/dl (13.5-17.5); LYMPH # 2.1 10^3/uL (1.5-5.0); LYMPH % 22.4 % (24.0-44.0); MEAN CORPUSCULAR HGB CONC 32.8 g/dl (32.0-36.5); MEAN CORPUSCULAR VOLUME 97.5 fl (80.0-96.0); MONO # 0.8 10^3/uL (0.0-0.8); MONO % 9.1 % (2.0-8.0); NEUTROPHILS # 5.8 10^3/uL (1.5-8.5); NEUTROPHILS % 63.1 % (36.0-66.0); PLATELET COUNT, AUTOMATED 304 10^3/uL (150-450); RED BLOOD COUNT 4.85 10^6/uL (4.30-6.10); WHITE BLOOD COUNT 9.2 10^3/uL (4.0-10.0)
[2023-11-15 17:02] LABS: ALBUMIN 3.6 G/DL (3.2-5.2); BILIRUBIN,TOTAL 0.3 MG/DL (0.3-1.2); CALCIUM LEVEL 9.1 MG/DL (8.3-10.6); CREATININE FOR GFR 1.29 MG/DL (0.70-1.30); GLOMERULAR FILTRATION RATE 56.6 (>35); POTASSIUM SERUM 4.5 MMOL/L (3.5-5.1); TOTAL PROTEIN 7.1 G/DL (5.7-8.2)
== END ==
LOC: M PLALAB 14:19
PROVIDERS: ATTEND Physician Assistant Medical
DX: J10.1 Influenza due to other identified influenza virus with other respiratory manifestations (principal); W19.XXXD Unspecified fall, subsequent encounter

== ENCOUNTER → 2024-02-01 | Outpatient (CLI) | payer MEDICARE, MEDICAID ==
[2024-02-01 18:31] LABS: VITAMIN B12 LEVEL 1418 PG/ML (211-911)
[2024-02-01 18:33] LABS: THYROID STIMULATING HORMONE 2.416 uIU/ML (0.55-4.78)
[2024-02-01 18:35] LABS: FREE T4 0.75 NG/DL (0.89-1.76)
[2024-02-01 18:36] LABS: ALBUMIN 3.5 G/DL (3.2-5.2); ALKALINE PHOSPHATASE 66 U/L (46-116); ALT/SGPT 13 U/L (7.0-40); AST/SGOT 14 U/L (<34); BILIRUBIN,TOTAL 0.2 MG/DL (0.3-1.2); BLOOD UREA NITROGEN 23 MG/DL (9-23); CALCIUM LEVEL 8.7 MG/DL (8.3-10.6); CARBON DIOXIDE LEVEL 33 MMOL/L (20-31); CHLORIDE LEVEL 108 MMOL/L (98-107); CHOLESTEROL LEVEL 143 MG/DL (<200); CREATININE FOR GFR 1.64 MG/DL (0.70-1.30); GLOMERULAR FILTRATION RATE 42.9 (>35); GLUCOSE, FASTING 81 MG/DL (74-106); LDL CHOLESTEROL 81.4 MG/DL (<100); POTASSIUM SERUM 4.2 MMOL/L (3.5-5.1); SODIUM LEVEL 141 MMOL/L (136-145); TOTAL PROTEIN 6.8 G/DL (5.7-8.2); TRIGLYCERIDES LEVEL 168 MG/DL (<150)
[2024-02-01 18:40] LABS: PTH INTACT 34.3 PG/ML (18.5-88.0)
[2024-02-01 18:45] LABS: HEMOGLOBIN A1c 5.6 % (4.0-6.0)
== END ==
LOC: M PLAIMG 15:25
PROVIDERS: ATTEND Physician Assistant Medical
DX: M25.562 Pain in left knee (principal); G31.84 Mild cognitive impairment of uncertain or unknown etiology; E11.22 Type 2 diabetes mellitus with diabetic chronic kidney disease; E78.2 Mixed hyperlipidemia; E55.9 Vitamin D deficiency, unspecified; Z11.3 Encounter for screening for infections with a predominantly sexual mode of transmission; Z72.89 Other problems related to lifestyle; N18.30 Chronic kidney disease, stage 3 unspecified

== ENCOUNTER → 2024-04-23 | Outpatient (CLI) | payer MEDICARE, MEDICAID ==
[~2024-04-23] MED LIST changes: +DOXY-323 PO; -DOXY-443 PO
== END ==
LOC: M WUC 14:19
PROVIDERS: ATTEND Student in an Organized Health Care Education/Training Program
DX: M79.642 Pain in left hand (principal)

== ENCOUNTER 2024-04-29 20:56 | Inpatient (IN) | payer MEDICARE, MEDICAID ==
[~2024-04-29] VITALS: Ht 160 cm; Wt 88.5 kg
[~2024-04-29 20:56] MED LIST changes: +PRED20TA PO
[2024-04-29 22:15] LABS: ALBUMIN 3.2 G/DL (3.2-5.2); BILIRUBIN,DIRECT 0.2 MG/DL (<0.4); BILIRUBIN,TOTAL 0.5 MG/DL (0.3-1.2); CALCIUM LEVEL 8.4 MG/DL (8.3-10.6); CREATININE FOR GFR 1.39 MG/DL (0.70-1.30); POTASSIUM SERUM 4.2 MMOL/L (3.5-5.1); TOTAL PROTEIN 6.4 G/DL (5.7-8.2)
[2024-04-29 22:19] LABS: BASO % 0.2 % (0.0-1.0); EOS # 0.1 10^3/uL (0.0-0.5); EOS % 0.6 % (0.0-3.0); HEMATOCRIT 46.1 % (42.0-52.0); HEMOGLOBIN 15.8 g/dl (13.5-17.5); LYMPH # 1.4 10^3/uL (1.5-5.0); LYMPH % 9.9 % (24.0-44.0); MEAN CORPUSCULAR HEMOGLOBIN 32.1 pg (27.0-33.0); MEAN CORPUSCULAR HGB CONC 34.3 g/dl (32.0-36.5); MEAN CORPUSCULAR VOLUME 93.7 fl (80.0-96.0); MONO # 1.9 10^3/uL (0.0-0.8); MONO % 13.2 % (2.0-8.0); NEUTROPHILS # 10.7 10^3/uL (1.5-8.5); NEUTROPHILS % 75.6 % (36.0-66.0); PLATELET COUNT, AUTOMATED 330 10^3/uL (150-450); RED BLOOD COUNT 4.92 10^6/uL (4.30-6.10); WHITE BLOOD COUNT 14.2 10^3/uL (4.0-10.0)
[2024-04-30] VITALS (8 sets, daily range): BP systolic 84–121; BP diastolic 47–72; TEMP 97.7–101.7; O2SAT 95–100
[2024-04-30 01:16] LABS: APPEARANCE, URINE CLEAR (CLEAR); BACTERIA, URINE AUTO NEGATIVE (NEGATIVE); BILIRUBIN, URINE AUTO NEGATIVE (NEGATIVE); BLOOD, URINE BLOOD NEGATIVE (NEGATIVE); COLOR, URINE YELLOW (YELLOW); GLUCOSE, URINE (UA) AUTO NEGATIVE (NEGATIVE); KETONE, URINE AUTO NEGATIVE (NEGATIVE); LEUKOCYTE ESTERASE, URINE AUTO NEGATIVE (NEGATIVE); MUCUS, URINE SMALL (NEGATIVE); NITRITE, URINE AUTO NEGATIVE (NEGATIVE); PROTEIN, URINE AUTO 1+ mg/dL (NEGATIVE); RBC, URINE AUTO 2 /HPF (0-3); SPECIFIC GRAVITY URINE AUTO 1.018 (1.002-1.035); SQUAMOUS EPITHELIAL CELL UR AU 0 /HPF (0-6); UROBILINOGEN, URINE AUTO 0.2 mg/dL (0.0-2.0); WBC, URINE AUTO 3 /HPF (0-3)
[2024-04-30] MEDS ORDERED: ISOVUE-370 76% 100ML VIAL As Ordered ONE (01:31)
[2024-04-30] MEDS: ACETAMINOPHEN *IV* 1,000 MG in IV 1 EA IV ONE (01:51)
[2024-04-30] MEDS: NS 1,000 ML IV ONE (01:51)
[2024-04-30] MEDS: PIPERACILLIN/TAZOBACTAM SOD 4.5 GM in D5W MINI-BAG PLUS 50 ML IV ONE (04:46)
[2024-04-30] MEDS: NS 1,000 ML IV SCH (04:46)
[2024-04-30] MEDS: NS 500 ML IV ONE ×2 (04:55→06:01)
[2024-04-30 05:05] LABS: C REACTIVE PROTEIN QUANTITATIV 8.6 MG/DL (<1.0)
[2024-04-30 05:18] LABS: PROCALCITONIN 0.16 ng/ml
[2024-04-30] MEDS: HEPARIN SOD (PORCINE) 5000UNITS/ML 1ML VIAL/SYRINGE SC SCH (05:57)
[2024-04-30] MEDS ORDERED: TAMS1CAP17 PO (06:37)
[2024-04-30] MEDS ORDERED: TUMS500C PO (06:37)
[2024-04-30] MEDS ORDERED: ACET-897 PO (06:37)
[2024-04-30] MEDS ORDERED: CICL0.7733 TOP (06:37)
[2024-04-30] MEDS ORDERED: DESI13CR2 TOP (06:37)
[2024-04-30] MEDS ORDERED: NEOM28.3 TP (06:37)
[2024-04-30] MEDS ORDERED: AMMO12CR7 TOP (06:37)
[2024-04-30] MEDS ORDERED: ACET1TAB55 PO (06:37)
[2024-04-30] MEDS ORDERED: DICL20GE TP (06:37)
[2024-04-30] MEDS ORDERED: FINA5TAB2 PO (06:37)
[2024-04-30] MEDS ORDERED: D32000TA PO (06:37)
[2024-04-30] MEDS ORDERED: HOME MED LIST COMPLETE! XX SCH (06:40)
[2024-04-30] MEDS: PANTOPRAZOLE 40MG VIAL IV SCH (09:45)
[2024-04-30] MEDS: allopurinoL 100 MG TAB PO SCH (09:45)
[2024-04-30] MEDS: PIPERACILLIN/TAZOBACTAM SOD 3.375 GM in D5W MINI-BAG PLUS 50 ML IV SCH (11:46)
[2024-04-30] MEDS: ACETAMINOPHEN *IV* 1,000 MG in IV 1 EA IV PRN (12:27)
[2024-04-30] MEDS: ACETAMINOPHEN TAB 650MG DOSE (2X325MG) PO PRN (22:30)
[2024-05-01] VITALS (13 sets, daily range): BP systolic 92–128; BP diastolic 51–70; TEMP 98.1–101.6; O2SAT 93–97
[2024-05-01 06:17] LABS: MEAN CORPUSCULAR HEMOGLOBIN 32.9 pg (27.0-33.0); MEAN CORPUSCULAR HGB CONC 34.5 g/dl (32.0-36.5); MEAN CORPUSCULAR VOLUME 95.2 fl (80.0-96.0); PLATELET COUNT, AUTOMATED 280 10^3/uL (150-450); WHITE BLOOD COUNT 12.3 10^3/uL (4.0-10.0)
[2024-05-01 06:31] LABS: HEMOGLOBIN 13.8 g/dl (13.5-17.5)
[2024-05-01 06:40] LABS: C REACTIVE PROTEIN QUANTITATIV 11.6 MG/DL (<1.0)
[2024-05-01 06:47] LABS: PROCALCITONIN 0.16 ng/ml
[2024-05-01 06:48] LABS: ALBUMIN 2.3 G/DL (3.2-5.2); BILIRUBIN,TOTAL 0.4 MG/DL (0.3-1.2); CALCIUM LEVEL 7.4 MG/DL (8.3-10.6); CREATININE FOR GFR 1.33 MG/DL (0.70-1.30); GLOMERULAR FILTRATION RATE 54.7 (>35); MAGNESIUM LEVEL 2.1 MG/DL (1.8-2.4); POTASSIUM SERUM 4.1 MMOL/L (3.5-5.1); TOTAL PROTEIN 5.4 G/DL (5.7-8.2)
[2024-05-01] MEDS: VANCOMYCIN HCL 1,000 MG, VIAL MATE ADAPTER 1 EACH in D5W 250 ML IV ONE (08:47)
[2024-05-01] MEDS: MIRALAX *UNIT DOSE* 17GM PACKET PO SCH (08:47)
[2024-05-01] MEDS: SENOKOT S TAB PO SCH (08:48)
[2024-05-01] MEDS: CETIRIZINE (ZyrTEC) 10 MG TAB PO SCH (09:00)
[2024-05-01] MEDS: PRAVASTATIN 20 MG TAB PO SCH (12:57)
[2024-05-01] MEDS: FINASTERIDE 5MG TAB PO SCH (12:58)
[2024-05-01] MEDS: CALCIUM CARBONATE 500 MG CHEW U/D PO SCH (12:58)
[2024-05-01] MEDS: CYANOCOBALAMIN 500 MCG TAB PO SCH (12:58)
[2024-05-01] MEDS: VANCOMYCIN HCL 750 MG, VIAL MATE ADAPTER 1 EACH in D5W 250 ML IV SCH (12:59)
[2024-05-01] MEDS: DOXYCYCLINE HYCLATE 100MG TABLET PO SCH (16:51)
[2024-05-01] MEDS ORDERED: ALBUTEROL SULFATE 2.5MG/0.5ML INH NEB SOLN NEB PRN (17:45)
[2024-05-01] MEDS ORDERED: MIRALAX *UNIT DOSE* 17GM PACKET PO PRN (19:15)
[2024-05-01] MEDS: TAMSULOSIN 0.4 MG CAP PO SCH (20:34)
[2024-05-01] MEDS: LACTIC ACID 12% LOTION 225 GM BTL TOP SCH (20:36)
[2024-05-01] MEDS: NYSTATIN 100,000 UNITS/GM TOPICAL PWD 15GM TOP SCH (21:15)
[2024-05-02] VITALS (8 sets, daily range): BP systolic 96–128; BP diastolic 52–73; TEMP 99.2–102.6; O2SAT 94–98
[2024-05-02 09:06] LABS: BASO # 0.1 10^3/uL (0.0-0.2); BASO % 0.4 % (0.0-1.0); EOS # 0.7 10^3/uL (0.0-0.5); HEMATOCRIT 42.6 % (42.0-52.0); HEMOGLOBIN 14.7 g/dl (13.5-17.5); LYMPH # 1.1 10^3/uL (1.5-5.0); LYMPH % 7.9 % (24.0-44.0); MEAN CORPUSCULAR HEMOGLOBIN 32.3 pg (27.0-33.0); MEAN CORPUSCULAR HGB CONC 34.5 g/dl (32.0-36.5); MEAN CORPUSCULAR VOLUME 93.6 fl (80.0-96.0); MONO # 2.1 10^3/uL (0.0-0.8); MONO % 15.3 % (2.0-8.0); NEUTROPHILS # 9.6 10^3/uL (1.5-8.5); PLATELET COUNT, AUTOMATED 315 10^3/uL (150-450); RED BLOOD COUNT 4.55 10^6/uL (4.30-6.10); WHITE BLOOD COUNT 13.5 10^3/uL (4.0-10.0)
[2024-05-02 09:27] LABS: CALCIUM LEVEL 7.9 MG/DL (8.3-10.6); CREATININE FOR GFR 1.32 MG/DL (0.70-1.30); GLOMERULAR FILTRATION RATE 55.1 (>35); MAGNESIUM LEVEL 2.1 MG/DL (1.8-2.4); POTASSIUM SERUM 4.1 MMOL/L (3.5-5.1)
[2024-05-02 12:53] LABS: ERYTHROCYTE SEDIMENTATION RATE 59 mm/hr (0-20)
[2024-05-02] MEDS: predniSONE 20 MG TAB PO SCH (17:00)
[2024-05-03] VITALS (7 sets, daily range): BP systolic 88–123; BP diastolic 53–71; TEMP 97.3–97.9; O2SAT 94–97
[2024-05-03 06:24] LABS: BASO % 0.1 % (0.0-1.0); HEMATOCRIT 43.1 % (42.0-52.0); HEMOGLOBIN 14.7 g/dl (13.5-17.5); LYMPH # 0.8 10^3/uL (1.5-5.0); LYMPH % 9.1 % (24.0-44.0); MEAN CORPUSCULAR HEMOGLOBIN 31.8 pg (27.0-33.0); MEAN CORPUSCULAR HGB CONC 34.1 g/dl (32.0-36.5); MEAN CORPUSCULAR VOLUME 93.3 fl (80.0-96.0); MONO # 0.4 10^3/uL (0.0-0.8); MONO % 4.8 % (2.0-8.0); NEUTROPHILS # 7.9 10^3/uL (1.5-8.5); NEUTROPHILS % 85.3 % (36.0-66.0); PLATELET COUNT, AUTOMATED 316 10^3/uL (150-450); RED BLOOD COUNT 4.62 10^6/uL (4.30-6.10); WHITE BLOOD COUNT 9.2 10^3/uL (4.0-10.0)
[2024-05-03 06:43] LABS: BLOOD UREA NITROGEN 17 MG/DL (9-23); CALCIUM LEVEL 8.3 MG/DL (8.3-10.6); CARBON DIOXIDE LEVEL 27 MMOL/L (20-31); CHLORIDE LEVEL 107 MMOL/L (98-107); CREATININE FOR GFR 1.19 MG/DL (0.70-1.30); GLOMERULAR FILTRATION RATE > 60.0 (>35); GLUCOSE, FASTING 146 MG/DL (74-106); MAGNESIUM LEVEL 2.1 MG/DL (1.8-2.4); POTASSIUM SERUM 4.3 MMOL/L (3.5-5.1); SODIUM LEVEL 139 MMOL/L (136-145)
[2024-05-03 16:52] LABS: URIC ACID 3.4 MG/DL (3.7-9.2)
[2024-05-03] MEDS: NS 1,000 ML IV ONE (17:01)
[2024-05-03] MEDS: NS 1,000 ML IV SCH (18:36)
[2024-05-04 00:31] VITALS: BP 105/57; TEMP 97.9; O2SAT 97
[2024-05-04 03:40] VITALS: BP 97/48; TEMP 97.5; O2SAT 95
[2024-05-04 06:24] LABS: BASO % 0.1 % (0.0-1.0); HEMATOCRIT 39.6 % (42.0-52.0); HEMOGLOBIN 13.3 g/dl (13.5-17.5); LYMPH # 1.2 10^3/uL (1.5-5.0); MEAN CORPUSCULAR HEMOGLOBIN 31.7 pg (27.0-33.0); MEAN CORPUSCULAR HGB CONC 33.6 g/dl (32.0-36.5); MEAN CORPUSCULAR VOLUME 94.3 fl (80.0-96.0); MONO # 0.3 10^3/uL (0.0-0.8); MONO % 3.5 % (2.0-8.0); NEUTROPHILS # 8.1 10^3/uL (1.5-8.5); NEUTROPHILS % 83.2 % (36.0-66.0); PLATELET COUNT, AUTOMATED 315 10^3/uL (150-450); WHITE BLOOD COUNT 9.8 10^3/uL (4.0-10.0)
[2024-05-04 06:39] LABS: BLOOD UREA NITROGEN 19 MG/DL (9-23); CALCIUM LEVEL 7.9 MG/DL (8.3-10.6); CARBON DIOXIDE LEVEL 26 MMOL/L (20-31); CHLORIDE LEVEL 108 MMOL/L (98-107); CREATININE FOR GFR 1.04 MG/DL (0.70-1.30); GLOMERULAR FILTRATION RATE > 60.0 (>35); GLUCOSE, FASTING 128 MG/DL (74-106); POTASSIUM SERUM 4.4 MMOL/L (3.5-5.1); SODIUM LEVEL 138 MMOL/L (136-145)
[2024-05-04 06:47] LABS: ERYTHROCYTE SEDIMENTATION RATE 60 mm/hr (0-20)
[2024-05-04 08:00] VITALS: BP 113/71; TEMP 97.9; O2SAT 96
[2024-05-04] MEDS: predniSONE 10MG TAB PO SCH (09:00)
[2024-05-04 12:00] VITALS: BP 124/71; TEMP 97.5; O2SAT 97
[2024-05-04 20:23] VITALS: BP 141/77; TEMP 97.9; O2SAT 96
[2024-05-05 03:41] VITALS: BP 106/54; TEMP 97.5; O2SAT 97
[2024-05-05 06:31] LABS: BASO % 0.1 % (0.0-1.0); EOS % 0.1 % (0.0-3.0); HEMATOCRIT 36.9 % (42.0-52.0); HEMOGLOBIN 12.5 g/dl (13.5-17.5); LYMPH # 2.3 10^3/uL (1.5-5.0); LYMPH % 17.2 % (24.0-44.0); MEAN CORPUSCULAR HEMOGLOBIN 31.9 pg (27.0-33.0); MEAN CORPUSCULAR HGB CONC 33.9 g/dl (32.0-36.5); MEAN CORPUSCULAR VOLUME 94.1 fl (80.0-96.0); MONO # 0.7 10^3/uL (0.0-0.8); MONO % 5.5 % (2.0-8.0); NEUTROPHILS # 10.1 10^3/uL (1.5-8.5); NEUTROPHILS % 74.8 % (36.0-66.0); PLATELET COUNT, AUTOMATED 318 10^3/uL (150-450); RED BLOOD COUNT 3.92 10^6/uL (4.30-6.10); WHITE BLOOD COUNT 13.5 10^3/uL (4.0-10.0)
[2024-05-05 07:05] LABS: BLOOD UREA NITROGEN 20 MG/DL (9-23); CALCIUM LEVEL 8.3 MG/DL (8.3-10.6); CARBON DIOXIDE LEVEL 27 MMOL/L (20-31); CHLORIDE LEVEL 107 MMOL/L (98-107); CREATININE FOR GFR 1.02 MG/DL (0.70-1.30); GLOMERULAR FILTRATION RATE > 60.0 (>35); GLUCOSE, FASTING 95 MG/DL (74-106); POTASSIUM SERUM 4.4 MMOL/L (3.5-5.1); SODIUM LEVEL 138 MMOL/L (136-145)
[2024-05-05] MEDS ORDERED: DOXY100T PO (10:53)
[2024-05-05 11:57] VITALS: BP 106/59; TEMP 97.5; O2SAT 96
[2024-05-06] MEDS ORDERED: DOXY100C3 PO (13:57)
[2024-05-06 22:42] LABS: LYME TOTAL ANTIBODY CIA <= 0.90 Index (<=0.90)
== END 2024-05-05 13:30 | disposition home or self-care (01) | DRG 72 ==
LOC: M ED 20:56 → M ED INP 04-30 04:35 → M PCU 04-30 05:32 → M MSPAV 05-02 20:26
PROVIDERS: ADMIT Preventive Medicine Undersea and Hyperbaric Medicine; ATTEND Student in an Organized Health Care Education/Training Program
DX: G93.41 Metabolic encephalopathy (principal); R26.89 Other abnormalities of gait and mobility; I95.9 Hypotension, unspecified; M10.9 Gout, unspecified; R50.9 Fever, unspecified; I12.9 Hypertensive chronic kidney disease with stage 1 through stage 4 chronic kidney disease, or unspecified chronic kidney disease; E78.5 Hyperlipidemia, unspecified; K59.00 Constipation, unspecified; F32.A Depression, unspecified; F41.9 Anxiety disorder, unspecified; E66.9 Obesity, unspecified; N18.30 Chronic kidney disease, stage 3 unspecified; F70 Mild intellectual disabilities; Z79.899 Other long term (current) drug therapy; Z11.52 Encounter for screening for COVID-19; Z90.49 Acquired absence of other specified parts of digestive tract

== ENCOUNTER 2024-05-07 09:01 | Inpatient (IN) | payer MEDICARE, MEDICAID ==
[~2024-05-07] VITALS: Ht 160 cm; Wt 89.1 kg
[~2024-05-07 09:01] MED LIST changes: +ACET-897 PO; +AMMO12CR7 TOP; +CICL0.7733 TOP; +D32000TA PO; +DESI13CR2 TOP; +DICL20GE TP; +DOXY100C3 PO; +DOXY100T PO; +FINA5TAB2 PO; +NEOM28.3 TP; +TAMS1CAP17 PO; +TUMS500C PO
[2024-05-07] MEDS: LIDOCAINE 2% 5ML JELLY UROJET TOP ONE (09:15)
[2024-05-07] MEDS: NS 500 ML IV ONE (09:42)
[2024-05-07] MEDS ORDERED: ISOVUE-370 76% 100ML VIAL As Ordered ONE (10:30)
[2024-05-07 10:38] LABS: VENOUS BASE EXCESS 3.3 (-2.0-2.0); VENOUS HCO3 29.2 MMOL/L (23.0-27.0); VENOUS PARTIAL PRESSURE CO2 48.3 mmHg (38.0-50.0); VENOUS PARTIAL PRESSURE O2 32.5 mmHg (30.0-50.0); VENOUS PH 7.399 UNITS (7.330-7.430); VENOUS STANDARD HCO3 26.6 MMOL/L; VENOUS TOTAL CO2 30.7 MMOL/L (24.0-28.0)
[2024-05-07 10:39] LABS: BASO # 0.1 10^3/uL (0.0-0.2); BASO % 0.3 % (0.0-1.0); EOS # 0.2 10^3/uL (0.0-0.5); EOS % 0.8 % (0.0-3.0); HEMATOCRIT 46.6 % (42.0-52.0); HEMOGLOBIN 15.7 g/dl (13.5-17.5); LYMPH # 1.6 10^3/uL (1.5-5.0); LYMPH % 8.1 % (24.0-44.0); MEAN CORPUSCULAR HEMOGLOBIN 32.3 pg (27.0-33.0); MEAN CORPUSCULAR HGB CONC 33.7 g/dl (32.0-36.5); MEAN CORPUSCULAR VOLUME 95.9 fl (80.0-96.0); MONO # 1.8 10^3/uL (0.0-0.8); MONO % 9.2 % (2.0-8.0); NEUTROPHILS # 16.1 10^3/uL (1.5-8.5); NEUTROPHILS % 80.3 % (36.0-66.0); PLATELET COUNT, AUTOMATED 331 10^3/uL (150-450); RED BLOOD COUNT 4.86 10^6/uL (4.30-6.10)
[2024-05-07 11:11] LABS: CK-MB VALUE MASS < 1.0 NG/ML (<3.6)
[2024-05-07 11:12] LABS: THYROID STIMULATING HORMONE 2.544 uIU/ML (0.55-4.78)
[2024-05-07 11:17] LABS: ETHYL ALCOHOL (ETHANOL) < 0.003 % (0.000-0.010)
[2024-05-07 11:19] LABS: ALBUMIN 2.5 G/DL (3.2-5.2); ALKALINE PHOSPHATASE 56 U/L (46-116); ALT/SGPT 37 U/L (7.0-40); AST/SGOT 18 U/L (<34); BILIRUBIN,DIRECT 0.3 MG/DL (<0.4); BILIRUBIN,TOTAL 0.8 MG/DL (0.3-1.2); BLOOD UREA NITROGEN 22 MG/DL (9-23); CALCIUM LEVEL 8.3 MG/DL (8.3-10.6); CARBON DIOXIDE LEVEL 27 MMOL/L (20-31); CHLORIDE LEVEL 102 MMOL/L (98-107); CREATININE FOR GFR 1.42 MG/DL (0.70-1.30); GLOMERULAR FILTRATION RATE 50.6 (>35); GLUCOSE, FASTING 107 MG/DL (74-106); POTASSIUM SERUM 4.7 MMOL/L (3.5-5.1); SALICYLATE LEVEL < 3.0 MG/DL (<30); SODIUM LEVEL 136 MMOL/L (136-145)
[2024-05-07 11:21] LABS: CPK CREATINE PHOSPHOKINASE 54 U/L (46-171); MB/CK RELATIVE INDEX 1.85 (< OR =4)
[2024-05-07] MEDS: NS 1,000 ML IV ONE (12:08)
[2024-05-07] MEDS: PIPERACILLIN/TAZOBACTAM SOD 4.5 GM in D5W MINI-BAG PLUS 50 ML IV ONE (12:10)
[2024-05-07 12:12] LABS: CK-MB VALUE MASS 1.3 NG/ML (<3.6)
[2024-05-07 12:14] LABS: MB/CK RELATIVE INDEX 2.45 (< OR =4)
[2024-05-07 13:46] LABS: ERYTHROCYTE SEDIMENTATION RATE 49 mm/hr (0-20)
[2024-05-07] MEDS ORDERED: MAALOX 30 ML SUSP *UDC PO PRN (13:55)
[2024-05-07] MEDS ORDERED: MOM 30ML SUSPENSION UDC PO PRN (13:55)
[2024-05-07] MEDS ORDERED: B-12100010 PO (13:57)
[2024-05-07] MEDS ORDERED: HOME MED LIST COMPLETE! XX SCH (14:00)
[2024-05-07 14:47] LABS: PROCALCITONIN 0.17 ng/ml
[2024-05-07] MEDS: ACETAMINOPHEN 650MG SUPP PR ONE (14:59)
[2024-05-07 15:16] VITALS: BP 116/60; TEMP 101.5; O2SAT 96
[2024-05-07 15:21] LABS: AMPHETAMINES LEVEL URINE NEGATIVE (NEGATIVE); BARBITURATES URINE NEGATIVE (NEGATIVE); BENZODIAZEPINES URINE NEGATIVE (NEGATIVE); CANNABINOIDS URINE NEGATIVE (NEGATIVE); COCAINE METABOLITE URINE NEGATIVE (NEGATIVE); METHADONE URINE NEGATIVE (NEGATIVE); OPIATES URINE NEGATIVE (NEGATIVE); PHENCYCLIDINE URINE NEGATIVE (NEGATIVE)
[2024-05-07] MEDS: NS 1,000 ML IV SCH (15:33)
[2024-05-07] MEDS: ACETAMINOPHEN *IV* 1,000 MG in IV 1 EA IV ONE (15:51)
[2024-05-07] MEDS ORDERED: cefTRIAXone SOD 2 GM in D5W MINI-BAG PLUS 50 ML IV SCH (16:00)
[2024-05-07 16:43] VITALS: TEMP 98.3
[2024-05-07 20:20] VITALS: BP 93/54; TEMP 97.2; O2SAT 94
[2024-05-07] MEDS: HEPARIN SOD (PORCINE) 5000UNITS/ML 1ML VIAL/SYRINGE SC SCH (21:29)
[2024-05-07] MEDS: TAMSULOSIN 0.4 MG CAP PO SCH (21:29)
[2024-05-07] MEDS: PIPERACILLIN/TAZOBACTAM SOD 4.5 GM in D5W MINI-BAG PLUS 50 ML IV SCH (21:29)
[2024-05-07 23:20] VITALS: BP 95/56; TEMP 97.7; O2SAT 94
[2024-05-07] MEDS: NYSTATIN 100,000 UNITS/GM TOPICAL PWD 15GM TOP PRN (23:46)
[2024-05-08] VITALS (9 sets, daily range): BP systolic 90–123; BP diastolic 50–74; TEMP 98.5–101.3; O2SAT 93–100
[2024-05-08] MEDS: ACETAMINOPHEN TAB 650MG DOSE (2X325MG) PO PRN (04:05)
[2024-05-08] MEDS: FINASTERIDE 5MG TAB PO SCH (08:24)
[2024-05-08] MEDS: PRAVASTATIN 20 MG TAB PO SCH (08:24)
[2024-05-08] MEDS: CETIRIZINE (ZyrTEC) 10 MG TAB PO SCH (08:24)
[2024-05-08] MEDS: allopurinoL 100 MG TAB PO SCH (08:24)
[2024-05-08 08:38] LABS: HEMATOCRIT 39.2 % (42.0-52.0); MEAN CORPUSCULAR HEMOGLOBIN 32.5 pg (27.0-33.0); MEAN CORPUSCULAR HGB CONC 34.2 g/dl (32.0-36.5); MEAN CORPUSCULAR VOLUME 95.1 fl (80.0-96.0); PLATELET COUNT, AUTOMATED 347 10^3/uL (150-450); RED BLOOD COUNT 4.12 10^6/uL (4.30-6.10); WHITE BLOOD COUNT 17.3 10^3/uL (4.0-10.0)
[2024-05-08 08:45] LABS: HEMOGLOBIN 13.4 g/dl (13.5-17.5)
[2024-05-08 09:03] LABS: BILIRUBIN,TOTAL 0.8 MG/DL (0.3-1.2); CALCIUM LEVEL 7.7 MG/DL (8.3-10.6); CREATININE FOR GFR 1.49 MG/DL (0.70-1.30); GLOMERULAR FILTRATION RATE 47.8 (>35); POTASSIUM SERUM 4.3 MMOL/L (3.5-5.1)
[2024-05-08] MEDS: NS 1,000 ML IV ONE (17:46)
[2024-05-09] VITALS (8 sets, daily range): BP systolic 92–138; BP diastolic 52–98; TEMP 97.9–102.2; O2SAT 92–99
[2024-05-09] MEDS: DOXYCYCLINE HYCLATE 100MG TABLET PO SCH (00:13)
[2024-05-09] MEDS: ACETAMINOPHEN *IV* 1,000 MG in IV 1 EA IV ONE (04:20)
[2024-05-09] MEDS: NS 250 ML IV ONE (04:35)
[2024-05-09 05:34] LABS: MEAN CORPUSCULAR HEMOGLOBIN 31.9 pg (27.0-33.0); MEAN CORPUSCULAR HGB CONC 34.2 g/dl (32.0-36.5); MEAN CORPUSCULAR VOLUME 93.4 fl (80.0-96.0); PLATELET COUNT, AUTOMATED 311 10^3/uL (150-450); RED BLOOD COUNT 4.07 10^6/uL (4.30-6.10); WHITE BLOOD COUNT 15.4 10^3/uL (4.0-10.0)
[2024-05-09 06:08] LABS: ALBUMIN 1.9 G/DL (3.2-5.2); BILIRUBIN,TOTAL 0.4 MG/DL (0.3-1.2); CALCIUM LEVEL 7.3 MG/DL (8.3-10.6); CREATININE FOR GFR 1.37 MG/DL (0.70-1.30); GLOMERULAR FILTRATION RATE 52.7 (>35); POTASSIUM SERUM 4.4 MMOL/L (3.5-5.1); TOTAL PROTEIN 4.5 G/DL (5.7-8.2)
[2024-05-09 08:51] LABS: INR 1.46; PARTIAL THROMBOPLASTIN TIME 39.3 SECONDS (24.8-34.2); PROTHROMBIN TIME 17.2 SECONDS (12.5-14.5)
[2024-05-09] MEDS: NS 1,000 ML IV ONE (08:59)
[2024-05-09] MEDS: NS 1,000 ML IV SCH (22:06)
[2024-05-10 00:41] VITALS: BP 117/72; TEMP 100.2; O2SAT 94
[2024-05-10 04:16] VITALS: BP 117/71; TEMP 98.8; O2SAT 95
[2024-05-10 06:33] LABS: HEMATOCRIT 39.2 % (42.0-52.0); HEMOGLOBIN 13.3 g/dl (13.5-17.5); MEAN CORPUSCULAR HGB CONC 33.9 g/dl (32.0-36.5); MEAN CORPUSCULAR VOLUME 94.5 fl (80.0-96.0); PLATELET COUNT, AUTOMATED 358 10^3/uL (150-450); RED BLOOD COUNT 4.15 10^6/uL (4.30-6.10); WHITE BLOOD COUNT 13.3 10^3/uL (4.0-10.0)
[2024-05-10 06:56] LABS: C REACTIVE PROTEIN QUANTITATIV 17.8 MG/DL (<1.0)
[2024-05-10 06:59] LABS: BILIRUBIN,TOTAL 0.7 MG/DL (0.3-1.2); CALCIUM LEVEL 7.5 MG/DL (8.3-10.6); CREATININE FOR GFR 1.29 MG/DL (0.70-1.30); GLOMERULAR FILTRATION RATE 56.5 (>35); POTASSIUM SERUM 4.4 MMOL/L (3.5-5.1); TOTAL PROTEIN 5.3 G/DL (5.7-8.2)
[2024-05-10 08:00] VITALS: BP 123/79; TEMP 98.5; O2SAT 96
[2024-05-10 11:17] LABS: QuantiFERON-TB Gold Plus NEGATIVE (NEGATIVE)
[2024-05-10] MEDS: NYSTATIN 500,000U/5ML SUSP UDC SS SCH (13:03)
[2024-05-10 15:00] VITALS: BP 122/80; TEMP 97.7; O2SAT 99
[2024-05-10 15:33] LABS: CSF TUBE# TP TUBE 2
[2024-05-10 15:36] LABS: CSF TUBE# GLU TUBE 2
[2024-05-10 16:00] VITALS: BP 110/72; TEMP 97.8; O2SAT 97
[2024-05-10 16:28] LABS: APPEARANCE, CSF CLEAR (CLEAR); COLOR, CSF COLORLESS (COLORLESS); CSF TUBE# CELL CNT TUBE 4
[2024-05-10 18:47] LABS: CRYTPOCOCCUS SOURCE Serum
[2024-05-10 21:20] VITALS: BP 105/68; TEMP 100.9; O2SAT 93
[2024-05-11] VITALS (8 sets, daily range): BP systolic 100–121; BP diastolic 58–90; TEMP 98.2–99.7; O2SAT 94–99
[2024-05-11 06:24] LABS: HEMATOCRIT 39.1 % (42.0-52.0); HEMOGLOBIN 13.2 g/dl (13.5-17.5); MEAN CORPUSCULAR HEMOGLOBIN 32.2 pg (27.0-33.0); MEAN CORPUSCULAR HGB CONC 33.8 g/dl (32.0-36.5); MEAN CORPUSCULAR VOLUME 95.4 fl (80.0-96.0); PLATELET COUNT, AUTOMATED 371 10^3/uL (150-450); WHITE BLOOD COUNT 11.7 10^3/uL (4.0-10.0)
[2024-05-11 06:52] LABS: ALKALINE PHOSPHATASE 50 U/L (46-116); ALT/SGPT 24 U/L (7.0-40); AST/SGOT 21 U/L (<34); BILIRUBIN,TOTAL 0.7 MG/DL (0.3-1.2); BLOOD UREA NITROGEN 16 MG/DL (9-23); CALCIUM LEVEL 7.8 MG/DL (8.3-10.6); CARBON DIOXIDE LEVEL 26 MMOL/L (20-31); CHLORIDE LEVEL 105 MMOL/L (98-107); GLOMERULAR FILTRATION RATE > 60.0 (>35); GLUCOSE, FASTING 88 MG/DL (74-106); POTASSIUM SERUM 4.3 MMOL/L (3.5-5.1); SODIUM LEVEL 136 MMOL/L (136-145); TOTAL PROTEIN 5.4 G/DL (5.7-8.2)
[2024-05-11 19:02] LABS: FUNGITELL INTERPRETATION NEGATIVE (NEGATIVE); FUNGITELL, SERUM < 31 pg/mL (<60)
[2024-05-12] VITALS: BP 121/90; TEMP 99.7; O2SAT 95
[2024-05-12 01:04] LABS: Ehrlichia chaffeensis NOT DETECTED (NOT DETECT)
[2024-05-12 01:07] LABS: BORRELIA SPECIES DNA NOT DETECTED (NOT DETECT)
[2024-05-12 01:11] LABS: Anaplasma phagocytophilum NOT DETECTED (NOT DETECT); Babesia microti NOT DETECTED (NOT DETECT)
[2024-05-12 04:00] VITALS: BP 91/45; TEMP 99; O2SAT 94
[2024-05-12 06:43] LABS: HEMATOCRIT 36.8 % (42.0-52.0); HEMOGLOBIN 12.7 g/dl (13.5-17.5); MEAN CORPUSCULAR HEMOGLOBIN 32.3 pg (27.0-33.0); MEAN CORPUSCULAR HGB CONC 34.5 g/dl (32.0-36.5); MEAN CORPUSCULAR VOLUME 93.6 fl (80.0-96.0); PLATELET COUNT, AUTOMATED 366 10^3/uL (150-450); RED BLOOD COUNT 3.93 10^6/uL (4.30-6.10); WHITE BLOOD COUNT 11.6 10^3/uL (4.0-10.0)
[2024-05-12 07:04] LABS: ALBUMIN 1.9 G/DL (3.2-5.2); ALKALINE PHOSPHATASE 47 U/L (46-116); ALT/SGPT 24 U/L (7.0-40); AST/SGOT 20 U/L (<34); BILIRUBIN,TOTAL 0.6 MG/DL (0.3-1.2); BLOOD UREA NITROGEN 14 MG/DL (9-23); CALCIUM LEVEL 7.7 MG/DL (8.3-10.6); CARBON DIOXIDE LEVEL 25 MMOL/L (20-31); CHLORIDE LEVEL 107 MMOL/L (98-107); CREATININE FOR GFR 1.04 MG/DL (0.70-1.30); GLOMERULAR FILTRATION RATE > 60.0 (>35); GLUCOSE, FASTING 107 MG/DL (74-106); POTASSIUM SERUM 4.1 MMOL/L (3.5-5.1); SODIUM LEVEL 137 MMOL/L (136-145); TOTAL PROTEIN 5.2 G/DL (5.7-8.2)
[2024-05-12 12:00] VITALS: BP 117/56; TEMP 98.2; O2SAT 99
[2024-05-12 16:00] VITALS: BP 127/71; TEMP 98.4; O2SAT 97
[2024-05-12 20:00] VITALS: BP 145/85; TEMP 99.1; O2SAT 95
[2024-05-13] VITALS (7 sets, daily range): BP systolic 84–146; BP diastolic 45–96; TEMP 97.7–99; O2SAT 92–98
[2024-05-13 06:44] LABS: HEMATOCRIT 37.4 % (42.0-52.0); HEMOGLOBIN 12.7 g/dl (13.5-17.5); MEAN CORPUSCULAR HEMOGLOBIN 31.8 pg (27.0-33.0); MEAN CORPUSCULAR VOLUME 93.7 fl (80.0-96.0); PLATELET COUNT, AUTOMATED 382 10^3/uL (150-450); RED BLOOD COUNT 3.99 10^6/uL (4.30-6.10); WHITE BLOOD COUNT 13.9 10^3/uL (4.0-10.0)
[2024-05-13 07:12] LABS: ALBUMIN 1.9 G/DL (3.2-5.2); ALKALINE PHOSPHATASE 48 U/L (46-116); ALT/SGPT 26 U/L (7.0-40); AST/SGOT 24 U/L (<34); BILIRUBIN,TOTAL 0.6 MG/DL (0.3-1.2); BLOOD UREA NITROGEN 13 MG/DL (9-23); CALCIUM LEVEL 7.7 MG/DL (8.3-10.6); CARBON DIOXIDE LEVEL 26 MMOL/L (20-31); CHLORIDE LEVEL 103 MMOL/L (98-107); CREATININE FOR GFR 1.06 MG/DL (0.70-1.30); GLOMERULAR FILTRATION RATE > 60.0 (>35); GLUCOSE, FASTING 111 MG/DL (74-106); POTASSIUM SERUM 4.3 MMOL/L (3.5-5.1); SODIUM LEVEL 133 MMOL/L (136-145); TOTAL PROTEIN 5.3 G/DL (5.7-8.2)
[2024-05-13 19:22] LABS: COCCIDIODES AB IGG NEGATIVE (NEGATIVE); COCCIDIOIDES AB IGM NEGATIVE (NEGATIVE)
[2024-05-14] VITALS (7 sets, daily range): BP systolic 98–142; BP diastolic 54–84; TEMP 97.5–101.8; O2SAT 92–98
[2024-05-14] MEDS: diphenhydrAMINE 50MG/ML VIAL IV ONE (00:13)
[2024-05-14 06:30] LABS: HEMATOCRIT 36.9 % (42.0-52.0); HEMOGLOBIN 12.6 g/dl (13.5-17.5); MEAN CORPUSCULAR HEMOGLOBIN 32.2 pg (27.0-33.0); MEAN CORPUSCULAR HGB CONC 34.1 g/dl (32.0-36.5); MEAN CORPUSCULAR VOLUME 94.4 fl (80.0-96.0); PLATELET COUNT, AUTOMATED 391 10^3/uL (150-450); RED BLOOD COUNT 3.91 10^6/uL (4.30-6.10); WHITE BLOOD COUNT 13.5 10^3/uL (4.0-10.0)
[2024-05-14 07:05] LABS: ALBUMIN 1.9 G/DL (3.2-5.2); ALKALINE PHOSPHATASE 50 U/L (46-116); ALT/SGPT 27 U/L (7.0-40); AST/SGOT 25 U/L (<34); BILIRUBIN,TOTAL 0.6 MG/DL (0.3-1.2); BLOOD UREA NITROGEN 13 MG/DL (9-23); CALCIUM LEVEL 7.8 MG/DL (8.3-10.6); CARBON DIOXIDE LEVEL 25 MMOL/L (20-31); CHLORIDE LEVEL 107 MMOL/L (98-107); CREATININE FOR GFR 1.05 MG/DL (0.70-1.30); GLOMERULAR FILTRATION RATE > 60.0 (>35); GLUCOSE, FASTING 113 MG/DL (74-106); POTASSIUM SERUM 4.5 MMOL/L (3.5-5.1); SODIUM LEVEL 136 MMOL/L (136-145); TOTAL PROTEIN 5.4 G/DL (5.7-8.2)
[2024-05-14] MEDS: ACETAMINOPHEN *IV* 1,000 MG in IV 1 EA IV ONE (22:51)
[2024-05-14 23:40] LABS: ALBUMIN 1.9 G/DL (3.2-5.2); ALKALINE PHOSPHATASE 53 U/L (46-116); ALT/SGPT 31 U/L (7.0-40); AST/SGOT 30 U/L (<34); BILIRUBIN,TOTAL 0.4 MG/DL (0.3-1.2); BLOOD UREA NITROGEN 15 MG/DL (9-23); CALCIUM LEVEL 7.8 MG/DL (8.3-10.6); CARBON DIOXIDE LEVEL 26 MMOL/L (20-31); CHLORIDE LEVEL 104 MMOL/L (98-107); CREATININE FOR GFR 1.05 MG/DL (0.70-1.30); GLOMERULAR FILTRATION RATE > 60.0 (>35); GLUCOSE, FASTING 121 MG/DL (74-106); POTASSIUM SERUM 4.6 MMOL/L (3.5-5.1); SODIUM LEVEL 134 MMOL/L (136-145); TOTAL PROTEIN 5.3 G/DL (5.7-8.2)
[2024-05-15 04:30] VITALS: BP 104/60; TEMP 97.2; O2SAT 94
[2024-05-15 06:48] LABS: HEMATOCRIT 36.7 % (42.0-52.0); HEMOGLOBIN 12.1 g/dl (13.5-17.5); MEAN CORPUSCULAR HEMOGLOBIN 31.6 pg (27.0-33.0); MEAN CORPUSCULAR VOLUME 95.8 fl (80.0-96.0); PLATELET COUNT, AUTOMATED 451 10^3/uL (150-450); RED BLOOD COUNT 3.83 10^6/uL (4.30-6.10); WHITE BLOOD COUNT 11.2 10^3/uL (4.0-10.0)
[2024-05-15 07:12] LABS: ALKALINE PHOSPHATASE 52 U/L (46-116); ALT/SGPT 29 U/L (7.0-40); AST/SGOT 24 U/L (<34); BILIRUBIN,TOTAL 0.5 MG/DL (0.3-1.2); BLOOD UREA NITROGEN 15 MG/DL (9-23); CALCIUM LEVEL 8.2 MG/DL (8.3-10.6); CARBON DIOXIDE LEVEL 29 MMOL/L (20-31); CHLORIDE LEVEL 105 MMOL/L (98-107); CREATININE FOR GFR 1.12 MG/DL (0.70-1.30); GLOMERULAR FILTRATION RATE > 60.0 (>35); GLUCOSE, FASTING 107 MG/DL (74-106); POTASSIUM SERUM 4.2 MMOL/L (3.5-5.1); SODIUM LEVEL 136 MMOL/L (136-145); TOTAL PROTEIN 5.4 G/DL (5.7-8.2)
[2024-05-15 08:00] VITALS: BP 96/55; TEMP 97.4; O2SAT 94
[2024-05-15 12:00] VITALS: BP 114/74; TEMP 97.7; O2SAT 96
[2024-05-15 16:00] VITALS: BP 96/56; TEMP 98.2; O2SAT 94
[2024-05-15 16:10] LABS: HIV 1&2 SCREEN NEGATIVE (NEGATIVE)
[2024-05-15 20:18] VITALS: BP 122/75; TEMP 99.9; O2SAT 94
[2024-05-16] VITALS (7 sets, daily range): BP systolic 103–116; BP diastolic 52–63; TEMP 97.7–99.2; O2SAT 92–96
[2024-05-16 06:11] LABS: BASO # 0.1 10^3/uL (0.0-0.2); BASO % 0.5 % (0.0-1.0); EOS # 0.5 10^3/uL (0.0-0.5); EOS % 4.8 % (0.0-3.0); HEMATOCRIT 36.3 % (42.0-52.0); HEMOGLOBIN 12.3 g/dl (13.5-17.5); LYMPH # 1.3 10^3/uL (1.5-5.0); LYMPH % 14.1 % (24.0-44.0); MEAN CORPUSCULAR HEMOGLOBIN 31.9 pg (27.0-33.0); MEAN CORPUSCULAR HGB CONC 33.9 g/dl (32.0-36.5); MONO % 10.5 % (2.0-8.0); NEUTROPHILS # 6.5 10^3/uL (1.5-8.5); NEUTROPHILS % 69.5 % (36.0-66.0); PLATELET COUNT, AUTOMATED 470 10^3/uL (150-450); RED BLOOD COUNT 3.86 10^6/uL (4.30-6.10); WHITE BLOOD COUNT 9.4 10^3/uL (4.0-10.0)
[2024-05-16 06:36] LABS: BLOOD UREA NITROGEN 15 MG/DL (9-23); CALCIUM LEVEL 8.2 MG/DL (8.3-10.6); CARBON DIOXIDE LEVEL 27 MMOL/L (20-31); CHLORIDE LEVEL 101 MMOL/L (98-107); CREATININE FOR GFR 1.09 MG/DL (0.70-1.30); GLOMERULAR FILTRATION RATE > 60.0 (>35); GLUCOSE, FASTING 96 MG/DL (74-106); POTASSIUM SERUM 4.5 MMOL/L (3.5-5.1); SODIUM LEVEL 133 MMOL/L (136-145)
[2024-05-16] MEDS: LORazepam 2 MG/ML 1ML VIAL IV PRN (14:20)
[2024-05-17] VITALS (7 sets, daily range): BP systolic 102–111; BP diastolic 56–63; TEMP 97–99.7; O2SAT 92–93
[2024-05-17 07:07] LABS: BASO # 0.1 10^3/uL (0.0-0.2); BASO % 0.7 % (0.0-1.0); EOS # 0.5 10^3/uL (0.0-0.5); EOS % 5.6 % (0.0-3.0); HEMATOCRIT 36.2 % (42.0-52.0); HEMOGLOBIN 12.2 g/dl (13.5-17.5); LYMPH # 1.4 10^3/uL (1.5-5.0); LYMPH % 16.7 % (24.0-44.0); MEAN CORPUSCULAR HEMOGLOBIN 32.1 pg (27.0-33.0); MEAN CORPUSCULAR HGB CONC 33.7 g/dl (32.0-36.5); MEAN CORPUSCULAR VOLUME 95.3 fl (80.0-96.0); MONO # 1.1 10^3/uL (0.0-0.8); MONO % 12.3 % (2.0-8.0); NEUTROPHILS # 5.5 10^3/uL (1.5-8.5); NEUTROPHILS % 64.2 % (36.0-66.0); PLATELET COUNT, AUTOMATED 494 10^3/uL (150-450); WHITE BLOOD COUNT 8.5 10^3/uL (4.0-10.0)
[2024-05-17 07:33] LABS: BLOOD UREA NITROGEN 19 MG/DL (9-23); CALCIUM LEVEL 8.4 MG/DL (8.3-10.6); CARBON DIOXIDE LEVEL 28 MMOL/L (20-31); CHLORIDE LEVEL 102 MMOL/L (98-107); CREATININE FOR GFR 1.15 MG/DL (0.70-1.30); GLOMERULAR FILTRATION RATE > 60.0 (>35); GLUCOSE, FASTING 103 MG/DL (74-106); POTASSIUM SERUM 4.6 MMOL/L (3.5-5.1); SODIUM LEVEL 136 MMOL/L (136-145)
[2024-05-18 03:20] VITALS: BP 102/55; TEMP 97.5; O2SAT 91
[2024-05-18 08:00] VITALS: BP 104/57; TEMP 98.1; O2SAT 98
[2024-05-18 12:00] VITALS: BP 101/54; TEMP 98.2; O2SAT 97
[2024-05-21 02:06] LABS: EBV PCR QUAL WHOLE BLD Negative (Negative)
[2024-05-21 17:17] LABS: CMV QUANT DNA PCR (PLASMA) Not Detected; CMV SOURCE Whole Blood; log10 CMV QN DNA P1 Not Detected log IU/mL
== END 2024-05-18 13:02 | disposition other institution (70) | DRG 871 ==
LOC: EDBD 09:01 → M ED 09:01 → M ED INP 13:55 → M MSPAV 15:17 → OBSVTOIN 05-08 10:35 → M MSPAV 05-08 10:36
PROVIDERS: ADMIT Student in an Organized Health Care Education/Training Program; ATTEND Internal Medicine
PROC: B246ZZZ Ultrasonography of Right and Left Heart (ICD-10-PCS; principal; 2024-05-08)
PROC: 009U3ZX Drainage of Spinal Canal, Percutaneous Approach, Diagnostic (ICD-10-PCS; 2024-05-10)
DX: A41.9 Sepsis, unspecified organism (principal); G93.41 Metabolic encephalopathy; N17.9 Acute kidney failure, unspecified; E87.1 Hypo-osmolality and hyponatremia; B37.0 Candidal stomatitis; F79 Unspecified intellectual disabilities; F32.A Depression, unspecified; F41.9 Anxiety disorder, unspecified; E78.5 Hyperlipidemia, unspecified; E66.9 Obesity, unspecified; M10.9 Gout, unspecified; R91.8 Other nonspecific abnormal finding of lung field; R26.89 Other abnormalities of gait and mobility; M25.532 Pain in left wrist; I10 Essential (primary) hypertension; Z90.49 Acquired absence of other specified parts of digestive tract; Z79.2 Long term (current) use of antibiotics; Z79.899 Other long term (current) drug therapy; N40.0 Benign prostatic hyperplasia without lower urinary tract symptoms

== ENCOUNTER → 2024-05-28 | Outpatient (CLI) | payer MEDICAID, MEDICARE ==
[~2024-05-28] MED LIST changes: +B-12100010 PO
[2024-05-28 18:30] LABS: BASO # 0.1 10^3/uL (0.0-0.2); BASO % 0.9 % (0.0-1.0); EOS # 0.3 10^3/uL (0.0-0.5); EOS % 3.3 % (0.0-3.0); HEMATOCRIT 44.1 % (42.0-52.0); LYMPH # 1.9 10^3/uL (1.5-5.0); LYMPH % 20.9 % (24.0-44.0); MEAN CORPUSCULAR HEMOGLOBIN 31.3 pg (27.0-33.0); MEAN CORPUSCULAR HGB CONC 31.7 g/dl (32.0-36.5); MEAN CORPUSCULAR VOLUME 98.7 fl (80.0-96.0); MONO # 0.7 10^3/uL (0.0-0.8); MONO % 7.6 % (2.0-8.0); NEUTROPHILS # 6.1 10^3/uL (1.5-8.5); NEUTROPHILS % 67.1 % (36.0-66.0); PLATELET COUNT, AUTOMATED 438 10^3/uL (150-450); RED BLOOD COUNT 4.47 10^6/uL (4.30-6.10); WHITE BLOOD COUNT 9.1 10^3/uL (4.0-10.0)
[2024-05-28 18:48] LABS: URIC ACID 4.4 MG/DL (3.7-9.2)
[2024-05-28 18:49] LABS: C REACTIVE PROTEIN QUANTITATIV < 0.40 MG/DL (<1.0)
[2024-05-28 18:51] LABS: ALBUMIN 3.2 G/DL (3.2-5.2); ALKALINE PHOSPHATASE 72 U/L (46-116); ALT/SGPT 19 U/L (7.0-40); AST/SGOT 14 U/L (<34); BILIRUBIN,TOTAL 0.3 MG/DL (0.3-1.2); BLOOD UREA NITROGEN 18 MG/DL (9-23); CALCIUM LEVEL 9.4 MG/DL (8.3-10.6); CARBON DIOXIDE LEVEL 30 MMOL/L (20-31); CHLORIDE LEVEL 104 MMOL/L (98-107); CREATININE FOR GFR 1.13 MG/DL (0.70-1.30); GLOMERULAR FILTRATION RATE > 60.0 (>35); GLUCOSE, FASTING 89 MG/DL (74-106); POTASSIUM SERUM 4.4 MMOL/L (3.5-5.1); SODIUM LEVEL 141 MMOL/L (136-145)
[2024-05-28 18:54] LABS: ERYTHROCYTE SEDIMENTATION RATE 72 mm/hr (0-20)
== END ==
LOC: M PLALAB 15:50
PROVIDERS: ATTEND Physician Assistant Medical
DX: R50.9 Fever, unspecified (principal); M11.20 Other chondrocalcinosis, unspecified site; A41.9 Sepsis, unspecified organism; R91.8 Other nonspecific abnormal finding of lung field; R59.0 Localized enlarged lymph nodes; N17.9 Acute kidney failure, unspecified; E87.1 Hypo-osmolality and hyponatremia; M10.9 Gout, unspecified

== ENCOUNTER → 2024-07-25 | Outpatient (CLI) | payer MEDICARE, MEDICAID ==
[2024-07-25 13:40] LABS: BASO # 0.1 10^3/uL (0.0-0.2); BASO % 0.9 % (0.0-1.0); EOS # 0.5 10^3/uL (0.0-0.5); EOS % 5.2 % (0.0-3.0); HEMOGLOBIN 14.7 g/dl (13.5-17.5); LYMPH # 1.7 10^3/uL (1.5-5.0); LYMPH % 18.8 % (24.0-44.0); MEAN CORPUSCULAR HEMOGLOBIN 31.8 pg (27.0-33.0); MEAN CORPUSCULAR HGB CONC 33.4 g/dl (32.0-36.5); MEAN CORPUSCULAR VOLUME 95.2 fl (80.0-96.0); MONO % 10.8 % (2.0-8.0); NEUTROPHILS # 5.9 10^3/uL (1.5-8.5); PLATELET COUNT, AUTOMATED 286 10^3/uL (150-450); RED BLOOD COUNT 4.62 10^6/uL (4.30-6.10); WHITE BLOOD COUNT 9.3 10^3/uL (4.0-10.0)
[2024-07-25 13:58] LABS: HEMOGLOBIN A1c 5.3 % (4.0-6.0)
[2024-07-25 14:10] LABS: ALBUMIN 3.5 G/DL (3.2-5.2); ALKALINE PHOSPHATASE 74 U/L (46-116); ALT/SGPT 20 U/L (7.0-40); AST/SGOT 16 U/L (<34); BILIRUBIN,TOTAL 0.5 MG/DL (0.3-1.2); BLOOD UREA NITROGEN 15 MG/DL (9-23); CALCIUM LEVEL 9.4 MG/DL (8.3-10.6); CARBON DIOXIDE LEVEL 28 MMOL/L (20-31); CHLORIDE LEVEL 103 MMOL/L (98-107); CREATININE FOR GFR 1.17 MG/DL (0.70-1.30); GLOMERULAR FILTRATION RATE > 60.0 (>35); GLUCOSE, FASTING 104 MG/DL (74-106); POTASSIUM SERUM 4.2 MMOL/L (3.5-5.1); SODIUM LEVEL 139 MMOL/L (136-145); TOTAL PROTEIN 7.3 G/DL (5.7-8.2)
== END ==
LOC: M PLALAB 11:38
PROVIDERS: ATTEND Physician Assistant Medical
DX: E11.22 Type 2 diabetes mellitus with diabetic chronic kidney disease (principal); M11.20 Other chondrocalcinosis, unspecified site; N40.1 Benign prostatic hyperplasia with lower urinary tract symptoms; Z12.5 Encounter for screening for malignant neoplasm of prostate; J30.2 Other seasonal allergic rhinitis

== ENCOUNTER 2024-09-03 11:00 | Emergency (ER) | payer MEDICARE, MEDICAID ==
[~2024-09-03] VITALS: Ht 160 cm; Wt 85.0 kg
[~2024-09-03 11:00] MED LIST changes: -DOXY-323 PO; +DOXY-441 PO
[2024-09-03 14:43] VITALS: BP 136/65; TEMP 96; O2SAT 98
== END 2024-09-03 14:46 | disposition home or self-care (01) ==
LOC: M ED 11:00 → EDBD 11:00 → M ED 14:46
DX: S80.01XA Contusion of right knee, initial encounter (principal); Y92.9 Unspecified place or not applicable; Y93.9 Activity, unspecified; Y99.9 Unspecified external cause status; W01.0XXA Fall on same level from slipping, tripping and stumbling without subsequent striking against object, initial encounter; I12.9 Hypertensive chronic kidney disease with stage 1 through stage 4 chronic kidney disease, or unspecified chronic kidney disease; K21.9 Gastro-esophageal reflux disease without esophagitis; Z79.1 Long term (current) use of non-steroidal anti-inflammatories (NSAID); Z79.899 Other long term (current) drug therapy

== ENCOUNTER → 2024-11-19 | Outpatient (CLI) | payer MEDICARE, MEDICAID ==
[2024-11-19 15:08] LABS: ALBUMIN 3.5 G/DL (3.2-5.2); ALKALINE PHOSPHATASE 62 U/L (40-129); ALT/SGPT 17 U/L (7.0-40); AST/SGOT 14 U/L (<34); BILIRUBIN,TOTAL 0.4 MG/DL (0.3-1.2); BLOOD UREA NITROGEN 23 MG/DL (9-23); CALCIUM LEVEL 9.2 MG/DL (8.3-10.6); CARBON DIOXIDE LEVEL 32 MMOL/L (20-31); CHLORIDE LEVEL 102 MMOL/L (98-107); GLOMERULAR FILTRATION RATE > 60.0 (>35); GLUCOSE, FASTING 77 MG/DL (74-106); POTASSIUM SERUM 4.4 MMOL/L (3.5-5.1); SODIUM LEVEL 139 MMOL/L (136-145)
== END ==
LOC: M PLALAB 11:43
PROVIDERS: ATTEND Physician Assistant Medical
DX: E87.1 Hypo-osmolality and hyponatremia (principal); R60.0 Localized edema; N18.30 Chronic kidney disease, stage 3 unspecified; E66.9 Obesity, unspecified

== ENCOUNTER → 2025-06-05 | Outpatient (CLI) | payer MEDICARE, MEDICAID ==
[~2025-06-05] MED LIST changes: +AMMO12CR4 TOP; -AMMO12CR7 TOP; +DOXY-442 PO; -DOXY100C82 PO; -NYST-13; -NYST-13 TOP; +NYST0.1C; +NYST0.1C TOP; +PRAV10TA PO; -PRAV10TA4 PO; -PRAV40TA2; -PRAV40TA2 PO; +PRAV40TA85; +PRAV40TA85 PO
== END ==
LOC: M RAD 11:22
PROVIDERS: ATTEND Physician Assistant Medical
DX: R59.0 Localized enlarged lymph nodes (principal)

== ENCOUNTER → 2025-08-02 | Outpatient (REF) | payer MEDICARE, MEDICAID | LOC: M SFHCPLAZ 15:45 | PROVIDERS: ATTEND Family Medicine | DX: Z53.9 Procedure and treatment not carried out, unspecified reason (principal) ==

== ENCOUNTER → 2025-08-02 | Outpatient (CLI) | payer MEDICAID, MEDICARE | LOC: M PLAIMG 16:46 | DX: R05.8 Other specified cough (principal) ==

== ENCOUNTER → 2025-10-22 | Outpatient (CLI) | payer MEDICARE, MEDICAID | LOC: M PLAIMG 13:03 | PROVIDERS: ATTEND Physician Assistant Medical | DX: J06.9 Acute upper respiratory infection, unspecified (principal) ==